=== PATIENT | male | born 1940 | race Caucasian/White ===

== ENCOUNTER 2020-02-22 10:21 | Inpatient (IN) | payer MEDICARE ==
[2020-02-22] MEDS ORDERED: NITROGLYCERIN OINT 1 INCH/GM PACKET TOPICAL STA (10:38)
[2020-02-22] MEDS ORDERED: HEPARIN SODIUM,PORCINE 5,000 UNIT/ML 1 ML VIAL IV ONE (10:46)
[2020-02-22] MEDS ORDERED: HEPARIN SODIUM,PORCINE 5,000 UNIT/ML 1 ML VIAL IV PRN (10:46)
--- NOTE | 2020-02-22 10:57 | XR ---
EXAMINATION TYPE: XR chest 2V DATE OF EXAM: 02/22/2020 COMPARISON: NONE HISTORY: Shortness of breath TECHNIQUE: Frontal and lateral views of the chest are obtained. FINDINGS: Scattered senescent parenchymal changes noted. Hyperinflation compatible with COPD. Right infrahilar infiltrate compatible with pneumonia. Heart size is stable. Mediastinal structures are stable and grossly unremarkable. No evidence for hilar prominence. Degenerative changes dorsal spine. IMPRESSION: 1. Right infrahilar infiltrate compatible with pneumonia.
[2020-02-22] MEDS ORDERED: HEPARIN SOD,PORK IN 0.45% NACL 25,000 UNIT in 0.45% NACL 1 250ML.BAG IV SCH (11:00)
[2020-02-22 11:07] LABS: Basophils % (A) 0 %; Eosinophils # (A) 0.1 k/uL (0-0.7); Eosinophils % (A) 1 %; HCT 52.5 % (39.0-53.0); HGB 17.3 gm/dL (13.0-17.5); Lymphocytes # (A) 0.8 k/uL (1.0-4.8); Lymphocytes % (A) 5 %; MCH 30.4 pg (25.0-35.0); MCV 91.9 fL (80.0-100.0); Mean Platelet Volume 6.5; Monocytes # (A) 0.6 k/uL (0-1.0); Monocytes % (A) 3 %; Neutrophils # (A) 15.3 k/uL (1.3-7.7); Neutrophils % (A) 91 %; Platelet Count 346 k/uL (150-450); RBC 5.71 m/uL (4.30-5.90); RDW 13.1 % (11.5-15.5); WBC 16.9 k/uL (3.8-10.6)
[2020-02-22 11:14] LABS: ALT 34 U/L (4-49); AST 131 U/L (17-59); African American GFR (CKD) >90 (>60 ml/min/1.73 sqM); Alkaline Phosphatase 104 U/L (38-126); Anion Gap 14 mmol/L; Blood Urea Nitrogen 16 mg/dL (9-20); Calcium 9.8 mg/dL (8.4-10.2); Carbon Dioxide 23 mmol/L (22-30); Chloride 101 mmol/L (98-107); Glucose 144 mg/dL (74-99); Lipase 49 U/L (23-300); Magnesium 2.1 mg/dL (1.6-2.3); Non-African American GFR(CKD) 79 (>60 ml/min/1.73 sqM); Potassium 4.2 mmol/L (3.5-5.1); Sodium 138 mmol/L (137-145); Total Bilirubin 0.9 mg/dL (0.2-1.3); Total Protein 8.1 g/dL (6.3-8.2)
[2020-02-22 11:36] LABS: Partial Thromboplastin Time 24.8 sec (22.0-30.0); Prothrombin Time 10.5 sec (9.0-12.0)
--- NOTE | 2020-02-22 11:58 | ED ---
Chest Pain HPI - General Source: patient, EMS, RN notes reviewed Mode of arrival: EMS Limitations: no limitations <Jude Palmer - Last Filed: 02/22/20 12:35> <Isa Mendieta - Last Filed: 02/25/20 14:24> - General Chief Complaint: Chest Pain Stated Complaint: Chest Pain Time Seen by Provider: 02/22/20 10:35 - History of Present Illness Initial Comments: 79 - Male presents emergency Department chief complaint of chest discomfort. Patient states symptoms started around 3 AM this morning. Patient states that is centralized right-sided. Patient has no prior cardiac disease. Patient states he does not take any current medications though does not go to a primary care physician as states she's never needed to. Patient does not feel short of breath at this time reports no fevers or chills. (Jude Palmer) - Related Data Home Medications Medication Instructions Recorded Confirmed No Known Home Medications 02/22/20 02/22/20 Allergies Allergy/AdvReac Type Severity Reaction Status Date / Time latex Allergy Rash/Hives Verified 02/22/20 11:35 Review of Systems ROS Other: All systems not noted in ROS Statement are negative. <Jude Palmer - Last Filed: 02/22/20 12:35> ROS Other: All systems not noted in ROS Statement are negative. <Isa Mendieta - Last Filed: 02/25/20 14:24> ROS Statement: Those systems with pertinent positive or pertinent negative responses have been documented in the HPI. EKG Findings - EKG Comments: EKG Findings:: EKG 0.7:22 sinus tachycardia rate of 1:11 PM 164 QRS 90 QT status QTC 326/[address] elevation noted in V4 V5 <Jude Palmer - Last Filed: 02/22/20 12:35> Past Medical History Past Medical History: No Reported History History of Any Multi-Drug Resistant Organisms: None Reported Past Surgical History: Appendectomy, Cholecystectomy, Hernia Repair Past Psychological History: No Psychological Hx Reported Smoking Status: Never smoker Past Alcohol Use History: Occasional Past Drug Use History: None Reported <Jude Palmer - Last Filed: 02/22/20 12:35> General Exam Limitations: no limitations General appearance: alert, in no apparent distress Head exam: Present: atraumatic, normocephalic, normal inspection Eye exam: Present: normal appearance, PERRL, EOMI. Absent: scleral icterus, conjunctival injection, periorbital swelling ENT exam: Present: normal exam, mucous membranes moist Neck exam: Present: normal inspection, full ROM. Absent: tenderness, meningismus, lymphadenopathy Respiratory exam: Present: normal lung sounds bilaterally. Absent: respiratory distress, wheezes, rales, rhonchi, stridor Cardiovascular Exam: Present: normal rhythm, tachycardia, normal heart sounds. Absent: systolic murmur, diastolic murmur, rubs, gallop, clicks <Jude Palmer - Last Filed: 02/22/20 12:35> Course <Jude Palmer - Last Filed: 02/22/20 12:35> Vital Signs 02/22/20 02/22/20 02/22/20 10:23 10:31 10:33 Temperature 98.1 F Pulse Rate 114 H 112 H Pulse Rate [ 115 H Cma ] Respiratory 18 13 Rate Blood Pressure 121/82 O2 Sat by Pulse 95 90 L Oximetry 02/22/20 02/22/20 02/22/20 11:00 11:20 11:30 Temperature 98.6 F Pulse Rate 114 H 121 H 122 H Pulse Rate [ Cma ] Respiratory 8 L 22 17 Rate Blood Pressure 121/82 130/87 130/87 O2 Sat by Pulse 91 L 93 L 92 L Oximetry 02/22/20 02/22/20 02/22/20 11:31 12:00 12:30 Temperature Pulse Rate 116 H 118 H Pulse Rate [ Cma ] Respiratory 22 17 16 Rate Blood Pressure 125/87 128/83 O2 Sat by Pulse 89 L 90 L Oximetry 02/22/20 13:00 Temperature Pulse Rate Pulse Rate [ Cma ] Respiratory Rate Blood Pressure 127/79 O2 Sat by Pulse Oximetry - Reevaluation(s) Reevaluation #1: 02/22/20 12:02 Dr. Mendieta did discuss case with Dr. Villatoro at 1201 patient to be evaluated in the emergency department. (Jude Palmer) Chest Pain [facility] <Jude Palmer - Last Filed: 02/22/20 12:35> <Isa Mendieta - Last Filed: 02/25/20 14:24> - [facility] Patient evidence of elevated troponin. Cardiology was counseled at this time. Patiently take it for heart cath. (Jude Palmer) I was available for consultation in the emergency department. The history and physical exam were done by the midlevel provider. I was consulted for this patients care. I reviewed the case with the midlevel provider and based on their presentation of the patient, I agree with the assessment, medical decision making and plan of care as documented. Two EKG obtained serially due to biphasic nature of V3-V4. Patient evaluated myself and chest pain minimal upon my exam. Spoke with Dr. Villatoro in regards to patients EKG. His MACHINE MOLDER presented immediately to ED to evaluate the patient and take him to oven laborer for further intervention. Chart was dictated using [employer] dictation software. Attempts were made to correct any dictation errors however some typographical errors may persist. Patient was seen during a national state of emergency due to the Covid-19 pandemic. (Isa Mendieta) Critical Care Time Critical Care Time: Yes Total Critical Care Time: 35 <Jude Palmer - Last Filed: 02/22/20 12:35> Critical Care Time: Total 35 minutes of critical care time used to initially evaluated view past medical history, according labs EKG and chest x-ray. Patient found to have a troponin at 14 case is discussed with cardiology who will take patient for heart catheterization. Patient does have evidence of possible pneumonia though he does not have fever. Patient did have CT aorta of the chest. (Jude Palmer) Disposition <Jude Palmer - Last Filed: 02/22/20 12:35> <Isa Mendieta - Last Filed: 02/25/20 14:24> Clinical Impression: NSTEMI (non-ST elevated myocardial infarction) Disposition: ADMITTED IP TO THIS HOSP Condition: Serious
[2020-02-22] MEDS ORDERED: NITROGLYCERIN SL TABS 0.4 MG TAB SUBLINGUAL PRN ×2 (12:37→14:28)
[2020-02-22] MEDS ORDERED: ALPRAZolam 0.25 MG TAB PO PRN (12:40)
[2020-02-22] MEDS ORDERED: SODIUM CHLORIDE 0.9% 1,000 ML in EMPTY BAG 1 BAG IV ONE (12:40)
[2020-02-22] MEDS ORDERED: ATORVASTATIN 80 MG TAB PO STA (12:40)
[2020-02-22] MEDS ORDERED: ALPRAZolam 0.5 MG TAB PO PRN (12:40)
[2020-02-22] MEDS ORDERED: LIDOCAINE 1% INJ 10MG/ML (20 ML MDV) ONE (12:56)
[2020-02-22] MEDS ORDERED: VERAPAMIL 2.5 MG/ML 2 ML AMP ONE (12:56)
[2020-02-22] MEDS ORDERED: fentaNYL (PF) 50 MCG/ML 2 ML AMP ONE (13:00)
[2020-02-22] MEDS ORDERED: IV FLUID CONTINUATION 1,000 ML IV ONE (13:01)
[2020-02-22] MEDS ORDERED: fentaNYL (PF) 50 MCG/ML 2 ML AMP IV ONE (13:17)
[2020-02-22] MEDS ORDERED: LIDOCAINE 1% INJ 10MG/ML (20 ML MDV) SQ ONE (13:19)
[2020-02-22] MEDS ORDERED: VERAPAMIL SYRINGE (5 MG/10 ML) INTRAARTER ONE (13:24)
[2020-02-22] MEDS ORDERED: BIVALIRUDIN BOLUS 250 MG/50 ML IV ONE (13:33)
[2020-02-22] MEDS ORDERED: BIVALIRUDIN 250 MG in SODIUM CHLORIDE 0.9% 50 ML IV ONE (13:34)
[2020-02-22] MEDS ORDERED: TICAGRELOR 90 MG TAB ONE (13:36)
[2020-02-22] MEDS ORDERED: TICAGRELOR 90 MG TAB PO ONE (13:38)
[2020-02-22] MEDS ORDERED: IOPAMIDOL-370 125ML BTL INJ ONE ×2 (13:45→14:10)
[2020-02-22] MEDS: NITROGLYCERIN 1000MCG/10ML SYRINGE INTRACORON ONE ×2 (13:45→13:57)
[2020-02-22] MEDS ORDERED: FUROSEMIDE 10 MG/ML 4 ML VIAL ONE (13:47)
[2020-02-22] MEDS ORDERED: FUROSEMIDE 10 MG/ML 4 ML VIAL IV ONE (13:50)
[2020-02-22] MEDS ORDERED: METOPROLOL TARTRATE 25 MG TAB PO SCH (14:10)
[2020-02-22] MEDS ORDERED: ATROPINE SULFATE 0.1 MG/ML 10ML SYRINGE IV PRN (14:28)
[2020-02-22] MEDS ORDERED: RX INFO: IV CONTRAST WAS GIVEN 1 EACH MISC MISCELLANE PRN (14:28)
[2020-02-22] MEDS ORDERED: MAG HYDROX/AL HYDROX/SIMETH 30 ML CUP PO PRN (14:28)
[2020-02-22] MEDS ORDERED: ZOLPIDEM 5 MG TAB PO PRN (14:28)
[2020-02-22] MEDS ORDERED: SODIUM CHLORIDE 0.9% 1,000 ML IV SCH (14:30)
--- NOTE | 2020-02-22 14:35 | P.CRDCN ---
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 He denies prior history of coronary artery disease and does not follow in the office with a truss builder. We have been asked to see in consultation for chest pain. He states he was up last night at 0300 on his computer and he had a sudden onset of chest pressure in the mid-sternal and left precoridal region. The pain did not radiate to the back, arm, neck or jaw. He did notice some mild shortness of breath but not significant. He is also coughing up pink frothy sputum. He denies associated palpitations, nausea, vomiting, diaphoresis or palpitations. He called EMS. His initial pain level was 7/10. After receiving nitropaste his pain has gone down to a 3. DIAGNOSTICS Initial EKG reveals sinus tachycardia heart rate [address] elevation noted in the low lateral leads. Repeat an hour later reveals persistent sinus tachycardia with ongoing ST elevation. Chest xray right infrahilar infiltrate. Laboratory reviewed, WBC 16.9, hgb 17.3, plt 346, sodium 138, potassium 4.2, creatinine 0.91, magnesium 2.1, troponin 14.1 and NTproBNP 3540. He takes no daily cardiac medications. REVIEW OF SYSTEMS At the time of my exam: CONSTITUTIONAL: Denies fever or chills. CARDIOVASCULAR: Complains of chest pain and some mild shortness of breath. Denies of breath, orthopnea, PND or palpitations. RESPIRATORY: Complains of cough. GASTROINTESTINAL: Denies abdominal pain, diarrhea, constipation, nausea or vom iting. MUSCULOSKELETAL: Denies myalgias. NEUROLOGIC: Denies numbness, tingling or weakness. ENDOCRINE: Denies fatigue, weight change, polydipsia or polyurina. GENITOURINARY: Denies burning, hematuria or urgency with micturation. HEMATOLOGIC: Denies history of anemia or bleeding. PHYSICAL EXAMINATION Blood pressure 130/87 heart rate 121 afebrile and maintaining oxygen saturation on nasal cannula. CONSTITUTIONAL: No apparent distress. HEENT: Head is normocephalic. Pupils are equal, round. Sclerae anicteric. Mucous membranes of the mouth are moist. No JVD. No carotid bruit. CHEST EXAMINATION: Course rales bilaterally. No wheezes. No chest wall tenderness is noted on palpation or with deep breathing. HEART EXAMINATION: Regular rate and rhythm. S1, S2 heard. No murmurs, gallops or rub. Distant heart sounds ABDOMEN: Soft, nontender. Positive bowel sounds. EXTREMITIES: 2+ peripheral pulses, no lower extremity edema and no calf tenderness. NEUROLOGIC EXAMINATION: Patient is awake, alert and oriented x3. ASSESSMENT ST elevated myocardial infarction Sinus tachycardia Acute systolic heart failure Leukocytosis Macular degeneration PLAN Bedside echo reveals poor LV function with severe hypokinesia. Recommend cardiac catheterization to assess for coronary artery disease. I have discussed the risks, benefits and alternative therapies for the above-mentioned procedure and for both sedation/analgesia as well as necessary blood product administration, if indicated, as they pertain to this patient. The patient has indicated understanding and acceptance of the risks and procedures discussed. Questions have been answered appropriately and he is agreeable to move forward with the above stated procedure. Further recommendations to follow based on clinical course. Thank you kindly for this consultation. Nurse Practitioner note has been reviewed, I agree with a documented findings and plan of care. Patient was seen and examined. Past Medical History Past Medical History: No Reported History History of Any Multi-Drug Resistant Organisms: None Reported Past Surgical History: Appendectomy, Cholecystectomy, Hernia Repair Past Psychological History: No Psychological Hx Reported Smoking Status: Never smoker Past Alcohol Use History: Occasional Past Drug Use History: None Reported Medications and Allergies Home Medications Medication Instructions Recorded Confirmed Type No Known Home Medications 02/22/20 02/22/20 History Allergies Allergy/AdvReac Type Severity Reaction Status Date / Time latex Allergy Rash/Hives Verified 02/22/20 11:35 Physical Exam Vitals: Vital Signs Temp Pulse Pulse Resp BP Pulse Ox 02/22/20 11:31 22 02/22/20 11:30 98.6 F 02/22/20 11:20 121 H 22 130/87 93 L 02/22/20 10:33 115 H 02/22/20 10:23 98.1 F 114 H 18 121/82 95 Intake and Output 02/21/20 02/22/20 02/22/20 22:59 06:59 14:59 Other: Weight 74.843 kg Results 02/22/20 10:42 02/22/20 10:42 Cardiac Enzymes 02/22/20 02/22/20 Range/Units 10:42 10:42 AST 131 H (17-59) U/L Troponin I 14.100 H* (0.000-0.034) ng/mL Coagulation 02/22/20 Range/Units 10:42 PT 10.5 (9.0-12.0) sec APTT 24.8 (22.0-30.0) sec CBC 02/22/20 Range/Units 10:42 WBC 16.9 H (3.8-10.6) k/uL RBC 5.71 (4.30-5.90) m/uL Hgb 17.3 (13.0-17.5) gm/dL Hct 52.5 (39.0-53.0) % Plt Count 346 (150-450) k/uL Comprehensive Metabolic Panel 02/22/20 Range/Units 10:42 Sodium 138 (137-145) mmol/L Potassium 4.2 (3.5-5.1) mmol/L Chloride 101 (98-107) mmol/L Carbon Dioxide 23 (22-30) mmol/L BUN 16 (9-20) mg/dL Creatinine 0.91 (0.66-1.25) mg/dL Glucose 144 H (74-99) mg/dL Calcium 9.8 (8.4-10.2) mg/dL AST 131 H (17-59) U/L ALT 34 (4-49) U/L Alkaline Phosphatase 104 (38-126) U/L Total Protein 8.1 (6.3-8.2) g/dL Albumin 5.0 (3.5-5.0) g/dL Current Medications Generic Name Dose Route Start Last Admin Trade Name Freq PRN Reason Stop Dose Admin Alprazolam 0.25 mg 02/22/20 12:40 Alprazolam 0.25 Mg Tab PO Q6HR PRN Mild Anxiety Alprazolam 0.5 mg 02/22/20 12:40 Alprazolam 0.5 Mg Tab PO Q6HR PRN Moderate Anxiety Aspirin 325 mg 02/23/20 09:00 Aspirin 325 Mg Tab PO DAILY ANGELO Heparin Sodium (Porcine) 0 unit 02/22/20 10:46 Heparin Sodium,Porcine 5,000 Unit/Ml 1 Ml Vial IV PER PROTOCOL PRN Low PTT Protocol Heparin Sodium/Sodium Chloride 250 mls @ 8.981 mls/hr 02/22/20 11:00 02/22/20 11:01 25,000 unit/ Sodium Chloride IV 12 units/kg/hr .Q24H ANGELO 8.981 mls/hr Administration Protocol 12 UNITS/KG/HR Sodium Chloride 1,000 ml/ IV 1,000 mls @ 74.843 mls/hr 02/22/20 12:40 Solution IV 02/23/20 02:01 .[id number] ONE 1 ML/KG/HR Nitroglycerin 0.4 mg 02/22/20 12:37 Nitroglycerin Sl Tabs 0.4 Mg Tab SUBLINGUAL Q5M PRN Chest Pain Intake and Output 02/21/20 02/22/20 02/22/20 22:59 06:59 14:59 Other: Weight 74.843 kg Patient Weight 02/23/20 06:59 Weight 74.843 kg 02/22/20 10:42 02/22/20 10:42
--- NOTE | 2020-02-22 14:49 | CC ---
CARDIAC CATHETERIZATION REPORT Mr. Crespo is an 79-year-old male with no prior documented history of cardiac disease, does not follow with a physician who presented to the emergency room with acute onset chest discomfort at 3 o'clock in the morning while sitting on his computer. He came into the emergency room because of the persistent pain and was found to have T- wave inversion in the lateral leads, biphasic with minimal ST-segment elevation in addition to a troponin of 14. He had sinus tachycardia on presentation. In view of the presentation, recommendation made regarding cardiac catheterization. The procedures, risks, and complication were discussed with the patient who is in full understanding and agreement. PROCEDURE: Patient was brought to the carpenter/labor in a fasting semi-sedated state after receiving fentanyl and Benadryl and achieving moderate conscious sedated state, using Xylocaine anesthesia and Seldinger technique, a 6-Croatian sheath was introduced in the right radial artery. Selective right coronary angiography performed using 5-Croatian 3.5 bend, right and left Diana catheter and subsequently a 6-Croatian FL 3.5 guiding catheter introduced into the system and images of the left coronary system were obtained. Following that, angioplasty and stenting of the LAD was performed. Following that, the 6-Croatian FR4 guiding catheter introduced in the system. The aortic valve was crossed and left ventricular end-diastolic pressure was calculated. Following that, angioplasty of the right coronary artery was performed. Following that, catheter and sheath were removed. Hemostasis was obtained with deployment of a TR band. There was no immediate complication. Patient was returned to his room in stable condition. Of note, patient received oral loading dose of Brilinta as well as intra-arterial verapamil and was started on Angiomax per protocol. FINDINGS: LEFT MAIN: This is a large-sized vessel, bifurcating into left circumflex, left anterior descending artery. Left main coronary artery has no evidence of high-grade stenosis. LEFT ANTERIOR DESCENDING ARTERY: This vessel is totally occluded proximally with no significant antegrade flow with dye hanging noted consistent with an acute event. LEFT CIRCUMFLEX: This is a large nondominant vessel giving rise to a large obtuse marginal branch. The left circumflex has a 40% to 50% plaque proximally with no evidence of high-grade stenosis. RIGHT CORONARY ARTERY: This is a large dominant vessel, bifurcating distally into PDA and posterolateral segment branches. The distal right coronary artery has a 99% stenosis with slow flow distally into the PDA and PLV. The mid right coronary artery has intimal disease of 20% to 30%. COLLATERALS: There is right to left collaterals to the septal as well as [id number] collaterals noted as well. HEMODYNAMICS: There was no gradient across the aortic valve. The left ventricular end- diastolic pressure is 25-30 mmHg. CONCLUSION: 1. Acutely occluded proximal LAD. 2. Subtotally occluded distal right coronary artery. 3. Mild disease in left circumflex. 4. Elevated left ventricular end-diastolic pressure. RECOMMENDATION: In view of finding anatomy, I recommend proceeding with angioplasty and stenting of the LAD and the right coronary artery. The procedures, risks, and complication were discussed with the patient who is in full understanding and agreement. MMODL / IJN: [id number] /
--- NOTE | 2020-02-22 14:53 | PTCA ---
PERCUTANEOUSTRANS CORORONARY ANGIOGRAPHY Mr. Crespo is an 79-year-old male who presented to the emergency room with evidence of an acute coronary syndrome with biphasic T-wave inversion laterally and mild ST elevation with troponin of 14. In view of that, he underwent cardiac catheterization, was found to have an acutely occluded LAD and subtotally occluded right coronary artery. Recommendations were made regarding angioplasty and stenting. The procedures, risks, and complication were discussed with the patient who is in full understanding and agreement. PROCEDURE: Using the 6-[place]ay[place] Islander FL 3.5 guiding catheter, a 0.014 balanced medium weight J-wire with the help of a straight FineCross microcatheter were used to cross the total occlusion. Following that, the microcatheter was removed and a 2.5 x 12 mm Trek balloon was advanced and 2 inflations at 10 atmospheres were done. Following that, the balloon was removed and a 3.5 x 23 mm Xience Meghna stent was deployed, post-dilated at 16 atmospheres. After the last inflation, after appropriate wait. The balloon and the guidewire were withdrawn back in the guiding catheter. Images were obtained and repeated. Those images reveal stable successful stenting. At that point, the guiding catheter, the balloon and the guidewire removed and a 6-Cay[place] Islander FR4 guiding catheter introduced into the system. After cannulating the right coronary ostium, the 0.014 balanced medium weight J-wire was advanced across the subtotal occlusion, positioned in the PLV. Following that, a 2.5 x 12 mm Trek balloon was advanced and 2 inflations at 8 atmospheres were done. Following that, the balloon was removed and a 3.0 x 33 mm Xience Meghna stent was advanced, deployed and post dilated at 16 atmospheres. After the last inflation, after appropriate wait, the balloon and the guidewire were withdrawn back in the guiding catheter. Images were obtained and repeated. Those images reveal stable successful stenting. At that point, the guiding catheter, the balloon and the guidewire removed, the sheath was removed, hemostasis was obtained with deployment of a TR band. There was no immediate complication. Patient is returned to his room in stable condition. Of note, the patient received Angiomax per protocol as well as oral loading dose of Brilinta. His chest discomfort has improved. He continues to have sinus tachycardia, but his breathing was better. RESULTS: 1. Successful stenting of the proximal LAD with reduction of stenosis from 100% to 0%. 2. Successful stenting of the distal right coronary artery with reduction of stenosis from 99% to 0%. RECOMMENDATION: Patient will be continued on aspirin, Brilinta, ROSSY inhibitor and beta margret will be on hold now because of his sinus tachycardia and possible impending heart failure and depending on his progress, further recommendation will be made. Those findings and recommendation were discussed with the patient and his son and they are in full understanding and agreement. Duration of the sedation 49 minutes. MMODL / IJN: [id number] /
--- NOTE | 2020-02-22 17:42 | ECHOF ---
Referral Reason:NSTEMI MEASUREMENTS -------- HEIGHT: 177.8 cm WEIGHT: 70.3 kg BP: 130/87 RVIDd: 3.2 cm (< 3.3) IVSd: 1.2 cm (0.6 - 1.1) LVIDd: 3.9 cm (3.9 - 5.3) LVPWd: 1.1 cm (0.6 - 1.1) IVSs: 1.4 cm LVIDs: 3.4 cm LVPWs: 1.7 cm LA Diam: 3.5 cm (2.7 - 3.8) Ao Diam: 3.6 cm (2.0 - 3.7) AV Cusp: 1.7 cm (1.5 - 2.6) MV EXCURSION: 11.613 mm (> 18.000) MV EF SLOPE: 145 mm/s (70 - 150) EPSS: 1.5 cm MV E Hao: 0.86 m/s MV DecT: 61 ms MV A Hao: 0.33 m/s MV E/A Ratio: 2.61 RAP: 5.00 mmHg RVSP: 48.98 mmHg FINDINGS -------- Resting tachycardia (HR>100bpm). This was a technically adequate study. The left ventricular size is normal. There is borderline concentric left ventricular hypertrophy. Overall left ventricular systolic function is severely impaired with, an EF between 20 - 25 %. Bas al inferior LV wall motion is hypokinetic. Basal inferoseptal LV wall motion is hypokinetic. Mi d inferior LV wall motion is hypokinetic. Mid inferoseptal LV wall motion is hypokinetic. Apica l anterior LV wall motion is hypokinetic. Apical lateral LV wall motion is hypokinetic. Apical inferior LV wall motion is hypokinetic. Apical septum LV wall motion is hypokinetic. The right ventricle is normal in size. The left atrium is normal in size. The right atrium is normal in size. Interatrial and interventricular septum intact. There is mild aortic valve sclerosis. There is mild aortic regurgitation. The mitral valve leaflets are mildly thickened. Mild mitral annular calcification present. Modera te mitral regurgitation is present. Moderate tricuspid regurgitation present. There is moderate pulmonary hypertension. The right cata tricular systolic pressure, as measured by Doppler, is 48.98mmHg. Trace/mild (physiologic) pulmonic regurgitation. Can not r/o thrombus The aortic root size is normal. Normal inferior vena cava with normal inspiratory collapse consistent with estimated right atrial pre ssure of 5 mmHg. There is no pericardial effusion. CONCLUSIONS -------- 1. The left ventricular size is normal. 2. There is borderline concentric left ventricular hypertrophy. 3. Overall left ventricular systolic function is severely impaired with, an EF between 20 - 25 %. 4. Basal inferior LV wall motion is hypokinetic. 5. Basal inferoseptal LV wall motion is hypokinetic. 6. Mid inferior LV wall motion is hypokinetic. 7. Mid inferoseptal LV wall motion is hypokinetic. 8. Apical anterior LV wall motion is hypokinetic. 9. Apical lateral LV wall motion is hypokinetic. 10. Apical inferior LV wall motion is hypokinetic. 11. Apical septum LV wall motion is hypokinetic. 12. There is mild aortic valve sclerosis. 13. There is mild aortic regurgitation. 14. The mitral valve leaflets are mildly thickened. 15. Mild mitral annular calcification present. 16. Moderate mitral regurgitation is present. 17. Moderate tricuspid regurgitation present. 18. There is moderate pulmonary hypertension. 19. The right ventricular systolic pressure, as measured by Doppler, is 48.98mmHg. 20. Trace/mild (physiologic) pulmonic regurgitation. 21. Can not r/o thrombus 22. There is no pericardial effusion. CARPENTRY PROFESSIONAL: BOLA Rodríguez
[2020-02-22] MEDS ORDERED: AZITHROMYCIN 500 MG in SODIUM CHLORIDE 0.9% 250 ML IVPB SCH (18:00)
--- NOTE | 2020-02-22 19:27 | P.HPIM ---
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 He suddenly developed chest pressure mainly mid retrosternal without any radiation to the arm to the back or jaw. Since then patient has been having chest congestion and flulike symptoms and cough with clear to red tinged sputum and shortness of breath. Denied any nausea vomiting or diaphoresis. No palpitations. He called EMS and was brought to the hospital. Patient was given Nitropaste and his pain level improved from 7/ 10 to 3 /7. In the ER EKG showed sinus rhythm with ST elevation in the lateral leads and sinus tachycardia. Chest x-ray showed right infrahilar infiltrate compatible with pneumonia. Laboratory data showed WBC 16.9, hemoglobin 17.3, platelets 346, neutrophils 15.3 and lymphocytes 0.8 Sodium 138, potassium 4.2, BUE and 16 and creatinine 0.91 blood sugar is 144 Troponin 14.1, 348, NT proBNP is 3540 Covid 19 rapid test negative. Review of Systems Constitutional: Patient denies any fever or chills . No generalized weakness or weight loss. Abdomen: Patient denied nausea vomiting and diarrhea and abdominal pain. Cardiovascular: Patient does have chest pain or shortness of breath. No palpitations. No leg swelling.. Respiratory: Does have cough with pink sputum production. Mild shortness of breath Neurologic: Patient denied any numbness or tingling headache. Musculoskeletal: Patient denies any complaints of joint swelling or deformity. Skin: Negative Psychiatric: Negative Endocrine: No heat or cold intolerance. No recent weight gain. Genitourinary: No dysuria or hematuria. All other 14 point ROS negative except the above Past Medical History Past Medical History: No Reported History History of Any Multi-Drug Resistant Organisms: None Reported Past Surgical History: Appendectomy, Cholecystectomy, Hernia Repair Past Psychological History: No Psychological Hx Reported Smoking Status: Never smoker Past Alcohol Use History: Occasional Past Drug Use History: None Reported Medications and Allergies Home Medications Medication Instructions Recorded Confirmed Type No Known Home Medications 02/22/20 02/22/20 History Allergies Allergy/AdvReac Type Severity Reaction Status Date / Time latex Allergy Rash/Hives Verified 02/22/20 11:35 Physical Exam Vitals: Vital Signs Temp Pulse Pulse Pulse Resp BP BP 02/22/20 18:53 116 H 20 90/66 02/22/20 18:31 114 H 18 105/71 02/22/20 18:14 112 H 18 109/76 02/22/20 17:14 116 H 18 110/69 02/22/20 16:14 114 H 16 105/69 02/22/20 15:44 117 H 16 115/69 02/22/20 15:14 112 H 18 115/69 02/22/20 14:59 116 H 18 110/59 02/22/20 14:44 118 H 18 116/69 02/22/20 14:29 128 H 18 117/72 02/22/20 11:31 22 02/22/20 11:30 98.6 F 02/22/20 11:20 121 H 22 130/87 02/22/20 10:33 115 H 02/22/20 10:23 98.1 F 114 H 18 121/82 Pulse Ox 02/22/20 18:53 93 L 02/22/20 18:31 96 02/22/20 18:14 94 L 02/22/20 17:14 93 L 02/22/20 16:14 98 02/22/20 15:44 95 02/22/20 15:14 95 02/22/20 14:59 93 L 02/22/20 14:44 95 02/22/20 14:29 94 L 02/22/20 11:31 02/22/20 11:30 02/22/20 11:20 93 L 02/22/20 10:33 02/22/20 10:23 95 Intake and Output 02/22/20 02/22/20 02/22/20 06:59 14:59 22:59 Intake Total 328 Output Total 850 800 Balance -522 -800 Intake: IV 328 Output: Urine 850 800 Other: Weight 74.843 kg PHYSICAL EXAMINATION: Patient is lying in the bed comfortably, no acute distress, awake alert and oriented.. HEENT: Normocephalic. Neck is supple. Pupils reactive. Nostrils clear. Oral cavity is moist. Ears reveal no drainage. Neck reveals no JVD, carotid bruits, or thyromegaly. CHEST EXAMINATION: Trachea is central. Symmetrical expansion. Bibasilar coarse crackles. No wheezing. Nonlabored breathing.. CARDIAC: Normal S1, S2 with no gallops. No murmurs ABDOMEN: Soft. Bowel sounds normal. No organomegaly. No abdominal bruits. Extremities: Trace edema. No clubbing or cyanosis Neurologically awake, alert, oriented x3 with well-coordinated movements. No focal deficits noted Skin: No rash or skin lesions. Psychiatric: Coperative. Nonsuicidal Musculoskeletal: No joint swelling or deformity. Normal range of motion. Results CBC & Chem 7: 02/22/20 10:42 02/22/20 10:42 Labs: Abnormal Lab Results - Last 24 Hours (Table) 02/22/20 02/22/20 02/22/20 Range/Units 10:42 10:42 10:42 WBC 16.9 H (3.8-10.6) k/uL Neutrophils # 15.3 H (1.3-7.7) k/uL Lymphocytes # 0.8 L (1.0-4.8) k/uL Glucose 144 H (74-99) mg/dL AST 131 H (17-59) U/L Troponin I 14.100 H* (0.000-0.034) ng/mL 02/22/20 Range/Units 15:53 WBC (3.8-10.6) k/uL Neutrophils # (1.3-7.7) k/uL Lymphocytes # (1.0-4.8) k/uL Glucose (74-99) mg/dL AST (17-59) U/L Troponin I 348.000 H* (0.000-0.034) ng/mL Thrombosis Risk Factor Assmnt - DVT/VTE Prophylaxis DVT/VTE Prophylaxis: Pharmacologic Prophylaxis ordered Assessment and Plan Assessment: Acute ST elevated IN status post stenting of proximal LAD and distal RCA. Acute CHF with systolic dysfunction. With elevated BNP 3540 Leukocytosis with perihilar infiltrates. Possible pneumonia cannot be excluded. Macular degeneration GI prophylaxis Plan: Patient will be continued on telemetry monitoring. Underwent cardiac catheterization and stenting 2. Continue with aspirin, statins and Ticagrelor. Patient was given a dose of Lasix. We'll repeat chest x-ray tomorrow and continue with empty can to buttocks for possible pneumonia. follow-up CBC and BMP tomorrow Cardiology is on board and further recommendations based on the clinical course. Time with Patient: Greater than 30
[2020-02-22] MEDS ORDERED: NOREPINEPHRINE 4 MG in SODIUM CHLORIDE 0.9% 250 ML IV SCH (19:30)
[2020-02-22] MEDS ORDERED: FUROSEMIDE 10 MG/ML 2 ML VIAL IV ONE (19:30)
[2020-02-22 19:59] LABS: Glucose,Whole Blood 131 mg/dL (75-99)
--- NOTE | 2020-02-22 20:02 | P.CNPUL ---
History of Present Illness Consult date: 02/22/20 Reason for consult: dyspnea History of present illness: 79-year-old male patient who came to the intensive care unit after an emergent cardiac catheterization following an acute ST segment elevation myocardial infarction. The patient came into the emergency department with acute chest pain. He was also having some shortness of breath. On the EKG, the patient had minimal elevation of the ST segments along with inversion of the and the patient was in sinus tachycardia. The patient was taken immediately to the cardiac catheterization the patient underwent angioplasty and stenting of the LAD as the patient was found to have an acutely occluded proximal LAD. There was also subtotally occluded distal RCA and mild disease involving the circumflex. Left ventricular end-diastolic pressure was quite elevated and end-diastolic pressure was around 25-30 mm. Following the procedure, the patient encountered some hypotension. He was given a bolus of 250 mL and he was started on norepinephrine infusion and currently the norepinephrine infusion is running at 0.02 mcg/kg per minute. He is free of any chest pain at this point in time. C ardiac arrhythmias has not been noted. Chest x-ray shows some background COPD and increased interstitial edema consistent with CHF. The echo showed an ejection fraction of 20-25% along with segmental wall motion abnormalities and borderline concentric LVH. There was also moderate degree of mitral regurgitation. The patient is currently on aspirin. The patient is also on Brilinta and the patient is also started on low dose ROSSY inhibitor once the blood pressure tolerates at a dose of 2.5 mg of lisinopril. The patient will be started also on Lasix 20 mg IV push every 12 hours. Review of Systems Constitutional: Denies chills, Denies fever Eyes: denies as per HPI, denies blurred vision, denies bulging eye, denies decreased vision, denies diplopia, denies discharge, denies dry eye, denies irritation, denies itching, denies pain, denies photophobia, denies loss of peripheral vision, denies loss of vision, denies tunnel vision/blind spots Ears, nose, mouth and throat: Denies headache, Denies sore throat Breasts: absent: as per HPI, gynecomastia Cardiovascular: Reports as per HPI, Reports chest pain, Reports decreased exercise tolerance, Reports dyspnea on exertion Respiratory: Reports dyspnea Gastrointestinal: Reports as per HPI Genitourinary: Reports as per HPI Musculoskeletal: Reports as per HPI Musculoskeletal: absent: ankle pain, ankle stiffness, ankle swelling, as per HPI, elbow pain, elbow stiffness, elbow swelling, foot pain, foot stiffness, foot swelling, hand pain, hand stiffness, hand swelling, hip pain, hip stiffness, hip swelling, knee pain, knee stiffness, knee swelling, shoulder pain, shoulder stiffness, shoulder swelling, wrist pain, wrist stiffness, wrist swelling Integumentary: Reports as per HPI Neurological: Reports as per HPI Psychiatric: Reports as per HPI Endocrine: Reports as per HPI Hematologic/Lymphatic: Reports as per HPI Allergic/Immunologic: Reports as per HPI 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 History of Any Multi-Drug Resistant Organisms: None Reported Past Surgical History: Appendectomy, Cholecystectomy, Hernia Repair Past Psychological History: No Psychological Hx Reported Smoking Status: Never smoker Past Alcohol Use History: Occasional Past Drug Use History: None Reported Medications and Allergies Home Medications Medication Instructions Recorded Confirmed Type No Known Home Medications 02/22/20 02/22/20 History Allergies Allergy/AdvReac Type Severity Reaction Status Date / Time latex Allergy Rash/Hives Verified 02/22/20 11:35 Physical Exam Vitals: Vital Signs Temp Pulse Pulse Pulse Resp BP BP 02/22/20 19:24 115 H 18 104/69 02/22/20 19:16 110 H 18 102/69 02/22/20 18:59 122 H 20 89/60 02/22/20 18:53 116 H 20 90/66 02/22/20 18:41 120 H 20 95/69 02/22/20 18:31 114 H 18 105/71 02/22/20 18:14 112 H 18 109/76 02/22/20 17:14 116 H 18 110/69 02/22/20 16:14 114 H 16 105/69 02/22/20 15:44 117 H 16 115/69 02/22/20 15:14 112 H 18 115/69 02/22/20 14:59 116 H 18 110/59 02/22/20 14:44 118 H 18 116/69 02/22/20 14:29 128 H 18 117/72 02/22/20 11:31 22 02/22/20 11:30 98.6 F 02/22/20 11:20 121 H 22 130/87 02/22/20 10:33 115 H 02/22/20 10:23 98.1 F 114 H 18 121/82 Pulse Ox 02/22/20 19:24 97 02/22/20 19:16 97 02/22/20 18:59 93 L 02/22/20 18:53 93 L 02/22/20 18:41 93 L 02/22/20 18:31 96 02/22/20 18:14 94 L 02/22/20 17:14 93 L 02/22/20 16:14 98 02/22/20 15:44 95 02/22/20 15:14 95 02/22/20 14:59 93 L 02/22/20 14:44 95 02/22/20 14:29 94 L 02/22/20 11:31 02/22/20 11:30 02/22/20 11:20 93 L 02/22/20 10:33 02/22/20 10:23 95 Intake and Output 02/22/20 02/22/20 02/22/20 06:59 14:59 22:59 Intake Total 328 90 Output Total 850 1000 Balance -522 -910 Intake: IV 328 Oral 90 Output: Urine 850 1000 Other: Weight 74.843 kg The patient appeared well nourished and normally developed. Vital signs as documented. Head exam is unremarkable. No scleral icterus or corneal arcus noted. Neck is without jugular venous distension, thyromegaly, or carotid bruits. Carotid upstrokes are brisk bilaterally. Lungs are clear to auscultation and percussion. Cardiac exam reveals the PMI to be normally sized and situated. Rhythm is regular. First and second heart sounds normal. No murmurs, rubs or gallops. Abdominal exam reveals normal bowel sounds, no masses, no organomegaly and no aortic enlargement. Extremities are nonedematous and both femoral and pedal pulses are normal.Examination of the skin revealed no evidence of significant rashes, suspicious appearing nevi or other concerning lesions.Neurologically, the patient is awake and alert and the patient does not have any focal neurological deficit. Cranial nerves are essentially intact. Results - Laboratory Findings CBC and BMP: 02/22/20 10:42 02/22/20 10:42 PT/INR, D-dimer PT 10.5 sec (9.0-12.0) 02/22/20 10:42 INR 1.0 (<1.2) 02/22/20 10:42 Abnormal lab findings: Abnormal Labs 02/22/20 02/22/20 02/22/20 10:42 10:42 10:42 WBC 16.9 H Neutrophils # 15.3 H Lymphocytes # 0.8 L Glucose 144 H AST 131 H Troponin I 14.100 H* 02/22/20 15:53 WBC Neutrophils # Lymphocytes # Glucose AST Troponin I 348.000 H* - Diagnostic Findings Chest x-ray: image reviewed Assessment and Plan Plan: [address] segment elevation myocardial infarction status post immediate cardiac catheterization and stenting of the proximal LAD.the patient's troponin peaked at 348. Currently free of any chest pain. Currently on a combination of aspirin and Brilinta. 2 CHF with an ejection fraction of 20-25%, consistent with systolic heart failure 3 cardiogenic shock currently on low-dose pressors for hemodynamic support 4 acute hypoxic respiratory failure and secondaryshortness of breath secondary to pulmonary edema, post STEMI, currently on 6 L of oxygen by nasal cannula. 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
[2020-02-22] MEDS: FUROSEMIDE 10 MG/ML 2 ML VIAL IV SCH (20:21)
[2020-02-22] MEDS: TICAGRELOR 90 MG TAB PO SCH (20:23)
[2020-02-22] MEDS: SPIRONOLACTONE 25 MG TAB PO SCH (23:01)
[2020-02-23] MEDS: HEPARIN SODIUM,PORCINE 5,000 UNIT/ML 1 ML VIAL SQ SCH ×4 (00:28→23:02)
[2020-02-23 04:53] LABS: Basophils % (A) 0 %; Eosinophils # (A) 0.1 k/uL (0-0.7); Eosinophils % (A) 0 %; HCT 47.6 % (39.0-53.0); HGB 15.8 gm/dL (13.0-17.5); Lymphocytes # (A) 1.1 k/uL (1.0-4.8); Lymphocytes % (A) 6 %; MCH 30.1 pg (25.0-35.0); MCHC 33.2 g/dL (31.0-37.0); MCV 90.6 fL (80.0-100.0); Mean Platelet Volume 6.6; Monocytes # (A) 1.1 k/uL (0-1.0); Monocytes % (A) 7 %; Neutrophils # (A) 14.3 k/uL (1.3-7.7); Neutrophils % (A) 85 %; Platelet Count 280 k/uL (150-450); RBC 5.25 m/uL (4.30-5.90); RDW 13.2 % (11.5-15.5); WBC 16.7 k/uL (3.8-10.6)
[2020-02-23 05:09] LABS: African American GFR (CKD) >90 (>60 ml/min/1.73 sqM); Anion Gap 7 mmol/L; Blood Urea Nitrogen 16 mg/dL (9-20); Calcium 8.5 mg/dL (8.4-10.2); Carbon Dioxide 27 mmol/L (22-30); Chloride 100 mmol/L (98-107); Cholesterol 166 mg/dL (<200); Glucose 119 mg/dL (74-99); HDL Cholesterol 34 mg/dL (40-60); LDL Cholesterol,Calculated 115 mg/dL (0-99); Non-African American GFR(CKD) 79 (>60 ml/min/1.73 sqM); Potassium 3.9 mmol/L (3.5-5.1); Sodium 134 mmol/L (137-145); Triglycerides 83 mg/dL (<150)
--- NOTE | 2020-02-23 07:32 | PN ---
PROGRESS NOTE Mr. Crespo is an 79-year-old male with no prior history of cardiac disease who presented to the emergency room with symptoms of chest discomfort, evidence of anterior myocardial infarction, elevation of the troponin, underwent cardiac catheterization was found to have a totally occluded LAD and subtotally occluded RCA, underwent stenting of both vessels. On presentation, he had sinus tachycardia with evidence of cardiogenic shock requiring norepinephrine yesterday. He is feeling much better today. His heart rate is down. He is off the norepinephrine. He has no further chest pain. He is breathing stable. He denies any dizziness or palpitation. He denies any nausea. He continued to be in sinus mechanism and continued to be on aspirin once a day, Lipitor 80 mg daily, Lasix 20 mg IV q.12 hours, lisinopril 2.5 mg twice a day and Aldactone 25 mg daily in addition to Brilinta. PHYSICAL EXAMINATION: Blood pressure running in the high 90s low 100s with a heart rate in the 90s, afebrile. LUNGS: A few crackles at the bases. HEART: Regular rate and rhythm. S1, S2. No S3 with systolic murmur. No rub. ABDOMEN: Soft, nontender. EXTREMITIES: No edema. Right radial pulse intact. LAB DATA: Lab data revealed white blood cell of 16.7, hemoglobin 15.8. BUN and creatinine 16 and 0.91. His peak troponin is 348.000. His chest x-ray shows no infiltrate in with improvement of the findings of congestive heart failure yesterday. IMPRESSION: 1. Status post anterior myocardial infarction with severely impaired left ventricular systolic function, evidence of ischemic cardiomyopathy. 2. Status post stenting of the LAD and the RCA. 3. Evidence of cardiogenic shock yesterday, improved. RECOMMENDATION: From the cardiac standpoint, will continue present therapy. I will hold on the beta margret for another 24 hours. Increase his activity gradually. I will stop his antibiotics because I do not see any evidence to suggest pneumonia. We will follow his renal function closely and depending on his progress, further recommendation will be made. MMODL / IJN: [id number] /
--- NOTE | 2020-02-23 08:48 | XR ---
EXAMINATION TYPE: XR chest 1V portable DATE OF EXAM: 02/23/2020 COMPARISON: 02/22/2020 HISTORY: Chest pain TECHNIQUE: Single frontal view of the chest is obtained. FINDINGS: Hyperinflation suggests COPD. Soft tissue fold noted overlying the left hemithorax. Hypert rophic degenerative change of the spine. Coarsened interstitium with patchy infiltrate in the right u pper lobe. No sizable pleural effusion or pneumothorax. Arthropathy of the shoulders. Atherosclerotic change aorta. IMPRESSION: 1. COPD with patchy right upper lobe infiltrate. Correlate for venous congestion versus interstitial pneumonitis.
[2020-02-23] MEDS ORDERED: ASPIRIN 325 MG TAB PO SCH (09:00)
[2020-02-23] MEDS ORDERED: ASPIRIN 81 MG PO SCH (09:00)
[2020-02-23 10:01] VITALS: BMI 23.6
[2020-02-23] MEDS: TICAGRELOR 90 MG TAB PO SCH ×2 (10:12→21:02)
[2020-02-23] MEDS: SPIRONOLACTONE 25 MG TAB PO SCH (10:12)
[2020-02-23] MEDS: ATORVASTATIN 80 MG TAB PO SCH (10:12)
[2020-02-23] MEDS: ASPIRIN 81 MG PO SCH (10:12)
[2020-02-23] MEDS: FUROSEMIDE 10 MG/ML 2 ML VIAL IV SCH ×2 (10:12→21:02)
--- NOTE | 2020-02-23 15:24 | P.PN ---
Subjective Progress Note Date: 02/23/20 Principal diagnosis: Acute ST segment elevation myocardial infarction 79-year-old male patient who came to the intensive care unit after an emergent cardiac catheterization following an acute ST segment elevation myocardial infarction. The patient came into the emergency department with acute chest pain. He was also having some shortness of breath. On the EKG, the patient had minimal elevation of the ST segments along with inversion of the and the patient was in sinus tachycardia. The patient was taken immediately to the cardiac catheterization the patient underwent angioplasty and stenting of the LAD as the patient was found to have an acutely occluded proximal LAD. There was also subtotally occluded distal RCA and mild disease involving the circumflex. Left ventricular end-diastolic pressure was quite elevated and end-diastolic pressure was around 25-30 mm. Following the procedure, the patient encountered some hypotension. He was given a bolus of 250 mL and he was started on norepinephrine infusion and currently the norepinephrine infusion is running at 0.02 mcg/kg per minute. He is free of any chest pain at this point in time. Cardiac arrhythmias has not been noted. Chest x-ray shows some background COPD and increased interstitial edema consistent with CHF. The echo showed an ejection fraction of 20-25% along with segmental wall motion abnormalities and borderline concentric LVH. There was also moderate degree of mitral regurgitation. The patient is currently on aspirin. The patient is also on Brilinta and the patient is also started on low dose ROSSY inhibitor once the blood pressure tolerates at a dose of 2.5 mg of lisinopril. The patient will be started also on Lasix 20 mg IV push every 12 hours. Patient is seen today 02/23/2020 in follow-up in the intensive care unit. He is currently resting comfortably in bed. Awake and alert in no acute distress. He denies any chest pain, palpitations lightheadedness or dizziness. He is afebrile. Maintaining O2 saturations in the 90s on room air. Blood pressure stable. White count 16.7. Hemoglobin 15.8. Sodium 134. Chest x-ray reveals evidence of hyperinflation suggestive of COPD with a patchy right upper lobe infiltrate. Some mild venous congestion versus initiation pneumonitis noted. He remains on IV diuretics, Aldactone. He is off pressors. Remains on Brilinta, statins and aspirin. Objective - Vital Signs Vital signs: Vital Signs Temp 97.4 F L 02/23/20 13:00 Pulse 76 02/23/20 13:00 Resp 35 H 02/23/20 13:00 BP 95/60 02/23/20 13:00 Pulse Ox 95 02/23/20 13:00 Intake & Output 02/22/20 02/23/20 02/23/20 18:59 06:59 18:59 Intake Total 328 785.238 700 Output Total 1650 650 151 Balance -1322 135.238 549 Weight 74.843 kg 74.843 kg Intake: IV 328 120 100 Sodium Chloride 0.9% 1, 120 100 000 ml @ 75 mls/hr IV . [id number] [facility] Rx#:[id number] Intake, IV Titration 575.238 Amount Azithromycin 500 mg In 250 Sodium Chloride 0.9% 250 ml @ 250 mls/hr IVPB DAILY@1800 [facility] Rx#: [id number] Norepinephrine 4 mg In 25.238 Sodium Chloride 0.9% 250 ml @ 0.02 MCG/KG/MIN 5. 703 mls/hr IV .Q24H [facility] Rx#:[id number] Sodium Chloride 0.9% 1, 300 000 ml @ 75 mls/hr IV . [id number] [facility] Rx#:[id number] Oral 90 600 Output: Urine 1650 650 150 Stool 1 Other: Voiding Method Urinal Urinal # Voids 1 - Exam GENERAL EXAM: Alert, pleasant 79-year-old gentleman, on room air, comfortable in no apparent distress. HEAD: Normocephalic. EYES: Normal reaction of pupils, equal size. NOSE: Clear with pink turbinates. THROAT: No erythema or exudates. NECK: No masses, no JVD. CHEST: No chest wall deformity. LUNGS: Equal air entry with crackles in the posterior bases. CVS: S1 and S2 normal with no audible murmur, regular rhythm. ABDOMEN: No hepatosplenomegaly, normal bowel sounds, no guarding or rigidity. SPINE: No scoliosis or deformity SKIN: No rashes CENTRAL NERVOUS SYSTEM: No focal deficits, tone is normal in all 4 extremities. EXTREMITIES: There is no peripheral edema. No clubbing, no cyanosis. Peripheral pulses are intact. - Labs CBC & Chem 7: 02/23/20 04:06 02/23/20 04:06 Labs: Abnormal Lab Results - Last 24 Hours (Table) 02/22/20 02/22/2020 Range/Units 15:53 19:55 19:57 WBC (3.8-10.6) k/uL Neutrophils # (1.3-7.7) k/uL Monocytes # (0-1.0) k/uL Sodium (137-145) mmol/L Glucose (74-99) mg/dL POC Glucose (mg/dL) 131 H (75-99) mg/dL Troponin I 348.000 H* 176.000 H* (0.000-0.034) ng/mL LDL Cholesterol, Calc (0-99) mg/dL HDL Cholesterol (40-60) mg/dL 02/23/20 02/23/20 Range/Units 04:06 04:06 WBC 16.7 H (3.8-10.6) k/uL Neutrophils # 14.3 H (1.3-7.7) k/uL Monocytes # 1.1 H (0-1.0) k/uL Sodium 134 L (137-145) mmol/L Glucose 119 H (74-99) mg/dL POC Glucose (mg/dL) (75-99) mg/dL Troponin I (0.000-0.034) ng/mL LDL Cholesterol, Calc 115 H (0-99) mg/dL HDL Cholesterol 34 L (40-60) mg/dL Assessment and Plan Assessment: [address] segment elevation myocardial infarction status post immediate cardiac catheterization and stenting of the proximal LAD.the patient's troponin peaked at 348. Currently free of any chest pain. Currently on a combination of aspirin and Brilinta. 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 Villa Chest x-ray and labs reviewed Remains on diuretics Transfer out of the ICU once cleared by cardiology We'll continue to follow I, the cosigning physician, performed a history & physical examination of the patient. Lungs sounds with crackles in the bilateral posterior bases. Maintaining good O2 saturations in the 90s on room air. I discussed the assessment and plan of care with my nurse practitioner, Brianna Hui. I attest to the above note as dictated by her.
[2020-02-24] MEDS: HEPARIN SODIUM,PORCINE 5,000 UNIT/ML 1 ML VIAL SQ SCH ×3 (08:47→23:27)
[2020-02-24] MEDS: TICAGRELOR 90 MG TAB PO SCH ×2 (08:47→20:42)
[2020-02-24] MEDS: ATORVASTATIN 80 MG TAB PO SCH (08:47)
[2020-02-24] MEDS: ASPIRIN 81 MG PO SCH (08:47)
[2020-02-24 10:02] LABS: Calcium 8.4 mg/dL (8.4-10.2); Potassium 3.5 mmol/L (3.5-5.1)
--- NOTE | 2020-02-24 10:22 | PN ---
PROGRESS NOTE Mr. Crespo is an 79-year-old male who presented with an acute myocardial infarction with evidence of a cardiogenic shock, underwent revascularization of his LAD and the RCA. He is doing well this morning. His breathing is stable. He denies any chest pain. He denies any dizziness, palpitation. He denies any nausea or vomiting. He is lying supine without difficulty. He is in sinus mechanism without any difficulty. He continues to be at this time on aspirin once a day, Brilinta 90 mg twice a day, Lipitor 80 mg daily, Lasix 20 mg IV q.12 hours, lisinopril 2.5 mg twice a day, Aldactone 25 mg twice a day. PHYSICAL EXAMINATION: Blood pressure running in the 90s with a heart rate in the low 100s. LUNGS: Clear. HEART: Regular rate and rhythm, S1, S2. No S3. No rub appreciated. ABDOMEN: Soft nontender. EXTREMITIES: No edema. IMPRESSION: 1. Status post anterior myocardial infarction with 2 vessel stenting. 2. Cardiogenic shock with severe ischemic cardiomyopathy, stable. 3. Sinus tachycardia related to his cardiomyopathy, improving. RECOMMENDATION: I will switch him to oral diuretic. I will start a very low-dose beta margret increase his level of activity and depending on his progress, further recommendation will be made. MMODL / IJN: [id number] /
--- NOTE | 2020-02-24 10:25 | P.PN ---
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 He suddenly developed chest pressure mainly mid retrosternal without any radiation to the arm to the back or jaw. Since then patient has been having chest congestion and flulike symptoms and cough with clear to red tinged sputum and shortness of breath. Denied any nausea vomiting or diaphoresis. No palpitations. He called EMS and was brought to the hospital. Patient was given Nitropaste and his pain level improved from 7/ 10 to 3 /7. In the ER EKG showed sinus rhythm with ST elevation in the lateral leads and sinus tachycardia. Chest x-ray showed right infrahilar infiltrate compatible with pneumonia. Laboratory data showed WBC 16.9, hemoglobin 17.3, platelets 346, neutrophils 15.3 and lymphocytes 0.8 Sodium 138, potassium 4.2, BUE and 16 and creatinine 0.91 blood sugar is 144 Troponin 14.1, 348, NT proBNP is 3540 Covid 19 rapid test negative. 02/23/2020 Patient is currently lying in bed comfortably without 13. Shortness of breath is much improved. Patient is being continued on IV diuresis. Pro-calcitonin level is not elevated antibodies have been discontinued. Covid 19 is negative. Laboratory data showed WBC 16.7 hemoglobin 15.8 and platelets 218 Sodium 134 and potassium 3.9 BUN 16 and creatinine 0.9 LDL is 115 Cardiology and pulmonary is on board. Next and patient is being continued on aspirin, Brilanta, statins and Aldactone. Current medications reviewed. Objective - Vital Signs Vital signs: Vital Signs Temp 97.4 F L 02/23/20 13:00 Pulse 76 02/23/20 13:00 Resp 35 H 02/23/20 13:00 BP 95/60 02/23/20 13:00 Pulse Ox 95 02/23/20 13:00 Intake & Output 02/22/20 02/23/20 02/23/20 18:59 06:59 18:59 Intake Total 328 785.238 700 Output Total 1650 650 151 Balance -1322 135.238 549 Weight 74.843 kg 74.843 kg Intake: IV 328 120 100 Sodium Chloride 0.9% 1, 120 100 000 ml @ 75 mls/hr IV . [id number] [facility] Rx#:[id number] Intake, IV Titration 575.238 Amount Azithromycin 500 mg In 250 Sodium Chloride 0.9% 250 ml @ 250 mls/hr IVPB DAILY@1800 [facility] Rx#: [id number] Norepinephrine 4 mg In 25.238 Sodium Chloride 0.9% 250 ml @ 0.02 MCG/KG/MIN 5. 703 mls/hr IV .Q24H [facility] Rx#:[id number] Sodium Chloride 0.9% 1, 300 000 ml @ 75 mls/hr IV . [id number] [facility] Rx#:[id number] Oral 90 600 Output: Urine 1650 650 150 Stool 1 Other: Voiding Method Urinal Urinal # Voids 1 - Exam PHYSICAL EXAMINATION: Patient is lying in the bed comfortably, no acute distress, awake alert and oriented.. HEENT: Normocephalic. Neck is supple. Pupils reactive. Nostrils clear. Oral cavity is moist. Ears reveal no drainage. Neck reveals no JVD, carotid bruits, or thyromegaly. CHEST EXAMINATION: Trachea is central. Symmetrical expansion. Lung jiang clear to auscultation and percussion. CARDIAC: Normal S1, S2 with no gallops. No murmurs ABDOMEN: Soft. Bowel sounds normal. No organomegaly. No abdominal bruits. Extremities: reveal no edema. No clubbing or cyanosis Neurologically awake, alert, oriented x3 with well-coordinated movements. No focal deficits noted Skin: No rash or skin lesions. Psychiatric: Coperative. Nonsuicidal Musculoskeletal: No joint swelling or deformity. Normal range of motion. - Labs CBC & Chem 7: 02/23/20 04:06 02/24/20 08:57 Labs: Abnormal Lab Results - Last 24 Hours (Table) 02/22/20 02/22/20 02/22/20 Range/Units 15:53 19:55 19:57 WBC (3.8-10.6) k/uL Neutrophils # (1.3-7.7) k/uL Monocytes # (0-1.0) k/uL Sodium (137-145) mmol/L Glucose (74-99) mg/dL POC Glucose (mg/dL) 131 H (75-99) mg/dL Troponin I 348.000 H* 176.000 H* (0.000-0.034) ng/mL LDL Cholesterol, Calc (0-99) mg/dL HDL Cholesterol (40-60) mg/dL 02/23/20 02/23/20 Range/Units 04:06 04:06 WBC 16.7 H (3.8-10.6) k/uL Neutrophils # 14.3 H (1.3-7.7) k/uL Monocytes # 1.1 H (0-1.0) k/uL Sodium 134 L (137-145) mmol/L Glucose 119 H (74-99) mg/dL POC Glucose (mg/dL) (75-99) mg/dL Troponin I (0.000-0.034) ng/mL LDL Cholesterol, Calc 115 H (0-99) mg/dL HDL Cholesterol 34 L (40-60) mg/dL Assessment and Plan Assessment: Acute ST elevated [place] status post stenting of proximal LAD and distal RCA. Acute CHF with systolic dysfunction. With elevated BNP 3540 Leukocytosis with perihilar infiltrates. Likely due to CHF. Unlikely pneumonia.. Macular degeneration GI prophylaxis Plan: Patient will be continued on telemetry monitoring. Underwent cardiac catheterization and stenting 2. Continue with aspirin, statins and Ticagrelor. Continue with IV Lasix. follow-up CBC and BMP tomorrow Cardiology is on board and further recommendations based on the clinical course. Time with Patient: Greater than 30
[2020-02-24 10:41] LABS: Basophils % (A) 0 %; Eosinophils % (A) 0 %; HCT 44.7 % (39.0-53.0); HGB 14.9 gm/dL (13.0-17.5); Lymphocytes # (A) 1.2 k/uL (1.0-4.8); Lymphocytes % (A) 10 %; MCH 29.9 pg (25.0-35.0); MCHC 33.2 g/dL (31.0-37.0); MCV 90.1 fL (80.0-100.0); Mean Platelet Volume 6.9; Monocytes % (A) 9 %; Neutrophils # (A) 9.2 k/uL (1.3-7.7); Neutrophils % (A) 79 %; Platelet Count 250 k/uL (150-450); RBC 4.97 m/uL (4.30-5.90); RDW 13.2 % (11.5-15.5); WBC 11.7 k/uL (3.8-10.6)
[2020-02-24] MEDS: FUROSEMIDE 10 MG/ML 2 ML VIAL IV SCH (11:47)
[2020-02-24] MEDS: SPIRONOLACTONE 25 MG TAB PO SCH (12:33)
--- NOTE | 2020-02-24 15:16 | P.PN ---
Subjective Progress Note Date: 02/24/20 Principal diagnosis: Acute ST segment elevation myocardial infarction 79-year-old male patient who came to the intensive care unit after an emergent cardiac catheterization following an acute ST segment elevation myocardial infarction. The patient came into the emergency department with acute chest pain. He was also having some shortness of breath. On the EKG, the patient had minimal elevation of the ST segments along with inversion of the and the patient was in sinus tachycardia. The patient was taken immediately to the cardiac catheterization the patient underwent angioplasty and stenting of the LAD as the patient was found to have an acutely occluded proximal LAD. There was also subtotally occluded distal RCA and mild disease involving the circumflex. Left ventricular end-diastolic pressure was quite elevated and end-diastolic pressure was around 25-30 mm. Following the procedure, the patient encountered some hypotension. He was given a bolus of 250 mL and he was started on norepinephrine infusion and currently the norepinephrine infusion is running at 0.02 mcg/kg per minute. He is free of any chest pain at this point in time. Cardiac arrhythmias has not been noted. Chest x-ray shows some background COPD and increased interstitial edema consistent with CHF. The echo showed an ejection fraction of 20-25% along with segmental wall motion abnormalities and borderline concentric LVH. There was also moderate degree of mitral regurgitation. The patient is currently on aspirin. The patient is also on Brilinta and the patient is also started on low dose ROSSY inhibitor once the blood pressure tolerates at a dose of 2.5 mg of lisinopril. The patient will be started also on Lasix 20 mg IV push every 12 hours. Patient is seen today 02/23/2020 in follow-up in the intensive care unit. He is currently resting comfortably in bed. Awake and alert in no acute distress. He denies any chest pain, palpitations lightheadedness or dizziness. He is afebrile. Maintaining O2 saturations in the 90s on room air. Blood pressure stable. White count 16.7. Hemoglobin 15.8. Sodium 134. Chest x-ray reveals evidence of hyperinflation suggestive of COPD with a patchy right upper lobe infiltrate. Some mild venous congestion versus initiation pneumonitis noted. He remains on IV diuretics, Aldactone. He is off pressors. Remains on Brilinta, statins and aspirin. The patient is seen today 02/24/2020 in follow-up on the selective care unit. H e is awake and alert in no acute distress. No worsening shortness of breath, cough or congestion. Denies any chest pain currently. No palpitations. No dizziness or lightheadedness. He is maintaining O2 saturation in the mid 90s on room air. Blood pressure remains in the 80-90s systolic. He is afebrile. White count 11.7. Hemoglobin 14.9. Sodium 136. Potassium 3.5. Creatinine 1.10. Objective - Vital Signs Vital signs: Vital Signs Temp 98.2 F 02/24/20 12:00 Pulse 107 H 02/24/20 12:00 Resp 16 02/24/20 12:00 BP 97/58 02/24/20 12:00 Pulse Ox 98 02/24/20 12:00 Intake & Output 02/23/20 02/24/20 02/24/20 18:59 06:59 18:59 Intake Total 940 0 240 Output Total 151 400 2 Balance 789 -400 238 Weight 74.843 kg 69.9 kg Intake: IV 100 Sodium Chloride 0.9% 1, 100 000 ml @ 75 mls/hr IV . [id number] [facility] Rx#:[id number] Oral 840 0 240 Output: Urine 150 400 Stool 1 2 Other: Voiding Method Urinal Urinal Urinal # Voids 1 1 - Exam GENERAL EXAM: Alert, pleasant 79-year-old gentleman, on room air, comfortable in no apparent distress. HEAD: Normocephalic. EYES: Normal reaction of pupils, equal size. NOSE: Clear with pink turbinates. THROAT: No erythema or exudates. NECK: No masses, no JVD. CHEST: No chest wall deformity. LUNGS: Equal air entry with crackles in the posterior bases. CVS: S1 and S2 normal with no audible murmur, regular rhythm. ABDOMEN: No hepatosplenomegaly, normal bowel sounds, no guarding or rigidity. SPINE: No scoliosis or deformity SKIN: No rashes CENTRAL NERVOUS SYSTEM: No focal deficits, tone is normal in all 4 extremities. EXTREMITIES: There is no peripheral edema. No clubbing, no cyanosis. Peripheral pulses are intact. - Labs CBC & Chem 7: 02/24/20 08:54 02/24/20 08:57 Labs: Abnormal Lab Results - Last 24 Hours (Table) 02/24/20 02/24/20 Range/Units 08:54 08:57 WBC 11.7 H (3.8-10.6) k/uL Neutrophils # 9.2 H (1.3-7.7) k/uL Sodium 136 L (137-145) mmol/L Carbon Dioxide 31 H (22-30) mmol/L BUN 22 H (9-20) mg/dL Assessment and Plan Assessment: [address] segment elevation myocardial infarction status post immediate cardiac catheterization and stenting of the proximal LAD.the patient's troponin peaked at 348. Currently free of any chest pain. Currently on a combination of aspirin and Brilinta. 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 Villa Labs reviewed Remains on diuretics Stable from the pulmonary and critical care standpoint We will see as needed I, the cosigning physician, performed a history & physical examination of the patient. Lungs sounds with crackles in the bilateral posterior bases. Maintaining good O2 saturations in the 90s on room air. I discussed the assessment and plan of care with my nurse practitioner, Brianna Hui. I attest to the above note as dictated by her.
[2020-02-24] MEDS: FUROSEMIDE 20 MG TAB PO SCH (16:28)
[2020-02-24] MEDS: METOPROLOL TARTRATE 12.5 MG TAB PO SCH (20:42)
[2020-02-25 08:41] LABS: Calcium 8.6 mg/dL (8.4-10.2); Potassium 3.3 mmol/L (3.5-5.1)
[2020-02-25] MEDS: METOPROLOL TARTRATE 12.5 MG TAB PO SCH ×2 (09:18→20:38)
[2020-02-25] MEDS: TICAGRELOR 90 MG TAB PO SCH ×2 (09:18→20:38)
[2020-02-25] MEDS: ATORVASTATIN 80 MG TAB PO SCH (09:18)
[2020-02-25] MEDS: FUROSEMIDE 20 MG TAB PO SCH ×2 (09:18→15:28)
[2020-02-25] MEDS: SPIRONOLACTONE 25 MG TAB PO SCH (09:18)
[2020-02-25] MEDS: ASPIRIN 81 MG PO SCH (09:18)
[2020-02-25] MEDS: HEPARIN SODIUM,PORCINE 5,000 UNIT/ML 1 ML VIAL SQ SCH ×3 (09:18→23:45)
--- NOTE | 2020-02-25 12:51 | P.PN ---
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 He denies prior history of coronary artery disease and does not follow in the office with a rn oncology. He is seen and examined resting comfortably lying flat in bed in no acute distress. He has no symptoms of chest pain, shortness of breath, dizziness or palpitations. He continues to have a mild cough with no significant sputum. He states he did have a mild nosebleed yesterday. Blood pressure 90/54 with a heart rate of 83. A.m. dose of lisinopril was held per the nurse. Laboratory data reviewed, sodium 136, potassium 3.3, creatinine 0.96. Currently maintained on lisinopril 2.5 mg twice a day, aspirin 81 mg daily, atorvastatin 80 mg daily, Lasix 20 mg by mouth twice a day, Aldactone 25 mg daily and brilinta 90 mg twice a day. PHYSICAL EXAMINATION CONSTITUTIONAL: No apparent distress. HEENT: Head is normocephalic. Pupils are equal, round. Sclerae anicteric. Mucous membranes of the mouth are moist. No JVD. No carotid bruit. CHEST EXAMINATION: Clear to auscultation bilaterally. No rales, rhonchi or wheezes. No chest wall tenderness is noted on palpation or with deep breathing. HEART EXAMINATION: Regular rate and rhythm. S1, S2 heard. No murmurs, gallops or rub. Distant heart sounds EXTREMITIES: 2+ peripheral pulses, no lower extremity edema and no calf tenderness. ASSESSMENT ST elevated myocardial infarction Cardiogenic shock, improving Sinus tachycardia Acute systolic heart failure Leukocytosis Macular degeneration PLAN Change lisinopril to daily at bedtime only. Continue lopressor as previously ordered. Follow blood pressure closely. We will initiate the process of Life Vest for discharge given his reent STEMI and severely impaired LV function. Ongoing telemetry. We will follow along closely and make further recommendations. Nurse Practitioner note has been reviewed, I agree with a documented findings and plan of care. Patient was seen and examined. Objective - Vital Signs Vital signs: Vital Signs Temp 97.8 F 02/25/20 12:00 Pulse 83 02/25/20 12:00 Resp 18 02/25/20 12:00 BP 90/54 02/25/20 12:00 Pulse Ox 94 L 02/25/20 12:00 Intake & Output 02/24/20 02/25/20 02/25/20 18:59 06:59 18:59 Intake Total 480 Output Total 3 Balance 477 Weight 68 kg Intake: Oral 480 Output: Stool 3 Other: Voiding Method Urinal Urinal Toilet Urinal # Voids 1 - Labs CBC & Chem 7: 02/24/20 08:54 02/25/20 08:12 Labs: Abnormal Lab Results - Last 24 Hours (Table) 02/25/20 Range/Units 08:12 Sodium 136 L (137-145) mmol/L Potassium 3.3 L (3.5-5.1) mmol/L BUN 24 H (9-20) mg/dL Glucose 143 H (74-99) mg/dL
[2020-02-26] MEDS: METOPROLOL TARTRATE 12.5 MG TAB PO SCH ×2 (08:50→20:27)
[2020-02-26] MEDS: ATORVASTATIN 80 MG TAB PO SCH (08:50)
[2020-02-26] MEDS: ASPIRIN 81 MG PO SCH (08:50)
[2020-02-26] MEDS: SPIRONOLACTONE 25 MG TAB PO SCH (08:51)
[2020-02-26] MEDS: FUROSEMIDE 20 MG TAB PO SCH ×2 (08:51→17:23)
[2020-02-26] MEDS: TICAGRELOR 90 MG TAB PO SCH ×2 (09:18→20:27)
[2020-02-26] MEDS: HEPARIN SODIUM,PORCINE 5,000 UNIT/ML 1 ML VIAL SQ SCH ×2 (09:18→20:28)
[2020-02-26 10:16] LABS: HGB 15.5 gm/dL (13.0-17.5); MCH 29.2 pg (25.0-35.0); MCHC 32.3 g/dL (31.0-37.0); MCV 90.4 fL (80.0-100.0); Mean Platelet Volume 6.8; Platelet Count 299 k/uL (150-450); RBC 5.31 m/uL (4.30-5.90); RDW 12.9 % (11.5-15.5); WBC 8.7 k/uL (3.8-10.6)
[2020-02-26 10:28] LABS: Albumin 4.1 g/dL (3.5-5.0); Calcium 9.1 mg/dL (8.4-10.2); Total Bilirubin 1.2 mg/dL (0.2-1.3); Total Protein 6.9 g/dL (6.3-8.2)
--- NOTE | 2020-02-26 10:34 | P.PN ---
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 He suddenly developed chest pressure mainly mid retrosternal without any radiation to the arm to the back or jaw. Since then patient has been having chest congestion and flulike symptoms and cough with clear to red tinged sputum and shortness of breath. Denied any nausea vomiting or diaphoresis. No palpitations. He called EMS and was brought to the hospital. Patient was given Nitropaste and his pain level improved from 7/ 10 to 3 /7. In the ER EKG showed sinus rhythm with ST elevation in the lateral leads and sinus tachycardia. Chest x-ray showed right infrahilar infiltrate compatible with pneumonia. Laboratory data showed WBC 16.9, hemoglobin 17.3, platelets 346, neutrophils 15.3 and lymphocytes 0.8 Sodium 138, potassium 4.2, BUE and 16 and creatinine 0.91 blood sugar is 144 Troponin 14.1, 348, NT proBNP is 3540 Covid 19 rapid test negative. 02/23/2020 Patient is currently lying in bed comfortably without 13. Shortness of breath is much improved. Patient is being continued on IV diuresis. Pro-calcitonin level is not elevated antibodies have been discontinued. Covid 19 is negative. Laboratory data showed WBC 16.7 hemoglobin 15.8 and platelets 218 Sodium 134 and potassium 3.9 BUN 16 and creatinine 0.9 LDL is 115 Cardiology and pulmonary is on board. Next and patient is being continued on aspirin, Brilanta, statins and Aldactone. 02/23/2017 Patient is awake and oriented 3. Denied any complaints of worsening chest pain or shortness of breath. No dizziness or lightheadedness. Patient is saturating well on room air. Currently being continued on Lasix. Continue cardiac medications. Current medications reviewed. Objective - Vital Signs Vital signs: Vital Signs Temp 98.2 F 02/24/20 12:00 Pulse 107 H 02/24/20 12:00 Resp 16 02/24/20 12:00 BP 97/58 02/24/20 12:00 Pulse Ox 98 02/24/20 12:00 Intake & Output 02/23/20 02/24/20 02/24/20 18:59 06:59 18:59 Intake Total 940 0 240 Output Total 151 400 2 Balance 789 -400 238 Weight 74.843 kg 69.9 kg Intake: IV 100 Sodium Chloride 0.9% 1, 100 000 ml @ 75 mls/hr IV . [id number] [facility] Rx#:[id number] Oral 840 0 240 Output: Urine 150 400 Stool 1 2 Other: Voiding Method Urinal Urinal Urinal # Voids 1 1 - Exam PHYSICAL EXAMINATION: Patient is lying in the bed comfortably, no acute distress, awake alert and oriented.. HEENT: Normocephalic. Neck is supple. Pupils reactive. Nostrils clear. Oral cavity is moist. Ears reveal no drainage. Neck reveals no JVD, carotid bruits, or thyromegaly. CHEST EXAMINATION: Trachea is central. Symmetrical expansion. Lung jiang clear to auscultation and percussion. CARDIAC: Normal S1, S2 with no gallops. No murmurs ABDOMEN: Soft. Bowel sounds normal. No organomegaly. No abdominal bruits. Extremities: reveal no edema. No clubbing or cyanosis Neurologically awake, alert, oriented x3 with well-coordinated movements. No focal deficits noted Skin: No rash or skin lesions. Psychiatric: Coperative. Nonsuicidal Musculoskeletal: No joint swelling or deformity. Normal range of motion. - Labs CBC & Chem 7: 02/26/20 09:55 02/26/20 09:55 Labs: Abnormal Lab Results - Last 24 Hours (Table) 02/24/20 02/24/20 Range/Units 08:54 08:57 WBC 11.7 H (3.8-10.6) k/uL Neutrophils # 9.2 H (1.3-7.7) k/uL Sodium 136 L (137-145) mmol/L Carbon Dioxide 31 H (22-30) mmol/L BUN 22 H (9-20) mg/dL Assessment and Plan Assessment: Acute ST elevated [place] status post stenting of proximal LAD and distal RCA. Acute CHF with systolic dysfunction. With elevated BNP 3540 Cardiac shock with severe cardiomyopathy Leukocytosis with perihilar infiltrates. Likely due to CHF. Unlikely pneumonia.. Macular degeneration GI prophylaxis Plan: Patient will be continued on telemetry monitoring. Underwent cardiac catheterization and stenting 2. Continue with aspirin, statins and Ticagrelor. Continued with IV Lasix. Changed to oral Lasix. follow-up CBC and BMP tomorrow Cardiology is on board and further recommendations based on the clinical course. Time with Patient: Greater than 30
--- NOTE | 2020-02-26 10:35 | P.PN ---
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 He suddenly developed chest pressure mainly mid retrosternal without any radiation to the arm to the back or jaw. Since then patient has been having chest congestion and flulike symptoms and cough with clear to red tinged sputum and shortness of breath. Denied any nausea vomiting or diaphoresis. No palpitations. He called EMS and was brought to the hospital. Patient was given Nitropaste and his pain level improved from 7/ 10 to 3 /7. In the ER EKG showed sinus rhythm with ST elevation in the lateral leads and sinus tachycardia. Chest x-ray showed right infrahilar infiltrate compatible with pneumonia. Laboratory data showed WBC 16.9, hemoglobin 17.3, platelets 346, neutrophils 15.3 and lymphocytes 0.8 Sodium 138, potassium 4.2, BUE and 16 and creatinine 0.91 blood sugar is 144 Troponin 14.1, 348, NT proBNP is 3540 Covid 19 rapid test negative. 02/23/2020 Patient is currently lying in bed comfortably without 13. Shortness of breath is much improved. Patient is being continued on IV diuresis. Pro-calcitonin level is not elevated antibodies have been discontinued. Covid 19 is negative. Laboratory data showed WBC 16.7 hemoglobin 15.8 and platelets 218 Sodium 134 and potassium 3.9 BUN 16 and creatinine 0.9 LDL is 115 Cardiology and pulmonary is on board. Next and patient is being continued on aspirin, Brilanta, statins and Aldactone. 02/24/20 Patient is awake and oriented 3. Denied any complaints of worsening chest pain or shortness of breath. No dizziness or lightheadedness. Patient is saturating well on room air. Currently being continued on Lasix. Continue cardiac medications. 02/25/2020 Patient is currently lying in the bed comfortably. No complains of chest pain or shortness of breath. Cough is much improved. No fever or chills. Patient is being converted on oral Lasix. Current on metoprolol and lisinopril. Blood pressure is on the lower side. Denied any nausea vomiting or abdominal pain or diarrhea. Tolerating oral diet. Cardiology is on board. Anticipate discharge next 24-48 hours and continued on telemetry monitoring. LifeVest is being arranged as per cardiology. Current medications reviewed. Objective - Vital Signs Vital signs: Vital Signs Temp 98.1 F 02/25/20 20:00 Pulse 90 02/25/20 20:00 Resp 17 02/25/20 20:00 BP 99/67 02/25/20 20:00 Pulse Ox 97 02/25/20 20:00 Intake & Output 02/25/20 02/25/20 02/26/20 06:59 18:59 06:59 Intake Total 720 Balance 720 Weight 68 kg Intake: Oral 720 Other: Voiding Method Urinal Toilet Toilet Urinal Urinal # Voids 3 - Exam PHYSICAL EXAMINATION: Patient is lying in the bed comfortably, no acute distress, awake alert and oriented.. HEENT: Normocephalic. Neck is supple. Pupils reactive. Nostrils clear. Oral cavity is moist. Ears reveal no drainage. Neck reveals no JVD, carotid bruits, or thyromegaly. CHEST EXAMINATION: Trachea is central. Symmetrical expansion. Lung jiang clear to auscultation and percussion. CARDIAC: Normal S1, S2 with no gallops. No murmurs ABDOMEN: Soft. Bowel sounds normal. No organomegaly. No abdominal bruits. Extremities: reveal no edema. No clubbing or cyanosis Neurologically awake, alert, oriented x3 with well-coordinated movements. No focal deficits noted Skin: No rash or skin lesions. Psychiatric: Coperative. Nonsuicidal Musculoskeletal: No joint swelling or deformity. Normal range of motion. - Labs CBC & Chem 7: 02/26/20 09:55 02/26/20 09:55 Labs: Abnormal Lab Results - Last 24 Hours (Table) 02/25/20 Range/Units 08:12 Sodium 136 L (137-145) mmol/L Potassium 3.3 L (3.5-5.1) mmol/L BUN 24 H (9-20) mg/dL Glucose 143 H (74-99) mg/dL Assessment and Plan Assessment: Acute ST elevated [place] status post stenting of proximal LAD and distal RCA. Acute CHF with systolic dysfunction. With elevated BNP 3540 Cardiac shock with severe cardiomyopathy Leukocytosis with perihilar infiltrates. Likely due to CHF. Unlikely pneumonia.. Macular degeneration GI prophylaxis Plan: Patient will be continued on telemetry monitoring. Underwent cardiac catheterization and stenting 2. Continue with aspirin, statins and Ticagrelor. Continued with IV Lasix. Changed to oral Lasix. Cardiology is on board and further recommendations based on the clinical course. LifeVest is being arranged due to severely impaired LV function and ST elevated NE on admission. Time with Patient: Greater than 30
--- NOTE | 2020-02-26 11:49 | P.PN ---
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 He denies prior history of coronary artery disease and does not follow in the office with a harness placer. He is seen and examined sitting up in the chair in no acute distress. He had some epistaxis again this morning. He is complaining of congestion in his throat. He has no chest pain, shortness of breath, dizziness or palpitations. Blood pressure 128/79 heart rate 96 afebrile maintaining oxygen saturation on room air. A.m. labs are pending. Lisinopril w as held last night secondary to hypotension. Laboratory data reviewed, CBC unremarkable, sodium 139, potassium 4.0, creatinine 1. PHYSICAL EXAMINATION CONSTITUTIONAL: No apparent distress. HEENT: Head is normocephalic. Pupils are equal, round. Sclerae anicteric. Mucous membranes of the mouth are moist. No JVD. No carotid bruit. CHEST EXAMINATION: Clear to auscultation bilaterally. No rales, rhonchi or wheezes. No chest wall tenderness is noted on palpation or with deep breathing. HEART EXAMINATION: Regular rate and rhythm. S1, S2 heard. No murmurs, gallops or rub. Distant heart sounds EXTREMITIES: 2+ peripheral pulses, no lower extremity edema and no calf tenderness. ASSESSMENT ST elevated myocardial infarction Cardiogenic shock, improving Sinus tachycardia Acute systolic heart failure Leukocytosis Macular degeneration PLAN Trial room air as the oxygen seems to be drying out his nares and causing some bleeding. No significant epistaxis noted. LifeVest prior to discharge, paperwork has been given to the patient case manager for approval. Continue current medical regimen as previously ordered. Nurse Practitioner note has been reviewed, I agree with a documented findings and plan of care. Patient was seen and examined. Objective - Vital Signs Vital signs: Vital Signs Temp 97.9 F 02/26/20 08:47 Pulse 96 02/26/20 08:47 Resp 18 02/26/20 08:47 BP 128/79 02/26/20 08:47 Pulse Ox 95 02/26/20 08:47 Intake & Output 02/25/20 02/26/20 02/26/20 18:59 06:59 18:59 Intake Total 720 240 Output Total 2 Balance 720 -2 240 Weight 70.1 kg Intake: Oral 720 240 Output: Stool 2 Other: Voiding Method Toilet Toilet Urinal Urinal # Voids 3 - Labs CBC & Chem 7: 02/26/20 09:55 02/26/20 09:55
[2020-02-26] MEDS ORDERED: SODIUM CHLORIDE 0.65% NASAL SPRAY 44 ML BTL NASAL PRN (12:57)
[2020-02-26 23:59] VITALS: TEMP 98.4
--- NOTE | 2020-02-27 00:02 | P.PN ---
Subjective Progress Note Date: 02/26/20 Principal diagnosis: Acute ST elevated IN Patient is a 79-year-old male with a known history of macular degeneration and neuroblastoma status post removal near the left jaw presents to ER with complaints of chest pain started around 3 AM while he was working on his computer. He suddenly developed chest pressure mainly mid retrosternal without any radiation to the arm to the back or jaw. Since then patient has been having chest congestion and flulike symptoms and cough with clear to red tinged sputum and shortness of breath. Denied any nausea vomiting or diaphoresis. No palpitations. He called EMS and was brought to the hospital. Patient was given Nitropaste and his pain level improved from 7/ 10 to 3 /7. In the ER EKG showed sinus rhythm with ST elevation in the lateral leads and sinus tachycardia. Chest x-ray showed right infrahilar infiltrate compatible with pneumonia. Laboratory data showed WBC 16.9, hemoglobin 17.3, platelets 346, neutrophils 15.3 and lymphocytes 0.8 Sodium 138, potassium 4.2, BUE and 16 and creatinine 0.91 blood sugar is 144 Troponin 14.1, 348, NT proBNP is 3540 Covid 19 rapid test negative. 02/23/2020 Patient is currently lying in bed comfortably without 13. Shortness of breath is much improved. Patient is being continued on IV diuresis. Pro-calcitonin level is not elevated antibodies have been discontinued. Covid 19 is negative. Laboratory data showed WBC 16.7 hemoglobin 15.8 and platelets 218 Sodium 134 and potassium 3.9 BUN 16 and creatinine 0.9 LDL is 115 Cardiology and pulmonary is on board. Next and patient is being continued on aspirin, Brilanta, statins and Aldactone. 02/24/20 Patient is awake and oriented 3. Denied any complaints of worsening chest pain or shortness of breath. No dizziness or lightheadedness. Patient is saturating well on room air. Currently being continued on Lasix. Continue cardiac medications. 02/25/2020 Patient is currently lying in the bed comfortably. No complains of chest pain or shortness of breath. Cough is much improved. No fever or chills. Patient is being converted on oral Lasix. Current on metoprolol and lisinopril. Blood pressure is on the lower side. Denied any nausea vomiting or abdominal pain or diarrhea. Tolerating oral diet. Cardiology is on board. Anticipate discharge next 24-48 hours and continued on telemetry monitoring. LifeVest is being arranged as per cardiology. 02/26/2020 Patient is currently lying in the bed comfortably. Denied any complaints of chest pain. Patient does have nosebleeding this morning which is controlled now. Blood pressure did improve and patient is being continued on metoprolol, lisinopril and also on aspirin and Brilinta. Cardiology is following. Planning to arrange LifeVest. Anticipate discharge in the next 24 hours. Current medications reviewed. Objective - Vital Signs Vital signs: Vital Signs Temp 98.1 F 02/26/20 14:00 Pulse 85 02/26/20 14:00 Resp 18 02/26/20 14:00 BP 94/59 02/26/20 14:00 Pulse Ox 95 02/26/20 14:00 Intake & Output 02/25/20 02/26/20 02/26/20 18:59 06:59 18:59 Intake Total 720 480 Output Total 2 Balance 720 -2 480 Weight 70.1 kg Intake: Oral 720 480 Output: Stool 2 Other: Voiding Method Toilet Toilet Toilet Urinal Urinal Urinal # Voids 3 - Exam PHYSICAL EXAMINATION: Patient is lying in the bed comfortably, no acute distress, awake alert and oriented.. HEENT: Normocephalic. Neck is supple. Pupils reactive. Nostrils clear. Oral cavity is moist. Ears reveal no drainage. Neck reveals no JVD, carotid bruits, or thyromegaly. CHEST EXAMINATION: Trachea is central. Symmetrical expansion. Lung jiang clear to auscultation and percussion. Minimal basilar crackles. CARDIAC: Normal S1, S2 with no gallops. No murmurs ABDOMEN: Soft. Bowel sounds normal. No organomegaly. No abdominal bruits. Extremities: reveal no edema. No clubbing or cyanosis Neurologically awake, alert, oriented x3 with well-coordinated movements. No focal deficits noted Skin: No rash or skin lesions. Psychiatric: Coperative. Nonsuicidal Musculoskeletal: No joint swelling or deformity. Normal range of motion. - Labs CBC & Chem 7: 02/26/20 09:55 02/26/20 09:55 Labs: Abnormal Lab Results - Last 24 Hours (Table) 02/26/20 Range/Units 09:55 BUN 30 H (9-20) mg/dL Glucose 113 H (74-99) mg/dL Assessment and Plan Assessment: Acute ST elevated IN status post stenting of proximal LAD and distal RCA. Acute CHF with systolic dysfunction. With elevated BNP 3540 Cardiac shock with severe cardiomyopathy Leukocytosis with perihilar infiltrates. Likely due to CHF. Unlikely pn eumonia.. Macular degeneration GI prophylaxis Plan: Patient will be continued on telemetry monitoring. Underwent cardiac catheterization and stenting 2. Continue with aspirin, statins and Ticagrelor. Continued with IV Lasix. Changed to oral Lasix. Cardiology is on board and further recommendations based on the clinical course. LifeVest is being arranged due to severely impaired LV function and ST elevated IN on admission. Time with Patient: Greater than 30
[2020-02-27] MEDS: ATORVASTATIN 80 MG TAB PO SCH (08:36)
[2020-02-27] MEDS: FUROSEMIDE 20 MG TAB PO SCH ×2 (08:36→17:11)
[2020-02-27] MEDS: METOPROLOL TARTRATE 12.5 MG TAB PO SCH (08:36)
[2020-02-27] MEDS: TICAGRELOR 90 MG TAB PO SCH ×2 (08:36→17:11)
[2020-02-27] MEDS: ASPIRIN 81 MG PO SCH (08:36)
[2020-02-27] MEDS: SPIRONOLACTONE 25 MG TAB PO SCH (08:37)
[2020-02-27] MEDS: HEPARIN SODIUM,PORCINE 5,000 UNIT/ML 1 ML VIAL SQ SCH (08:37)
[2020-02-27 10:42] VITALS: RESP 20
--- NOTE | 2020-02-27 11:41 | XR ---
EXAMINATION TYPE: XR chest 1V portable DATE OF EXAM: 02/27/2020 HISTORY: Shortness of breath. COMPARISON: 02/23/2020 TECHNIQUE: Single view of the chest is submitted. FINDINGS: Demonstrated are scattered senescent parenchymal change. There is no evidence for focal infiltrate. The heart is stable. Hilar and mediastinal structures are within normal limits. Degenerative changes are seen of the dorsal spine. IMPRESSION: 1. Chronic changes without evidence for acute pulmonary disease.
--- NOTE | 2020-02-27 12:54 | P.PN ---
<Libia Mccarthy - Last Filed: 02/27/20 12:47> Subjective Progress Note Date: 02/27/20 HISTORY OF PRESENT ILLNESS: Patient examined this morning with Dr. Cleaning. Patient is sitting up in the chair. He does not appear to be in any distress. He reports some shortness of breath and feels like he has some congestion in his throat. Chest x-ray reveals chronic changes without evidence for acute pulm onary disease. Blood pressure this morning 113/64. PHYSICAL EXAM: VITAL SIGNS: Reviewed. GENERAL: Well-developed in no acute distress. NECK: Supple. No JVD or thyromegaly LUNGS: Respirations even and unlabored. Lungs essentially clear to auscultation bilaterally. HEART: Regular rate and rhythm. S1 and S2 heard. EXTREMITIES: Normal range of motion. No clubbing or cyanosis. Peripheral pulses intact. No lower extremity edema ASSESSMENT: ST elevated myocardial infarction, status post stent to LAD and RCA Cardiogenic shock Sinus tachycardia Acute systolic heart failure, EF 20-25% Leukocytosis Macular degeneration PLAN: Continue current cardiac medications LifeVest has been delivered to patients bedside Patient is stable for discharge from a cardiac perspective If he continues to feel SOB at his follow up appointment, may consider switching his Brilinta to Plavix as about 10% of patients experience SOB with Brilinta. Patient to follow up outpatient with Dr. Villatoro Nurse practitioner note has been reviewed by physician. Signing provider agrees with the documented findings, assessment, and plan of care. Objective - Vital Signs Vital signs: Vital Signs Temp 98.4 F 02/27/20 04:00 Pulse 99 02/27/20 08:00 Resp 20 02/27/20 08:00 BP 113/64 02/27/20 08:00 Pulse Ox 94 L 02/27/20 08:00 Intake & Output 02/26/20 02/27/20 02/27/20 18:59 06:59 18:59 Intake Total 600 240 Balance 600 240 Weight 66.5 kg Intake: Oral 600 240 Other: Voiding Method Toilet Toilet Urinal Urinal - Labs CBC & Chem 7: 02/26/20 09:55 02/26/20 09:55 <Vahe Cleaning - Last Filed: 02/27/20 16:06> Objective - Vital Signs Vital signs: Vital Signs Temp 98.4 F 02/27/20 04:00 Pulse 88 02/27/20 12:00 Resp 20 02/27/20 12:00 BP 118/73 02/27/20 12:00 Pulse Ox 97 02/27/20 12:00 Intake & Output 02/26/20 02/27/20 02/27/20 18:59 06:59 18:59 Intake Total 600 480 Balance 600 480 Weight 66.5 kg Intake: Oral 600 480 Other: Voiding Method Toilet Toilet Urinal Urinal - Labs CBC & Chem 7: 02/26/20 09:55 02/26/20 09:55
[2020-02-27 13:16] VITALS: BP 118/73; PULSE 88
[2020-02-27] MEDS ORDERED: guaiFENesin-DM 100-10MG/5ML 10 ML CUP PO PRN (14:44)
[2020-02-27] MEDS ORDERED: METOPROLOL TARTRATE 25 MG TAB PO SCH (21:00)
--- NOTE | 2020-02-28 00:04 | P.DS ---
Providers Date of admission: 02/22/20 12:37 Attending physician: Ness Aceves Consults: 02/22/20 12:37 Consult Physician Urgent Consulting Provider: Dipti Villatoro Consult Reason/Comments: NSTEMI Do you want consulting provider notified?: Already Contacted 02/22/20 14:29 Consult Physician Routine Consulting Provider: [facility] Consult Reason/Comments: Post Interventional patient Do you want consulting provider notified?: Already Contacted 02/22/20 17:23 Consult Physician Urgent Consulting Provider: Miguel Villa Consult Reason/Comments: pneumonia,ICU management Do you want consulting provider notified?: Yes Primary care physician: Stated None Hospital Course: Diagnoses: Acute ST elevated AR status post stenting of proximal LAD and distal RCA. Acute CHF with systolic dysfunction. With elevated BNP 3540. Status post Cardiac shock with severe cardiomyopathy.Blood pressure was stable upon discharge Leukocytosis with perihilar infiltrates. Likely due to CHF. Unlikely pneumonia. WBC came back to normal without antibiotic. Repeat chest x-ray showing chronic changes History of Macular degeneration Hospital course: Patient is a 79-year-old male with a known history of macular degeneration and neuroblastoma status post removal near the left jaw presents to ER with complaints of chest pain started around 3 AM while he was working on his computer. In the ER EKG showed sinus rhythm with ST elevation in the lateral leads and sinus tachycardia. Patient has been evaluated by managed security sales consultant and Patient underwent emergent SENIOR PHP DEVELOPER with successful stenting of the proximal LAD and distal right coronary artery. Postoperatively patient was started on aspirin and Brillinta, with the importance of adherence to therapy is explained to the patient. Patient needed pressors for short time in the ICU, after that his blood pressure gets stabilized and he was transferred in the select unit. Today he is fully awake and oriented he denies chest pain, he states sometimes he had mild dyspnea on and off and some coughing. However patient is saturating 97% on room air. He is breathing quietly. He has no speech difficulty and he is not using accessory respiratory muscles. He has good air entry in all lung jiang and patent airway, no swelling in the mouth or airway by inspection. And he is afebrile. His leukocytosis came back to normal at 8.7K. rest of CBC and BMP is unremarkable. His pro-calcitonin is normal at 0.06. Chest x-ray done today showing scattered senscent parenchymal change with no evidence for focal infiltrate, heart disease is stable, with impression as chronic changes without evidence for acute pulmonary disease. I discussed the case with cardiology team who cleared the patient for discharge, also patient has been cleared for discharge by pulmonary team who were contacted today and confirmed patient can be discharged home on cough syrup which is provided for him upon discharge. No other complaints, no change in urine or bowel habits. Patient was cleared for discharge by cardiology and pulmonary team as above Patient will be discharged on aspirin and Brillinta, oral Lasix, metoprolol and other medication as per cardiology team recommendation. Problems and management plan were discussed with the patient and he verbalized understanding and acceptance. Also I explained to the patient extensively that if he develops any symptoms like but not limited to worsening dyspnea, worsening coughing, chest pain, fever, diarrhea or change in bowel habits, fever or any other symptoms then to call 911 on come to emergency room and he agrees Patient was found stable and can be discharged home however he needs follow-up as an outpatient. Patient was instructed to follow up with PCP within one week and patient agrees however patient states he has no PCP, he was instructed to call his insurance provider to find PCP other than that he was provided with [address] Coyne and Dr. Lockwood to call and make appointment and he agrees. Also patient was instructed to follow up with his managed security sales consultant Dr. Villatoro in one week and he agrees, staff contacted the cardiology office was stated they will call the patient for appointment and patient informed Gen: patient is a AAOx3, no distress CVS: S1-S2, RRR, no murmur Lungs: B/L CTA, no wheezing Abdomen: soft, no distention, no tenderness, positive bowel sounds Extremity: no leg edema or induration Time spent more than 35 minutes Patient Condition at Discharge: Serious Plan - Discharge Summary Discharge Rx Participant: Yes New Discharge Prescriptions: New Spironolactone [Aldactone] 25 mg PO DAILY #30 tab Aspirin 81 mg PO DAILY #30 chew Ticagrelor [Brilinta] 90 mg PO BID #60 tab Furosemide [Lasix] 20 mg PO BID@0900,1600 #60 tab Atorvastatin [Lipitor] 80 mg PO DAILY #30 tab Metoprolol Tartrate [Lopressor] 12.5 mg PO BID #60 tab Nitroglycerin Sl Tabs [Nitrostat] 0.4 mg SUBLINGUAL Q5M PRN #30 tab PRN Reason: Chest Pain lisinopriL [Zestril] 2.5 mg PO HS #30 tab guaiFENesin-DM 100-10MG/5ML [Robitussin DM] 10 ml PO Q8H PRN #100 ml PRN Reason: Cough Discharge Medication List Aspirin 81 mg PO DAILY #30 chew 02/27/20 [Rx] Atorvastatin [Lipitor] 80 mg PO DAILY #30 tab 02/27/20 [Rx] Furosemide [Lasix] 20 mg PO BID@0900,1600 #60 tab 02/27/20 [Rx] Metoprolol Tartrate [Lopressor] 12.5 mg PO BID #60 tab 02/27/20 [Rx] Nitroglycerin Sl Tabs [Nitrostat] 0.4 mg SUBLINGUAL Q5M PRN #30 tab 02/27/20 [Rx] Spironolactone [Aldactone] 25 mg PO DAILY #30 tab 02/27/20 [Rx] Ticagrelor [Brilinta] 90 mg PO BID #60 tab 02/27/20 [Rx] guaiFENesin-DM 100-10MG/5ML [Robitussin DM] 10 ml PO Q8H PRN #100 ml 02/27/20 [Rx] lisinopriL [Zestril] 2.5 mg PO HS #30 tab 02/27/20 [Rx] Follow up Appointment(s)/Referral(s): Emir Lockwood MD [STAFF PHYSICIAN] - 1 Week (possible primary care doctor ) Dipti Villatoro MD [STAFF PHYSICIAN] - 1 Week (Office will be calling you with a follow-up appointment. ) Jazmyn Peña MD [REFERRING] - 1 Week (possible primary care doctor ) [facility], [NON-STAFF] - Patient Instructions/Handouts: Heart Attack (DC), Right Heart Catheterization (DC), Acute Coronary Syndrome (DC), Coronary Intravascular Stent Placement (DC) Activity/Diet/Wound Care/Special Instructions: heart healthy diet activity is limited till you see your doctor Discharge Disposition: HOME SELF-CARE
== END 2020-02-27 17:53 | disposition home or self-care (01) | DRG 246 ==
LOC: EC 10:21 → 3SCARD 12:37 → 2SICU 18:36 → 3SCARD 02-23 12:21
PROVIDERS: ADMIT Internal Medicine; ATTEND Internal Medicine
PROC: 027135Z Dilation of Coronary Artery, Two Arteries with Two Drug-eluting Intraluminal Devices, Percutaneous Approach (ICD-10-PCS; principal; 2020-02-22 16:45)
PROC: B2111ZZ Fluoroscopy of Multiple Coronary Arteries using Low Osmolar Contrast (ICD-10-PCS; principal; 2020-02-22 16:45)
PROC: 4A023N7 Measurement of Cardiac Sampling and Pressure, Left Heart, Percutaneous Approach (ICD-10-PCS; principal; 2020-02-22 16:45)
PROC: 3E033XZ Introduction of Vasopressor into Peripheral Vein, Percutaneous Approach (ICD-10-PCS; 2020-02-22 16:45)
DX: I21.09 ST elevation (STEMI) myocardial infarction involving other coronary artery of anterior wall (principal); I50.21 Acute systolic (congestive) heart failure; R57.0 Cardiogenic shock; J96.01 Acute respiratory failure with hypoxia; Z20.828 Contact with and (suspected) exposure to other viral communicable diseases; J44.9 Chronic obstructive pulmonary disease, unspecified; R00.0 Tachycardia, unspecified; H35.30 Unspecified macular degeneration; I34.0 Nonrheumatic mitral (valve) insufficiency; I25.5 Ischemic cardiomyopathy; R04.0 Epistaxis; I25.10 Atherosclerotic heart disease of native coronary artery without angina pectoris; Z71.3 Dietary counseling and surveillance; Z91.040 Latex allergy status; Z90.49 Acquired absence of other specified parts of digestive tract; Z98.890 Other specified postprocedural states; Z85.858 Personal history of malignant neoplasm of other endocrine glands
CPT/HCPCS: 36415; 71045; 71046; 80048; 80053; 80061; 83690; 83735; 83880; 84145; 84484; 85025; 85027; 85610; 85730; 87635; 93005; 93306; 93458; 94760; 96365; 96366; 96375; 96376; 99291

== ENCOUNTER 2021-02-14 21:08 | Emergency (ER) | payer MEDICARE ==
[2021-02-14] MEDS ORDERED: OXYMETAZOLINE 0.05% NASL SPRAY 1 SPRAY BOTTLE NASAL STA (21:44)
--- NOTE | 2021-02-14 21:44 | ED ---
ENT HPI - General Chief complaint: ENT Stated complaint: Nose Bleed Time Seen by Provider: 02/14/21 21:32 Source: EMS, RN notes reviewed, old records reviewed Mode of arrival: EMS Limitations: no limitations - History of Present Illness Initial comments: This is an 80-year-old male to the emergency department today. He. Patient states he has had history of nosebleeds but this is about as bad then. No dizziness lightheadedness. No trauma. No blood thinners. Patient states upon arrival awaiting to be placed in a bed in the emergency department this bleeding is stopped MD complaint: epistaxis -: hour(s) Location: nose Severity: mild Severity scale (1-10): 3 Consistency: constant, now resolved Improves with: none Worsens with: none Context-Epistaxis: history of similar Associated Symptoms: other (none) - Related Data Previous Rx's Medication Instructions Recorded Aspirin 81 mg PO DAILY #30 chew 02/27/20 Atorvastatin [Lipitor] 80 mg PO DAILY #30 tab 02/27/20 Furosemide [Lasix] 20 mg PO BID@0900,1600 #60 tab 02/27/20 Metoprolol Tartrate [Lopressor] 12.5 mg PO BID #60 tab 02/27/20 Nitroglycerin Sl Tabs [Nitrostat] 0.4 mg SUBLINGUAL Q5M PRN #30 tab 02/27/20 Spironolactone [Aldactone] 25 mg PO DAILY #30 tab 02/27/20 Ticagrelor [Brilinta] 90 mg PO BID #60 tab 02/27/20 guaiFENesin-DM 100-10MG/5ML 10 ml PO Q8H PRN #100 ml 02/27/20 [Robitussin DM] lisinopriL [Zestril] 2.5 mg PO HS #30 tab 02/27/20 Allergies Allergy/AdvReac Type Severity Reaction Status Date / Time latex Allergy Rash/Hives Verified 02/22/20 11:35 Review of Systems ROS Statement: Those systems with pertinent positive or pertinent negative responses have been documented in the HPI. ROS Other: All systems not noted in ROS Statement are negative. 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 History of Any Multi-Drug Resistant Organisms: None Reported Past Surgical History: Appendectomy, Cholecystectomy, Hernia Repair Past Anesthesia/Blood Transfusion Reactions: No Reported Reaction Past Psychological History: No Psychological Hx Reported Smoking Status: Never smoker Past Alcohol Use History: Occasional Past Drug Use History: None Reported - Past Family History Mother Family Medical History: Cancer Additional Family Medical History / Comment(s): pancreatic cancer General Exam Limitations: no limitations General appearance: alert, in no apparent distress Head exam: Present: atraumatic, normocephalic, normal inspection Eye exam: Present: normal appearance, PERRL, EOMI. Absent: scleral icterus, conjunctival injection, periorbital swelling ENT exam: Present: normal exam, mucous membranes moist Neck exam: Present: normal inspection. Absent: tenderness, meningismus, lymphadenopathy Respiratory exam: Present: normal lung sounds bilaterally. Absent: respiratory distress, wheezes, rales, rhonchi, stridor Cardiovascular Exam: Present: regular rate, normal rhythm, normal heart sounds. Absent: systolic murmur, diastolic murmur, rubs, gallop, clicks GI/Abdominal exam: Present: soft, normal bowel sounds. Absent: distended, tenderness, guarding, rebound, rigid Extremities exam: Present: normal inspection, full ROM, normal capillary refill. Absent: tenderness, pedal edema, joint swelling, calf tenderness Back exam: Present: normal inspection Neurological exam: Present: alert, oriented X3, CN II-XII intact Psychiatric exam: Present: normal affect, normal mood Skin exam: Present: warm, dry, intact, normal color. Absent: rash Course Vital Signs 02/14/21 02/14/21 21:21 23:07 Temperature 96.7 F L 98.7 F Pulse Rate 74 68 Respiratory 14 16 Rate Blood Pressure 111/65 100/52 O2 Sat by Pulse 98 98 Oximetry - Reevaluation(s) Reevaluation #1: Medical record is reviewed Symptoms are improved here in the ER Patient informed of results and questions answered Medical Decision Making - Medical Decision Making 80 male to the emergency department for evaluation of nosebleed. Nosebleed stops upon arrival to the emergency department. Patient does not want packing or treatment here in the ER he will be discharged home is given a nasal clamp Disposition Clinical Impression: Epistaxis Disposition: HOME SELF-CARE Condition: Good Instructions (If sedation given, give patient instructions): Nosebleed (ED) Is patient prescribed a controlled substance at d/c from ED?: No Referrals: Dipti Villatoro MD [Primary Care Provider] - 1-2 days
[2021-02-14 23:13] VITALS: BP 100/52; PULSE 68; RESP 16; TEMP 98.7
== END 2021-02-14 23:27 | disposition home or self-care (01) ==
LOC: EC 21:08
DX: R04.0 Epistaxis (principal); Z91.040 Latex allergy status
CPT/HCPCS: 99283

== ENCOUNTER 2021-11-15 17:12 | Inpatient (IN) | payer MEDICARE ==
--- NOTE | 2021-11-15 17:47 | ED ---
General Adult HPI - General Chief complaint: Neuro Symptoms/Deficit Stated complaint: vision loss Time Seen by Provider: 11/15/21 17:14 Source: patient, RN notes reviewed, old records reviewed Mode of arrival: ambulatory Limitations: no limitations - History of Present Illness Initial comments: 81-year-old male presents from the real estate underwriter's office for evaluation of right vision loss. Patient was sent in with concern for giant cell arteritis. The doctor evaluating the patient had requested laboratory testing. The patient states that yesterday evening he had a sudden loss of vision in his right eye. He denies any other symptoms, he reports only a mild headache. No focal numbness or weakness in his extremities. No speech abnormalities. Patient did have his eyes dilated prior to arrival. He has had previous cataract surgery. - Related Data Home Medications Medication Instructions Recorded Confirmed Furosemide [Lasix] 20 mg PO DAILY 11/15/21 11/15/21 Metoprolol Tartrate [Lopressor] 25 mg PO BID 11/15/21 11/15/21 Sacubitril/Valsartan [Entresto 49 1 tab PO BID 11/15/21 11/15/21 mg-51 mg Tablet] Previous Rx's Medication Instructions Recorded Aspirin 81 mg PO DAILY #30 chew 02/27/20 Atorvastatin [Lipitor] 80 mg PO DAILY #30 tab 02/27/20 Spironolactone [Aldactone] 25 mg PO DAILY #30 tab 02/27/20 Allergies Allergy/AdvReac Type Severity Reaction Status Date / Time latex Allergy Rash/Hives Verified 11/15/21 18:19 Review of Systems ROS Statement: Those systems with pertinent positive or pertinent negative responses have been documented in the HPI. ROS Other: All systems not noted in ROS Statement are negative. 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 History of Any Multi-Drug Resistant Organisms: None Reported Past Surgical History: Appendectomy, Cholecystectomy, Hernia Repair Past Anesthesia/Blood Transfusion Reactions: No Reported Reaction Past Psychological History: No Psychological Hx Reported Smoking Status: Never smoker Past Alcohol Use History: Occasional Past Drug Use History: None Reported - Past Family History Mother Family Medical History: Cancer Additional Family Medical History / Comment(s): pancreatic cancer General Exam Limitations: no limitations General appearance: alert, in no apparent distress Head exam: Present: atraumatic, normocephalic Eye exam: Present: normal appearance, EOMI, other (Patient has partial vision in the upper visual jiang on the right color differentiation only.). Absent: PERRL Neck exam: Present: normal inspection. Absent: tenderness, meningismus Respiratory exam: Present: normal lung sounds bilaterally. Absent: respiratory distress, wheezes Cardiovascular Exam: Present: regular rate, normal rhythm GI/Abdominal exam: Present: soft. Absent: distended, tenderness, guarding Extremities exam: Present: normal inspection, normal capillary refill. Absent: calf tenderness Neurological exam: Present: alert, oriented X3. Absent: motor sensory deficit Psychiatric exam: Present: normal affect, normal mood Skin exam: Present: warm, dry, intact. Absent: cyanosis, diaphoretic Course Vital Signs 11/15/21 11/15/21 11/15/21 17:16 19:20 20:40 Temperature 98 F Pulse Rate 71 80 63 Respiratory 20 18 18 Rate Blood Pressure 130/71 109/59 106/63 O2 Sat by Pulse 100 97 98 Oximetry EKG Findings - EKG Comments: EKG Findings:: EKG: Sinus rhythm rate 67, SD interval 185, QRS duration 92, QTC [address] segment elevation. Medical Decision Making - Medical Decision Making 81-year-old male with acute vision loss, sent in from the real estate underwriter office for concern for temporal arteritis. Patient had been dilated and had an eye exam prior to arrival. There was concern given the patient's age and physical exam findings for temporal arteritis. There was request for ESR and CRP. Patient had mildly elevated ESR 23 and an elevated CRP of 5.4. Otherwise normal laboratory testing. I did perform CT and CT angiography which was negative for acute findings. The discuss case with Dr. Garsia, who does feel the patient would benefit from high-dose steroids. Patient started on 1000 mg of Solu-M edrol in the emergency department. I discussed case with Dr. Rangel, who will admit. Vascular surgery placed on consult. - Lab Data Result diagrams: 11/15/21 17:40 11/15/21 17:40 Lab Results 11/15/21 11/15/21 11/15/21 Range/Units 17:40 17:40 17:40 WBC 8.7 (3.8-10.6) k/uL RBC 4.43 (4.30-5.90) m/uL Hgb 13.3 (13.0-17.5) gm/dL Hct 40.8 (39.0-53.0) % MCV 92.1 (80.0-100.0) fL MCH 30.0 (25.0-35.0) pg MCHC 32.6 (31.0-37.0) g/dL RDW 12.6 (11.5-15.5) % Plt Count 428 (150-450) k/uL MPV 6.5 Neutrophils % 67 % Lymphocytes % 21 % Monocytes % 7 % Eosinophils % 1 % Basophils % 0 % Neutrophils # 5.8 (1.3-7.7) k/uL Lymphocytes # 1.9 (1.0-4.8) k/uL Monocytes # 0.6 (0-1.0) k/uL Eosinophils # 0.1 (0-0.7) k/uL Basophils # 0.0 (0-0.2) k/uL ESR 23 H (0-15) mm/hr PT 11.5 (9.0-12.0) sec INR 1.1 (<1.2) APTT 27.0 (22.0-30.0) sec Sodium 139 (137-145) mmol/L Potassium 4.4 (3.5-5.1) mmol/L Chloride 101 (98-107) mmol/L Carbon Dioxide 26 (22-30) mmol/L Anion Gap 12 mmol/L BUN 18 (9-20) mg/dL Creatinine 0.79 (0.66-1.25) mg/dL Est GFR (CKD-EPI)AfAm >90 (>60 ml/min/1.73 sqM) Est GFR (CKD-EPI)NonAf 83 (>60 ml/min/1.73 sqM) Glucose 102 H (74-99) mg/dL Calcium 9.0 (8.4-10.2) mg/dL Total Bilirubin 0.6 (0.2-1.3) mg/dL AST 21 (17-59) U/L ALT 20 (4-49) U/L Alkaline Phosphatase 116 (38-126) U/L C-Reactive Protein 5.4 H (<1.0) mg/dL Total Protein 6.5 (6.3-8.2) g/dL Albumin 3.8 (3.5-5.0) g/dL Disposition Clinical Impression: Acute loss of vision Disposition: ADMITTED IP TO THIS [facility] Condition: Stable Is patient prescribed a controlled substance at d/c from ED?: No Referrals: None,Stated [Primary Care Provider] - 1-2 days Time of Disposition: 20:44
[2021-11-15 17:51] LABS: Basophils % (A) 0 %; Eosinophils # (A) 0.1 k/uL (0-0.7); Eosinophils % (A) 1 %; HCT 40.8 % (39.0-53.0); HGB 13.3 gm/dL (13.0-17.5); Lymphocytes # (A) 1.9 k/uL (1.0-4.8); Lymphocytes % (A) 21 %; MCHC 32.6 g/dL (31.0-37.0); MCV 92.1 fL (80.0-100.0); Mean Platelet Volume 6.5; Monocytes # (A) 0.6 k/uL (0-1.0); Monocytes % (A) 7 %; Neutrophils # (A) 5.8 k/uL (1.3-7.7); Neutrophils % (A) 67 %; Platelet Count 428 k/uL (150-450); RBC 4.43 m/uL (4.30-5.90); RDW 12.6 % (11.5-15.5); WBC 8.7 k/uL (3.8-10.6)
[2021-11-15 18:06] LABS: INR 1.1 (<1.2); Prothrombin Time 11.5 sec (9.0-12.0)
[2021-11-15 18:09] LABS: ALT 20 U/L (4-49); AST 21 U/L (17-59); African American GFR (CKD) >90 (>60 ml/min/1.73 sqM); Albumin 3.8 g/dL (3.5-5.0); Alkaline Phosphatase 116 U/L (38-126); Anion Gap 12 mmol/L; Blood Urea Nitrogen 18 mg/dL (9-20); C Reactive Protein 5.4 mg/dL (<1.0); Carbon Dioxide 26 mmol/L (22-30); Chloride 101 mmol/L (98-107); Glucose 102 mg/dL (74-99); Non-African American GFR(CKD) 83 (>60 ml/min/1.73 sqM); Potassium 4.4 mmol/L (3.5-5.1); Sodium 139 mmol/L (137-145); Total Bilirubin 0.6 mg/dL (0.2-1.3); Total Protein 6.5 g/dL (6.3-8.2)
[2021-11-15 18:30] LABS: Erythrocyte Sedimentation Rate 23 mm/hr (0-15)
--- NOTE | 2021-11-15 19:27 | CT ---
EXAMINATION TYPE: CT brain wo con CT DLP: 1113.6 mGycm, Automated exposure control for dose reduction was used. DATE OF EXAM: 11/15/2021 7:09 PM COMPARISON: CTA head and neck 11/15/2021. CLINICAL INDICATION:Male, 81 years old with history of Neuro deficit, acute, stroke suspected, right eye vision loss TECHNIQUE: Brain: Axial CT images of the brain were obtained with coronal and sagittal reformats created and rev iewed. Contrast used: None. Oral contrast used: None. FINDINGS: Brain: Extra-axial spaces: No abnormal extra-axial fluid collections. Ventricular system: Mildly prominent ventricular system which is proportional to cerebral atrophy. Cerebral parenchyma: No acute intraparenchymal hemorrhage or mass effect. Focal area of low attenuat ion involving the superior left frontal lobe anteriorly (series 201, image 41) with near CSF attenuat ion, consistent with remote injury. Remote lacunar injury of the right basal ganglia. Patchy areas of low white matter attenuation that are nonspecific, likely small vessel ischemia.. Cerebellum: Unremarkable. Mass effect: No evidence of midline shift. Intracranial vasculature: Atherosclerotic calcifications of the intracranial vessels. Soft tissues: Normal. Calvarium/osseous structures: No depressed skull fracture. Paranasal sinuses and mastoid air cells: Mild scattered paranasal sinus disease. Visualized orbits: Bilateral aphakia IMPRESSION: 1. No acute intracranial process. 2. 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 3. 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
--- NOTE | 2021-11-15 19:39 | CT ---
EXAMINATION TYPE: CT angio head neck CT DLP: 442.1 mGycm, Automated exposure control for dose reduction was used. DATE OF EXAM: 11/15/2021 7:12 PM COMPARISON: CT head 11/15/2021. CLINICAL INDICATION:Male, 81 years old with history of Neuro deficit, acute, stroke suspected; PHH, r ight eye vision loss TECHNIQUE: Axially acquired helical CT angiogram of the head and neck was obtained with contrast. Axi al images are supplemented with 3D reconstructions which [facility] NASCET criteria used. Contrast used:65 mL of Isovue 370 with IV Contrast, Oral contrast used: None. FINDINGS: CTA HEAD: No evidence of acute intracranial hemorrhage, mass effect, or midline shift. The ventricles, sulci, a nd cisterns are unremarkable. The visualized portions of the internal carotid arteries, middle cerebral arteries, anterior cerebral arteries, and posterior cerebral arteries are patent. Nonvisualization of the left posterior communi cating artery which may be due to diminutive size versus congenital absence. Right posterior indicati ng artery is patent. The basilar and vertebral arteries are patent. Left vertebral artery is dominant. CTA NECK: Right Carotid System: The common carotid artery and external carotid artery are patent. The carotid bifurcation demonstrate s no evidence of hemodynamically significant stenosis. Minimal calcified atherosclerosis is present a t the carotid bulb. The remaining portions of the internal carotid artery demonstrate normal size wit hout significant narrowing. Left Carotid System: The common carotid artery and external carotid artery are patent. The carotid bifurcation demonstrate s no evidence of hemodynamically significant stenosis. Minimal calcified atherosclerosis is present a t the carotid bulb. The remaining portions of the internal carotid artery demonstrate normal size wit hout significant narrowing. Vertebral arteries are patent without evidence hemodynamically significant stenosis. There is a three-vessel aortic arch. The origins of the great vessels are patent. No evidence of hemo dynamically significant stenosis. IMPRESSION: 1. No evidence of dissection of the cervical internal carotid arteries or vertebral arteries or any e vidence of significant stenosis at the carotid bifurcations. 2. No evidence of intracranial high-grade stenosis or intracranial aneurysm.
[2021-11-15] MEDS ORDERED: methylPREDNISolone SOD SUCCIN 1,000 MG in SODIUM CHLORIDE 0.9% 250 ML IVPB STA (20:05)
[2021-11-15] MEDS ORDERED: NALOXONE 0.4 MG/ML 1 ML VIAL IV PRN (20:39)
[2021-11-15] MEDS ORDERED: ACETAMINOPHEN TAB 325 MG TAB PO PRN (20:39)
[2021-11-15] MEDS: SODIUM CHLORIDE 0.9% 1,000 ML IV SCH (21:54)
--- NOTE | 2021-11-16 01:03 | P.HPIM ---
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 The patient reports that he was in his usual state of health until last night at around 8:30 PM when he was sitting on a couch watching television when he suddenly lost his vision in the right eye. Patient reports that over the past 3-4 days he has also had a mild diffuse headache. He denied experiencing any additional symptoms at the time of onset of vision loss. Reports that the vision loss has persisted, described as "being in a dark box" and is unchanged since onset. The vision in the left eye is normal and unchanged as per patient. Denied experiencing eye pain, weakness, numbness, slurred speech, or dizziness. Patient denied any prior history of such symptoms or prior history of CVA. The patient was seen by an traffic analysis technician earlier today who performed a dilated exam on which significant inflammation was noted with concerns for temporal arteritis. The case was discussed by ED physician with traffic analysis technician Dr. Garsia who recommended high-dose steroids and a vascular surgery consult. The patient denied experiencing weight loss, fatigue, a right-sided headaches. He is able to ambulate without assistance and reports being in overall good health. CT angiogram in the emergency room revealed no acute abnormalities with CT brain showing remote CVA with no acute abnormalities. Laboratory evaluation was remarkable for CRP of 5.4 and ESR 23. Review of systems: Pertinent positives and negatives as discussed in HPI, a complete review of systems was performed and all other systems are negative. Physical examination: General: non toxic, no distress, appears at stated age, normal weight Derm: no unusual rashes/lesions, warm Head: atraumatic, normocephalic, symmetric, R temporal artery region non-tender Eyes: Anisocoria with right pupil 5 mm and nonreactive, left pupil 3 mm and sluggishly reactive, no lid lag, anicteric sclera ENT: Nose and ears atraumatic Neck: No cervical lymphadenopathy, trachea midline, supple Mouth: no lip lesion, mucus membranes moist Cardiovascular: S1S2 reg, no murmur, positive dorsalis pedis pulse bilateral, no edema Lungs: CTA bilateral, no rhonchi, no rales, no accessory muscle use Abdominal: soft, nontender to palpation, no guarding Ext: muscle strength 5 out of 5 in all 4 extremities grossly, no gross muscle atrophy, no contractures, Neuro: CN II-XI grossly intact, no gross focal neuro deficits Psych: Alert, oriented, appropriate affect Assessment/plan Sudden painless right vision loss, concern for temporal arteritis -Status post 1000 mg Solu-Medrol in the emergency room -Continue with Solu-Medrol 1000 mg IV daily for total of 3 days with plan for prednisone taper -Vascular surgery consulted for temporal artery biopsy -Rheumatology consult DVT prophylaxis -Heparin The patient is admitted with an anticipated greater than 2 midnight stay for evaluation of vision loss CODE STATUS: Full Code Discussed with: Patient Anticipated discharge date: 2-[address]: Home 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 History of Any Multi-Drug Resistant Organisms: None Reported Past Surgical History: Appendectomy, Cholecystectomy, Hernia Repair Past Anesthesia/Blood Transfusion Reactions: No Reported Reaction Past Psychological History: No Psychological Hx Reported Smoking Status: Never smoker Past Alcohol Use History: Occasional Past Drug Use History: None Reported - Past Family History Mother Family Medical History: Cancer Additional Family Medical History / Comment(s): pancreatic cancer Medications and Allergies Home Medications Medication Instructions Recorded Confirmed Type Aspirin 81 mg PO DAILY #30 chew 02/27/20 11/15/21 Rx Atorvastatin [Lipitor] 80 mg PO DAILY #30 tab 02/27/20 11/15/21 Rx Spironolactone [Aldactone] 25 mg PO DAILY #30 tab 02/27/20 11/15/21 Rx Furosemide [Lasix] 20 mg PO DAILY 11/15/21 11/15/21 History Metoprolol Tartrate [Lopressor] 25 mg PO BID 11/15/21 11/15/21 History Sacubitril/Valsartan [Entresto 49 1 tab PO BID 11/15/21 11/15/21 History mg-51 mg Tablet] Allergies Allergy/AdvReac Type Severity Reaction Status Date / Time latex Allergy Rash/Hives Verified 11/15/21 18:19 Physical Exam Vitals: Vital Signs Temp Pulse Resp BP Pulse Ox 11/15/21 20:40 63 18 106/63 98 11/15/21 19:20 80 18 109/59 97 11/15/21 17:16 98 F 71 20 130/71 100 Intake and Output 11/15/21 11/15/21 11/16/21 14:59 22:59 06:59 Other: Weight 72.575 kg Results CBC & Chem 7: 11/15/21 17:40 11/15/21 17:40 Labs: Abnormal Lab Results - Last 24 Hours (Table) 11/15/21 11/15/21 Range/Units 17:40 17:40 ESR 23 H (0-15) mm/hr Glucose 102 H (74-99) mg/dL C-Reactive Protein 5.4 H (<1.0) mg/dL
[2021-11-16] MEDS ORDERED: PANTOPRAZOLE 40 MG/10 ML VIAL IV SCH (09:00)
[2021-11-16] MEDS: HEPARIN SODIUM,PORCINE/PF 5,000 UNIT/0.5 ML SYRINGE SQ SCH ×3 (09:35→23:27)
[2021-11-16] MEDS: ASPIRIN 81 MG PO SCH (09:35)
[2021-11-16] MEDS: ATORVASTATIN 80 MG TAB PO SCH (09:36)
[2021-11-16] MEDS: METOPROLOL TARTRATE 25 MG TAB PO SCH ×2 (09:36→19:58)
[2021-11-16] MEDS: SPIRONOLACTONE 25 MG TAB PO SCH (09:50)
--- NOTE | 2021-11-16 11:19 | P.PN ---
Subjective Progress Note Date: 11/16/21 Patient reports mild improvement in the vision of his right eye. Pending vascular surgery consult. Pending rheumatology consult. Continue IV steroids. Gen: awake, alert HEENT: normocephalic, atraumatic, good hearing acuity, moist mucous membranes Resp: good air exchange, breathing comfortably with no accessory muscle use CVS: good distal perfusion x 4, GI: soft, NTTP, ND : no SPT, no CVAT, trejo catheter not present MSK: no pitting edema, no clubbing Neuro: non-focal, moving all extremities Psych: cooperative, euthymic mood Assessment/plan: Assessment/plan Sudden painless right vision loss, concern for temporal arteritis -Status post 1000 mg Solu-Medrol in the emergency room -Continue with Solu-Medrol 1000 mg IV daily for total of 3 days with plan for prednisone taper -Vascular surgery consulted for temporal artery biopsy -Rheumatology consult DVT prophylaxis -Heparin The patient is admitted with an anticipated greater than 2 midnight stay for evaluation of vision loss CODE STATUS: Full Code Discussed with: Patient Anticipated discharge date: 2-[address]: Home Objective - Vital Signs Vital signs: Vital Signs Temp 98 F 11/15/21 17:16 Pulse 64 11/16/21 02:42 Resp 16 11/16/21 02:42 BP 131/63 11/16/21 02:42 Pulse Ox 97 11/16/21 02:42 FiO2 Intake & Output 11/15/21 11/16/21 11/16/21 18:59 06:59 18:59 Weight 72.575 kg - Labs CBC & Chem 7: 11/15/21 17:40 11/15/21 17:40 Labs: Abnormal Lab Results - Last 24 Hours (Table) 11/15/21 11/15/21 Range/Units 17:40 17:40 ESR 23 H (0-15) mm/hr Glucose 102 H (74-99) mg/dL C-Reactive Protein 5.4 H (<1.0) mg/dL
[2021-11-16] MEDS: FUROSEMIDE 20 MG TAB PO SCH (12:50)
[2021-11-16] MEDS: SACUBITRIL/VALSARTAN 49 MG-51 MG TABLET PO SCH ×2 (12:50→19:58)
[2021-11-16] MEDS: SODIUM CHLORIDE 0.9% 1,000 ML IV SCH ×2 (15:05→20:06)
--- NOTE | 2021-11-16 17:38 | P.GSCN ---
History of Present Illness Consult date: 11/16/21 Reason for Consult: temporal artery biopsy, eye blindness History of present illness: 81 year old male with PMH of macular degeneration, cataracts presented to the ER from the Opthamologist office after acute vision loss was noted on the right. He was dilated in the office and examined and then sent to the ER for further evaluation. He states his only symptoms are his vision and describes it as being in a dark box. He states since being in the hospital he has noticed the other eye beginning to have similar issues. He was seen in the ER and worked up with CTA and CT of the brain and neck which were negative for any carotid disease or stroke. He denies any other stroke like symptoms. His CRP was elevated and he has been on high dose steroids to treat Giant cell arteritis. We were consulted for temporal artery biopsy. Currently he denies any fevers, chills, chest pain or shortness of breath. 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 Past Anesthesia/Blood Transfusion Reactions: No Reported Reaction Date of Last Stent Placement:: 2019 Past Psychological History: No Psychological Hx Reported Smoking Status: Never smoker Past Alcohol Use History: Occasional Past Drug Use History: None Reported - Past Family History Mother Family Medical History: Cancer Additional Family Medical History / Comment(s): pancreatic cancer Medications and Allergies Home Medications Medication Instructions Recorded Confirmed Type Aspirin 81 mg PO DAILY #30 chew 02/27/20 11/15/21 Rx Atorvastatin [Lipitor] 80 mg PO DAILY #30 tab 02/27/20 11/15/21 Rx Spironolactone [Aldactone] 25 mg PO DAILY #30 tab 02/27/20 11/15/21 Rx Furosemide [Lasix] 20 mg PO DAILY 11/15/21 11/15/21 History Metoprolol Tartrate [Lopressor] 25 mg PO BID 11/15/21 11/15/21 History Sacubitril/Valsartan [Entresto 49 1 tab PO BID 11/15/21 11/15/21 History mg-51 mg Tablet] Allergies Allergy/AdvReac Type Severity Reaction Status Date / Time latex Allergy Rash/Hives Verified 11/15/21 18:19 Surgical - Exam Vital Signs Temp Pulse Resp BP Pulse Ox 98 F 71 20 130/71 100 11/15/21 17:16 11/15/21 17:16 11/15/21 17:16 11/15/21 17:16 11/15/21 17:16 - General well developed, well nourished, no pain - Eyes Pupils dilated. normal ocular movement - ENT normal pinna, normal nares - Neck no masses - Respiratory normal expansion - Cardiovascular Rhythm: regular - Abdomen Abdomen: soft, non tender - Integumentary no rash - Neurologic normal coordination, normal sensation - Psychiatric oriented to time, oriented to person, oriented to place, speech is normal palpable dp and pt pulses bilaterally palpable radial pulses bilaterally sensory intact, equal exhibit preparator strength, no facial droop or tongue deviation. Results - Labs 11/15/21 17:40 11/15/21 17:40 Abnormal Lab Results - Last 24 Hours (Table) 11/15/21 11/15/21 Range/Units 17:40 17:40 ESR 23 H (0-15) mm/hr Glucose 102 H (74-99) mg/dL C-Reactive Protein 5.4 H (<1.0) mg/dL Diabetes panel 11/15/21 Range/Units 17:40 Sodium 139 (137-145) mmol/L Potassium 4.4 (3.5-5.1) mmol/L Chloride 101 (98-107) mmol/L Carbon Dioxide 26 (22-30) mmol/L BUN 18 (9-20) mg/dL Creatinine 0.79 (0.66-1.25) mg/dL Glucose 102 H (74-99) mg/dL Calcium 9.0 (8.4-10.2) mg/dL AST 21 (17-59) U/L ALT 20 (4-49) U/L Alkaline Phosphatase 116 (38-126) U/L Total Protein 6.5 (6.3-8.2) g/dL Albumin 3.8 (3.5-5.0) g/dL Calcium panel 11/15/21 Range/Units 17:40 Calcium 9.0 (8.4-10.2) mg/dL Albumin 3.8 (3.5-5.0) g/dL Pituitary panel 11/15/21 Range/Units 17:40 Sodium 139 (137-145) mmol/L Potassium 4.4 (3.5-5.1) mmol/L Chloride 101 (98-107) mmol/L Carbon Dioxide 26 (22-30) mmol/L BUN 18 (9-20) mg/dL Creatinine 0.79 (0.66-1.25) mg/dL Glucose 102 H (74-99) mg/dL Calcium 9.0 (8.4-10.2) mg/dL Adrenal panel 11/15/21 Range/Units 17:40 Sodium 139 (137-145) mmol/L Potassium 4.4 (3.5-5.1) mmol/L Chloride 101 (98-107) mmol/L Carbon Dioxide 26 (22-30) mmol/L BUN 18 (9-20) mg/dL Creatinine 0.79 (0.66-1.25) mg/dL Glucose 102 H (74-99) mg/dL Calcium 9.0 (8.4-10.2) mg/dL Total Bilirubin 0.6 (0.2-1.3) mg/dL AST 21 (17-59) U/L ALT 20 (4-49) U/L Alkaline Phosphatase 116 (38-126) U/L Total Protein 6.5 (6.3-8.2) g/dL Albumin 3.8 (3.5-5.0) g/dL - Imaging Comments: CT brain, CTA neck and head reviewed Assessment and Plan Assessment: 1. Acute right sided vision loss 2. Elevated ESR, CRP possible Giant Cell Arteritis Plan: Discussion had with the patient about temporal artery biopsy. He states if the procedure is not curative and only diagnostic then he doesn't want it done. Reviewed the CTA which demonstrates patent carotid arteries without significant disease. I discussed with medicine and agree with continued workup including ECHO, and possibly MRI of the brain. Continue steroid treatment per medical team. Agree with neurology evaluation as well. If patient changes mind and wants the biopsy we will perform next week. Thank you for the consultation.
[2021-11-16] MEDS ORDERED: methylPREDNISolone SOD SUCCIN 1,000 MG in SODIUM CHLORIDE 0.9% 250 ML IVPB SCH (18:00)
[2021-11-17] MEDS ORDERED: PANTOPRAZOLE 40 MG TABLET PO SCH (07:30)
[2021-11-17] MEDS: FUROSEMIDE 20 MG TAB PO SCH (09:04)
[2021-11-17] MEDS: SACUBITRIL/VALSARTAN 49 MG-51 MG TABLET PO SCH (09:04)
[2021-11-17] MEDS: METOPROLOL TARTRATE 25 MG TAB PO SCH (09:04)
[2021-11-17] MEDS: ASPIRIN 81 MG PO SCH (09:04)
[2021-11-17] MEDS: HEPARIN SODIUM,PORCINE/PF 5,000 UNIT/0.5 ML SYRINGE SQ SCH ×2 (09:04→17:43)
[2021-11-17] MEDS: ATORVASTATIN 80 MG TAB PO SCH (09:04)
[2021-11-17] MEDS: SPIRONOLACTONE 25 MG TAB PO SCH (09:04)
--- NOTE | 2021-11-17 11:35 | P.PN ---
Subjective Progress Note Date: 11/17/21 Patient's visual loss is now bilateral and quite significant, no headache associated with this, ESR is 23. Patient was counseled that there may be an alternative process including brain tumor causing optic nerve impingement or aneurysm, and he should get an MRI as soon as possible but unfortunately we do n't offer the service over the weekend. Therefore, it was recommended by both neurology service as well as myself the patient should be transferred for higher level . Patient told me that he would prefer to wait until tomorrow to get the MRI and then determine whether it is truly necessary, I and neurology advised against this delay of care, however, patient refused transfer at this time. I reached out to ophthalmology to update them on patient's clinical status today. Gen: awake, alert HEENT: normocephalic, atraumatic, good hearing acuity, moist mucous membranes Resp: good air exchange, breathing comfortably with no accessory muscle use CVS: good distal perfusion x 4, GI: soft, NTTP, ND : no SPT, no CVAT, trejo catheter not present MSK: no pitting edema, no clubbing Neuro: non-focal, moving all extremities, bilateral visual loss Psych: cooperative, euthymic mood Assessment/plan Sudden painless bilateral vision loss, concern for temporal arteritis versus optic nerve impingement versus aneurysm -Status post 1000 mg Solu-Medrol in the emergency room -Continue with Solu-Medrol 1000 mg IV daily for total of 3 days with plan for prednisone taper -Vascular surgery consulted for temporal artery biopsy, patient refused at this time -Rheumatology consult -Neurology consult -Ophthalmology consult -MRI of the brain is pending Chronic systolic congestive heart failure, ejection fraction between 20-25% Ischemic cardiomyopathy Hypertension Hyperlipidemia -Continue home medications, including entresto, Lasix, Aldactone, metoprolol DVT prophylaxis -Heparin The patient is admitted with an anticipated greater than 2 midnight stay for evaluation of vision loss CODE STATUS: Full Code Discussed with: Patient Anticipated discharge date: 2-[address]: Home Objective - Vital Signs Vital signs: Vital Signs Temp 97.8 F 11/17/21 09:04 Pulse 80 11/17/21 09:04 Resp 17 11/17/21 09:04 BP 121/74 11/17/21 09:04 Pulse Ox 97 11/17/21 09:04 FiO2 Intake & Output 11/16/21 11/17/21 11/17/21 18:59 06:59 18:59 Intake Total 630 540 420 Output Total 0 Balance 630 540 420 Weight 72.575 kg Intake: IV 450 Sodium Chloride 0.9% 1, 450 000 ml @ 75 mls/hr IV . [id number] [facility] Rx#:[id number] Oral 180 540 420 Output: Urine 0 Other: Voiding Method Toilet Toilet Toilet # Voids 2 - Labs CBC & Chem 7: 11/15/21 17:40 11/15/21 17:40
--- NOTE | 2021-11-17 11:47 | P.CNNES ---
History of Present Illness Consult date: 11/17/21 Reason for Consult: bilateral visual loss History of Present Illness: The patient is an 81-year-old male who is seen in neurologic [facility] emergency department on November 17, 2021, via teleneurology. The patient reports that on evening, he was watching television, at about 8 PM. He says he had sudden loss of vision of his right eye. He says that his entire right visual field when "black". The next morning, on Thursday, the patient saw a retinal specialist. Apparently the patient was examined and there was reported to be evidence of inflammation area the eye doctor advised the patient to come into the emergency department immediately. There was reported concern for temporal arteritis. CT scan and CT angiogram of the head and neck were performed in the emergency department. There is no sign of acute hemorrhage infarct or mass. There is no evidence of inflammation of the blood vessels, significant stenosis or large vessel occlusion. These images were personally reviewed. I agree with the reports. The patient denies pain in his head and in his eyes. He denies pain with temporal artery palpation. The patient reports that approximately one week prior to the onset of these symptoms he had what he thought was "hayfever sy mptoms". He says that he had a runny nose and drainage in the back of his throat. He did not check himself for Covid 19. He says he has been vaccinated. The patient denies difficulty with speech, swallowing, hearing, weakness and paresthesias of extremities. Further workup in the emergency department revealed a sedimentation rate of 23 and a CRP of 5.6. The patient was subsequently admitted to the hospital with a diagnosis of possible temporal arteritis. He was started on high-dose steroids. 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 Past Anesthesia/Blood Transfusion Reactions: No Reported Reaction Date of Last Stent Placement:: 2019 Past Psychological History: No Psychological Hx Reported Smoking Status: Never smoker Past Alcohol Use History: Occasional Past Drug Use History: None Reported - Past Family History Mother Family Medical History: Cancer Additional Family Medical History / Comment(s): pancreatic cancer Medications and Allergies Home Medications Medication Instructions Recorded Confirmed Type Aspirin 81 mg PO DAILY #30 chew 02/27/20 11/15/21 Rx Atorvastatin [Lipitor] 80 mg PO DAILY #30 tab 02/27/20 11/15/21 Rx Spironolactone [Aldactone] 25 mg PO DAILY #30 tab 02/27/20 11/15/21 Rx Furosemide [Lasix] 20 mg PO DAILY 11/15/21 11/15/21 History Metoprolol Tartrate [Lopressor] 25 mg PO BID 11/15/21 11/15/21 History Sacubitril/Valsartan [Entresto 49 1 tab PO BID 11/15/21 11/15/21 History mg-51 mg Tablet] Allergies Allergy/AdvReac Type Severity Reaction Status Date / Time latex Allergy Rash/Hives Verified 11/15/21 18:19 Physical Examination - Vital Signs Vital Signs: Vital Signs Temp Pulse Resp BP Pulse Ox 11/17/21 03:05 97.6 F 88 18 129/73 98 11/17/21 01:02 16 11/16/21 23:31 76 16 102/61 99 11/16/21 20:00 18 11/16/21 19:49 97.9 F 88 18 109/61 96 11/16/21 15:26 97.8 F 81 17 115/78 11/16/21 12:00 97.3 F L 74 14 102/62 96 Intake and Output 11/16/21 11/17/21 11/17/21 22:59 06:59 14:59 Intake Total 180 540 420 Balance 180 540 420 Intake: Oral 180 540 420 Other: Voiding Method Toilet Toilet # Voids 2 Weight 72.575 kg Gen.: The patient is reclining in the bed. He is well-nourished, well-developed and in no acute distress. HEENT: Head is atraumatic, normocephalic. There is no tenderness to palpation of the temporal arteries Fundus not visualized. There is no scleral icterus. Mucous membranes are moist. Neck: Supple Heart: Regular rate and rhythm Extremities: Without edema Neurological examination Mental status: The patient is awake, alert and oriented 3. His speech is clear. There is no dysarthria or aphasia. Cranial nerves: Pupils are equal at 6 mm and nonreactive. The patient is able to see the light shined into his eyes but otherwise, vision is absent. Extraocular movements are intact. There is no facial asymmetry. Hearing is grossly intact. Uvula and palate are midline. Shoulder shrug is symmetric. Tongue protrudes midline. Motor: Strength is 5/5 throughout. Coordination: There is right-sided dysmetria on finger to nose testing. Sensation: Grossly intact to light touch throughout. Deep tendon reflexes: 3+/4+ throughout. Plantar response is extensor on the left and questionably upgoing on the right. Gait: Not assessed Results - Laboratory Findings CBC and BMP: 11/15/21 17:40 11/15/21 17:40 Abnormal Lab Findings: Abnormal Labs 11/15/21 11/15/21 17:40 17:40 ESR 23 H Glucose 102 H C-Reactive Protein 5.4 H Assessment and Plan Assessment: 1. Bilateral vision loss, without eye pain or headache. There is no temporal artery tenderness. Sedimentation rate is not elevated, when age is taken into account. In this patient's age range, and elevated sedimentation rate could be greater than 43. The patient's neurologic examination findings are consistent with a central lesion as an etiology for the visual loss 2. 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 History of hypertension and hyperlipidemia Plan: 1. Discontinue methylprednisolone 2. Transfer to [facility] or [facility], was discussed with patient for stat MRI. I discussed my concerns regarding central etiology for the vision loss and the need for the stat MRI. I advised the patient that the sooner we find the etiology of his vision loss, the more likely his vision will able to be saved. The patient expresses concerns that his car is in the parking lot. He also expresses concerns that his son will not be able to find him at the other hospital. He also expresses concerns that it is "too much of a problem". He refuses to discuss this matter with his son, at this point in time. He states that he will wait until tomorrow to have the MRI 3. I did discuss my concerns with the patient's nurse, who also discussed the concerns with the patient's hospitalist Thank you for allowing me to participate in the care of this patient. Dr. Dobbins will assume neurologic coverage of this patient as of November 18, 2021 Time with Patient: Greater than 30 (spent 45 minutes with patient via telemedicine)
[2021-11-17] MEDS ORDERED: methylPREDNISolone SOD SUCCIN 1,000 MG in SODIUM CHLORIDE 0.9% 250 ML IVPB SCH (12:00)
--- NOTE | 2021-11-17 13:21 | P.PN ---
Subjective Progress Note Date: 11/17/21 Principal diagnosis: vision loss Patient seen and examined. No changes overnight. Denies any fevers, chills, chest pain or shortness of breath. Objective - Vital Signs Vital signs: Vital Signs Temp 97.9 F 11/17/21 12:00 Pulse 55 L 11/17/21 12:00 Resp 16 11/17/21 12:00 BP 101/53 11/17/21 12:00 Pulse Ox 95 11/17/21 12:00 FiO2 Intake & Output 11/16/21 11/17/21 11/17/21 18:59 06:59 18:59 Intake Total 630 540 420 Output Total 0 Balance 630 540 420 Weight 72.575 kg Intake: IV 450 Sodium Chloride 0.9% 1, 450 000 ml @ 75 mls/hr IV . [id number] [facility] Rx#:[id number] Oral 180 540 420 Output: Urine 0 Other: Voiding Method Toilet Toilet Toilet # Voids 2 - Constitutional General appearance: Present: cooperative - EENT EENT Comment(s): pupils dilated, non responsive EOMI - Respiratory Respiratory: bilateral: CTA - Cardiovascular Rhythm: regular - Psychiatric Psychiatric: Present: A&O x's 3, appropriate affect, intact judgment & insight - Labs CBC & Chem 7: 11/15/21 17:40 11/15/21 17:40 Assessment and Plan Assessment: 1. Acute right sided vision loss 2. Elevated ESR, CRP possible Giant Cell Arteritis Plan: Patient still doesn't want any surgical biopsy at this time. Agree with MRI No further surgical intervention at this time. Re-eval as needed.
--- NOTE | 2021-11-17 15:53 | CT ---
EXAMINATION TYPE: CT brain wo con CT DLP: 1176.4 mGycm, Automated exposure control for dose reduction was used. DATE OF EXAM: 11/17/2021 3:39 PM COMPARISON: 11/15/2021. CLINICAL INDICATION:Male, 81 years old with history of Visual loss, rapid vision changes going blind TECHNIQUE: Brain: Axial CT images of the brain were obtained with coronal and sagittal reformats created and rev iewed. Contrast used: None. Oral contrast used: None. FINDINGS: Brain: Extra-axial spaces: No abnormal extra-axial fluid collections. Ventricular system: Within normal limits Cerebral parenchyma: Similar left frontal lobe centrum semiovale white matter changes likely from rem ote injury No acute intraparenchymal hemorrhage or mass effect. The borrego-white junction is well diff erentiated. Cerebellum: Unremarkable. Mass effect: No evidence of midline shift. Intracranial vasculature: Atherosclerotic calcifications of the intracranial vessels. Soft tissues: Normal. Calvarium/osseous structures: No depressed skull fracture. Paranasal sinuses and mastoid air cells: Mild scattered paranasal sinus disease. Visualized orbits: Bilateral aphakia IMPRESSION: 1. No acute intracranial process. No interval change from 11/15/2021. Consider MRI of the brain to rul e out a small infarct. 2. 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 3. 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
--- NOTE | 2021-11-17 18:15 | P.DS ---
Providers Date of admission: 11/15/21 20:39 Expected date of discharge: 11/17/21 Attending physician: Mindy Rangel MD Consults: 11/15/21 20:39 Consult Physician Routine Consulting Provider: Ronaldo Jackson Consult Reason/Comments: Right vision loss, rule out temporal arteritis Do you want consulting provider notified?: Yes 11/16/21 01:01 Consult Physician Urgent Consulting Provider: Kalli Camara Consult Reason/Comments: [facility] Do you want consulting provider notified?: Yes 11/16/21 15:35 Consult Physician Urgent Consulting Provider: Azalia Bravo Consult Reason/Comments: Vision loss, b/l eyes Do you want consulting provider notified?: Yes 11/16/21 15:37 Consult Physician Urgent Consulting Provider: Vincent Garsia Consult Reason/Comments: bilateral vision loss Do you want consulting provider notified?: Yes Primary care physician: Stated None Hospital Course: Sudden painless bilateral vision loss, concern for temporal arteritis versus optic nerve impingement versus aneurysm Chronic systolic congestive heart failure, ejection fraction between 20-25% Ischemic cardiomyopathy Hypertension Hyperlipidemia 81-year-old patient was initially admitted unilateral vision loss in the right eye associated with new onset headacheP From the ophthalmology office and was started on high-dose steroids for presumed giant cell arteritis. However, patient's visual loss is now bilateral and quite significant, no headache associated with this, ESR is 23. Patient was counseled that there may be an alternative process including brain tumor causing optic nerve impingement or aneurysm, and he should get an MRI as soon as possible but unfortunately we don't offer the service over the weekend. Therefore, it was recommended by both neurology service, ophthalmology service, as well as myself the patient should be transferred for higher level . patient was initially hesitant and wanted to get his MRI done here before making a decision about transfer, however, he ultimately understood the urgency of the situation and was amenable to transfer. [facility] was contacted regarding transfer and accepted patient to their hospitalist service with plan to get an MRI and MRA. Gen: awake, alert HEENT: normocephalic, atraumatic, good hearing acuity, moist mucous membranes Resp: good air exchange, breathing comfortably with no accessory muscle use CVS: good distal perfusion x 4, GI: soft, NTTP, ND : no SPT, no CVAT, trejo catheter not present MSK: no pitting edema, no clubbing Neuro: non-focal, moving all extremities, bilateral visual loss Psych: cooperative, euthymic mood Patient Condition at Discharge: Stable Plan - Discharge Summary Discharge Rx Participant: No New Discharge Prescriptions: No Action Spironolactone [Aldactone] 25 mg PO DAILY #30 tab Aspirin 81 mg PO DAILY #30 chew Atorvastatin [Lipitor] 80 mg PO DAILY #30 tab Metoprolol Tartrate [Lopressor] 25 mg PO BID Sacubitril/Valsartan [Entresto 49 mg-51 mg Tablet] 1 tab PO BID Furosemide [Lasix] 20 mg PO DAILY Discharge Medication List Aspirin 81 mg PO DAILY #30 chew 02/27/20 [Rx] Atorvastatin [Lipitor] 80 mg PO DAILY #30 tab 02/27/20 [Rx] Spironolactone [Aldactone] 25 mg PO DAILY #30 tab 02/27/20 [Rx] Furosemide [Lasix] 20 mg PO DAILY 11/15/21 [History] Metoprolol Tartrate [Lopressor] 25 mg PO BID 11/15/21 [History] Sacubitril/Valsartan [Entresto 49 mg-51 mg Tablet] 1 tab PO BID 11/15/21 [History] Follow up Appointment(s)/Referral(s): None,Stated [Primary Care Provider] - 1-2 days
[2021-11-17] MEDS: SODIUM CHLORIDE 0.9% 1,000 ML IV SCH (18:16)
[2021-11-17 20:42] VITALS: BP 136/69; PULSE 90; RESP 12; TEMP 97.9
== END 2021-11-17 20:45 | disposition short-term general hospital (02) | DRG 125 ==
LOC: EC 17:12 → 3SCARD 20:39
PROVIDERS: ADMIT Internal Medicine; ATTEND Internal Medicine
DX: H54.3 Unqualified visual loss, both eyes (principal); I50.22 Chronic systolic (congestive) heart failure; I11.0 Hypertensive heart disease with heart failure; E78.5 Hyperlipidemia, unspecified; Z20.822 Contact with and (suspected) exposure to COVID-19; H35.30 Unspecified macular degeneration; I25.5 Ischemic cardiomyopathy; R51.9 Headache, unspecified; Z79.82 Long term (current) use of aspirin; Z79.899 Other long term (current) drug therapy; Z98.42 Cataract extraction status, left eye; Z98.41 Cataract extraction status, right eye; Z95.5 Presence of coronary angioplasty implant and graft; Z85.819 Personal history of malignant neoplasm of unspecified site of lip, oral cavity, and pharynx; Z85.820 Personal history of malignant melanoma of skin; Z90.49 Acquired absence of other specified parts of digestive tract; Z87.19 Personal history of other diseases of the digestive system; Z85.858 Personal history of malignant neoplasm of other endocrine glands; Z91.040 Latex allergy status; Z80.0 Family history of malignant neoplasm of digestive organs
CPT/HCPCS: 36415; 70450; 70496; 70498; 80053; 85025; 85610; 85652; 85730; 86140; 87635; 93005; 96365; 96372; 96375; 99285

== ENCOUNTER 2022-01-25 09:39 | Inpatient (IN) | payer MEDICARE ==
[2022-01-25] MEDS ORDERED: SODIUM CHLORIDE 0.9% 1,000 ML IV STA (09:59)
[2022-01-25] MEDS ORDERED: KETOROLAC 15 MG/ML 1 ML VIAL IVP STA (09:59)
--- NOTE | 2022-01-25 10:01 | ED ---
General Adult HPI - General Chief complaint: Back Pain/Injury Stated complaint: back pain Time Seen by Provider: 01/25/22 09:55 Source: patient, RN notes reviewed, old records reviewed Mode of arrival: ambulatory Limitations: no limitations - History of Present Illness Initial comments: This is an 81-year-old male who presents emergency Department complaining of right lower back pain. Patient states he normally has it but it doesn't prevent him from standing up. Patient states she was on the toilet went to stand up and he was unable to get up on his own so son called EMS. Patient states he believes is because the pain is there is worse when he tries to stand up. Patient denies any numbness or weakness of his extremities. Patient denies any recent injury. Patient denies any recent fever chills. Patient denies any chest pain difficulty breathing shortness of breath per patient denies any abdominal pain patient denies nausea vomiting diarrhea. - Related Data Home Medications Medication Instructions Recorded Confirmed Furosemide [Lasix] 20 mg PO DAILY 11/15/21 11/15/21 Metoprolol Tartrate [Lopressor] 25 mg PO BID 11/15/21 11/15/21 Sacubitril/Valsartan [Entresto 49 1 tab PO BID 11/15/21 11/15/21 mg-51 mg Tablet] Previous Rx's Medication Instructions Recorded Aspirin 81 mg PO DAILY #30 chew 02/27/20 Atorvastatin [Lipitor] 80 mg PO DAILY #30 tab 02/27/20 Spironolactone [Aldactone] 25 mg PO DAILY #30 tab 02/27/20 Allergies Allergy/AdvReac Type Severity Reaction Status Date / Time latex Allergy Rash/Hives Verified 01/25/22 15:44 Review of Systems ROS Statement: Those systems with pertinent positive or pertinent negative responses have been documented in the HPI. ROS Other: All systems not noted in ROS Statement are negative. 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 History of Any Multi-Drug Resistant Organisms: None Reported Past Surgical History: Appendectomy, Cholecystectomy, Heart Catheterization With Stent, Hernia Repair Additional Past Surgical History / Comment(s): cataract surgery with neurob lastoma removal 1.5 yr ago Past Anesthesia/Blood Transfusion Reactions: No Reported Reaction Date of Last Stent Placement:: 2019 Past Psychological History: No Psychological Hx Reported Smoking Status: Never smoker Past Alcohol Use History: Occasional Past Drug Use History: None Reported - Past Family History Mother Family Medical History: Cancer Additional Family Medical History / Comment(s): pancreatic cancer General Exam - General Exam Comments Initial Comments: GENERAL: Patient is well-developed and well-nourished. Patient is nontoxic and well- hydrated and is in no acute distress. Patient is spitting into a bag he states this is something he has chronically because of his gastric reflux ENT: Neck is soft and supple. No significant lymphadenopathy is noted. Oropharynx is clear. Moist mucous membranes. Neck has full range of motion without eliciting any pain. EYES: The sclera were anicteric and conjunctiva were pink and moist. Extraocular movements were intact and pupils were equal round and reactive to light. Eyelids were unremarkable. PULMONARY: Unlabored respirations. Good breath sounds bilaterally. No audible rales rhonchi or wheezing was noted. CARDIOVASCULAR: There is a regular rate and rhythm without any murmurs gallops or rubs. ABDOMEN: Soft and nontender with normal bowel sounds. SKIN: Skin is clear with no lesions or rashes and otherwise unremarkable. NEUROLOGIC: Patient is alert and oriented x3. Cranial nerves II through XII are grossly intact. Motor and sensory are also intact. Normal speech, volume and content. Symmetrical smile. MUSCULOSKELETAL: Normal extremities with adequate strength and full range of motion. LYMPHATICS: No significant lymphadenopathy is noted PSYCHIATRIC: Normal psychiatric evaluation. Limitations: no limitations Course Vital Signs 01/25/22 01/25/22 09:48 14:55 Temperature 97.6 F Pulse Rate 80 86 Respiratory 16 18 Rate Blood Pressure 111/69 91/54 O2 Sat by Pulse 95 96 Oximetry Medical Decision Making - Medical Decision Making X-ray of the lumbar sacral spine shows no acute abnormality. Patient EKG shows sinus rhythm at 77 bpm MI interval 269 QRS is 73 QT interval 328 QTC is 359. Patient's EKG shows no ST segment elevation or depression. I spoke with Dr. Santana he agreed to admit the patient admitted the patient wrote admitting orders. - Lab Data Result diagrams: 01/25/22 12:36 01/25/22 12:36 Lab Results 10/22/22 10/22/22 10/22/22 Range/Units 12:36 12:36 12:36 WBC 15.6 H (3.8-10.6) k/uL RBC 4.75 (4.30-5.90) m/uL Hgb 14.1 (13.0-17.5) gm/dL Hct 40.6 (39.0-53.0) % MCV 85.5 (80.0-100.0) fL MCH 29.7 (25.0-35.0) pg MCHC 34.7 (31.0-37.0) g/dL RDW 16.9 H (11.5-15.5) % Plt Count 269 (150-450) k/uL MPV 7.5 Neutrophils % 86 % Lymphocytes % 9 % Monocytes % 3 % Eosinophils % 1 % Basophils % 1 % Neutrophils # 13.5 H (1.3-7.7) k/uL Lymphocytes # 1.5 (1.0-4.8) k/uL Monocytes # 0.5 (0-1.0) k/uL Eosinophils # 0.1 (0-0.7) k/uL Basophils # 0.1 (0-0.2) k/uL Anisocytosis Slight PT 11.0 (9.0-12.0) sec INR 1.0 (<1.2) Sodium 132 L (137-145) mmol/L Potassium 4.2 (3.5-5.1) mmol/L Chloride 94 L (98-107) mmol/L Carbon Dioxide 26 (22-30) mmol/L Anion Gap 12 mmol/L BUN 34 H (9-20) mg/dL Creatinine 0.79 (0.66-1.25) mg/dL Est GFR (CKD-EPI)AfAm >90 (>60 ml/min/1.73 sqM) Est GFR (CKD-EPI)NonAf 83 (>60 ml/min/1.73 sqM) Glucose 69 L (74-99) mg/dL POC Glucose (mg/dL) (70-110) mg/dL POC Glu News Agent ID Calcium 8.7 (8.4-10.2) mg/dL Magnesium 1.7 (1.6-2.3) mg/dL Total Bilirubin 1.0 (0.2-1.3) mg/dL AST 57 (17-59) U/L ALT 144 H (4-49) U/L Alkaline Phosphatase 183 H (38-126) U/L Total Protein 5.8 L (6.3-8.2) g/dL Albumin 3.5 (3.5-5.0) g/dL Urine Color Urine Appearance (Clear) Urine pH (5.0-8.0) Ur Specific [place] (1.001-1.035) Urine Protein (Negative) Urine Glucose (UA) (Negative) Urine Ketones (Negative) Urine Blood (Negative) Urine Nitrite (Negative) Urine Bilirubin (Negative) Urine Urobilinogen (<2.0) mg/dL Ur Leukocyte Esterase (Negative) Urine RBC (0-5) /hpf Urine WBC (0-5) /hpf Urine Bacteria (None) /hpf Hyaline Casts (0-2) /lpf 01/25/22 01/25/22 Range/Units 14:20 15:13 WBC (3.8-10.6) k/uL RBC (4.30-5.90) m/uL Hgb (13.0-17.5) gm/dL Hct (39.0-53.0) % MCV (80.0-100.0) fL MCH (25.0-35.0) pg MCHC (31.0-37.0) g/dL RDW (11.5-15.5) % Plt Count (150-450) k/uL MPV Neutrophils % % Lymphocytes % % Monocytes % % Eosinophils % % Basophils % % Neutrophils # (1.3-7.7) k/uL Lymphocytes # (1.0-4.8) k/uL Monocytes # (0-1.0) k/uL Eosinophils # (0-0.7) k/uL Basophils # (0-0.2) k/uL Anisocytosis PT (9.0-12.0) sec INR (<1.2) Sodium (137-145) mmol/L Potassium (3.5-5.1) mmol/L Chloride (98-107) mmol/L Carbon Dioxide (22-30) mmol/L Anion Gap mmol/L BUN (9-20) mg/dL Creatinine (0.66-1.25) mg/dL Est GFR (CKD-EPI)AfAm (>60 ml/min/1.73 sqM) Est GFR (CKD-EPI)NonAf (>60 ml/min/1.73 sqM) Glucose (74-99) mg/dL POC Glucose (mg/dL) 69 L (70-110) mg/dL POC Glu News Agent ID Dior Herbert Calcium (8.4-10.2) mg/dL Magnesium (1.6-2.3) mg/dL Total Bilirubin (0.2-1.3) mg/dL AST (17-59) U/L ALT (4-49) U/L Alkaline Phosphatase (38-126) U/L Total Protein (6.3-8.2) g/dL Albumin (3.5-5.0) g/dL Urine Color Light Yellow Urine Appearance Clear (Clear) Urine pH 6.0 (5.0-8.0) Ur Specific [place] 1.008 (1.001-1.035) Urine Protein Negative (Negative) Urine Glucose (UA) Negative (Negative) Urine Ketones Negative (Negative) Urine Blood Small H (Negative) Urine Nitrite Negative (Negative) Urine Bilirubin Negative (Negative) Urine Urobilinogen <2.0 (<2.0) mg/dL Ur Leukocyte Esterase Moderate H (Negative) Urine RBC <1 (0-5) /hpf Urine WBC 29 H (0-5) /hpf Urine Bacteria Rare H (None) /hpf Hyaline Casts 1 (0-2) /lpf Disposition Clinical Impression: Urinary tract infection, Generalized weakness, Hypoglycemia, Hyponatremia, 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
[2022-01-25] MEDS ORDERED: KETOROLAC 15 MG/ML 1 ML VIAL IM STA (12:45)
[2022-01-25 12:49] LABS: Anisocytosis Slight; Basophils # (A) 0.1 k/uL (0-0.2); Basophils % (A) 1 %; Eosinophils # (A) 0.1 k/uL (0-0.7); Eosinophils % (A) 1 %; HCT 40.6 % (39.0-53.0); HGB 14.1 gm/dL (13.0-17.5); Lymphocytes # (A) 1.5 k/uL (1.0-4.8); Lymphocytes % (A) 9 %; MCH 29.7 pg (25.0-35.0); MCHC 34.7 g/dL (31.0-37.0); MCV 85.5 fL (80.0-100.0); Mean Platelet Volume 7.5; Monocytes # (A) 0.5 k/uL (0-1.0); Monocytes % (A) 3 %; Neutrophils # (A) 13.5 k/uL (1.3-7.7); Neutrophils % (A) 86 %; Platelet Count 269 k/uL (150-450); RBC 4.75 m/uL (4.30-5.90); RDW 16.9 % (11.5-15.5); WBC 15.6 k/uL (3.8-10.6)
[2022-01-25 13:07] LABS: ALT 144 U/L (4-49); AST 57 U/L (17-59); African American GFR (CKD) >90 (>60 ml/min/1.73 sqM); Albumin 3.5 g/dL (3.5-5.0); Alkaline Phosphatase 183 U/L (38-126); Anion Gap 12 mmol/L; Blood Urea Nitrogen 34 mg/dL (9-20); Calcium 8.7 mg/dL (8.4-10.2); Carbon Dioxide 26 mmol/L (22-30); Chloride 94 mmol/L (98-107); Glucose 69 mg/dL (74-99); Magnesium 1.7 mg/dL (1.6-2.3); Non-African American GFR(CKD) 83 (>60 ml/min/1.73 sqM); Potassium 4.2 mmol/L (3.5-5.1); Sodium 132 mmol/L (137-145); Total Protein 5.8 g/dL (6.3-8.2)
--- NOTE | 2022-01-25 13:17 | XR ---
EXAMINATION TYPE: XR lumbosacral spine min 4V DATE OF EXAM: 01/25/2022 CLINICAL HISTORY: Low back pain TECHNIQUE: Frontal, lateral, and oblique images of the lumbar spine are obtained. COMPARISON: None FINDINGS: Osseous structures are demineralized which is noted low radiographic sensitivity. There ar e 6 lumbar type vertebral bodies identified. There is There is levoconvex scoliosis centered at appro ximate L4 level. Mild multilevel anterior wedging in the upper lumbar spine. Disc space heights are f airly well preserved The oblique images appear within normal limits. Moderate multilevel anterior a nd lateral spurring with some scattered bridging osteophytes. Prominent facet arthropathy lower lumba r spine. Mild overlying arterial vascular calcification. IMPRESSION: As above.
[2022-01-25 14:44] LABS: Appearance,Urine Clear (Clear); Bacteria,Urine Rare /hpf; Bilirubin,Urine Negative (Negative); Blood,Urine Small (Negative); Color,Urine Light Yellow; Glucose,Urine (UA) Negative (Negative); Hyaline Casts,Urine 1 /lpf (0-2); Ketones,Urine Negative (Negative); Leukocyte Esterase,Urine Moderate (Negative); Nitrite,Urine Negative (Negative); Protein,Urine Negative (Negative); RBC,Urine <1 /hpf (0-5); Specific Gravity,Urine 1.008 (1.001-1.035); Urobilinogen,Urine <2.0 mg/dL (<2.0); WBC,Urine 29 /hpf (0-5)
[2022-01-25] MEDS ORDERED: PANTOPRAZOLE 40 MG/10 ML VIAL IVP STA (14:44)
[2022-01-25] MEDS ORDERED: cefTRIAXone IN SWFI 1,000 MG/10 ML SYRINGE IVP STA (15:05)
[2022-01-25 15:15] LABS: Glucose,Whole Blood 69 mg/dL (70-110)
[2022-01-25] MEDS ORDERED: SODIUM CHLORIDE 0.9% 1,000 ML IV ONE (15:18)
--- NOTE | 2022-01-25 15:44 | XR ---
EXAMINATION TYPE: XR chest 2V DATE OF EXAM: 01/25/2022 COMPARISON: NONE HISTORY: Short of breath TECHNIQUE: 2 views FINDINGS: Heart is normal. There is 7 cm cavitating lesion in the left upper lobe. There is irregular wall with vertebral thicke terri. There is probably a fluid level. The right lung is clear. No heart failure. Heart size is normal. No pleural effusion. The bony thorax is intact. There is spurring in the thoracic spine. IMPRESSION: Cavitating lesion left upper lobe. This could be infected bulla or lung abscess. Necrotic tumor is in the differential diagnosis. I do not suspect a tumor since there is very little solid co mponent. Abnormality appears new compared to old exam. Normal heart
[2022-01-25] MEDS ORDERED: PIPERACILLIN-TAZOBACTAM 3.375 GM in SODIUM CHLORIDE 0.9% 100 ML IVPB STA (15:49)
[2022-01-25] MEDS ORDERED: AZITHROMYCIN 500 MG in SODIUM CHLORIDE 0.9% 250 ML IVPB STA (15:50)
[2022-01-25 17:02] LABS: Glucose,Whole Blood 82 mg/dL (70-110)
[2022-01-25] MEDS: PIPERACILLIN-TAZOBACTAM 3.375 GM in SODIUM CHLORIDE 0.9% 100 ML IVPB SCH (23:40)
[2022-01-26] MEDS ORDERED: RX INFO: IV CONTRAST WAS GIVEN 1 EACH MISC MISCELLANE PRN (07:48)
[2022-01-26] MEDS: PIPERACILLIN-TAZOBACTAM 3.375 GM in SODIUM CHLORIDE 0.9% 100 ML IVPB SCH ×3 (08:51→23:51)
--- NOTE | 2022-01-26 08:57 | CT ---
EXAMINATION TYPE: CT chest w con DATE OF EXAM: 01/26/2022 COMPARISON: CT neck November 15, 2021. Chest x-ray January 25, 2022 HISTORY: chest mass CT DLP: 247.1 mGycm. Automated Exposure Control for Dose Reduction was Utilized. TECHNIQUE: CT scan of the thorax is performed following with IV Contrast, patient injected with 100 mL of Isovue 300. FINDINGS: LUNGS: Confirmation of thick walled cavitary lesion in the left upper lobe measuring 5.9 x 5.9 x 5.7 cm axial image 12 and sagittal image 85. There is some dependent fluid and internal linear density po ssible debris. Finding new from neck CT just over 2 months earlier. Trace bilateral pleural effusions . No pneumothorax seen bilaterally. MEDIASTINUM: There are no greater than 1 cm hilar or mediastinal lymph nodes. No cardiomegaly or pe ricardial effusion is seen. Coronary stent in the proximal LAD is felt present. OTHER: Small degree of bilateral subareolar gynecomastia is noted. Slight scoliotic curvature with mu ltilevel spurring in the thoracic spine and some bridging osteophytes noted. IMPRESSION: Confirmation of 5.9 cm thick-walled cavitary left upper lobe lesion new from CT neck stud y just over 2 months earlier would favor infectious etiology/intraparenchymal abscess. Other Etiologi es not excluded. Correlate clinically.
[2022-01-26] MEDS: predniSONE 20 MG TAB PO SCH (10:25)
--- NOTE | 2022-01-26 11:25 | P.CNPUL ---
History of Present Illness Consult date: 01/26/22 Requesting physician: Catrachito Santana Reason for consult: other (Cavitary lung lesion) Chief complaint: Weakness. 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 This was associated with new onset headaches, and apparently the patient was sent by the certification technician to the ER. [place] that the patient may have giant cell arteritis. However his sed rate was normal. And he was seen by vascular surgery for potential temporal artery biopsy. Eventually this was not done because the patient declined and the patient was supposedly transferred to [facility]. It is not clear what kind of workup the patient had while at [facility], however the patient was discharged home on relatively high-dose of steroid/prednisone at 70 mg daily and he was told that he may have to be on this dose for a long time before it could be tapered. Patient has been taking his prednisone faithfully for the last 2 months, and has not noted any change. However the patient has been developing progressive weakness over the last 2 months, and he presented to the ER last night mostly with lower back pain, weakness, patient could not stand up. He was on the toilet and he could not get off the toilet because of weakness. X-rays of lumbar spine showed mild multilevel anterior wedging in the upper lumbar spine and moderate multilevel anterior and lateral spurring with some scattered bulging osteophytes. No clear-cut evidence of fracture noted. Chest x-ray done showed a 7 cm cavitating lesion in the left upper lobe which is relatively new and was not present a few months ago. The differential diagnoses for this lesion includes necrotic tumor, also suspect underlying infection or probably reactivation of infection considering the patient has been on relatively high-dose of prednisone for almost 2 months. Patient denies any history of previous pulmonary infection no previous history history of TB or history of any fungal infection. Patient was a smoker years ago, however he quit smoking over 50 years back. Denies any feve r or chills or hemoptysis Review of Systems Constitutional: Weakness fatigue and weight loss. HEENT: Loss of vision, exact etiology is not clear, but from what I gathered t hat the patient may have been diagnosed with temporal arteritis causing his sudden onset of loss of vision, and the patient was evaluated at [facility], and placed on relatively high-dose of steroids. Patient had previous history of melanoma/mouth cancer. Pulmonary: Minimal shortness of breath, occasional cough, no wheezing, no fever, no hemoptysis and no chest pain. Cardiac: Denies any chest pain or orthopnea or PND had previous stent of LAD. 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 History of Any Multi-Drug Resistant Organisms: None Reported Past Surgical History: Appendectomy, Cholecystectomy, Heart Catheterization With Stent, Hernia Repair Additional Past Surgical History / Comment(s): cataract surgery with neuroblas magdi removal 1.5 yr ago Past Anesthesia/Blood Transfusion Reactions: No Reported Reaction Date of Last Stent Placement:: 2019 Past Psychological History: No Psychological Hx Reported Smoking Status: Never smoker Past Alcohol Use History: Occasional Past Drug Use History: None Reported - Past Family History Mother Family Medical History: Cancer Additional Family Medical History / Comment(s): pancreatic cancer Medications and Allergies Home Medications Medication Instructions Recorded Confirmed Type Aspirin 81 mg PO DAILY #30 chew 02/27/20 01/25/22 Rx Atorvastatin [Lipitor] 80 mg PO DAILY #30 tab 02/27/20 01/25/22 Rx Spironolactone [Aldactone] 25 mg PO DAILY #30 tab 02/27/20 01/25/22 Rx Furosemide [Lasix] 20 mg PO DAILY 11/15/21 01/25/22 History Metoprolol Tartrate [Lopressor] 25 mg PO BID 11/15/21 01/25/22 History Sacubitril/Valsartan [Entresto 49 1 tab PO BID 11/15/21 01/25/22 History mg-51 mg Tablet] Alendronate Sodium [Fosamax] 70 mg PO WEEKLY 01/25/22 01/25/22 History Gabapentin [Neurontin] 300 mg PO TID 01/25/22 01/25/22 History Pantoprazole Sodium [Protonix] 40 mg PO DAILY 01/25/22 01/25/22 History Retinavites 1 tab PO DAILY 01/25/22 01/25/22 History Sucralfate [Carafate] 1 gm PO TID 01/25/22 01/25/22 History predniSONE [Deltasone] 20 mg PO DAILY 01/25/22 01/25/22 History Allergies Allergy/AdvReac Type Severity Reaction Status Date / Time latex Allergy Rash/Hives Verified 01/25/22 15:44 Physical Exam Vitals: Vital Signs Temp Pulse Pulse Resp BP BP Pulse Ox 01/26/22 08:52 65 15 01/26/22 08:21 95 01/26/22 07:43 99.3 F 65 15 95/55 100 01/26/22 02:41 98.2 F 120 H 16 103/62 95 01/25/22 19:37 97.5 F L 88 15 92/51 98 01/25/22 16:47 80 18 90/50 97 01/25/22 14:55 86 18 91/54 96 Intake and Output 01/25/22 01/26/22 01/26/22 22:59 06:59 14:59 Output Total 450 Balance -450 Output: Urine 450 Other: Voiding Method Urinal Urinal Weight 61.235 kg Physical Exam: Revealed 81-year-old white male looks frail, chronically ill, Head: Atraumatic, normocephalic. HEENT:[Neck is supple.] [No neck masses.] [No thyromegaly.] [No JVD.] Her lack, EOMI, nonicteric. Chest: [Clear throughout, no crackles, no rhonchi, no wheezes.] Cardiac Exam: [Normal S1 and S2, no S3 gallop, no murmur.] Abdomen: [Soft, nontender, no megaly, no rebound, no guarding, normal bowel sounds.] Extremities: [No clubbing, no edema, no cyanosis.] Good pulses bilaterally. Neurological Exam: [No focal neurologic deficit.] Alert oriented 3, however the patient is generally weak and legally blind. Musculoskeletal: Generalized weakness otherwise no focal neurologic deficits Skin: No rashes. Results - Laboratory Findings CBC and BMP: 01/25/22 12:36 01/25/22 12:36 PT/INR, D-dimer PT 11.0 sec (9.0-12.0) 01/25/22 12:36 INR 1.0 (<1.2) 01/25/22 12:36 Abnormal lab findings: Abnormal Labs 01/25/22 01/25/22 01/25/22 12:36 12:36 14:20 WBC 15.6 H RDW 16.9 H Neutrophils # 13.5 H Sodium 132 L Chloride 94 L BUN 34 H Glucose 69 L POC Glucose (mg/dL) ALT 144 H Alkaline Phosphatase 183 H Total Protein 5.8 L Urine Blood Small H Ur Leukocyte Esterase Moderate H Urine WBC 29 H Urine Bacteria Rare H 01/25/22 15:13 WBC RDW Neutrophils # Sodium Chloride BUN Glucose POC Glucose (mg/dL) 69 L ALT Alkaline Phosphatase Total Protein Urine Blood Ur Leukocyte Esterase Urine WBC Urine Bacteria - Diagnostic Findings CT scan - chest: image reviewed (CT of the chest showed 5.9 cm thick walled cavity in the left upper lobe relatively new, was not present 2 months ago, differential diagnoses includes intraparenchymal abscess infection, or malignancy) Assessment and Plan Assessment: Impression: Cavitary lung lesion, differential diagnoses includes infection/lung abscess, could be bacterial or fungal , malignancy is not entirely ruled out. But felt to be less likely. Autoimmune connective tissue disease process is not entirely ruled out. Chronic loss of vision, possible temporal arteritis/giant cell arteritis has b een on relatively high-dose of prednisone for the last 3 months. History of coronary artery disease and previous stent of LAD Benign essential hypertension History of melanoma requiring resection of jaw with a muscle graft. Dyslipidemia History of ischemic cardiomyopathy and LV dysfunction with ejection fraction of 25% Recommendation: Continue antibiotics check sputum cultures and blood cultures Continue steroids, check sed rate, Infectious disease consultation Patient will need fungal titers Patient will need igra blood tests. Consider bronchoscopy and BAL of the left upper lobe Check pro calcitonin level We will continue to follow. Resume home meds. Time with Patient: Greater than 30
--- NOTE | 2022-01-26 11:55 | P.HPIM ---
History of Present Illness This is a pleasant 81 years old male with multiple medical problems as below. Patient says that in November well he lost his vision both eyes and since then he's going downhill. Is becoming more week that yesterday he went to the restroom, when he was trying to get up he could not and he needed to help office on. He has occasional cough but no dyspnea or chest pain. He denies abdominal pain or vomiting or diarrhea. No urinary complaints. However he has shingles in his left lower back dermatome. All the lesions are tried However he is complaining from some burning in his chest. He denies dysuria or urgency No headache or weakness or numbness like stroke symptoms, no dizziness. Patient is afebrile, blood pressure is borderline, currently 95/55. Heart rate 65 and breathing is quiet he is not short of breath or tachypneic. Labs showing mild leukocytosis of 15.6. Trace of CBC, BMP and liver enzymes are unremarkable, glucose is low In the emergency room patient was started on ceftriaxone and Zithromax. Also patient received IV fluids, Toradol, Protonix and Zithromax. Patient denies smoking, occasional alcohol CT of the chest, 5.9 cm left upper lobe cavity Lesion. Lumbar spine x-ray: Demerol lysed bones. Scoliosis, and degenerative disc disease Review of Systems Review of systems CONSTITUTIONAL: No fever, no malaise, no fatigue. HEENT: No recent visual problems or hearing problems. Denied any sore throat. CARDIOVASCULAR: No orthopnea, PND, no palpitations, no syncope. PULMONARY: No shortness of breath, no cough, no hemoptysis. GASTROINTESTINAL: No diarrhea, no nausea, no vomiting, no abdominal pain. Normoactive bowel sounds. NEUROLOGICAL: No headaches, no weakness, no numbness. HEMATOLOGICAL: Denies any bleeding or petechiae. GENITOURINARY: Denies any burning micturition, frequency, or urgency. MUSCULOSKELETAL/RHEUMATOLOGICAL: Denies any joint pain, swelling, or any muscle pain. ENDOCRINE: Denies any polyuria or polydipsia. 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 Past Anesthesia/Blood Transfusion Reactions: No Reported Reaction Date of Last Stent Placement:: 2019 Past Psychological History: No Psychological Hx Reported Smoking Status: Never smoker Past Alcohol Use History: Occasional Past Drug Use History: None Reported - Past Family History Mother Family Medical History: Cancer Additional Family Medical History / Comment(s): pancreatic cancer Medications and Allergies Home Medications Medication Instructions Recorded Confirmed Type Aspirin 81 mg PO DAILY #30 chew 02/27/20 01/25/22 Rx Atorvastatin [Lipitor] 80 mg PO DAILY #30 tab 02/27/20 01/25/22 Rx Spironolactone [Aldactone] 25 mg PO DAILY #30 tab 02/27/20 01/25/22 Rx Furosemide [Lasix] 20 mg PO DAILY 11/15/21 01/25/22 History Metoprolol Tartrate [Lopressor] 25 mg PO BID 11/15/21 01/25/22 History Sacubitril/Valsartan [Entresto 49 1 tab PO BID 11/15/21 01/25/22 History mg-51 mg Tablet] Alendronate Sodium [Fosamax] 70 mg PO WEEKLY 01/25/22 01/25/22 History Gabapentin [Neurontin] 300 mg PO TID 01/25/22 01/25/22 History Pantoprazole Sodium [Protonix] 40 mg PO DAILY 01/25/22 01/25/22 History Retinavites 1 tab PO DAILY 01/25/22 01/25/22 History Sucralfate [Carafate] 1 gm PO TID 01/25/22 01/25/22 History predniSONE [Deltasone] 20 mg PO DAILY 01/25/22 01/25/22 History Allergies Allergy/AdvReac Type Severity Reaction Status Date / Time latex Allergy Rash/Hives Verified 01/25/22 15:44 Physical Exam Vitals: Vital Signs Temp Pulse Pulse Resp BP BP Pulse Ox 01/26/22 08:52 65 15 01/26/22 08:21 95 01/26/22 07:43 99.3 F 65 15 95/55 100 01/26/22 02:41 98.2 F 120 H 16 103/62 95 01/25/22 19:37 97.5 F L 88 15 92/51 98 01/25/22 16:47 80 18 90/50 97 01/25/22 14:55 86 18 91/54 96 Intake and Output 01/25/22 01/26/22 01/26/22 22:59 06:59 14:59 Output Total 450 Balance -450 Output: Urine 450 Other: Voiding Method Urinal Urinal Weight 61.235 kg GENERAL: The patient is alert and oriented x3, not in any acute distress. Well developed, well nourished. HEENT: Pupils are round and equally reacting to light. EOMI. No scleral icterus. No conjunctival pallor. Normocephalic, atraumatic. No pharyngeal erythema. No thyromegaly. CARDIOVASCULAR: S1 and S2 present. No murmurs, rubs, or gallops. PULMONARY: Chest is clear to auscultation, no wheezing or crackles. ABDOMEN: Soft, nontender, nondistended, normoactive bowel sounds. No palpable organomegaly. MUSCULOSKELETAL: No joint swelling or deformity. EXTREMITIES: No cyanosis, clubbing, or pedal edema. NEUROLOGICAL: Gross neurological examination did not reveal any focal deficits. SKIN: No rashes. no petechiae. Results CBC & Chem 7: 01/25/22 12:36 01/25/22 12:36 Labs: Abnormal Lab Results - Last 24 Hours (Table) 01/25/22 01/25/22 01/25/22 Range/Units 12:36 12:36 14:20 WBC 15.6 H (3.8-10.6) k/uL RDW 16.9 H (11.5-15.5) % Neutrophils # 13.5 H (1.3-7.7) k/uL Sodium 132 L (137-145) mmol/L Chloride 94 L (98-107) mmol/L BUN 34 H (9-20) mg/dL Glucose 69 L (74-99) mg/dL POC Glucose (mg/dL) (70-110) mg/dL ALT 144 H (4-49) U/L Alkaline Phosphatase 183 H (38-126) U/L Total Protein 5.8 L (6.3-8.2) g/dL Urine Blood Small H (Negative) Ur Leukocyte Esterase Moderate H (Negative) Urine WBC 29 H (0-5) /hpf Urine Bacteria Rare H (None) /hpf 01/25/22 Range/Units 15:13 WBC (3.8-10.6) k/uL RDW (11.5-15.5) % Neutrophils # (1.3-7.7) k/uL Sodium (137-145) mmol/L Chloride (98-107) mmol/L BUN (9-20) mg/dL Glucose (74-99) mg/dL POC Glucose (mg/dL) 69 L (70-110) mg/dL ALT (4-49) U/L Alkaline Phosphatase (38-126) U/L Total Protein (6.3-8.2) g/dL Urine Blood (Negative) Ur Leukocyte Esterase (Negative) Urine WBC (0-5) /hpf Urine Bacteria (None) /hpf Microbiology - Last 24 Hours (Table) 01/25/22 14:20 Urine Culture - Preliminary Urine,Voided Thrombosis Risk Factor Assmnt - Choose All That Apply Any of the Below Risk Factors Present?: Yes Other Risk Factors: Yes Each Risk Factor Represents 3 Points: Age 75 years or older Other congenital or acquired thrombophilia - If yes, enter type in comment: No Thrombosis Risk Factor Assessment Total Risk Factor Score: 3 Thrombosis Risk Factor Assessment Level: Moderate Risk Assessment and Plan Assessment: Generalized weakness, multifactorial, due to infection, lung disease and hypoglycemia Cavitary lung lesion in the left upper lung most likely infectious versus tumor. Hypoglycemia left lower back shingles, improving Hypertension Hyperlipidemia History of GERD History of melanoma status post resection Blindness since 11/2021 History of osteoporosis Chronic congestive heart failure Plan: This is a pleasant 81 years old male with UTI, lung mass Continue ceftriaxone Follow-up urine culture Gentle hydration and encourage hydration Continue with Zithromax Pulmonary team for the lung mass Continue with steroids infectious disease consult Lower the dose of metoprolol 25-12.5 mg Labs and medication were reviewed.. Continue same treatment. Continue with symptomatic treatment. Resume home medication. Monitor lytes and vitals. DVT and GI prophylaxis. Further recommendations as per clinical course of the patient DVT prophylaxis: Subcutaneous heparin GI Prophylaxis: Ppi PT/OT: Pending Prognosis is guarded
[2022-01-26] MEDS ORDERED: AZITHROMYCIN 500 MG in SODIUM CHLORIDE 0.9% 250 ML IVPB SCH (16:00)
[2022-01-26] MEDS: GABAPENTIN 300 MG CAP PO SCH ×2 (16:08→22:24)
[2022-01-26] MEDS: SUCRALFATE 1 GM TAB PO SCH ×2 (16:08→22:24)
[2022-01-26] MEDS: DEXTROSE 5%-0.9% NACL 1,000 ML IV SCH (16:43)
[2022-01-26] MEDS: METOPROLOL TARTRATE 12.5 MG TAB PO SCH (20:23)
--- NOTE | 2022-01-26 22:13 | P.CONS ---
History of Present Illness - Reason for Consult Consult date: 01/26/22 - History of Present Illness Patient is a 81-year-old male with a past medical history significant for coronary disease history of cancer of the mouth melanoma did have a history of resection of the jaw and muscle graft, with recent work-up for new onset headache and vision loss for the patient has been evaluated at [facility] currently on high-dose steroids patient is present to the hospital generalized weakness that has been getting worse for the last 2 months did have difficulty getting up and around patient denies having any focal weakness or any fall patient denies any headache or URI symptoms patient denies having any chest pain he did have a cough mild to moderate intensity green sputum no hemoptysis patient denies having any nausea no vomiting no choking on the food no abdominal pain or diarrhea with the symptom the patient was evaluated by the ER physician on arrival to the ER patient was afebrile and no fever has been recorded subsequently patient is currently not hypoxic or need for supplemental oxygen patient did have white count of 15.6 with a left shift creatinine is normal AST was mildly elevated did have a positive UA patient did have a chest x-ray cavitating lesion left upper lobe could be infected bulla or lung abscess necrotic tumor with differential patient did have a CT of the chest Which did shows a thick-walled 5.9 centimeter cavitary left upper lobe lesion which is new compared to recent CT 2 months ago concerning for possible abscess patient was initially started on Rocephin and Zithromax Zosyn was added infectious disease was consulted for further management of antibiotic therapy Past Medical History Past Medical History: Cancer, GERD/Reflux, Hyperlipidemia, Hypertension Additional Past Medical History / Comment(s): cancer of the mouth, 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 Past Anesthesia/Blood Transfusion Reactions: No Reported Reaction Date of Last Stent Placement:: 2019 Past Psychological History: No Psychological Hx Reported Smoking Status: Never smoker Past Alcohol Use History: Occasional Past Drug Use History: None Reported - Past Family History Mother Family Medical History: Cancer Additional Family Medical History / Comment(s): pancreatic cancer Medications and Allergies Home Medications Medication Instructions Recorded Confirmed Type Aspirin 81 mg PO DAILY #30 chew 02/27/20 01/25/22 Rx Atorvastatin [Lipitor] 80 mg PO DAILY #30 tab 02/27/20 01/25/22 Rx Spironolactone [Aldactone] 25 mg PO DAILY #30 tab 02/27/20 01/25/22 Rx Furosemide [Lasix] 20 mg PO DAILY 11/15/21 01/25/22 History Metoprolol Tartrate [Lopressor] 25 mg PO BID 11/15/21 01/25/22 History Sacubitril/Valsartan [Entresto 49 1 tab PO BID 11/15/21 01/25/22 History mg-51 mg Tablet] Alendronate Sodium [Fosamax] 70 mg PO WEEKLY 01/25/22 01/25/22 History Gabapentin [Neurontin] 300 mg PO TID 01/25/22 01/25/22 History Pantoprazole Sodium [Protonix] 40 mg PO DAILY 01/25/22 01/25/22 History Retinavites 1 tab PO DAILY 01/25/22 01/25/22 History Sucralfate [Carafate] 1 gm PO TID 01/25/22 01/25/22 History predniSONE [Deltasone] 20 mg PO DAILY 01/25/22 01/25/22 History Allergies Allergy/AdvReac Type Severity Reaction Status Date / Time latex Allergy Rash/Hives Verified 01/25/22 15:44 Physical Exam Vitals: Vital Signs Temp Pulse Pulse Resp BP BP Pulse Ox 01/26/22 08:52 65 15 01/26/22 08:21 95 01/26/22 07:43 99.3 F 65 15 95/55 100 01/26/22 02:41 98.2 F 120 H 16 103/62 95 01/25/22 19:37 97.5 F L 88 15 92/51 98 01/25/22 16:47 80 18 90/50 97 01/25/22 14:55 86 18 91/54 96 Intake and Output 01/25/22 01/26/22 01/26/22 22:59 06:59 14:59 Output Total 450 Balance -450 Output: Urine 450 Other: Voiding Method Urinal Urinal Weight 61.235 kg Results CBC & Chem 7: 01/25/22 12:36 01/25/22 12:36 Labs: Abnormal Lab Results - Last 24 Hours (Table) 01/25/22 01/25/22 Range/Units 14:20 15:13 POC Glucose (mg/dL) 69 L (70-110) mg/dL Urine Blood Small H (Negative) Ur Leukocyte Esterase Moderate H (Negative) Urine WBC 29 H (0-5) /hpf Urine Bacteria Rare H (None) /hpf Microbiology - Last 24 Hours (Table) 01/25/22 14:20 Urine Culture - Preliminary Urine,Voided Assessment and Plan Plan: 1patient with a thick-walled left upper lobe cavitary lesion concerning for possible lung abscess less likely cavitated tumor at this has developed over the last 2 months with a question of possible pneumonia of aspiration etiology and will need to cover for the polymicrobial sony usually associated with this type of infection. 2IR consult for possible drainage of this abscess fluid should be sent for culture both aerobic and anaerobic. 3continue with Zosyn however discontinue Rocephin and Zithromax. 4check inflammatory marker and sputum for gram stain and culture We will follow on clinical condition and cultures to further adjust medication if needed Thank you for this consultation will follow this patient along with you Time with Patient: Greater than 30
[2022-01-27] MEDS: predniSONE 20 MG TAB PO SCH (09:32)
[2022-01-27] MEDS: GABAPENTIN 300 MG CAP PO SCH ×3 (09:32→21:48)
[2022-01-27] MEDS: ASPIRIN 81 MG PO SCH (09:32)
[2022-01-27] MEDS: PIPERACILLIN-TAZOBACTAM 3.375 GM in SODIUM CHLORIDE 0.9% 100 ML IVPB SCH ×2 (09:32→16:33)
[2022-01-27] MEDS: ATORVASTATIN 80 MG TAB PO SCH ×2 (09:32→09:33)
[2022-01-27] MEDS: PANTOPRAZOLE 40 MG TABLET PO SCH (09:32)
[2022-01-27] MEDS: METOPROLOL TARTRATE 12.5 MG TAB PO SCH ×2 (09:32→21:02)
[2022-01-27] MEDS: SUCRALFATE 1 GM TAB PO SCH ×3 (09:40→21:48)
[2022-01-27] MEDS: DEXTROSE 5%-0.9% NACL 1,000 ML IV SCH (10:02)
[2022-01-27 12:42] VITALS: BMI 21.1
--- NOTE | 2022-01-27 13:51 | P.PN ---
Subjective Progress Note Date: 01/27/22 This is an 81-year-old white male with history of multiple medical problems including coronary artery disease, and previous stenting of LAD, history of cancer of the mouth, history of melanoma and resection of jaw with a muscle graft, history of sudden loss of vision about 2 months ago, patient presented to the hospital back on November 15 with acute sudden onset of bilateral vision loss. This was associated with new onset headaches, and apparently the patient was sent by the squeegee finisher to the ER. [place] that the patient may have giant cell arteritis. However his sed rate was normal. And he was seen by vascular surgery for potential temporal artery biopsy. Eventually this was not done because the patient declined and the patient was supposedly transferred to [facility]. It is not clear what kind of workup the patient had while at [place], however the patient was discharged home on relatively high-dose of steroid/prednisone at 70 mg daily and he was told that he may have to be on this dose for a long time before it could be tapered. Patient has been taking his prednisone faithfully for the last 2 months, and has not noted any change. However the patient has been developing progressive weakness over the last 2 months, and he presented to the ER last night mostly with lower back pain, weakness, patient could not stand up. He was on the toilet and he could not get off the toilet because of weakness. X-rays of lumbar spine showed mild multilevel anterior wedging in the upper lumbar spine and moderate multilevel anterior and lateral spurring with some scattered bulging osteophytes. No clear-cut evidence of fracture noted. Chest x-ray done showed a 7 cm cavitating lesion in the left upper lobe which is relatively new and was not present a few months ago. The differential diagnoses for this lesion includes necrotic tumor, also suspect underlying infection or probably reactivation of infection considering the patient has been on relatively high-dose of prednisone for almost 2 months. Patient denies any history of previous pulmonary infection no previous history history of TB or history of any fungal infection. Patient was a smoker years ago, however he quit smoking over 50 years back. Denies any fever or chills or hemoptysis. The patient is seen today 01/27/2022 in follow-up on the regular medical floor. He is currently resting comfortably in bed. Awake and alert. Maintaining O2 saturations in the 90s on room air. Normal saline at 50 mL per hour. Procalcitonin is 0.08. C-reactive protein 5.2. Urine culture positive for gram-negative bacilli. He is currently on Zosyn. Remains on prednisone 60 mg daily. Objective - Vital Signs Vital signs: Vital Signs Temp 98.1 F 01/27/22 07:18 Pulse 85 01/27/22 07:18 Resp 16 01/27/22 07:18 BP 108/70 01/27/22 09:53 Pulse Ox 96 01/27/22 07:18 FiO2 Intake & Output 01/26/22 01/27/22 01/27/22 18:59 06:59 18:59 Intake Total 400 Output Total 400 Balance 400 -400 Weight 61.235 kg Intake: Intake, IV Titration 400 Amount Azithromycin 500 mg In 250 Sodium Chloride 0.9% 250 ml @ 250 mls/hr IVPB Q24H [facility] Rx#:[id number] Piperacillin-Tazobactam 3 100 .375 gm In Sodium Chloride 0.9% 100 ml @ 25 mls/hr IVPB Q8HR [facility] Rx# :[id number] cefTRIAXone 2 gm In 50 Sodium Chloride 0.9% 50 ml @ 100 mls/hr IVPB Q24H [facility] Rx#:[id number] Output: Urine 400 Other: Voiding Method Urinal External Catheter External Catheter - Exam GENERAL EXAM: Alert, pleasant, frail 81-year-old male patient, on room air, comfortable in no apparent distress. HEAD: Normocephalic. EYES: Normal reaction of pupils, equal size. NOSE: Clear with pink turbinates. THROAT: No erythema or exudates. NECK: No masses, no JVD. CHEST: No chest wall deformity. LUNGS: Equal air entry with no crackles, wheeze, rhonchi or dullness. CVS: S1 and S2 normal with no audible murmur, regular rhythm. ABDOMEN: No hepatosplenomegaly, normal bowel sounds, no guarding or rigidity. SPINE: No scoliosis or deformity SKIN: No rashes CENTRAL NERVOUS SYSTEM: No focal deficits, tone is normal in all 4 extremities. EXTREMITIES: There is no peripheral edema. No clubbing, no cyanosis. Peripheral pulses are intact. - Labs CBC & Chem 7: 01/25/22 12:36 01/25/22 12:36 Labs: Abnormal Lab Results - Last 24 Hours (Table) 01/26/22 01/27/22 Range/Units 12:47 07:00 C-Reactive Protein 5.20 H (0.00-0.80) mg/dL Procalcitonin 0.13 H (0.02-0.09) ng/mL Microbiology - Last 24 Hours (Table) 01/25/22 14:20 Urine Culture - Preliminary Urine,Voided Gram Neg Bacilli Assessment and Plan Assessment: Cavitary lung lesion, differential diagnoses includes infection/lung abscess, could be bacterial or fungal , malignancy is not entirely ruled out but felt to be less likely. 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 arteritis/giant cell arteritis has been on relatively high-dose of prednisone for the last 3 months History of coronary artery disease and previous stent of LAD Benign essential hypertension History of melanoma requiring resection of jaw with a muscle graft Dyslipidemia History of ischemic cardiomyopathy and LV dysfunction with ejection fraction of 25% Plan: The patient was seen and evaluated Stable and on room air, afebrile Continued on Zosyn for now ID service is on the case Increase his activity as tolerated We'll continue to follow I have personally seen and examined the patient, performed the documentation and the assessment and plan as written. Number of minutes spent on the visit: 10.
[2022-01-28] MEDS: PIPERACILLIN-TAZOBACTAM 3.375 GM in SODIUM CHLORIDE 0.9% 100 ML IVPB SCH ×3 (01:18→17:14)
[2022-01-28] MEDS: DEXTROSE 5%-0.9% NACL 1,000 ML IV SCH (04:15)
--- NOTE | 2022-01-28 06:13 | PN ---
PROGRESS NOTE SUBJECTIVE: An 81-year-old white male, seen by Dr. Roberto, history of coronary artery disease, , came in with left upper lobe lesion, infected bilateral lung abscesses and necrotic tumor. CT of his chest showed a 5.9 cm cavitary left upper lobe lesion compared to 2 months ago for a possible abscess, started on Rocephin, azithromycin, was added. Prognosis guarded. OBJECTIVE: CARDIOVASCULAR: S1, S2. HEMATOLOGY: Negative for Homans. VITAL SIGNS: Reviewed. ASSESSMENT: Left upper lobe cavitary lesion. Consulted for possible drainage of the abscess. Give Zosyn. Inflammatory markers. Prognosis guarded. Follow up in the next 24 to 48 hours with Pulmonary and Infectious Disease consult. MMODL / IJN: [id number] /
[2022-01-28] MEDS: predniSONE 20 MG TAB PO SCH (10:05)
[2022-01-28] MEDS: SUCRALFATE 1 GM TAB PO SCH ×3 (10:05→21:14)
[2022-01-28] MEDS: ATORVASTATIN 80 MG TAB PO SCH (10:06)
[2022-01-28] MEDS: PANTOPRAZOLE 40 MG TABLET PO SCH (10:06)
[2022-01-28] MEDS: GABAPENTIN 300 MG CAP PO SCH ×3 (10:07→21:14)
[2022-01-28] MEDS: ASPIRIN 81 MG PO SCH (10:07)
[2022-01-28] MEDS: METOPROLOL TARTRATE 12.5 MG TAB PO SCH ×2 (10:35→21:14)
[2022-01-28] MEDS: ALBUTEROL NEBULIZED 2.5 MG/3 ML INHALATION SCH ×2 (11:18→19:42)
[2022-01-28] MEDS: guaiFENesin 600 MG TABLET.ER PO SCH ×2 (11:50→21:14)
--- NOTE | 2022-01-28 12:35 | P.PN ---
Subjective Progress Note Date: 01/28/22 This is an 81-year-old white male with history of multiple medical problems including coronary artery disease, and previous stenting of LAD, history of cancer of the mouth, history of melanoma and resection of jaw with a muscle graft, history of sudden loss of vision about 2 months ago, patient presented to the hospital back on November 15 with acute sudden onset of bilateral vision loss. This was associated with new onset headaches, and apparently the patient was sent by the pre billing clinician to the ER. [place] that the patient may have giant cell arteritis. However his sed rate was normal. And he was seen by vascular surgery for potential temporal artery biopsy. Eventually this was not done because the patient declined and the patient was supposedly transferred to [facility]. It is not clear what kind of workup the patient had while at [place], however the patient was discharged home on relatively high-dose of steroid/prednisone at 70 mg daily and he was told that he may have to be on this dose for a long time before it could be tapered. Patient has been taking his prednisone faithfully for the last 2 months, and has not noted any change. However the patient has been developing progressive weakness over the last 2 months, and he presented to the ER last night mostly with lower back pain, weakness, patient could not stand up. He was on the toilet and he could not get off the toilet because of weakness. X-rays of lumbar spine showed mild multilevel anterior wedging in the upper lumbar spine and moderate multilevel anterior and lateral spurring with some scattered bulging osteophytes. No clear-cut evidence of fracture noted. Chest x-ray done showed a 7 cm cavitating lesion in the left upper lobe which is relatively new and was not present a few months ago. The differential diagnoses for this lesion includes necrotic tumor, also suspect underlying infection or probably reactivation of infection considering the patient has been on relatively high-dose of prednisone for almost 2 months. Patient denies any history of previous pulmonary infection no previous history history of TB or history of any fungal infection. Patient was a smoker years ago, however he quit smoking over 50 years back. Denies any fever or chills or hemoptysis. The patient is seen today 01/27/2022 in follow-up on the regular medical floor. He is currently resting comfortably in bed. Awake and alert. Maintaining O2 saturations in the 90s on room air. Normal saline at 50 mL per hour. Procalcitonin is 0.08. C-reactive protein 5.2. Urine culture positive for gram-negative bacilli. He is currently on Zosyn. Remains on prednisone 60 mg daily. Patient is seen today 01/28/2022 in follow-up on the regular medical floor. He is currently sitting up in a chair at the bedside. Awake and alert in no acute distress. He is maintaining good O2 saturations in the 90s on room air. He has 0.9 normal saline at 60 ML's per hour. He is complaining of some continued cough and congestion difficulty expectorating phlegm. Urine culture positive for Klebsiella oxytoca. He is continued on antibiotics in the form of Zosyn. Remains on prednisone. Objective - Vital Signs Vital signs: Vital Signs Temp 97.4 F L 01/28/22 08:18 Pulse 84 01/28/22 11:36 Resp 17 01/28/22 01:37 BP 106/56 01/28/22 08:18 Pulse Ox 98 01/28/22 08:18 FiO2 Intake & Output 01/27/22 01/28/22 01/28/22 18:59 06:59 18:59 Intake Total 720 Output Total 500 Balance 720 -500 Weight 61.235 kg Intake: IV 600 Dextrose 5%-0.9% NaCl 1, 600 000 ml @ 50 mls/hr IV . Q20H [facility] Rx#:[id number] Oral 120 Output: Urine 500 Other: Voiding Method External Catheter Diaper # Voids 2 - Exam GENERAL EXAM: Alert, pleasant, frail 81-year-old male patient, on room air, up in a chair at the bedside, comfortable in no apparent distress. HEAD: Normocephalic. EYES: Normal reaction of pupils, equal size. NOSE: Clear with pink turbinates. THROAT: No erythema or exudates. NECK: No masses, no JVD. CHEST: No chest wall deformity. LUNGS: Equal air entry with no crackles, wheeze, rhonchi or dullness. CVS: S1 and S2 normal with no audible murmur, regular rhythm. ABDOMEN: No hepatosplenomegaly, normal bowel sounds, no guarding or rigidity. SPINE: No scoliosis or deformity SKIN: No rashes CENTRAL NERVOUS SYSTEM: No focal deficits, tone is normal in all 4 extremities. EXTREMITIES: There is no peripheral edema. No clubbing, no cyanosis. Peripheral pulses are intact. - Labs CBC & Chem 7: 01/25/22 12:36 01/25/22 12:36 Labs: Microbiology - Last 24 Hours (Table) 01/25/22 14:20 Urine Culture - Final Urine,Voided Klebsiella oxytoca Assessment and Plan Assessment: Cavitary lung lesion, differential diagnoses includes infection/lung abscess, could be bacterial or fungal , malignancy is not entirely ruled out but felt to be less likely. Autoimmune connective tissue disease process is not entirely ruled out currently on Zosyn Urinary tract infection secondary to Klebsiella oxytoca, currently on Zosyn, infectious diseases on the case Chronic loss of vision, possible temporal arteritis/giant cell arteritis has been on relatively high-dose of prednisone for the last 3 months History of coronary artery disease and previous stent of LAD Benign essential hypertension History of melanoma requiring resection of jaw with a muscle graft Dyslipidemia History of ischemic cardiomyopathy and LV dysfunction with ejection fraction of 25% Plan: The patient was seen and evaluated Stable and on room air, afebrile Continued on Zosyn for now Follow-up chest x-ray in the a.m. Increase his activity as tolerated We'll continue to follow I have personally seen and examined the patient, performed the documentation and the assessment and plan as written. Number of minutes spent on the visit: 10.
[2022-01-28] MEDS: BENZONATATE 100 MG CAP PO SCH ×2 (17:14→21:14)
[2022-01-29] MEDS: PIPERACILLIN-TAZOBACTAM 3.375 GM in SODIUM CHLORIDE 0.9% 100 ML IVPB SCH ×3 (00:01→16:07)
--- NOTE | 2022-01-29 00:07 | P.PN ---
Subjective Progress Note Date: 01/27/22 Principal diagnosis: Left upper lobe pneumonia Patient is a 81-year-old male presenting to the hospital for generalized weakness and a fall patient did have a mild cough patient did have a chest x-ray concerning for Jessica J trach lesion left upper lobe , CT chest confirmed the finding. On today's evaluation that is 01/27/2022 the patient denies having any fever or any chills patient is breathing comfortably, the patient denies having any chest pain he did have a cough not bringing up any sputum no nausea no vomiting no abdominal pain no diarrhea Objective - Vital Signs Vital signs: Vital Signs Temp 98.1 F 01/27/22 07:18 Pulse 85 01/27/22 07:18 Resp 16 01/27/22 07:18 BP 108/70 01/27/22 09:53 Pulse Ox 96 01/27/22 07:18 FiO2 Intake & Output 01/26/22 01/27/22 01/27/22 18:59 06:59 18:59 Intake Total 400 Output Total 400 Balance 400 -400 Intake: Intake, IV Titration 400 Amount Azithromycin 500 mg In 250 Sodium Chloride 0.9% 250 ml @ 250 mls/hr IVPB Q24H [facility] Rx#:[id number] Piperacillin-Tazobactam 3 100 .375 gm In Sodium Chloride 0.9% 100 ml @ 25 mls/hr IVPB Q8HR [facility] Rx# :[id number] cefTRIAXone 2 gm In 50 Sodium Chloride 0.9% 50 ml @ 100 mls/hr IVPB Q24H [facility] Rx#:[id number] Output: Urine 400 Other: Voiding Method Urinal External Catheter External Catheter - Exam GENERAL DESCRIPTION: An elderly male lying in bed in no distress RESPIRATORY SYSTEM: Unlabored breathing , decreased breath sounds at bases HEART: S1 S2 regular rate and rhythm , ABDOMEN: Soft , no tenderness EXTREMITIES: No edema feet - Labs CBC & Chem 7: 01/25/22 12:36 01/25/22 12:36 Labs: Abnormal Lab Results - Last 24 Hours (Table) 01/26/22 Range/Units 12:47 Procalcitonin 0.13 H (0.02-0.09) ng/mL Microbiology - Last 24 Hours (Table) 01/25/22 14:20 Urine Culture - Preliminary Urine,Voided Gram Neg Bacilli Assessment and Plan (1) Cavitating mass in left upper lung lobe Current Visit: Yes Status: Acute Code(s): J98.4 - OTHER DISORDERS OF LUNG SNOMED Code(s): 287133088 Plan: 1patient with a thick-walled left upper lobe cavitary lesion concerning for possible lung abscess less likely cavitatatory tumor at this has developed over the last 2 months with a question of possible pneumonia of aspiration etiology and will need to cover for the polymicrobial sony usually associated with this type of infection. 2IR consult for possible biopsy and culture 3patient to continue with Zosyn while waiting for the cultures to finalize Time with Patient: Less than 30
--- NOTE | 2022-01-29 00:09 | P.PN ---
Subjective Progress Note Date: 01/28/22 Principal diagnosis: Left upper lobe pneumonia Patient is a 81-year-old male presenting to the hospital for generalized weakness and a fall patient did have a mild cough patient did have a chest x-ray concerning for cavitatory lesion left upper lobe , CT chest confirmed the finding. On today's evaluation that is 01/28/2022 the patient remains to be afebrile, patient is currently on room air, patient denies having any chest pain he did have occasional cough not bringing up any sputum no abdominal pain no diarrhea Objective - Vital Signs Vital signs: Vital Signs Temp 97.8 F 01/28/22 12:52 Pulse 90 01/28/22 12:52 Resp 16 01/28/22 12:52 BP 117/61 01/28/22 12:52 Pulse Ox 98 01/28/22 12:52 FiO2 Intake & Output 01/27/22 01/28/22 01/28/22 18:59 06:59 18:59 Intake Total 720 Output Total 500 200 Balance 720 -500 -200 Weight 61.235 kg Intake: IV 600 Dextrose 5%-0.9% NaCl 1, 600 000 ml @ 50 mls/hr IV . Q20H [facility] Rx#:[id number] Oral 120 Output: Urine 500 200 Other: Voiding Method External Catheter Diaper # Voids 2 # Bowel Movements 1 - Exam GENERAL DESCRIPTION: An elderly male lying in bed in no distress RESPIRATORY SYSTEM: Unlabored breathing , decreased breath sounds at bases HEART: S1 S2 regular rate and rhythm , ABDOMEN: Soft , no tenderness EXTREMITIES: No edema feet - Labs CBC & Chem 7: 01/25/22 12:36 01/25/22 12:36 Labs: Abnormal Lab Results - Last 24 Hours (Table) 01/28/22 Range/Units 17:24 ESR 22 H (0-15) mm/hr Microbiology - Last 24 Hours (Table) 01/25/22 14:20 Urine Culture - Final Urine,Voided Klebsiella oxytoca Assessment and Plan (1) Cavitating mass in left upper lung lobe Current Visit: Yes Status: Acute Code(s): J98.4 - OTHER DISORDERS OF LUNG SNOMED Code(s): 582096609 Plan: 1patient with a thick-walled left upper lobe cavitary lesion concerning for possible lung abscess less likely cavitatatory tumor at this has developed over the last 2 months with a question of possible pneumonia of aspiration etiology and will need to cover for the polymicrobial sony usually associated with this type of infection. 2IR consult for possible biopsy and culture versus bronchoscopy lavage and transbronchial biopsy will discuss with pulmonary 3patient to continue with Zosyn and monitor clinical course closely Time with Patient: Less than 30
[2022-01-29] MEDS: DEXTROSE 5%-0.9% NACL 1,000 ML IV SCH (01:00)
[2022-01-29] MEDS: ALBUTEROL NEBULIZED 2.5 MG/3 ML INHALATION SCH ×4 (07:36→19:03)
--- NOTE | 2022-01-29 08:07 | XR ---
EXAMINATION TYPE: XR chest 1V portable DATE OF EXAM: 01/29/2022 COMPARISON: CT chest 01/26/2022, chest x-ray 01/25/2022 HISTORY: Cavitary mass TECHNIQUE: Single frontal view of the chest is obtained. FINDINGS: Left upper lobe cavitary mass is stable. No evident pneumothorax. Cardiac mediastinal silh ouette is unchanged. There is thoracic spondylosis. Question some minimal basilar increased density. IMPRESSION: There may be some basilar atelectasis. Cavitary lesion in the left upper lobe is stable.
[2022-01-29 08:59] LABS: Basophils # (A) 0.01 X 10*3/uL (0.00-0.10); Basophils % (A) 0.1 %; Eosinophils # (A) 0 X 10*3/uL (0.04-0.35); Eosinophils % (A) 0 %; HCT 24.6 % (39.6-50.0); HGB 8.3 g/dL (13.0-17.0); Immature Grans, Automated 1.5 %; Lymphocytes # (A) 1.04 X 10*3/uL (0.90-5.00); Lymphocytes % (A) 11.3 %; MCH 29.7 pg (27.0-32.0); MCHC 33.7 g/dL (32.0-37.0); MCV 88.2 fL (80.0-97.0); Mean Platelet Volume 9.6 fL (9.5-12.2); Monocytes # (A) 0.44 X 10*3/uL (0.20-1.00); Monocytes % (A) 4.8 %; NRBC Per 100 WBC 0 /100 WBCS (0.0-0.0); Neutrophils # (A) 7.59 X 10*3/uL (1.80-7.70); Neutrophils % (A) 82.3 %; Platelet Count 202 X 10*3/uL (140-440); RBC 2.79 X 10*6/uL (4.40-5.60); RDW 20.2 % (11.5-14.5); WBC 9.22 X 10*3/uL (4.50-10.00)
[2022-01-29] MEDS: ASPIRIN 81 MG PO SCH (09:09)
[2022-01-29] MEDS: GABAPENTIN 300 MG CAP PO SCH ×3 (09:10→20:29)
[2022-01-29] MEDS: BENZONATATE 100 MG CAP PO SCH ×3 (09:10→20:29)
[2022-01-29 09:12] LABS: African American GFR (CKD) 95.7 (60.0-200.0); Albumin 2.1 g/dL (3.8-4.9); Albumin/Globulin Ratio 1.5 (1.60-3.17); Anion Gap 3.6 mmol/L (10.00-18.00); BUN/Creat Ratio 23.75 Ratio (12.00-20.00); Calcium 7.4 mg/dL (8.7-10.3); Carbon Dioxide 27.4 mmol/L (20.0-27.5); Globulin 1.4 g/dL (1.6-3.3); Non-African American GFR(CKD) 82.6 (60.0-200.0); Potassium 3.9 mmol/L (3.5-5.5); Total Bilirubin 0.4 mg/dL (0.30-1.20); Total Protein 3.5 g/dL (6.2-8.2)
[2022-01-29] MEDS: predniSONE 20 MG TAB PO SCH (09:12)
[2022-01-29] MEDS: guaiFENesin 600 MG TABLET.ER PO SCH ×2 (09:12→20:29)
[2022-01-29] MEDS: SUCRALFATE 1 GM TAB PO SCH ×3 (09:12→20:29)
[2022-01-29] MEDS: PANTOPRAZOLE 40 MG TABLET PO SCH (09:13)
[2022-01-29] MEDS: ATORVASTATIN 80 MG TAB PO SCH (09:19)
[2022-01-29] MEDS: METOPROLOL TARTRATE 12.5 MG TAB PO SCH ×2 (11:13→19:40)
--- NOTE | 2022-01-29 14:52 | P.PN ---
Subjective Progress Note Date: 01/29/22 This is an 81-year-old white male with history of multiple medical problems including coronary artery disease, and previous stenting of LAD, history of cancer of the mouth, history of melanoma and resection of jaw with a muscle graft, history of sudden loss of vision about 2 months ago, patient presented to the hospital back on November 15 with acute sudden onset of bilateral vision loss. This was associated with new onset headaches, and apparently the patient was sent by the waste transportation technician to the ER. [place] that the patient may have giant cell arteritis. However his sed rate was normal. And he was seen by vascular surgery for potential temporal artery biopsy. Eventually this was not done because the patient declined and the patient was supposedly transferred to [facility]. It is not clear what kind of workup the patient had while at [facility], however the patient was discharged home on relatively high-dose of steroid/prednisone at 70 mg daily and he was told that he may have to be on this dose for a long time before it could be tapered. Patient has been taking his prednisone faithfully for the last 2 months, and has not noted any change. However the patient has been developing progressive weakness over the last 2 months, and he presented to the ER last night mostly with lower back pain, weakness, patient could not stand up. He was on the toilet and he could not get off the toilet because of weakness. X-rays of lumbar spine showed mild multilevel anterior wedging in the upper lumbar spine and moderate multilevel anterior and lateral spurring with some scattered bulging osteophytes. No clear-cut evidence of fracture noted. Chest x-ray done showed a 7 cm cavitating lesion in the left upper lobe which is relatively new and was not present a few months ago. The differential diagnoses for this lesion includes necrotic tumor, also suspect underlying infection or probably reactivation of infection considering the patient has been on relatively high-dose of prednisone for almost 2 months. Patient denies any history of previous pulmonary infection no previous history history of TB or history of any fungal infection. Patient was a smoker years ago, however he quit smoking over 50 years back. Denies any fever or chills or hemoptysis. The patient is seen today 01/27/2022 in follow-up on the regular medical floor. He is currently resting comfortably in bed. Awake and alert. Maintaining O2 saturations in the 90s on room air. Normal saline at 50 mL per hour. Procalcitonin is 0.08. C-reactive protein 5.2. Urine culture positive for gram-negative bacilli. He is currently on Zosyn. Remains on prednisone 60 mg daily. Patient is seen today 01/28/2022 in follow-up on the regular medical floor. He is currently sitting up in a chair at the bedside. Awake and alert in no acute distress. He is maintaining good O2 saturations in the 90s on room air. He has 0.9 normal saline at 60 ML's per hour. He is complaining of some continued cough and congestion difficulty expectorating phlegm. Urine culture positive for Klebsiella oxytoca. He is continued on antibiotics in the form of Zosyn. Remains on prednisone. The patient is seen today 01/29/2022 in follow-up on the regular medical floor. He is currently resting comfortably in bed. Awake and alert in no acute distress. He is maintaining O2 saturations in the 90s on room air. He is af ebrile. Hemodynamically stable. No IV fluids. Chest x-ray reveals stable left upper lobe cavitary lesion. Some basilar atelectasis. Urine culture was positive for Klebsiella oxytoca. White count 9.2. Humulin 8.3. Sodium 136. Potassium 3.9. BUN 19. Creatinine 0.8. TB testing was negative. Procalcitonin 0.08. He is continued on Zosyn. ID services are on the case. Objective - Vital Signs Vital signs: Vital Signs Temp 98.0 F 01/29/22 13:10 Pulse 81 01/29/22 13:10 Resp 15 01/29/22 13:10 BP 107/63 01/29/22 13:10 Pulse Ox 97 01/29/22 13:10 FiO2 Intake & Output 01/28/22 01/29/22 01/29/22 18:59 06:59 18:59 Output Total 200 600 Balance -200 -600 Weight 61.235 kg Output: Urine 200 600 Other: Voiding Method Diaper Diaper External Catheter External Catheter # Bowel Movements 1 - Exam GENERAL EXAM: Alert, pleasant, frail 81-year-old male patient, on room air, comfortable in no apparent distress. HEAD: Normocephalic. EYES: Normal reaction of pupils, equal size. NOSE: Clear with pink turbinates. THROAT: No erythema or exudates. NECK: No masses, no JVD. CHEST: No chest wall deformity. LUNGS: Equal air entry with no crackles, wheeze, rhonchi or dullness. CVS: S1 and S2 normal with no audible murmur, regular rhythm. ABDOMEN: No hepatosplenomegaly, normal bowel sounds, no guarding or rigidity. SPINE: No scoliosis or deformity SKIN: No rashes CENTRAL NERVOUS SYSTEM: No focal deficits, tone is normal in all 4 extremities. EXTREMITIES: There is no peripheral edema. No clubbing, no cyanosis. Peripheral pulses are intact. - Labs CBC & Chem 7: 01/29/22 05:21 01/29/22 05:21 Labs: Abnormal Lab Results - Last 24 Hours (Table) 01/28/22 01/29/22 01/29/22 Range/Units 17:24 05:21 05:21 RBC 2.79 L (4.40-5.60) X 10*6/uL Hgb 8.3 L (13.0-17.0) g/dL Hct 24.6 L (39.6-50.0) % RDW 20.2 H (11.5-14.5) % Immature Gran # 0.14 H (0.00-0.04) X 10*3/uL Eosinophils # 0 L (0.04-0.35) X 10*3/uL ESR 22 H (0-15) mm/hr Anion Gap 3.60 L (10.00-18.00) mmol/L BUN/Creatinine Ratio 23.75 H (12.00-20.00) Ratio Calcium 7.4 L (8.7-10.3) mg/dL ALT 75 H (10-49) U/L Total Protein 3.5 L (6.2-8.2) g/dL Albumin 2.1 L (3.8-4.9) g/dL Globulin 1.4 L (1.6-3.3) g/dL Albumin/Globulin Ratio 1.50 L (1.60-3.17) g/dL Assessment and Plan Assessment: Cavitary lung lesion, differential diagnoses includes infection/lung abscess, could be bacterial or fungal , malignancy is not entirely ruled out but felt to be less likely. Tuberculosis screen negative. Autoimmune connective tissue disease process is not entirely ruled out currently on Zosyn Urinary tract infection secondary to Klebsiella oxytoca, currently on Zosyn, infectious diseases on the case Chronic loss of vision, possible temporal arteritis/giant cell arteritis has been on relatively high-dose of prednisone for the last 3 months History of coronary artery disease and previous stent of LAD Benign essential hypertension History of melanoma requiring resection of jaw with a muscle graft Dyslipidemia History of ischemic cardiomyopathy and LV dysfunction with ejection fraction of 25% Plan: The patient was seen and evaluated Chest x-ray, labs and medications reviewed Stable and on room air, afebrile Continued on Zosyn ID services requesting CT-guided fine-needle aspirate of the left upper lobe lesion We'll continue to follow I have personally seen and examined the patient, performed the documentation and the assessment and plan as written. Number of minutes spent on the visit: 10.
--- NOTE | 2022-01-29 18:02 | PN ---
PROGRESS NOTE SUBJECTIVE: He remains on Zosyn at this time. Temperature 97.4, blood pressure 99/60, O2 of 95 on room air. Cardiovascular; S1, S2. The patient feels better at this time. He is sitting up in his bed, noting O2 greater than 90% on room air. He is on normal saline at 60 mL/hour, complaining of some cough and congestion. Urine cultures positive for Klebsiella oxytoca. He is on Zosyn. OBJECTIVE: GENERAL: He is sitting up in bed, giving appropriate answers, 81-year-old, low 90s on room air. CARDIOVASCULAR: S1, S2. LUNGS: Scattered rhonchi and wheeze. GI: Soft. PSYCH: Fair mood and affect. LABORATORY DATA: White count is 16.6, hemoglobin is 14.1. ASSESSMENT: Cavitary lung lesion, possible lung abscess, bacterial or fungal autoimmune disease, chronic vision loss, urinary tract infection, history of coronary artery disease with stent, history of hypertension. Prognosis is guarded. Follow up. Continue broad-spectrum antibiotics. Await for Pulmonary recommendations. MMODL / IJN: [id number] /
[2022-01-30] MEDS: PIPERACILLIN-TAZOBACTAM 3.375 GM in SODIUM CHLORIDE 0.9% 100 ML IVPB SCH ×3 (00:03→15:26)
[2022-01-30] MEDS: DEXTROSE 5%-0.9% NACL 1,000 ML IV SCH ×2 (04:10→15:32)
[2022-01-30] MEDS: ALBUTEROL NEBULIZED 2.5 MG/3 ML INHALATION SCH ×3 (07:44→21:44)
[2022-01-30] MEDS: ASPIRIN 81 MG PO SCH (09:24)
[2022-01-30] MEDS: ATORVASTATIN 80 MG TAB PO SCH (09:25)
[2022-01-30] MEDS: SUCRALFATE 1 GM TAB PO SCH ×3 (09:26→21:00)
[2022-01-30] MEDS: BENZONATATE 100 MG CAP PO SCH ×3 (09:26→21:01)
[2022-01-30] MEDS: PANTOPRAZOLE 40 MG TABLET PO SCH (09:26)
[2022-01-30] MEDS: METOPROLOL TARTRATE 12.5 MG TAB PO SCH ×2 (09:26→21:01)
[2022-01-30] MEDS: predniSONE 20 MG TAB PO SCH (09:26)
[2022-01-30] MEDS: GABAPENTIN 300 MG CAP PO SCH ×3 (09:26→21:01)
[2022-01-30] MEDS: guaiFENesin 600 MG TABLET.ER PO SCH ×2 (09:26→21:01)
--- NOTE | 2022-01-30 12:47 | CDI ---
Documentation Clarification Form Date: 01/30/2022 11:48:18 AM From: Heidi Hackett RN CCDS Admit Date: 01/25/2022 03:20:00 PM Patient Name: Ronaldo Crespo Visit Number: [id number] Discharge Date: ATTENTION: The Clinical Documentation Specialists (CDI) and [facility] Coding Staff appreciate your assistance in clarifying documentation. Please respond to the clarification below the line at the bottom and electronically sign. The CDI & [facility] Coding staff will review the response and follow-up if needed. Please note: Queries are made part of the Legal Health Record. If you have any questions, please contact the author of this message via ITS. Dr. Catrachito Santana A Left Buttock Ulcer, stage 2 pressure ulcer is documented in Nursing Wound assessment, 01/25/2022. Based on this information and the findings below, is there an additional diagnosis that is clinically appropriate for this patient? History/Risk Factors: 81-year-old male presents to the ED with burning in his chest, cough, progressive weakness and low back pain. Medical history: new onset of bilateral vision loss; oral cancer with resection of jaw and muscle graft. 01/26, Pulmonary consult. Clinical Indicators: Location: left buttock Wound description: length 0.5cm; width 0.5cm, depth 0.1cm Treatment: High protein diet for healing; Reposition every two hours and Opti foam gentle liquid. Consults: [id number] Physical findings Hypermetabolism secondary to Stage to pressure injury left buttock . Is there an additional diagnosis that is clinically appropriate for this patient? [ ] Left Buttock Pressure Ulcer Stage 2 [ ] Other condition, please specify [ ] Unable to determine Clinical Definitions: Stage 1 Pressure Ulcer: intact skin, non-blanching redness of local area Stage 2 Pressure Ulcer: Partial thickness, loss of dermis, pink wound bed Stage 3 Pressure Ulcer: Full thickness tissue loss Stage 4 Pressure Ulcer: Full thickness tissue loss with exposed bone, tendon, or muscle. Unstageable pressure ulcer: Full thickness tissue loss in which the base of the ulcer is covered by slough (yellow, baker, borrego, green or brown) and/or eschar (baker, brown or black) in the wound bed. (Template Last Revised: June 2020) [facility]
--- NOTE | 2022-01-30 12:48 | CDI ---
Documentation Clarification Form Date: 01/30/2022 12:34:29 PM From: Heidi Hackett Admit Date: 01/25/2022 03:20:00 PM Patient Name: Ronaldo Crespo Visit Number: [id number] Discharge Date: ATTENTION: The Clinical Documentation Specialists (CDI) and [facility] Coding Staff appreciate your assistance in clarifying documentation. Please respond to the clarification below the line at the bottom and electronically sign. The CDI & [facility] Coding staff will review the response and follow-up if needed. Please note: Queries are made part of the Legal Health Record. If you have any questions, please contact the author of this message via ITS. Dr. Catrachito Santana Your patient has the documented diagnosis of unspecified CHF 01/26, H&P. Additional information regarding the type, acuity of CHF is requested. History/Risk Factors: 81-year-old male presents to the ED with burning in his chest, cough, progressive weakness and low back pain. Medical history: CHF, new onset of bilateral vision loss; oral cancer with resection of jaw and muscle graft. 01/26, Pulmonary consult. Clinical Indicators: Home meds: Lopressor BID, Lasix po daily, Aldactone po daily VS/Pulse OX: 01/25 B/P 111/69; HR 80; Temp 97.6 F Oral; RR 16; SpO2 95% room air. Echocardiogram Results: 02/22/20 EF 20-25% Mild aortic valve sclerosis, mild aortic regurgitation, mitral valve leaflets are mildly thickened, Mild mitral annular calcification present, Moderate mitral regurgitation is present, Moderate tricuspid regurgitation present. Moderate pulmonary hypertension. Chest X Ray: 01/25 Cavitiating lesion left upper lobe. This could be infected bulla or lung abscess. Necrotic tumor is in the differential diagnosis. Treatment: 01/26 Lopressor PO BID. In your professional opinion, can you please clarify the [acuity and type] of CHF if known? [ ] Chronic Systolic Heart Failure (reduced EF) [ ] Other, please specify [ ] Unable to determine (Template Last Revised: May 2020) MTDD
--- NOTE | 2022-01-30 12:48 | CDI ---
Documentation Clarification Form Date: 01/30/2022 12:09:23 PM From: Heidi Hackett Admit Date: 01/25/2022 03:20:00 PM Patient Name: Ronaldo Crespo Visit Number: [id number] Discharge Date: ATTENTION: The Clinical Documentation Specialists (CDI) and [facility] Coding Staff appreciate your assistance in clarifying documentation. Please respond to the clarification below the line at the bottom and electronically sign. The CDI & [facility] Coding staff will review the response and follow-up if needed. Please note: Queries are made part of the Legal Health Record. If you have any questions, please contact the author of this message via ITS. Dr. Catrachito Santana The Registered Dietitian assessment on 01/29 indicates this patient is under weight. Based on this information and the findings below, is there an additional diagnosis that is clinically appropriate for this patient? History/Risk Factors: 81-year-old male presents to the ED with burning in his chest, cough, progressive weakness and low back pain. Medical history: new onset of bilateral vision loss; oral cancer with resection of jaw and muscle graft. 01/26, Pulmonary consult. Clinical Indicators: RD Consult Assessment: Current BMI: 21.1 Weight estimated by patient: 61.235kg. Height 5ft 7in; Weight loss 11.34 kg. Body mass index: Under weight Nutritional Intake: Good percent consumed 50-75% Weight Loss: EMR review 11/2021 Weight 160lbs Estimated Nutritional needs in Kcals: Weight used to estimate nutritional weight: Current weight. Energy needs Kcals 1650. Estimated Protein: weight used current weight. Estimated protein 1.2- 1.4grams/kg; Estimated protein 73-86 grams/day; Protein comment: 1.2 1.4g/kg related to pressure injury. Estimated Fluid needs 30ml/kg (55-65yr old) Estimated Fluid Needs 1830mls/day. Fluid comment 30ml/kg related to pressure injury. Increased nutrient needs : protein, zinc, vitamin c and fluids Treatment: High protein diet for wound healing. Monitor po intake. Dietary Consult: see above Is there an additional diagnosis that is clinically appropriate for this patient? [ ] Mild Protein-Calorie Malnutrition [ ] Moderate Protein-Calorie Malnutrition [ ] Severe Protein-Calorie Malnutrition [ ] Other condition, please specify [ ] Unable to Determine (Template Last Revised: June 2020) MTDD
--- NOTE | 2022-01-30 14:59 | P.PN ---
Subjective Progress Note Date: 01/30/22 Principal diagnosis: Cough and phlegm production. The patient is seen today 01/27/2022 in follow-up on the regular medical floor. He is currently resting comfortably in bed. Awake and alert. Maintaining O2 saturations in the 90s on room air. Normal saline at 50 mL per hour. Procalcitonin is 0.08. C-reactive protein 5.2. Urine culture positive for gram-negative bacilli. He is currently on Zosyn. Remains on prednisone 60 mg daily. Patient is seen today 01/28/2022 in follow-up on the regular medical floor. He is currently sitting up in a chair at the bedside. Awake and alert in no acute distress. He is maintaining good O2 saturations in the 90s on room air. He has 0.9 normal saline at 60 ML's per hour. He is complaining of some continued cough and congestion difficulty expectorating phlegm. Urine culture positive for Klebsiella oxytoca. He is continued on antibiotics in the form of Zosyn. Remains on prednisone. The patient is seen today 01/29/2022 in follow-up on the regular medical floor. He is currently resting comfortably in bed. Awake and alert in no acute distress. He is maintaining O2 saturations in the 90s on room air. He is afebrile. Hemodynamically stable. No IV fluids. Chest x-ray reveals stable left upper lobe cavitary lesion. Some basilar atelectasis. Urine culture was positive for Klebsiella oxytoca. White count 9.2. Humulin 8.3. Sodium 136. Potassium 3.9. BUN 19. Creatinine 0.8. TB testing was negative. Proca lcitonin 0.08. He is continued on Zosyn. ID services are on the case. Progress note dated 01/30/2022. 81-year-old male, seen in room 453. He's currently on room air. The infectious disease doctor wanted interventional radiology to do a fine-needle of the lesion in the left upper lobe. The patient is currently not receiving any IV fluids. No new labs today. Labs from January 29 are reviewed. The urine sample was positive for Klebsiella oxytoca. Currently, the patient's on Zosyn. Objective - Vital Signs Vital signs: Vital Signs Temp 98.3 F 01/30/22 08:19 Pulse 80 01/30/22 11:24 Resp 18 01/30/22 09:58 BP 115/60 01/30/22 08:19 Pulse Ox 95 01/30/22 08:19 FiO2 Intake & Output 01/29/22 01/30/22 01/30/22 18:59 06:59 18:59 Intake Total 540 Output Total 680 1300 Balance -140 -1300 Weight 61.235 kg Intake: Oral 540 Output: Urine 680 1300 Other: Voiding Method Diaper Diaper External Catheter External Catheter - Exam No acute distress, oriented 3. Currently on room air. No respiratory distress. HEENT examination is grossly unremarkable. Neck supple. Full range of motion. No adenopathy thyromegaly or neck vein distention. Cardiovascular examination reveals regular rhythm rate. S1-S2 normal. No S3 or S4. No discernible murmur noted. Heart rate 80 bpm. Lungs reveal mild coarse rhonchi. Breath sounds equal bilaterally. No crackles. Saturation is 95%. Abdomen soft bowel sounds are heard. No masses or tenderness. Extremities are intact. No cyanosis clubbing or edema. Skin is without rash or lesion. Neurologic examination is brief but nonfocal. - Labs CBC & Chem 7: 01/29/22 05:21 01/29/22 05:21 Assessment and Plan Assessment: Cavitary lung lesion, differential diagnoses includes infection/lung abscess, could be bacterial or fungal , malignancy is not entirely ruled out but felt to be less likely. Tuberculosis screen negative. Autoimmune connective tissue disease process is not entirely ruled out, currently on Zosyn. Urinary tract infection secondary to Klebsiella oxytoca, currently on Zosyn. 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 History of coronary artery disease and previous stent of LAD. Benign essential hypertension. 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 Dyslipidemia. History of ischemic cardiomyopathy and LV dysfunction with ejection fraction of 25%. Plan: Plan dated 01/30/2022. Patient remains on Zosyn. He is being treated for a urinary tract infection, with Klebsiella. Infectious disease services, requested that interventional rad iology do a CT-guided fine-needle aspiration of the left upper lobe lesion. Labs, x-rays, and medications are reviewed. We will continue to follow the patient and make recommendations along the way. Patient is stable, on room air. Time with Patient: Less than 30
--- NOTE | 2022-01-30 21:27 | PN ---
PROGRESS NOTE SUBJECTIVE: An 81-year-old with recent stent in his LAD, history of melanoma, resection of the with muscle graft, some loss of vision about 2 months ago, concern for giant cell arteritis, sedimentation rate was normal at that time which ruled that out. He is sitting up in bed. He was breathing better. He is saturating in mid 90s on room air. There is cough, congestion, and expectorant phlegm. Chest x-ray shows stable left upper lobe cavitary lesion, unclear etiology, negative for TB. Klebsiella oxytoca and UTI in the urine. Sodium 136, potassium 3.9, BUN is 19, creatinine 0.8. Procalcitonin negative. Zosyn has been discontinued. ID is on the case, given appropriate answers. OBJECTIVE: ABDOMEN: Soft. LUNGS: Scattered rhonchi and wheeze. ENT: Within normal limits. GENERAL: An 81-year-old white male, is comfortable. NEUROLOGIC: Cranial nerves are intact. PSYCH: Fair mood and affect. ASSESSMENT: Cavitary lung lesion, unclear etiology. At this point, UTI, chronic loss of vision, history of coronary disease with a stent in the LAD, history of melanoma, benign hypertension, dyslipidemia, cardiomyopathy. He is on Zosyn. ID services requesting CAT scan guided fine-needle aspiration of the left upper lobe lesion, which I think is a great idea. PROGNOSIS: Guarded. MMODL / IJN: [id number] /
--- NOTE | 2022-01-30 22:56 | P.PN ---
Subjective Progress Note Date: 01/29/22 Principal diagnosis: Left upper lobe pneumonia Patient is a 81-year-old male presenting to the hospital for generalized weakness and a fall patient did have a mild cough patient did have a chest x-ray concerning for cavitatory lesion left upper lobe , CT chest confirmed the finding. On today's evaluation that is 01/29/2022 the patient continuous to be afebrile, patient is breathing comfortably on room air, patient denies having any chest pain he did have occasional cough not bringing up any sputum no abdominal pain no diarrhea Objective - Vital Signs Vital signs: Vital Signs Temp 97.6 F 01/29/22 19:30 Pulse 85 01/29/22 19:30 Resp 17 01/29/22 19:30 BP 87/33 01/29/22 19:30 Pulse Ox 95 01/29/22 19:30 FiO2 Intake & Output 01/29/22 01/29/22 01/30/22 06:59 18:59 06:59 Intake Total 540 Output Total 600 680 Balance -600 -140 Weight 61.235 kg Intake: Oral 540 Output: Urine 600 680 Other: Voiding Method Diaper Diaper External Catheter External Catheter - Exam GENERAL DESCRIPTION: An elderly male lying in bed in no distress RESPIRATORY SYSTEM: Unlabored breathing , decreased breath sounds at bases HEART: S1 S2 regular rate and rhythm , ABDOMEN: Soft , no tenderness EXTREMITIES: No edema feet - Labs CBC & Chem 7: 01/29/22 05:21 01/29/22 05:21 Labs: Abnormal Lab Results - Last 24 Hours (Table) 01/29/22 01/29/22 Range/Units 05:21 05:21 RBC 2.79 L (4.40-5.60) X 10*6/uL Hgb 8.3 L (13.0-17.0) g/dL Hct 24.6 L (39.6-50.0) % RDW 20.2 H (11.5-14.5) % Immature Gran # 0.14 H (0.00-0.04) X 10*3/uL Eosinophils # 0 L (0.04-0.35) X 10*3/uL Anion Gap 3.60 L (10.00-18.00) mmol/L BUN/Creatinine Ratio 23.75 H (12.00-20.00) Ratio Calcium 7.4 L (8.7-10.3) mg/dL ALT 75 H (10-49) U/L Total Protein 3.5 L (6.2-8.2) g/dL Albumin 2.1 L (3.8-4.9) g/dL Globulin 1.4 L (1.6-3.3) g/dL Albumin/Globulin Ratio 1.50 L (1.60-3.17) g/dL Assessment and Plan (1) Cavitating mass in left upper lung lobe Current Visit: Yes Status: Acute Code(s): J98.4 - OTHER DISORDERS OF LUNG SNOMED Code(s): 071557842 Plan: 1patient with a thick-walled left upper lobe cavitary lesion concerning for possible lung abscess less likely cavitatatory tumor at this has developed over the last 2 months with a question of possible pneumonia of aspiration etiology and will need to cover for the polymicrobial sony usually associated with this type of infection. 2patient considered to be high risk for bronchoscopy per discussion with pulmonary, IR consult for possible biopsy and culture 3patient to continue with Zosyn and monitor clinical course closely Time with Patient: Less than 30
--- NOTE | 2022-01-30 22:57 | P.PN ---
Subjective Progress Note Date: 01/30/22 Principal diagnosis: Left upper lobe pneumonia Patient is a 81-year-old male presenting to the hospital for generalized weakness and a fall patient did have a mild cough patient did have a chest x-ray concerning for cavitatory lesion left upper lobe , CT chest confirmed the finding. On today's evaluation that is 01/30/2022 the patient denies any fever or any chills, the patient is breathing comfortably currently on room air. Denies having any chest pain occasional cough no abdominal pain or diarrhea Objective - Vital Signs Vital signs: Vital Signs Temp 97.8 F 01/30/22 13:10 Pulse 84 01/30/22 13:10 Resp 16 01/30/22 13:10 BP 101/56 01/30/22 13:10 Pulse Ox 96 01/30/22 13:10 FiO2 Intake & Output 01/29/22 01/30/22 01/30/22 18:59 06:59 18:59 Intake Total 540 Output Total 680 1300 Balance -140 -1300 Weight 61.235 kg Intake: Oral 540 Output: Urine 680 1300 Other: Voiding Method Diaper Diaper External Catheter External Catheter - Exam GENERAL DESCRIPTION: An elderly male lying in bed in no distress RESPIRATORY SYSTEM: Unlabored breathing , decreased breath sounds at bases HEART: S1 S2 regular rate and rhythm , ABDOMEN: Soft , no tenderness EXTREMITIES: No edema feet - Labs CBC & Chem 7: 01/29/22 05:21 01/29/22 05:21 Assessment and Plan (1) Cavitating mass in left upper lung lobe Current Visit: Yes Status: Acute Code(s): J98.4 - OTHER DISORDERS OF LUNG SNOMED Code(s): 668670756 Plan: 1patient with a thick-walled left upper lobe cavitary lesion concerning for possible lung abscess less likely cavitatatory tumor at this has developed over the last 2 months with a question of possible pneumonia of aspiration etiology and will need to cover for the polymicrobial sony usually associated with this type of infection. 2patient considered to be high risk for bronchoscopy per discussion with pulmonary, IR consult for possible biopsy and culture , IR not able to perform CT-guided biopsy and culture consider transfer to tertiary care 3patient will continue with Zosyn and monitor clinical course closely 4Klebsiella UTI covered with the Zosyn patient is on Time with Patient: Less than 30
[2022-01-31] MEDS: PIPERACILLIN-TAZOBACTAM 3.375 GM in SODIUM CHLORIDE 0.9% 100 ML IVPB SCH ×3 (00:16→15:33)
[2022-01-31 00:55] LABS: Histoplasma Abs by ID Not Detected (Not Detected); Histoplasma Abs by Mycelia, CF <1:8 (<1:8)
[2022-01-31] MEDS: ALBUTEROL NEBULIZED 2.5 MG/3 ML INHALATION SCH ×3 (07:55→20:20)
[2022-01-31] MEDS: ATORVASTATIN 80 MG TAB PO SCH (08:30)
[2022-01-31] MEDS: PANTOPRAZOLE 40 MG TABLET PO SCH (08:30)
[2022-01-31] MEDS: GABAPENTIN 300 MG CAP PO SCH ×3 (08:30→22:20)
[2022-01-31] MEDS: guaiFENesin 600 MG TABLET.ER PO SCH ×2 (08:30→22:21)
[2022-01-31] MEDS: predniSONE 20 MG TAB PO SCH (08:30)
[2022-01-31] MEDS: BENZONATATE 100 MG CAP PO SCH ×3 (08:30→22:20)
[2022-01-31] MEDS: SUCRALFATE 1 GM TAB PO SCH ×3 (08:30→22:20)
[2022-01-31] MEDS: METOPROLOL TARTRATE 12.5 MG TAB PO SCH ×2 (08:30→22:21)
[2022-01-31] MEDS: ASPIRIN 81 MG PO SCH (08:30)
[2022-01-31] MEDS: DEXTROSE 5%-0.9% NACL 1,000 ML IV SCH (09:25)
--- NOTE | 2022-01-31 15:04 | P.PN ---
Subjective Progress Note Date: 01/31/22 This is an 81-year-old white male with history of multiple medical problems including coronary artery disease, and previous stenting of LAD, history of cancer of the mouth, history of melanoma and resection of jaw with a muscle graft, history of sudden loss of vision about 2 months ago, patient presented to the hospital back on November 15 with acute sudden onset of bilateral vision loss. This was associated with new onset headaches, and apparently the patient was sent by the scuba diver to the ER. [place] that the patient may have giant cell arteritis. However his sed rate was normal. And he was seen by vascular surgery for potential temporal artery biopsy. Eventually this was not done because the patient declined and the patient was supposedly transferred to [facility]. It is not clear what kind of workup the patient had while at [place], however the patient was discharged home on relatively high-dose of steroid/prednisone at 70 mg daily and he was told that he may have to be on this dose for a long time before it could be tapered. Patient has been taking his prednisone faithfully for the last 2 months, and has not noted any change. However the patient has been developing progressive weakness over the last 2 months, and he presented to the ER last night mostly with lower back pain, weakness, patient could not stand up. He was on the toilet and he could not get off the toilet because of weakness. X-rays of lumbar spine showed mild multilevel anterior wedging in the upper lumbar spine and moderate multilevel anterior and lateral spurring with some scattered bulging osteophytes. No clear-cut evidence of fracture noted. Chest x-ray done showed a 7 cm cavitating lesion in the left upper lobe which is relatively new and was not present a few months ago. The differential diagnoses for this lesion includes necrotic tumor, also suspect underlying infection or probably reactivation of infection considering the patient has been on relatively high-dose of prednisone for almost 2 months. Patient denies any history of previous pulmonary infection no previous history history of TB or history of any fungal infection. Patient was a smoker years ago, however he quit smoking over 50 years back. Denies any fever or chills or hemoptysis. The patient is seen today 01/27/2022 in follow-up on the regular medical floor. He is currently resting comfortably in bed. Awake and alert. Maintaining O2 saturations in the 90s on room air. Normal saline at 50 mL per hour. Procalcitonin is 0.08. C-reactive protein 5.2. Urine culture positive for gram-negative bacilli. He is currently on Zosyn. Remains on prednisone 60 mg daily. Patient is seen today 01/28/2022 in follow-up on the regular medical floor. He is currently sitting up in a chair at the bedside. Awake and alert in no acute distress. He is maintaining good O2 saturations in the 90s on room air. He has 0.9 normal saline at 60 ML's per hour. He is complaining of some continued cough and congestion difficulty expectorating phlegm. Urine culture positive for Klebsiella oxytoca. He is continued on antibiotics in the form of Zosyn. Remains on prednisone. The patient is seen today 01/29/2022 in follow-up on the regular medical floor. He is currently resting comfortably in bed. Awake and alert in no acute distress. He is maintaining O2 saturations in the 90s on room air. He is af ebrile. Hemodynamically stable. No IV fluids. Chest x-ray reveals stable left upper lobe cavitary lesion. Some basilar atelectasis. Urine culture was positive for Klebsiella oxytoca. White count 9.2. Humulin 8.3. Sodium 136. Potassium 3.9. BUN 19. Creatinine 0.8. TB testing was negative. Procalcitonin 0.08. He is continued on Zosyn. ID services are on the case. The patient is seen today 01/31/2022 in follow-up on the regular medical floor. He is currently sitting up in a chair at the bedside. Awake and alert in no acute distress. Maintaining O2 saturations in the 90s on room air. Receiving D5.9 normal saline at 50 MLS per hour. Urine cultures positive for Klebsiella oxytoca. No new labs. Interventional radiology was not planning to do a fine- needle aspirate of the left upper lobe cavitary lesion. He currently remains on Zosyn. ID is on the case. Objective - Vital Signs Vital signs: Vital Signs Temp 98.0 F 01/31/22 14:00 Pulse 85 01/31/22 14:00 Resp 14 01/31/22 14:00 BP 94/56 01/31/22 14:00 Pulse Ox 94 L 01/31/22 14:00 FiO2 Intake & Output 01/30/22 01/31/22 01/31/22 18:59 06:59 18:59 Output Total 750 300 400 Balance -750 -300 -400 Output: Urine 750 300 400 Other: Voiding Method Diaper Diaper External Catheter External Catheter - Exam GENERAL EXAM: Alert, pleasant, frail 81-year-old male patient, on room air, up in a chair, comfortable in no apparent distress. HEAD: Normocephalic. EYES: Normal reaction of pupils, equal size. NOSE: Clear with pink turbinates. THROAT: No erythema or exudates. NECK: No masses, no JVD. CHEST: No chest wall deformity. LUNGS: Equal air entry with no crackles, wheeze, rhonchi or dullness. CVS: S1 and S2 normal with no audible murmur, regular rhythm. ABDOMEN: No hepatosplenomegaly, normal bowel sounds, no guarding or rigidity. SPINE: No scoliosis or deformity SKIN: No rashes CENTRAL NERVOUS SYSTEM: No focal deficits, tone is normal in all 4 extremities. EXTREMITIES: There is no peripheral edema. No clubbing, no cyanosis. Peripheral pulses are intact. - Labs CBC & Chem 7: 01/29/22 05:21 01/29/22 05:21 Assessment and Plan Assessment: Cavitary lung lesion, differential diagnoses includes infection/lung abscess, could be bacterial or fungal , malignancy is not entirely ruled out but felt to be less likely. Tuberculosis screen negative. 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 has been on relatively high-dose of prednisone for the last 3 months History of coronary artery disease and previous stent of LAD Benign essential hypertension History of melanoma requiring resection of jaw with a muscle graft Dyslipidemia History of ischemic cardiomyopathy and LV dysfunction with ejection fraction of 25% Plan: The patient was seen and evaluated Medications reviewed Stable and on room air, afebrile Continued on Zosyn per ID services IR does not plan to do a fine-needle aspirate of the left upper lobe lesion Home once cleared by medicine I have personally seen and examined the patient, performed the documentation and the assessment and plan as written. Number of minutes spent on the visit: 10.
[2022-01-31] MEDS ORDERED: traMADol 50 MG TAB PO PRN (20:20)
[2022-02-01] MEDS: PIPERACILLIN-TAZOBACTAM 3.375 GM in SODIUM CHLORIDE 0.9% 100 ML IVPB SCH ×4 (00:08→23:58)
[2022-02-01] MEDS: DEXTROSE 5%-0.9% NACL 1,000 ML IV SCH (00:10)
[2022-02-01] MEDS: ALBUTEROL NEBULIZED 2.5 MG/3 ML INHALATION SCH ×3 (07:24→20:07)
[2022-02-01] MEDS: ASPIRIN 81 MG PO SCH (07:32)
[2022-02-01] MEDS: METOPROLOL TARTRATE 12.5 MG TAB PO SCH ×2 (07:44→21:06)
[2022-02-01] MEDS: guaiFENesin 600 MG TABLET.ER PO SCH ×2 (07:44→21:06)
[2022-02-01] MEDS: GABAPENTIN 300 MG CAP PO SCH ×3 (07:44→21:06)
[2022-02-01] MEDS: predniSONE 20 MG TAB PO SCH (07:44)
[2022-02-01] MEDS: SUCRALFATE 1 GM TAB PO SCH ×3 (07:44→21:06)
[2022-02-01] MEDS: BENZONATATE 100 MG CAP PO SCH ×3 (07:44→21:06)
[2022-02-01] MEDS: ATORVASTATIN 80 MG TAB PO SCH (07:45)
[2022-02-01] MEDS: PANTOPRAZOLE 40 MG TABLET PO SCH (07:45)
--- NOTE | 2022-02-01 09:55 | P.PN ---
Subjective Progress Note Date: 01/31/22 Principal diagnosis: Left upper lobe pneumonia Patient is a 81-year-old male presenting to the hospital for generalized weakness and a fall patient did have a mild cough patient did have a chest x-ray concerning for cavitatory lesion left upper lobe , CT chest confirmed the finding. On today's evaluation that is 01/31/2022 the patient remains to be afebrile, the patient is breathing comfortably on room air. The patient denies having any chest pain occasional cough but no sputum production no abdominal pain or diarrhea Objective - Vital Signs Vital signs: Vital Signs Temp 97.4 F L 01/31/22 08:05 Pulse 86 01/31/22 12:00 Resp 18 01/31/22 08:05 BP 101/61 01/31/22 08:05 Pulse Ox 95 01/31/22 08:05 FiO2 Intake & Output 01/30/22 01/31/22 01/31/22 18:59 06:59 18:59 Output Total 750 300 Balance -750 -300 Output: Urine 750 300 Other: Voiding Method Diaper Diaper External Catheter External Catheter - Exam GENERAL DESCRIPTION: An elderly male lying in bed in no distress RESPIRATORY SYSTEM: Unlabored breathing , decreased breath sounds at bases HEART: S1 S2 regular rate and rhythm , ABDOMEN: Soft , no tenderness EXTREMITIES: No edema feet - Labs CBC & Chem 7: 01/29/22 05:21 01/29/22 05:21 Assessment and Plan (1) Cavitating mass in left upper lung lobe Current Visit: Yes Status: Acute Code(s): J98.4 - OTHER DISORDERS OF LUNG SNOMED Code(s): 271278882 Plan: 1patient with a thick-walled left upper lobe cavitary lesion concerning for possible lung abscess less likely cavitatatory tumor at this has developed over the last 2 months with a question of possible pneumonia of aspiration etiology and will need to cover for the polymicrobial sony usually associated with this type of infection. 2patient considered to be high risk for bronchoscopy per discussion with pulmonary, IR consult for possible biopsy and culture , IR not able to perform CT-guided biopsy and culture consider transfer to tertiary care 3patient did have a negative serology for Aspergillus histoplasma and QuantiFERON TB gold test was negative 4patient did have a positive urine culture with Klebsiella 5patient to continue with the Zosyn and monitor clinical course closely Time with Patient: Less than 30
--- NOTE | 2022-02-01 13:37 | P.PN ---
Subjective Progress Note Date: 02/01/22 This is an 81-year-old white male with history of multiple medical problems including coronary artery disease, and previous stenting of LAD, history of cancer of the mouth, history of melanoma and resection of jaw with a muscle graft, history of sudden loss of vision about 2 months ago, patient presented to the hospital back on November 15 with acute sudden onset of bilateral vision loss. This was associated with new onset headaches, and apparently the patient was sent by the certified income tax preparer to the ER. [place] that the patient may have giant cell arteritis. However his sed rate was normal. And he was seen by vascular surgery for potential temporal artery biopsy. Eventually this was not done because the patient declined and the patient was supposedly transferred to [facility]. It is not clear what kind of workup the patient had while at [place], however the patient was discharged home on relatively high-dose of steroid/prednisone at 70 mg daily and he was told that he may have to be on this dose for a long time before it could be tapered. Patient has been taking his prednisone faithfully for the last 2 months, and has not noted any change. However the patient has been developing progressive weakness over the last 2 months, and he presented to the ER last night mostly with lower back pain, weakness, patient could not stand up. He was on the toilet and he could not get off the toilet because of weakness. X-rays of lumbar spine showed mild multilevel anterior wedging in the upper lumbar spine and moderate multilevel anterior and lateral spurring with some scattered bulging osteophytes. No clear-cut evidence of fracture noted. Chest x-ray done showed a 7 cm cavitating lesion in the left upper lobe which is relatively new and was not present a few months ago. The differential diagnoses for this lesion includes necrotic tumor, also suspect underlying infection or probably reactivation of infection considering the patient has been on relatively high-dose of prednisone for almost 2 months. Patient denies any history of previous pulmonary infection no previous history history of TB or history of any fungal infection. Patient was a smoker years ago, however he quit smoking over 50 years back. Denies any fever or chills or hemoptysis. The patient is seen today 01/27/2022 in follow-up on the regular medical floor. He is currently resting comfortably in bed. Awake and alert. Maintaining O2 saturations in the 90s on room air. Normal saline at 50 mL per hour. Procalcitonin is 0.08. C-reactive protein 5.2. Urine culture positive for gram-negative bacilli. He is currently on Zosyn. Remains on prednisone 60 mg daily. Patient is seen today 01/28/2022 in follow-up on the regular medical floor. He is currently sitting up in a chair at the bedside. Awake and alert in no acute distress. He is maintaining good O2 saturations in the 90s on room air. He has 0.9 normal saline at 60 ML's per hour. He is complaining of some continued cough and congestion difficulty expectorating phlegm. Urine culture positive for Klebsiella oxytoca. He is continued on antibiotics in the form of Zosyn. Remains on prednisone. The patient is seen today 01/29/2022 in follow-up on the regular medical floor. He is currently resting comfortably in bed. Awake and alert in no acute distress. He is maintaining O2 saturations in the 90s on room air. He is af ebrile. Hemodynamically stable. No IV fluids. Chest x-ray reveals stable left upper lobe cavitary lesion. Some basilar atelectasis. Urine culture was positive for Klebsiella oxytoca. White count 9.2. Humulin 8.3. Sodium 136. Potassium 3.9. BUN 19. Creatinine 0.8. TB testing was negative. Procalcitonin 0.08. He is continued on Zosyn. ID services are on the case. The patient is seen today 01/31/2022 in follow-up on the regular medical floor. He is currently sitting up in a chair at the bedside. Awake and alert in no acute distress. Maintaining O2 saturations in the 90s on room air. Receiving D5.9 normal saline at 50 MLS per hour. Urine cultures positive for Klebsiella oxytoca. No new labs. Interventional radiology was not planning to do a fine- needle aspirate of the left upper lobe cavitary lesion. He currently remains on Zosyn. ID is on the case. The patient is seen today 02/01/2022 in follow-up on the regular medical floor. He is awake and alert in no acute distress. Sitting up in a chair at the bedside. Maintaining good O2 saturations in the 90s on room air. Urine culture was positive for Klebsiella oxytoca. D5 and half-normal saline at 50 MLS per h our. Continued on Zosyn. Remains on prednisone taper. Tessalon Perles and Mucinex for his cough. Objective - Vital Signs Vital signs: Vital Signs Temp 97.5 F L 02/01/22 08:00 Pulse 84 02/01/22 11:16 Resp 16 02/01/22 08:00 BP 99/43 02/01/22 08:00 Pulse Ox 92 L 02/01/22 08:00 FiO2 Intake & Output 01/31/22 02/01/22 02/01/22 18:59 06:59 18:59 Output Total 1100 501 1 Balance -1100 -501 -1 Output: Urine 1100 500 Stool 1 1 Other: Voiding Method Diaper Indwelling Catheter External Catheter External Catheter # Bowel Movements 1 - Exam GENERAL EXAM: Alert, frail 81-year-old male patient, on room air, comfortable in no apparent distress. HEAD: Normocephalic. EYES: Normal reaction of pupils, equal size. NOSE: Clear with pink turbinates. THROAT: No erythema or exudates. NECK: No masses, no JVD. CHEST: No chest wall deformity. LUNGS: Equal air entry with no crackles, wheeze, rhonchi or dullness. CVS: S1 and S2 normal with no audible murmur, regular rhythm. ABDOMEN: No hepatosplenomegaly, normal bowel sounds, no guarding or rigidity. SPINE: No scoliosis or deformity SKIN: No rashes CENTRAL NERVOUS SYSTEM: No focal deficits, tone is normal in all 4 extremities. EXTREMITIES: There is no peripheral edema. No clubbing, no cyanosis. Peripheral pulses are intact. - Labs CBC & Chem 7: 01/29/22 05:21 01/29/22 05:21 Assessment and Plan Assessment: Cavitary lung lesion, differential diagnoses includes infection/lung abscess, could be bacterial or fungal , malignancy is not entirely ruled out but felt to be less likely. Tuberculosis screen negative. 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 has been on relatively high-dose of prednisone for the last 3 months History of coronary artery disease and previous stent of LAD Benign essential hypertension History of melanoma requiring resection of jaw with a muscle graft Dyslipidemia History of ischemic cardiomyopathy and LV dysfunction with ejection fraction of 25% Plan: The patient was seen and evaluated Medications reviewed Stable and on room air, afebrile Cleared for discharge from the pulmonary standpoint Antibiotics per ID services IR does not plan to do a fine-needle aspirate of the left upper lobe lesion Follow-up in our office in 1 week I have personally seen and examined the patient, performed the documentation and the assessment and plan as written. Number of minutes spent on the visit: 10.
--- NOTE | 2022-02-01 14:29 | PN ---
PROGRESS NOTE Left buttock pressure ulcer, stage II, present on admission; chronic systolic heart failure with poor ejection fraction; and moderate protein-calorie malnutrition. MMODL / IJN: [id number] /
[2022-02-01 19:31] LABS: Coccidiodes Antibody (CF) <1:2
--- NOTE | 2022-02-01 20:50 | PN ---
PROGRESS NOTE DATE OF SERVICE: 01/31/2022 SUBJECTIVE: The patient was supposed to get a CT-guided biopsy of this lung mass, for which he was admitted for. He has possible giant cell arteritis treated at another hospital, seen by Vascular Surgery . He came in here with a possible left upper lobe mass. Sitting up in a chair. He is alert and oriented. He is maintaining his saturations in the 90s. He is on IV fluids. Urine culture is positive for Klebsiella oxytoca. He remains on Zosyn. ID is on the case. OBJECTIVE: GENERAL: Frail, 81-year-old, white male. HEENT: Normocephalic and atraumatic. LUNGS: Clear. CARDIOVASCULAR: S1 and S2. PSYCHIATRIC: Fair mood and affect. VITAL SIGNS: Temperature 98, pulse 85, respiratory rate 12 to 14, blood pressure is 94/66, O2 of 94% on room air. ASSESSMENT AND PLAN: 1. He has cavitary lung lesion, infectious, bacterial or fungal. Tuberculosis is negative. Autoimmune ruled out. 2. Urinary tract infection, Klebsiella oxytoca. 3. 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 4. History of coronary artery disease, previous stents to left anterior descending. 5. Hypertension. 6. History of melanoma resection of jaw. 7. Dyslipidemia. 8. Cardiomyopathy, ejection fraction 25%. Medications reviewed. Continue Zosyn. Infectious Disease. IR does not plan to do a fine-needle aspiration of the lung lesion. Prognosis is guarded as to what to do about this with wait to see from Infectious Disease recommendations. MMODL / IJN: [id number] /
[2022-02-02] MEDS: DEXTROSE 5%-0.9% NACL 1,000 ML IV SCH (05:41)
[2022-02-02] MEDS: ALBUTEROL NEBULIZED 2.5 MG/3 ML INHALATION SCH ×3 (07:06→20:21)
[2022-02-02] MEDS: METOPROLOL TARTRATE 12.5 MG TAB PO SCH ×2 (08:33→21:53)
[2022-02-02] MEDS: predniSONE 20 MG TAB PO SCH (08:33)
[2022-02-02] MEDS: guaiFENesin 600 MG TABLET.ER PO SCH ×2 (08:33→21:53)
[2022-02-02] MEDS: BENZONATATE 100 MG CAP PO SCH ×3 (08:33→21:53)
[2022-02-02] MEDS: ASPIRIN 81 MG PO SCH (08:33)
[2022-02-02] MEDS: ATORVASTATIN 80 MG TAB PO SCH (08:33)
[2022-02-02] MEDS: PANTOPRAZOLE 40 MG TABLET PO SCH (08:33)
[2022-02-02] MEDS: GABAPENTIN 300 MG CAP PO SCH ×3 (08:33→21:53)
[2022-02-02] MEDS: SUCRALFATE 1 GM TAB PO SCH ×3 (08:33→21:53)
[2022-02-02] MEDS ORDERED: NON FORMULARY DRUG (Alendronate Sodium [Fosamax] 70 MG Tablet) PO SCH (09:00)
--- NOTE | 2022-02-02 10:21 | P.PN ---
Subjective Progress Note Date: 02/02/22 Principal diagnosis: Cough and phlegm production. The patient is seen today 01/27/2022 in follow-up on the regular medical floor. He is currently resting comfortably in bed. Awake and alert. Maintaining O2 saturations in the 90s on room air. Normal saline at 50 mL per hour. Procalcitonin is 0.08. C-reactive protein 5.2. Urine culture positive for gram-negative bacilli. He is currently on Zosyn. Remains on prednisone 60 mg daily. Patient is seen today 01/28/2022 in follow-up on the regular medical floor. He is currently sitting up in a chair at the bedside. Awake and alert in no acute distress. He is maintaining good O2 saturations in the 90s on room air. He has 0.9 normal saline at 60 ML's per hour. He is complaining of some continued cough and congestion difficulty expectorating phlegm. Urine culture positive for Klebsiella oxytoca. He is continued on antibiotics in the form of Zosyn. Remains on prednisone. The patient is seen today 01/29/2022 in follow-up on the regular medical floor. He is currently resting comfortably in bed. Awake and alert in no acute distress. He is maintaining O2 saturations in the 90s on room air. He is afebrile. Hemodynamically stable. No IV fluids. Chest x-ray reveals stable left upper lobe cavitary lesion. Some basilar atelectasis. Urine culture was positive for Klebsiella oxytoca. White count 9.2. Humulin 8.3. Sodium 136. Potassium 3.9. BUN 19. Creatinine 0.8. TB testing was negative. Proca lcitonin 0.08. He is continued on Zosyn. ID services are on the case. Progress note dated 01/30/2022. 81-year-old male, seen in room 453. He's currently on room air. The infectious disease doctor wanted interventional radiology to do a fine-needle of the lesion in the left upper lobe. The patient is currently not receiving any IV fluids. No new labs today. Labs from January 29 are reviewed. The urine sample was positive for Klebsiella oxytoca. Currently, the patient's on Zosyn. The patient is seen today 01/31/2022 in follow-up on the regular medical floor. He is currently sitting up in a chair at the bedside. Awake and alert in no acute distress. Maintaining O2 saturations in the 90s on room air. Receiving D5.9 normal saline at 50 MLS per hour. Urine cultures positive for Klebsiella oxytoca. No new labs. Interventional radiology was not planning to do a fine- needle aspirate of the left upper lobe cavitary lesion. He currently remains on Zosyn. ID is on the case. The patient is seen today 02/01/2022 in follow-up on the regular medical floor. He is awake and alert in no acute distress. Sitting up in a chair at the bedside. Maintaining good O2 saturations in the 90s on room air. Urine culture was positive for Klebsiella oxytoca. D5 and half-normal saline at 50 MLS per hour. Continued on Zosyn. Remains on prednisone taper. Tessalon Perles and Mucinex for his cough. Progress note dated 01/31/2022. The patient is again seen today 453. He is on room air. He is getting saline at 50 mL an hour. He does have a wet congested cough. The patient urine culture was positive for Klebsiella, and that is currently being treated with Zosyn. The patient has a thinwall cavitary lesion in the left upper lobe. Infectious diseases, wanted interventional radiology needle biopsy, but they refused. No new labs today. Objective - Vital Signs Vital signs: Vital Signs Temp 98.2 F 02/02/22 08:26 Pulse 85 02/02/22 08:26 Resp 17 02/02/22 08:26 BP 104/41 02/02/22 08:26 Pulse Ox 92 L 02/02/22 08:26 FiO2 Intake & Output 02/01/22 02/02/22 02/02/22 18:59 06:59 18:59 Intake Total 1080 400 Output Total 1001 1600 Balance 79 -1200 Intake: IV 400 Dextrose 5%-0.9% NaCl 1, 400 000 ml @ 50 mls/hr IV . Q20H [facility] Rx#:[id number] Oral 1080 Output: Urine 1000 1600 Stool 1 Other: Voiding Method External Catheter External Catheter External Catheter - Exam No acute distress, oriented 3. Currently on room air. No respiratory distress. The patient does have a wet cough. HEENT examination is grossly unremarkable. Neck supple. Full range of motion. No adenopathy thyromegaly or neck vein distention. Cardiovascular examination reveals regular rhythm rate. S1-S2 normal. No S3 or S4. No discernible murmur noted. Heart rate 85 bpm. Lungs reveal mild coarse rhonchi. Breath sounds equal bilaterally. No crackles. Saturation is 94 %. Abdomen soft bowel sounds are heard. No masses or tenderness. Extremities are intact. No cyanosis clubbing or edema. Skin is without rash or lesion. Neurologic examination is brief but nonfocal. - Labs CBC & Chem 7: 01/29/22 05:21 01/29/22 05:21 Assessment and Plan Assessment: Cavitary lung lesion, differential diagnoses includes infection/lung abscess, could be bacterial or fungal , malignancy is not entirely ruled out but felt to be less likely. Tuberculosis screen negative. Autoimmune connective tissue disease process is not entirely ruled out, currently on Zosyn. Urinary tract infection secondary to Klebsiella oxytoca, currently on Zosyn. 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 History of coronary artery disease and previous stent of LAD. Benign essential hypertension. 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 Dyslipidemia. History of ischemic cardiomyopathy and LV dysfunction with ejection fraction of 25%. Plan: Plan dated 01/30/2022. Patient remains on Zosyn. He is being treated for a urinary tract infection, with Klebsiella. Infectious disease services, requested that interventional radiology do a CT-guided fine-needle aspiration of the left upper lobe lesion. Labs, x-rays, and medications are reviewed. We will continue to follow the patient and make recommendations along the way. Patient is stable, on room air. Plan dated 02/02/2022. The patient is currently being treated with Zosyn for his Klebsiella urinary tract infection. A repeat chest x-ray will be ordered. The patient's currently on room air. Saturations are in the mid 90s. He is not manifesting any signs or symptoms of respiratory. He does have a wet congested cough. Prognosis is guarded. The patient is a DO NOT RESUSCITATE patient. Time with Patient: Less than 30
--- NOTE | 2022-02-02 14:17 | XR ---
EXAMINATION TYPE: XR chest 1V portable DATE OF EXAM: 02/02/2022 COMPARISON: 01/29/2022 INDICATION: Cavitary lesion left upper lobe TECHNIQUE: Single frontal view of the chest is obtained. FINDINGS: The heart size is normal. The pulmonary vasculature is normal. Cavitary lesion left upper lobe is again evident and appears similar to comparison. No suspicious ai r-fluid level is evident. IMPRESSION: 1. Stable appearance left upper lobe lung lesion.
[2022-02-03] MEDS: DEXTROSE 5%-0.9% NACL 1,000 ML IV SCH (05:57)
--- NOTE | 2022-02-03 08:10 | PN ---
PROGRESS NOTE SUBJECTIVE: An 81-year-old white male, who has a left upper lobe mass, does not want [place] to the city [place] kind of biopsies. He is sitting up in the chair from the bed. He is alert and in no acute distress. O2, mid 90s on room air. He is on normal saline 50. Urine culture positive for Klebsiella oxytoca. He is on Zosyn, prednisone taper, Tessalon Perles, and Mucinex. OBJECTIVE: VITAL SIGNS: Blood pressure 104/41, pulse 85, respiratory rate 17 to 18, temperature 98.2. LUNGS: Scattered rhonchi and wheeze. CARDIOVASCULAR: S1, S2. HEMATOLOGY: Negative for Homans. PSYCH: Fair mood and affect. ASSESSMENT: screen negative, autoimmune disease is not ruled out. Remains on Zosyn. Chronic loss of vision, negative sed rate, doubt temporal arteritis. Coronary artery disease, status post stent in the LAD, hypertension, history of melanoma, dyslipidemia, history of ischemic cardiomyopathy with ejection fraction of 25%. Continue to follow the patient. Recommendations on the way. The patient is refusing transfer. Prognosis is guarded. Please do not resuscitate. Await for Infectious Disease recommendations. MMODL / IJN: [id number] /
[2022-02-03] MEDS: BENZONATATE 100 MG CAP PO SCH ×3 (08:42→21:57)
[2022-02-03] MEDS: METOPROLOL TARTRATE 12.5 MG TAB PO SCH ×2 (08:42→21:57)
[2022-02-03] MEDS: ASPIRIN 81 MG PO SCH (08:42)
[2022-02-03] MEDS: ATORVASTATIN 80 MG TAB PO SCH (08:42)
[2022-02-03] MEDS: predniSONE 20 MG TAB PO SCH (08:42)
[2022-02-03] MEDS: PANTOPRAZOLE 40 MG TABLET PO SCH (08:42)
[2022-02-03] MEDS: guaiFENesin 600 MG TABLET.ER PO SCH ×2 (08:42→21:57)
[2022-02-03] MEDS: GABAPENTIN 300 MG CAP PO SCH ×3 (08:42→21:57)
[2022-02-03] MEDS: SUCRALFATE 1 GM TAB PO SCH (08:42)
[2022-02-03] MEDS ORDERED: RX INFO: IV CONTRAST WAS GIVEN 1 EACH MISC MISCELLANE PRN (08:54)
--- NOTE | 2022-02-03 08:55 | P.PN ---
Subjective Progress Note Date: 02/01/22 Principal diagnosis: Left upper lobe pneumonia Patient is a 81-year-old male presenting to the hospital for generalized weakness and a fall patient did have a mild cough patient did have a chest x-ray concerning for cavitatory lesion left upper lobe , CT chest confirmed the finding. On today's evaluation that is 02/01/2022 the patient continues to be afebrile, the patient is breathing comfortably on room air. The patient denies having any chest pain, the patient did have congested cough but no sputum production no abdominal pain or diarrhea Objective - Vital Signs Vital signs: Vital Signs Temp 97.5 F L 02/01/22 08:00 Pulse 84 02/01/22 11:16 Resp 16 02/01/22 08:00 BP 99/43 02/01/22 08:00 Pulse Ox 92 L 02/01/22 08:00 FiO2 Intake & Output 01/31/22 02/01/22 02/01/22 18:59 06:59 18:59 Output Total 1100 501 1 Balance -1100 -501 -1 Output: Urine 1100 500 Stool 1 1 Other: Voiding Method Diaper Indwelling Catheter External Catheter External Catheter # Bowel Movements 1 - Exam GENERAL DESCRIPTION: An elderly male lying in bed in no distress RESPIRATORY SYSTEM: Unlabored breathing , decreased breath sounds at bases HEART: S1 S2 regular rate and rhythm , ABDOMEN: Soft , no tenderness EXTREMITIES: No edema feet - Labs CBC & Chem 7: 01/29/22 05:21 01/29/22 05:21 Assessment and Plan (1) Cavitating mass in left upper lung lobe Current Visit: Yes Status: Acute Code(s): J98.4 - OTHER DISORDERS OF LUNG SNOMED Code(s): 091031715 Plan: 1patient with a thick-walled left upper lobe cavitary lesion concerning for possible lung abscess less likely cavitatatory tumor at this has developed over the last 2 months with a question of possible pneumonia of aspiration etiology and will need to cover for the polymicrobial sony usually associated with this type of infection. 2patient considered to be high risk for bronchoscopy per discussion with pulmonary, IR consult for possible biopsy and culture , IR not able to perform CT-guided biopsy and culture , will recommend transfer to tertiary care to complete the workup 3patient did have a negative serology for Aspergillus histoplasma and QuantiFERON TB gold test was negative 4patient did have a positive urine culture with Klebsiella 5patient to continue with the Zosyn and continue supportive care Time with Patient: Less than 30
--- NOTE | 2022-02-03 08:57 | P.PN ---
Subjective Progress Note Date: 02/02/22 Principal diagnosis: Left upper lobe pneumonia Patient is a 81-year-old male presenting to the hospital for generalized weakness and a fall patient did have a mild cough patient did have a chest x-ray concerning for cavitatory lesion left upper lobe , CT chest confirmed the finding. On today's evaluation that is 02/02/2022 the patient denies any fever or any chills, the patient is breathing comfortably on room air. The patient denies having any chest pain, the patient continued to have congested cough but not bringing up any sputum , the patient denies abdominal pain or diarrhea Objective - Vital Signs Vital signs: Vital Signs Temp 97.8 F 02/02/22 20:00 Pulse 72 02/02/22 20:32 Resp 16 02/02/22 20:00 BP 93/57 02/02/22 20:00 Pulse Ox 93 L 02/02/22 20:00 FiO2 Intake & Output 02/02/22 02/02/22 02/03/22 06:59 18:59 06:59 Intake Total 1730 Output Total 2100 Balance -370 Intake: IV 800 Dextrose 5%-0.9% NaCl 1, 800 000 ml @ 50 mls/hr IV . Q20H [facility] Rx#:[id number] Oral 930 Output: Urine 2100 Other: Voiding Method External Catheter External Catheter External Catheter - Exam GENERAL DESCRIPTION: An elderly male lying in bed in no distress RESPIRATORY SYSTEM: Unlabored breathing , decreased breath sounds at bases HEART: S1 S2 regular rate and rhythm , ABDOMEN: Soft , no tenderness EXTREMITIES: No edema feet - Labs CBC & Chem 7: 01/29/22 05:21 01/29/22 05:21 Assessment and Plan (1) Cavitating mass in left upper lung lobe Current Visit: Yes Status: Acute Code(s): J98.4 - OTHER DISORDERS OF LUNG SNOMED Code(s): 873443790 Plan: 1patient with a thick-walled left upper lobe cavitary lesion concerning for possible lung abscess less likely cavitatatory tumor at this has developed over the last 2 months with a question of possible pneumonia of aspiration etiology and will need to cover for the polymicrobial sony usually associated with this type of infection. 2patient considered to be high risk for bronchoscopy per discussion with pulmonary, IR consult for possible biopsy and culture , IR not able to perform CT-guided biopsy and culture , will recommend transfer to tertiary care to complete the workup, however the patient is refusing transfer per the nursing staff, we will repeat a CT of the chest for follow-up on that left upper lobe lesion 3patient did have a negative serology for Aspergillus histoplasma and Quanti FERON TB gold test was negative 4patient did have a positive urine culture with Klebsiella 5patient to continue with the Zosyn and monitor clinical course closely
[2022-02-03] MEDS: ALBUTEROL NEBULIZED 2.5 MG/3 ML INHALATION SCH ×3 (08:59→20:37)
[2022-02-03 09:52] LABS: African American GFR (CKD) >90 (>60 ml/min/1.73 sqM); Blood Urea Nitrogen 17 mg/dL (9-20); Non-African American GFR(CKD) >90 (>60 ml/min/1.73 sqM)
--- NOTE | 2022-02-03 11:14 | CT ---
EXAMINATION TYPE: CT chest w con DATE OF EXAM: 02/03/2022 COMPARISON: 01/26/2022 HISTORY: Cavitated lesion CT DLP: 275.8 mGycm, Automated exposure control for dose reduction was used. CONTRAST: Performed injected with 100, wasted 15 ml mL of Isovue 300. TECHNIQUE: Axial images were obtained at 5 mm thick sections. Reconstructed images are reviewed on [employer] computer in the coronal plane. FINDINGS: Portion of the thyroid visualized is normal. Small bilateral pleural effusions are present. Minimal compressive atelectasis is adjacent at the dep endent lung bases. There is a 4.3 x 5.7 cm cavitary lesion posterior left upper lobe. This is smaller than the 5.9 x 5.9 cm. There is adjacent soft tissue density measuring 2.5 x 4.8 cm which is an interval finding. This is no nspecific. Atelectasis pneumonia, neoplasm or within the differential. No enlarged mediastinal or hilar adenopathy is evident. The ascending aorta diameter at the level of the main pulmonary artery is 3.6 cm. The main pulmonary artery diameter at the bifurcation is 2.[address] sections are obtained through the upper abdomen. Abdomen is essentially unremarkable. IMPRESSIONS: 1. Left upper lobe cavitary lesion slightly smaller than comparison. 2. Interval development of infiltrate or consolidation posterior to the cavitary lesion with atelecta sis, pneumonia, and less likely neoplasm, are within the differential.
--- NOTE | 2022-02-03 13:00 | P.PN ---
Subjective Progress Note Date: 02/03/22 This is an 81-year-old white male with history of multiple medical problems including coronary artery disease, and previous stenting of LAD, history of cancer of the mouth, history of melanoma and resection of jaw with a muscle graft, history of sudden loss of vision about 2 months ago, patient presented to the hospital back on November 15 with acute sudden onset of bilateral vision loss. This was associated with new onset headaches, and apparently the patient was sent by the vacuum cleaner assembler to the ER. Tilly that the patient may have giant cell arteritis. However his sed rate was normal. And he was seen by vascular surgery for potential temporal artery biopsy. Eventually this was not done because the patient declined and the patient was supposedly transferred to [facility]. It is not clear what kind of workup the patient had while at [place], however the patient was discharged home on relatively high-dose of steroid/prednisone at 70 mg daily and he was told that he may have to be on this dose for a long time before it could be tapered. Patient has been taking his prednisone faithfully for the last 2 months, and has not noted any change. However the patient has been developing progressive weakness over the last 2 months, and he presented to the ER last night mostly with lower back pain, weakness, patient could not stand up Today's evaluation of 02/03/2022, the patient is resting comfortably in bed and the patient is currently on room air oxygen. Reviewed the CAT scan of the chest and there is a large cavitating mass in left upper lobe. The patient's pro-calcitonin level has been negative. The patient is currently on IV Zosyn as the patient was found to have Klebsiella in the urine. He is an ex-smoker. No exposure to tuberculosis. No other new complaints otherwise for now. He is communicating.No recent blood work, most recent, and the patient was given a follow-up CAT scan of the chest that was done today that showed small bites the pleural effusion, at 4.3 x 5.7 cm cavitating mass in the left upper lobe which is essentially compatible probably slightly smaller in size. There is adjacent soft tissue density measuring 2.4 x 4 point ACM which is an interval finding. This is nonspecific. No enlarged mediastinal lymphadenopathy. Pneumonia and neoplasm remain within the differential diagnosis. Objective - Vital Signs Vital signs: Vital Signs Temp 98.0 F 02/03/22 07:43 Pulse 70 10/31/22 12:30 Resp 18 02/03/22 08:00 BP 93/51 02/03/22 07:43 Pulse Ox 93 L 02/03/22 09:00 FiO2 Intake & Output 02/02/22 02/03/22 02/03/22 18:59 06:59 18:59 Intake Total 1730 600 Output Total 2100 Balance -370 600 Intake: IV 800 600 Dextrose 5%-0.9% NaCl 1, 800 600 000 ml @ 50 mls/hr IV . Q20H [facility] Rx#:[id number] Oral 930 Output: Urine 2100 Other: Voiding Method External Catheter External Catheter Diaper External Catheter # Voids 1 # Bowel Movements 1 - Exam No acute distress, oriented 3. Currently on room air. No respiratory distre ss. The patient does have a wet cough. HEENT examination is grossly unremarkable. Neck supple. Full range of motion. No adenopathy thyromegaly or neck vein distention. Cardiovascular examination reveals regular rhythm rate. S1-S2 normal. No S3 or S4. No discernible murmur noted. Heart rate 85 bpm. Lungs reveal mild coarse rhonchi. Breath sounds equal bilaterally. No crackles. Saturation is 94 %. Abdomen soft bowel sounds are heard. No masses or tenderness. Extremities are intact. No cyanosis clubbing or edema. Skin is without rash or lesion. Neurologic examination is brief but nonfocal. - Labs CBC & Chem 7: 01/29/22 05:21 02/03/22 09:26 Labs: Abnormal Lab Results - Last 24 Hours (Table) 02/03/22 Range/Units 09:26 Creatinine 0.56 L (0.66-1.25) mg/dL Assessment and Plan Plan: Cavitary lung lesion, differential diagnoses includes malignancy versus infection/lung abscess, could be bacterial or fungal , malignancy is not entirely ruled out but felt to be less likely. Tuberculosis screen negative. Autoimmune connective tissue disease process is not entirely ruled out, currently on Zosyn. The pro calcitonin level is nonelevated. The fungal serologies negative. TB QuantiFERON test is negative Urinary tract infection secondary to Klebsiella oxytoca, currently on Zosyn. 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 History of coronary artery disease and previous stent of LAD. Benign essential hypertension. 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 Dyslipidemia. History of ischemic cardiomyopathy and LV dysfunction with ejection fraction of 25%. Plan Final diagnoses not been achieved. There is a possibility of malignancy based on my review of the CAT scans. The patient has a negative serology for Aspergillus, negative QuantiFERON TB gold test, and a negative pro calcitonin level. IR has declined biopsies. I think it's reasonable to consider bronchoscopy and the bronchial lavage of the left upper lobe as the patient is agreeable. He is on Zosyn for now this will be continued. He is on room air oxygen. Will follow. Obviously, if the patient declines bronchoscopy, alternatives will be antibiotics and follow-up. Does not look toxic or septic looking at this point in time. We'll discuss this with infectious disease. It'll be also useful to obtain any previous x-rays given the ones that were probably done at [facility] during his earlier hospitalization for comparison. Obviously acute development of this left upper lobe cavitating finding was support diagnosis of an infection/abscess.
[2022-02-03] MEDS: PIPERACILLIN-TAZOBACTAM 3.375 GM in SODIUM CHLORIDE 0.9% 100 ML IVPB SCH ×3 (15:31→23:16)
--- NOTE | 2022-02-03 18:14 | P.PN ---
Progress Note - Text Progress Note Date: 02/03/22 Presenting complaint: Tired Hospital course: I'm rounding for Dr. Catrachito Santana. 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 This was associated with new onset headaches, and apparently the patient was sent by the front end architect to the ER. [place] that the patient may have giant cell arteritis. However his sed rate was normal. And he was seen by vascular surgery for potential temporal artery biopsy. Eventually this was not done because the patient declined and the patient was supposedly transferred to [facility]. It is not clear what kind of workup the patient had while at [place], however the patient was discharged home on relatively high-dose of steroid/prednisone at 70 mg daily and he was told that he may have to be on this dose for a long time before it could be tapered. Patient has been taking his prednisone faithfully for the last 2 months, and has not noted any change. However the patient has been developing progressive weakness over the last 2 months, and he presented to the ER last night mostly with lower back pain, weakness, patient could not stand up" 02/03/2022: Oral intake good. Has a cough. Some sputum production. Had a BM. Able to use his walker to get to the bathroom. CT chest today shows some reduction in left cavitating lung mass. Active Medications Albuterol Sulfate (Albuterol Nebulized 2.5 Mg/3 Ml) 2.5 mg INHALATION RT-TID [facility] Last Admin: 02/03/22 12:18 Dose: 2.5 mg Aspirin (Aspirin 81 Mg) 81 mg PO DAILY [facility] Last Admin: 02/03/22 08:42 Dose: 81 mg Atorvastatin Calcium (Atorvastatin 80 Mg Tab) 80 mg PO DAILY [facility] Last Admin: 02/03/22 08:42 Dose: 80 mg Benzonatate (Benzonatate 100 Mg Cap) 100 mg PO TID [facility] Last Admin: 02/03/22 15:50 Dose: 100 mg Gabapentin (Gabapentin 300 Mg Cap) 300 mg PO TID [facility] Last Admin: 02/03/22 15:50 Dose: 300 mg Guaifenesin (Guaifenesin 600 Mg Tablet.Er) 600 mg PO Q12HR [facility] Last Admin: 02/03/22 08:42 Dose: 600 mg Dextrose/Sodium Chloride (Dextrose 5%-Ns Iv Soln) 1,000 mls @ 50 mls/hr IV .Q20H [facility] Last Admin: 02/03/22 05:57 Dose: 50 mls/hr Piperacillin Sod/Tazobactam (Sod 3.375 gm/ Sodium Chloride) 100 mls @ 25 mls/hr IVPB Q8HR [facility]; Protocol Last Admin: 02/03/22 15:50 Dose: 25 mls/hr Metoprolol Tartrate (Metoprolol Tartrate 12.5 Mg Tab) 12.5 mg PO BID [facility] Last Admin: 02/03/22 08:42 Dose: 12.5 mg Miscellaneous Information (Rx Info: Iv Contrast Was Given 1 Each Misc) 1 each MISCELLANE DAILY PRN PRN Reason: Per Protocol Stop: 02/05/22 08:54 Pantoprazole Sodium (Pantoprazole 40 Mg Tablet) 40 mg PO DAILY [facility] Last Admin: 02/03/22 08:42 Dose: 40 mg Prednisone (Prednisone 20 Mg Tab) 40 mg PO DAILY [facility] Last Admin: 02/03/22 08:42 Dose: 40 mg Tramadol HCl (Tramadol 50 Mg Tab) 50 mg PO Q6H PRN PRN Reason: Pain Last Admin: 01/31/22 20:59 Dose: 50 mg On examination: VITAL SIGNS: [98.1, 70, 18, 102/49, 96% room air] GENERAL APPEARANCE: Laying in bed, awake, tired HEENT: Normal external appearance of nose and ear. Oral cavity normal EYES: Pupils equal. Conjunctiva normal. NECK: JVD not raised. Mass not palpable. RESPIRATORY: Respiratory effort increased. Decreased breath sounds CARDIOVASCULAR: First and second sounds normal. No edema. ABDOMEN: Soft. Liver and spleen not palpable. No tenderness. No mass palpable. PSYCHIATRY: Alert and oriented x3. Mood and affect normal. INVESTIGATIONS, reviewed in the clinical context: White count 9.2 hemoglobin 8.3 platelets 202 potassium 3.9 creatinine 0.8 Pro-calcitonin 0.[address] chest: Left upper lobe cavitary lesion slightly smaller than before. Interval development of infiltrate/consolidation posterior the Lesion with atelectasis. Assessment and plan: -Left lung cavitary lung lesion. Differential includes less likely malignancy with secondary infection/abscess. : Slow to respond TB screen is negative. Being followed by pulmonary and ID. On IV Zosyn. Patient this declined transferred to an outside facility. -GERD Protonix -Normocytic anemia likely from chronic disease Check stool occult blood. Iron studies. -CAD with a prior history of stent Aspirin, Lipitor, Lopressor -Essential hypertension Lopressor -Hyperlipidemia Lipitor -Chronic CHF, systolic dysfunction, EF 20-25% from ischemic heart disease Lopressor. Consult cardiology. Aldactone 12.5 mg daily -Moderate tricuspid regurgitation, moderate mitral regurgitation -Secondary moderate pulmonary hypertension IV Zosyn. DC IV fluids. Add Aldactone 12.5 mg by mouth daily. Consult cardiology. Up in chair. Check stool for occult blood. Iron studies.
[2022-02-04 00:52] LABS: % Iron Saturation 31.88 (15.00-50.00)
[2022-02-04] MEDS: ALBUTEROL NEBULIZED 2.5 MG/3 ML INHALATION SCH ×3 (07:05→20:23)
--- NOTE | 2022-02-04 08:19 | P.PN ---
Subjective Progress Note Date: 02/03/22 Principal diagnosis: Left upper lobe pneumonia Patient is a 81-year-old male presenting to the hospital for generalized weakness and a fall patient did have a mild cough patient did have a chest x-ray concerning for cavitatory lesion left upper lobe , CT chest confirmed the finding. On today's evaluation that is 02/03/2022 the patient remains to be afebrile the patient is breathing comfortably he remains to be on room air the patient denies any chest pain he did have a cough not bring up any sputum no abdominal pain and no diarrhea reported by the nursing staff Objective - Vital Signs Vital signs: Vital Signs Temp 98.0 F 02/03/22 07:43 Pulse 76 02/03/22 09:12 Resp 18 02/03/22 08:00 BP 93/51 02/03/22 07:43 Pulse Ox 93 L 02/03/22 09:00 FiO2 Intake & Output 02/02/22 02/03/22 02/03/22 18:59 06:59 18:59 Intake Total 1730 600 Output Total 2100 Balance -370 600 Intake: IV 800 600 Dextrose 5%-0.9% NaCl 1, 800 600 000 ml @ 50 mls/hr IV . Q20H [facility] Rx#:[id number] Oral 930 Output: Urine 2100 Other: Voiding Method External Catheter External Catheter Diaper External Catheter # Voids 1 # Bowel Movements 1 - Exam GENERAL DESCRIPTION: An elderly male lying in bed in no distress RESPIRATORY SYSTEM: Unlabored breathing , decreased breath sounds at bases HEART: S1 S2 regular rate and rhythm , ABDOMEN: Soft , no tenderness EXTREMITIES: No edema feet - Labs CBC & Chem 7: 01/29/22 05:21 02/03/22 09:26 Labs: Abnormal Lab Results - Last 24 Hours (Table) 02/03/22 Range/Units 09:26 Creatinine 0.56 L (0.66-1.25) mg/dL Assessment and Plan (1) Cavitating mass in left upper lung lobe Current Visit: Yes Status: Acute Code(s): J98.4 - OTHER DISORDERS OF LUNG SNOMED Code(s): 739877150 Plan: 1patient with a thick-walled left upper lobe cavitary lesion concerning for possible lung abscess less likely cavitatatory tumor at this has developed over the last 2 months with a question of possible pneumonia of aspiration etiology and will need to cover for the polymicrobial sony usually associated with this type of infection. 2patient considered to be high risk for bronchoscopy per discussion with pulmonary, IR consult for possible biopsy and culture , IR not able to perform CT-guided biopsy and culture , will recommend transfer to tertiary care to complete the workup, however the patient is refusing transfer per the nursing staff, we will repeat a CT of the chest for follow-up on that left upper lobe lesion 3patient did have a negative serology for Aspergillus histoplasma and Michael tiFERON TB gold test was negative 4patient did have a positive urine culture with Klebsiella 5Patient repeat CT of the chest is currently pending we will continue the patient on Zosyn if there is improvement in the repeat CT may consider at PICC line and empiric Zosyn on discharge, discussed with the corrections caseworker to check his outpatient antibiotic coverage Time with Patient: Less than 30
[2022-02-04] MEDS: PIPERACILLIN-TAZOBACTAM 3.375 GM in SODIUM CHLORIDE 0.9% 100 ML IVPB SCH ×2 (09:07→17:03)
[2022-02-04] MEDS: SPIRONOLACTONE 25 MG TAB PO SCH (09:08)
[2022-02-04] MEDS: guaiFENesin 600 MG TABLET.ER PO SCH ×2 (09:09→20:10)
[2022-02-04] MEDS: PANTOPRAZOLE 40 MG TABLET PO SCH (09:09)
[2022-02-04] MEDS: ASPIRIN 81 MG PO SCH (09:09)
[2022-02-04] MEDS: METOPROLOL TARTRATE 12.5 MG TAB PO SCH ×2 (09:09→20:10)
[2022-02-04] MEDS: ATORVASTATIN 80 MG TAB PO SCH (09:09)
[2022-02-04] MEDS: GABAPENTIN 300 MG CAP PO SCH ×3 (09:10→22:25)
[2022-02-04] MEDS: predniSONE 20 MG TAB PO SCH (09:10)
[2022-02-04] MEDS: BENZONATATE 100 MG CAP PO SCH ×3 (09:59→22:25)
--- NOTE | 2022-02-04 12:37 | P.CRDCN ---
History of Present Illness History of present illness: HISTORY OF PRESENTING ILLNESS This is a pleasant 81-year-old male with a past medical history of coronary artery disease status post PCI to the proximal LAD and distal RCA in 02/2020, ischemic cardiomyopathy, hypertension, dyslipidemia, former tobacco use, history of cancer of the mouth status post prior resection of the jaw with a muscle graft, history of melanoma. He follows in the office with Dr. Alford on. We have been asked to see in consultation for CAD. Patient initially presented to the emergency department on 01/25/2022 with symptoms of progressive generalized weakness, lower back pain. Apparently patient initially presented to the hospital in November 2021 with sudden onset bilateral vision loss, new onset headaches. There was concern for giant cell arteritis and patient was supposedly transferred to [facility]. Patient's main complaint on admission was progressive generalized weakness. He was found to have a 5.9cm cavitary lung lesion on the CT concerning for infectious etiology/abscess, pulmonary has been following the patient. Also found to have UTI. He has been on IV Antibiotics. Urine culture was positive for Klebsiella. There is also concern for malignancy. Bronchoscopy is being considered. Patient seen and examined at bedside, he signing up in the bedside chair. He denies any chest pain. Endorses some occasional shortness of breath. He denies any symptoms of orthopnea or PND. He has no lower extremity edema. DIAGNOSTICS * EKG on admission revealed sinus rhythm, heart rate 77, artifact noted, no acute ischemia noted. * Recent Echocardiogram in the office 11/28/2021 revealed an EF of 3540 percent, small hypokinetic areas in the anterior anteroseptal armijo at the mid wall, moderate aortic regurgitation, moderate mitral regurgitation, moderate tricuspid regurgitation * No telemetry to review. * CT chest on 01/26/2022, formation of 5.9 cm thick-walled cavitary left upper lobe lesion new from CT neck study chest over 2 months earlier would favor infectious etiology/intraparenchymal abscess reported. * Repeat chest CT is 02/03/2022 left upper lobe cavitary lesion slightly small in comparison. Interval development of infiltrate and consolidation posterior to the cavitary lesion with atelectasis, pneumonia and less likely neoplasm are within the differential reported. * Laboratory reviewed, WBC 9.2, hemoglobin 8.3, platelets 202, sodium 136, potassium 3.9, BUN 19, serum creatinine 0.8 * Current home cardiac medications include spironolactone 20 mg daily, metoprolol titrate 25 mg twice a day, Lasix 20 mg daily, Entresto 49-51mg BID, atorvastatin 80 mg daily, aspirin 81 mg daily REVIEW OF SYSTEMS At the time of my exam: CONSTITUTIONAL: Denies fever or chills. CARDIOVASCULAR: Denies chest pain, shortness of breath, orthopnea, PND or palpitations. RESPIRATORY: Denies cough. GASTROINTESTINAL: Denies abdominal pain, diarrhea, constipation, nausea or vomiting. MUSCULOSKELETAL: Denies myalgias. NEUROLOGIC: Denies numbness, tingling, headacbe or weakness. ENDOCRINE: Denies fatigue, weight change, polydipsia or polyurina. GENITOURINARY: Denies burning, hematuria or urgency with micturation. HEMATOLOGIC: Denies history of anemia or bleeding. PHYSICAL EXAMINATION Blood pressure 114/72, heart rate 76, afebrile, saturations 93% on room air CONSTITUTIONAL: No apparent distress. HEENT: Head is normocephalic. Pupils are equal, round. Sclerae anicteric. Mucous membranes of the mouth are moist. No JVD. No carotid bruit. CHEST EXAMINATION: Lungs are bilateral rhonchi to auscultation. No chest wall tenderness is noted on palpation or with deep breathing. HEART EXAMINATION: Regular rate and rhythm. S1, S2 heard. Systolic ejection murmur at apex. No gallops or rub. ABDOMEN: Soft, nontender. Positive bowel sounds. EXTREMITIES: 2+ peripheral pulses, no lower extremity edema and no calf tenderness. NEUROLOGIC EXAMINATION: Patient is awake, alert and oriented x3. ASSESSMENT Generalized weakness Cavitary lung lesion UTI Vision loss Hypotension Known history of coronary artery disease with PCI to proximal LAD and distal RCA in 2020 Known ischemic cardimyopathy with EF 35-40% from recent Echo History of hypertension Dyslipidemia History of melanoma History of cancer of the mouth status post prior resection of the jaw with a muscle graft PLAN Continue aspirin, statin, beta margret, spironolactone Entresto on hold secondary to hypotension, restart entresto when able to tolerate, decrease dose if needed Pulmonary following Rest of management per primary Please reach out with any questions or concerns Further recommendations based on clinical course Nurse practitioner note has been reviewed by physician. Signing provider agrees with the documented findings, assessment, and plan of care. 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 Past Anesthesia/Blood Transfusion Reactions: No Reported Reaction Date of Last Stent Placement:: 2019 Past Psychological History: No Psychological Hx Reported Smoking Status: Never smoker Past Alcohol Use History: Occasional Past Drug Use History: None Reported - Past Family History Mother Family Medical History: Cancer Additional Family Medical History / Comment(s): pancreatic cancer Medications and Allergies Home Medications Medication Instructions Recorded Confirmed Type Aspirin 81 mg PO DAILY #30 chew 02/27/20 01/25/22 Rx Atorvastatin [Lipitor] 80 mg PO DAILY #30 tab 02/27/20 01/25/22 Rx Spironolactone [Aldactone] 25 mg PO DAILY #30 tab 02/27/20 01/25/22 Rx Furosemide [Lasix] 20 mg PO DAILY 11/15/21 01/25/22 History Metoprolol Tartrate [Lopressor] 25 mg PO BID 11/15/21 01/25/22 History Sacubitril/Valsartan [Entresto 49 1 tab PO BID 11/15/21 01/25/22 History mg-51 mg Tablet] Alendronate Sodium [Fosamax] 70 mg PO WEEKLY 01/25/22 01/25/22 History Gabapentin [Neurontin] 300 mg PO TID 01/25/22 01/25/22 History Pantoprazole Sodium [Protonix] 40 mg PO DAILY 01/25/22 01/25/22 History Retinavites 1 tab PO DAILY 01/25/22 01/25/22 History Sucralfate [Carafate] 1 gm PO TID 01/25/22 01/25/22 History predniSONE [Deltasone] 20 mg PO DAILY 01/25/22 01/25/22 History Allergies Allergy/AdvReac Type Severity Reaction Status Date / Time latex Allergy Rash/Hives Verified 01/25/22 15:44 Physical Exam Vitals: Vital Signs Temp Pulse Pulse Resp BP Pulse Ox 11/01/22 11:06 72 02/04/22 10:56 70 02/04/22 09:54 76 16 02/04/22 08:40 16 02/04/22 07:46 76 114/72 02/04/22 07:40 98.1 F 73 15 98/45 93 L 02/04/22 07:10 76 02/04/22 07:00 72 02/04/22 02:00 99.0 F 77 16 100/63 93 L 02/03/22 20:48 70 02/03/22 20:38 73 02/03/22 20:25 16 02/03/22 19:24 97.8 F 78 16 102/58 91 L 02/03/22 14:00 98.1 F 70 18 102/49 96 02/03/22 12:30 70 02/03/22 12:19 71 Intake and Output 02/03/22 02/04/22 02/04/22 22:59 06:59 14:59 Intake Total 650 Output Total 450 Balance 650 -450 Intake: Intake, IV Titration 100 Amount Piperacillin-Tazobactam 3 100 .375 gm In Sodium Chloride 0.9% 100 ml @ 25 mls/hr IVPB Q8HR [facility] Rx# :[id number] Oral 550 Output: Urine 450 Other: Voiding Method Diaper Diaper Results 01/29/22 05:21 02/03/22 09:26 Current Medications Generic Name Dose Route Start Last Admin Trade Name Freq PRN Reason Stop Dose Admin Albuterol Sulfate 2.5 mg 01/28/22 13:00 02/04/22 10:54 Albuterol Nebulized 2.5 Mg/3 Ml INHALATION 2.5 mg RT-TID [facility]O Administration Aspirin 81 mg 01/27/22 09:00 02/04/22 09:09 Aspirin 81 Mg PO 81 mg DAILY [facility] Administration Atorvastatin Calcium 80 mg 01/27/22 09:00 02/04/22 09:09 Atorvastatin 80 Mg Tab PO 80 mg DAILY [facility] Administration Benzonatate 100 mg 01/28/22 16:00 02/04/22 09:59 Benzonatate 100 Mg Cap PO 100 mg TID [facility]O Administration Gabapentin 300 mg 01/26/22 16:00 02/04/22 09:10 Gabapentin 300 Mg Cap PO 300 mg TID [facility] Administration Guaifenesin 600 mg 01/28/22 10:00 02/04/22 09:09 Guaifenesin 600 Mg Tablet.Er PO 600 mg Q12HR [facility] Administration Piperacillin Sod/Tazobactam 100 mls @ 25 mls/hr 02/03/22 09:00 02/04/22 09:07 Sod 3.375 gm/ Sodium Chloride IVPB 25 mls/hr Q8HR [facility] Administration Protocol Metoprolol Tartrate 12.5 mg 01/26/22 21:00 02/04/22 09:09 Metoprolol Tartrate 12.5 Mg Tab PO 12.5 mg BID [facility] Administration Miscellaneous Information 1 each 02/03/22 08:54 Rx Info: Iv Contrast Was Given 1 Each Misc MISCELLANE 02/05/22 08:54 DAILY PRN Per Protocol Pantoprazole Sodium 40 mg 01/27/22 09:00 02/04/22 09:09 Pantoprazole 40 Mg Tablet PO 40 mg DAILY [facility] Administration Prednisone 40 mg 01/29/22 09:00 02/04/22 09:10 Prednisone 20 Mg Tab PO 40 mg DAILY [facility] Administration Spironolactone 12.5 mg 02/04/22 09:00 02/04/22 09:08 Spironolactone 25 Mg Tab PO 12.5 mg DAILY [facility] Administration Tramadol HCl 50 mg 01/31/22 20:20 01/31/22 20:59 Tramadol 50 Mg Tab PO 50 mg Q6H PRN Administration Pain Intake and Output 02/03/22 02/04/22 02/04/22 22:59 06:59 14:59 Intake Total 650 Output Total 450 Balance 650 -450 Intake: Intake, IV Titration 100 Amount Piperacillin-Tazobactam 3 100 .375 gm In Sodium Chloride 0.9% 100 ml @ 25 mls/hr IVPB Q8HR [facility] Rx# :[id number] Oral 550 Output: Urine 450 Other: Voiding Method Diaper Diaper 01/29/22 05:21 02/03/22 09:26
--- NOTE | 2022-02-04 12:59 | P.PN ---
Subjective Progress Note Date: 02/04/22 This is an 81-year-old white male with history of multiple medical problems including coronary artery disease, and previous stenting of LAD, history of cancer of the mouth, history of melanoma and resection of jaw with a muscle graft, history of sudden loss of vision about 2 months ago, patient presented to the hospital back on November 15 with acute sudden onset of bilateral vision loss. This was associated with new onset headaches, and apparently the patient was sent by the senior talent management consultant to the ER. [place] that the patient may have giant cell arteritis. However his sed rate was normal. And he was seen by vascular surgery for potential temporal artery biopsy. Eventually this was not done because the patient declined and the patient was supposedly transferred to [facility]. It is not clear what kind of workup the patient had while at [place], however the patient was discharged home on relatively high-dose of steroid/prednisone at 70 mg daily and he was told that he may have to be on this dose for a long time before it could be tapered. Patient has been taking his prednisone faithfully for the last 2 months, and has not noted any change. However the patient has been developing progressive weakness over the last 2 months, and he presented to the ER last night mostly with lower back pain, weakness, patient could not stand up Today's evaluation of 02/03/2022, the patient is resting comfortably in bed and the patient is currently on room air oxygen. Reviewed the CAT scan of the chest and there is a large cavitating mass in left upper lobe. The patient's pro-calcitonin level has been negative. The patient is currently on IV Zosyn as the patient was found to have Klebsiella in the urine. He is an ex-smoker. No exposure to tuberculosis. No other new complaints otherwise for now. He is communicating.No recent blood work, most recent, and the patient was given a follow-up CAT scan of the chest that was done today that showed small bites the pleural effusion, at 4.3 x 5.7 cm cavitating mass in the left upper lobe which is essentially compatible probably slightly smaller in size. There is adjacent soft tissue density measuring 2.4 x 4 point ACM which is an interval finding. This is nonspecific. No enlarged mediastinal lymphadenopathy. Pneumonia and neoplasm remain within the differential diagnosis. 02/04/2022, no change in the patient's condition. He doesn't move a lot. He rest most of the time in bed. He is very impaired functionality. Nevertheless, no major respiratory difficulties. Is on room air oxygen. As mentioned earlier, the infectious workup has been negative and the patient has a negative pro-calcitonin level, and the patient also has negative quantitative her own tests for tuberculosis. The fungal serology came back all negative. He has a cavitating left upper lobe lesion which probably is malignant at this point in time. No mediastinal lymphadenopathy. The patient has declined bronchoscopy. He remains on IV Zosyn. Labs is showing iron deficiency, hemoglobin is currently at 8.3 with a white cell count of 9.2. No follow-up blood work has been done. Objective - Vital Signs Vital signs: Vital Signs Temp 98.1 F 02/04/22 07:40 Pulse 72 02/04/22 11:06 Resp 16 02/04/22 09:54 BP 114/72 02/04/22 07:46 Pulse Ox 93 L 02/04/22 07:40 FiO2 Intake & Output 02/03/22 02/04/22 02/04/22 18:59 06:59 18:59 Intake Total 650 Output Total 500 450 Balance 150 -450 Intake: Intake, IV Titration 100 Amount Piperacillin-Tazobactam 3 100 .375 gm In Sodium Chloride 0.9% 100 ml @ 25 mls/hr IVPB Q8HR [facility] Rx# :[id number] Oral 550 Output: Urine 500 450 Other: Voiding Method Diaper Diaper Diaper External Catheter # Bowel Movements 1 - Exam No acute distress, oriented 3. Currently on room air. No respiratory distress. The patient does have a wet cough. HEENT examination is grossly unremarkable. Neck supple. Full range of motion. No adenopathy thyromegaly or neck vein distention. Cardiovascular examination reveals regular rhythm rate. S1-S2 normal. No S3 or S4. No discernible murmur noted. Heart rate 85 bpm. Lungs reveal mild coarse rhonchi. Breath sounds equal bilaterally. No crackles. Saturation is 94 %. Abdomen soft bowel sounds are heard. No masses or tenderness. Extremities are intact. No cyanosis clubbing or edema. Skin is without rash or lesion. Neurologic examination is brief but nonfocal. - Labs CBC & Chem 7: 01/29/22 05:21 02/03/22 09:26 Labs: Abnormal Lab Results - Last 24 Hours (Table) 02/03/22 Range/Units 09:26 Iron 48 L (65-175) ug/dL TIBC 151 L (228-460) ug/dL Transferrin 108.0 L (204.0-354.0) mg/dL Ferritin 1654.0 H (22.0-322.0) ng/mL Microbiology - Last 24 Hours (Table) 02/03/22 09:13 Sputum Culture - Preliminary Sputum Assessment and Plan Plan: Cavitary lung lesion, differential diagnoses includes malignancy versus infection/lung abscess, could be bacterial or fungal , malignancy is not entirely ruled out but felt to be less likely. Tuberculosis screen negative. Autoimmune connective tissue disease process is not entirely ruled out, currently on Zosyn. The pro calcitonin level is nonelevated. The fungal serologies negative. TB QuantiFERON test is negative Urinary tract infection secondary to Klebsiella oxytoca, currently on Zosyn. 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 History of coronary artery disease and previous stent of LAD. Benign essential hypertension. 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 Dyslipidemia. History of ischemic cardiomyopathy and LV dysfunction with ejection fraction of 25%. Plan Final diagnoses not been achieved. There is a possibility of malignancy based on my review of the CAT scans. The patient has a negative serology for Aspergillus, negative QuantiFERON TB gold test, and a negative pro calcitonin level. IR has declined biopsies. I think it's reasonable to consider bronchoscopy and the bronchial lavage of the left upper lobe as the patient is agreeable. He is on Zosyn for now this will be continued. He is on room air oxygen. Will follow. Bronchoscopy again to this patient. He declined. I have a high suspicion that the patient may have an underlying malignancy. Other conditions including vasculitis or Scar's disease or Scar's granulomatosis or infectious causes are possible and they are less likely. I wanted to get a X-ray from [facility] for comparison. I have not gotten any records from the other hospital. As such, nothing much can be offered, pulmonary standpoint at this point in time. It may be reasonable to check an extended connective tissue disease markers including p-ANCA and c-ANCA. Ultimate diagnosis or not laying down the differential diagnoses may be done via bronchoscopy. If the patient declines, he should be able to go home to be followed up on outpatient basis. He is on prednisone for temporal arteritis lower leg right below the patient with high-dose steroids
--- NOTE | 2022-02-04 14:16 | P.PN ---
Progress Note - Text Progress Note Date: 02/04/22 Presenting complaint: Tired Hospital course: I'm rounding for Dr. Catrachito Santana. 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 This was associated with new onset headaches, and apparently the patient was sent by the car shakeout operator to the ER. [place] that the patient may have giant cell arteritis. However his sed rate was normal. And he was seen by vascular surgery for potential temporal artery biopsy. Eventually this was not done because the patient declined and the patient was supposedly transferred to [facility]. It is not clear what kind of workup the patient had while at [place], however the patient was discharged home on relatively high-dose of steroid/prednisone at 70 mg daily and he was told that he may have to be on this dose for a long time before it could be tapered. Patient has been taking his prednisone faithfully for the last 2 months, and has not noted any change. However the patient has been developing progressive weakness over the last 2 months, and he presented to the ER last night mostly with lower back pain, weakness, patient could not stand up" 02/03/2022: Oral intake good. Has a cough. Some sputum production. Had a BM. Able to use his walker to get to the bathroom. CT chest today shows some reduction in left cavitating lung mass. 02/04/2022: In a recliner. Slight cough. Discussed with Dr. Villa from pulmonary. Patient has been declining bronchoscopy. Discussed again with the patient the pros and cons of noting a bronchoscopy. Patient has finally agreed for the same. Patient be scheduled for bronchoscopy tomorrow. Active Medications Albuterol Sulfate (Albuterol Nebulized 2.5 Mg/3 Ml) 2.5 mg INHALATION RT-TID [facility] Last Admin: 02/04/22 10:54 Dose: 2.5 mg Aspirin (Aspirin 81 Mg) 81 mg PO DAILY [facility] Last Admin: 02/04/22 09:09 Dose: 81 mg Atorvastatin Calcium (Atorvastatin 80 Mg Tab) 80 mg PO DAILY [facility] Last Admin: 02/04/22 09:09 Dose: 80 mg Benzonatate (Benzonatate 100 Mg Cap) 100 mg PO TID [facility] Last Admin: 02/04/22 09:59 Dose: 100 mg Gabapentin (Gabapentin 300 Mg Cap) 300 mg PO TID [facility] Last Admin: 02/04/22 09:10 Dose: 300 mg Guaifenesin (Guaifenesin 600 Mg Tablet.Er) 600 mg PO Q12HR [facility] Last Admin: 02/04/22 09:09 Dose: 600 mg Piperacillin Sod/Tazobactam (Sod 3.375 gm/ Sodium Chloride) 100 mls @ 25 mls/hr IVPB Q8HR [facility]; Protocol Last Admin: 02/04/22 09:07 Dose: 25 mls/hr Metoprolol Tartrate (Metoprolol Tartrate 12.5 Mg Tab) 12.5 mg PO BID [facility] Last Admin: 02/04/22 09:09 Dose: 12.5 mg Miscellaneous Information (Rx Info: Iv Contrast Was Given 1 Each Misc) 1 each MISCELLANE DAILY PRN PRN Reason: Per Protocol Stop: 02/05/22 08:54 Pantoprazole Sodium (Pantoprazole 40 Mg Tablet) 40 mg PO DAILY [facility] Last Admin: 02/04/22 09:09 Dose: 40 mg Prednisone (Prednisone 20 Mg Tab) 40 mg PO DAILY [facility] Last Admin: 02/04/22 09:10 Dose: 40 mg Spironolactone (Spironolactone 25 Mg Tab) 12.5 mg PO DAILY [facility] Last Admin: 02/04/22 09:08 Dose: 12.5 mg Tramadol HCl (Tramadol 50 Mg Tab) 50 mg PO Q6H PRN PRN Reason: Pain Last Admin: 01/31/22 20:59 Dose: 50 mg On examination: VITAL SIGNS: 98.1, 73, 15, 98.45, 93% room air GENERAL APPEARANCE: In a recliner HEENT: Normal external appearance of nose and ear. Oral cavity normal EYES: Pupils equal. Conjunctiva normal. NECK: JVD not raised. Mass not palpable. RESPIRATORY: Respiratory effort increased. Decreased breath sounds CARDIOVASCULAR: First and second sounds normal. No edema. ABDOMEN: Soft. Liver and spleen not palpable. No tenderness. No mass palpable. PSYCHIATRY: Alert and oriented x3. Mood and affect normal. INVESTIGATIONS, reviewed in the clinical context: Iron 48 TIBC 150 1654 White count 9.2 hemoglobin 8.3 platelets 202 potassium 3.9 creatinine 0.8 Pro-calcitonin 0.[address] chest: Left upper lobe cavitary lesion slightly smaller than before. Interval development of infiltrate/consolidation posterior the Lesion with atelectasis. Assessment and plan: -Left lung cavitary lung lesion. Differential includes less likely malignancy with secondary infection/abscess. : Slow to respond TB screen is negative. Being followed by pulmonary and ID. On IV Zosyn. Patient this declined transferred to an outside facility. Patient agreeable to bronchoscopy by Dr. Villa. Serology-negative for histoplasma, Aspergillus, TB, cocciodes -GERD Protonix -Normocytic anemia likely from chronic disease Check stool occult blood. Iron studies. -CAD with a prior history of stent Aspirin, Lipitor, Lopressor -Essential hypertension Lopressor -Hyperlipidemia Lipitor -Chronic CHF, systolic dysfunction, EF 20-25% from ischemic heart disease Lopressor. Consult cardiology. Aldactone 12.5 mg daily -Moderate tricuspid regurgitation, moderate mitral regurgitation -Secondary moderate pulmonary hypertension IV Zosyn. Patient agreeable to proceed with bronchoscopy. Likely tomorrow. Discussed with Dr. Villa the patient. Total time spent today about 40 minutes with over 25 minutes of discussion.
[2022-02-05] MEDS: PIPERACILLIN-TAZOBACTAM 3.375 GM in SODIUM CHLORIDE 0.9% 100 ML IVPB SCH ×2 (00:01→08:22)
[2022-02-05 07:10] LABS: Anisocytosis Slight; Basophils % (A) 0 %; Eosinophils % (A) 0 %; Lymphocytes # (A) 0.9 k/uL (1.0-4.8); Lymphocytes % (A) 10 %; MCH 30.3 pg (25.0-35.0); MCHC 34.4 g/dL (31.0-37.0); MCV 88.3 fL (80.0-100.0); Mean Platelet Volume 7.4; Monocytes # (A) 0.4 k/uL (0-1.0); Monocytes % (A) 4 %; Neutrophils # (A) 7.8 k/uL (1.3-7.7); Neutrophils % (A) 85 %; Platelet Count 241 k/uL (150-450); RBC 2.95 m/uL (4.30-5.90); RDW 19.1 % (11.5-15.5); WBC 9.2 k/uL (3.8-10.6)
[2022-02-05 07:24] LABS: African American GFR (CKD) >90 (>60 ml/min/1.73 sqM); Anion Gap 5 mmol/L; Blood Urea Nitrogen 27 mg/dL (9-20); Calcium 7.1 mg/dL (8.4-10.2); Carbon Dioxide 28 mmol/L (22-30); Chloride 104 mmol/L (98-107); Glucose 86 mg/dL (74-99); Non-African American GFR(CKD) 87 (>60 ml/min/1.73 sqM); Potassium 3.6 mmol/L (3.5-5.1); Sodium 137 mmol/L (137-145)
[2022-02-05 08:00] LABS: HGB 8.9 gm/dL (13.0-17.5)
[2022-02-05] MEDS: ALBUTEROL NEBULIZED 2.5 MG/3 ML INHALATION SCH ×3 (08:03→19:53)
[2022-02-05] MEDS: guaiFENesin 600 MG TABLET.ER PO SCH ×2 (08:23→21:46)
[2022-02-05] MEDS: GABAPENTIN 300 MG CAP PO SCH ×3 (08:23→21:46)
[2022-02-05] MEDS: BENZONATATE 100 MG CAP PO SCH ×3 (08:23→21:46)
[2022-02-05] MEDS: PANTOPRAZOLE 40 MG TABLET PO SCH (08:23)
[2022-02-05] MEDS: ASPIRIN 81 MG PO SCH (08:23)
[2022-02-05] MEDS: METOPROLOL TARTRATE 12.5 MG TAB PO SCH ×2 (08:23→21:46)
[2022-02-05] MEDS: ATORVASTATIN 80 MG TAB PO SCH (08:23)
[2022-02-05] MEDS: predniSONE 20 MG TAB PO SCH (08:23)
[2022-02-05] MEDS: SPIRONOLACTONE 25 MG TAB PO SCH (08:23)
--- NOTE | 2022-02-05 08:55 | P.PN ---
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 He follows in the office with Dr. Villatoro. We have been asked to see in consultation for CAD. Patient initially presented to the emergency department on 01/25/2022 with symptoms of progressive generalized wea kness, lower back pain. Apparently patient initially presented to the hospital in November 2021 with sudden onset bilateral vision loss, new onset headaches. There was concern for giant cell arteritis and patient was supposedly transferred to . Patient's main complaint on admission was progressive generalized weakness. He was found to have a 5.9cm cavitary lung lesion on the CT concerning for infectious etiology/abscess, pulmonary has been following the patient. Also found to have UTI. He has been on IV Antibiotics. Urine culture was positive for Klebsiella. There is also concern for malignancy. Bronchoscopy is being considered. DIAGNOSTICS * Recent Echocardiogram in the office 11/28/2021 revealed an EF of 3540%, small hypokinetic areas in the anterior anteroseptal armijo at the mid wall, moderate aortic regurgitation, moderate mitral regurgitation, moderate tricuspid regurgitation 02/05 Patient seen and examined at bedside, he is lying in bed. He denies any chest pain or shortness of breath. Endorses some back pain. Overall feels generalized weakness and fatigue. He denies any symptoms of orthopnea or PND. He has no lower extremity edema. BP remains low 93/88 HR 70s-80s. Enresto on hold secondary to hypotension PHYSICAL EXAMINATION Vitals reviewed CONSTITUTIONAL: No apparent distress. HEENT: Head is normocephalic. Neck Supple. No JVD. CHEST EXAMINATION: Lungs are bilateral rhonchi to auscultation. No chest wall tenderness is noted on palpation or with deep breathing. HEART EXAMINATION: Regular rate and rhythm. S1, S2 heard. Systolic ejection murmur at apex. No gallops or rub. ABDOMEN: Soft, nontender. Positive bowel sounds. EXTREMITIES: 2+ peripheral pulses, no lower extremity edema and no calf tenderness. NEUROLOGIC EXAMINATION: Patient is awake, alert and oriented x3. ASSESSMENT Generalized weakness Cavitary lung lesion UTI Vision loss Hypotension Known history of coronary artery disease with PCI to proximal LAD and distal RCA in 2019 Known ischemic cardimyopathy with EF 35-40% from recent Echo History of hypertension Dyslipidemia History of melanoma History of cancer of the mouth status post prior resection of the jaw with a muscle graft PLAN Continue aspirin, statin, beta margret, spironolactone Entresto on hold secondary to hypotension Pulmonary following, Rest of management per primary No further changes from a cardiology perspective Please reach out with any questions or concerns Nurse practitioner note has been reviewed by physician. Signing provider agrees with the documented findings, assessment, and plan of care. Objective - Vital Signs Vital signs: Vital Signs Temp 98.6 F 02/05/22 08:00 Pulse 80 02/05/22 08:13 Resp 18 02/05/22 08:13 BP 98/60 02/05/22 08:00 Pulse Ox 100 02/05/22 08:04 FiO2 Intake & Output 02/04/22 02/05/22 02/05/22 18:59 06:59 18:59 Output Total 400 800 Balance -400 -800 Weight 61.235 kg Output: Urine 400 800 Other: Voiding Method Diaper Diaper # Bowel Movements 1 - Labs CBC & Chem 7: 02/05/22 06:28 02/05/22 06:28 Labs: Abnormal Lab Results - Last 24 Hours (Table) 02/05/22 02/05/22 Range/Units 06:28 06:28 RBC 2.95 L (4.30-5.90) m/uL Hgb 8.9 L D (13.0-17.5) gm/dL Hct 26.0 L (39.0-53.0) % RDW 19.1 H (11.5-15.5) % Neutrophils # 7.8 H (1.3-7.7) k/uL Lymphocytes # 0.9 L (1.0-4.8) k/uL BUN 27 H (9-20) mg/dL Calcium 7.1 L (8.4-10.2) mg/dL Microbiology - Last 24 Hours (Table) 02/03/22 09:13 Gram Stain - Preliminary Sputum Sputum Culture - Preliminary Gram Neg Bacilli Sun albicans
--- NOTE | 2022-02-05 11:29 | P.PN ---
Subjective Progress Note Date: 02/05/22 This is an 81-year-old white male with history of multiple medical problems including coronary artery disease, and previous stenting of LAD, history of cancer of the mouth, history of melanoma and resection of jaw with a muscle graft, history of sudden loss of vision about 2 months ago, patient presented to the hospital back on November 15 with acute sudden onset of bilateral vision loss. This was associated with new onset headaches, and apparently the patient was sent by the aircraft time clerk to the ER. [place] that the patient may have giant cell arteritis. However his sed rate was normal. And he was seen by vascular surgery for potential temporal artery biopsy. Eventually this was not done because the patient declined and the patient was supposedly transferred to [facility]. It is not clear what kind of workup the patient had while at [place], however the patient was discharged home on relatively high-dose of steroid/prednisone at 70 mg daily and he was told that he may have to be on this dose for a long time before it could be tapered. Patient has been taking his prednisone faithfully for the last 2 months, and has not noted any change. However the patient has been developing progressive weakness over the last 2 months, and he presented to the ER last night mostly with lower back pain, weakness, patient could not stand up Today's evaluation of 02/03/2022, the patient is resting comfortably in bed and the patient is currently on room air oxygen. Reviewed the CAT scan of the chest and there is a large cavitating mass in left upper lobe. The patient's pro-calcitonin level has been negative. The patient is currently on IV Zosyn as the patient was found to have Klebsiella in the urine. He is an ex-smoker. No exposure to tuberculosis. No other new complaints otherwise for now. He is communicating.No recent blood work, most recent, and the patient was given a follow-up CAT scan of the chest that was done today that showed small bites the pleural effusion, at 4.3 x 5.7 cm cavitating mass in the left upper lobe which is essentially compatible probably slightly smaller in size. There is adjacent soft tissue density measuring 2.4 x 4 point ACM which is an interval finding. This is nonspecific. No enlarged mediastinal lymphadenopathy. Pneumonia and neoplasm remain within the differential diagnosis. 02/04/2022, no change in the patient's condition. He doesn't move a lot. He rest most of the time in bed. He is very impaired functionality. Nevertheless, no major respiratory difficulties. Is on room air oxygen. As mentioned earlier, the infectious workup has been negative and the patient has a negative pro-calcitonin level, and the patient also has negative quantitative her own tests for tuberculosis. The fungal serology came back all negative. He has a cavitating left upper lobe lesion which probably is malignant at this point in time. No mediastinal lymphadenopathy. The patient has declined bronchoscopy. He remains on IV Zosyn. Labs is showing iron deficiency, hemoglobin is currently at 8.3 with a white cell count of 9.2. No follow-up blood work has been done. 02/05 2022, the patient is essentially the same condition. The main remains in bed all the time. occasionally, notices up in a chair, nevertheless, is extremely weak, he can do any mobility or any activities. I came to find other the patient was also having some back issues. Primary care team ordered a 2 view x-ray of the lumbar spine. Spine surgery was also consulted. Meanwhile, the patient had a cavitating left upper lobe lesion and for that reason we were involved. I was contemplating and was planning to do a bronchoscopy today. Nevertheless, sputum sample that the patient gave do not a positive for Aspergillus species, Sun and Pseudomonas. I favor that this may be possibly a gram-negative pseudomonal cavitating lesion as a follow-up CAT scan showed some interval improvement. The possibility of a fungus ball within the left upper lobe cavity cannot be completely excluded. I discussed the findings with infectious disease and we decided to cancel the bronchoscopy specimen with his ongoing inability and poor performance status. He remains on prednisone at a dose of 40 mg by mouth daily. No fever. No chills. Limited congestion. Limited sputum production. No to work is showing a hemoglobin of 8.9, white cell count 9.2, platelets of 241, sodium is at 137, BUN is 27 with a creatinine of 0.7. Objective - Vital Signs Vital signs: Vital Signs Temp 98.6 F 02/05/22 08:00 Pulse 80 02/05/22 08:13 Resp 16 02/05/22 10:07 BP 98/60 02/05/22 08:00 Pulse Ox 100 02/05/22 08:04 FiO2 Intake & Output 02/04/22 02/05/22 02/05/22 18:59 06:59 18:59 Output Total 400 800 Balance -400 -800 Weight 61.235 kg Output: Urine 400 800 Other: Voiding Method Diaper Diaper Diaper # Bowel Movements 1 - Exam No acute distress, oriented 3. Currently on room air. No respiratory distress. The patient does have a wet cough. HEENT examination is grossly unremarkable. Neck supple. Full range of motion. No adenopathy thyromegaly or neck vein distention. Cardiovascular examination reveals regular rhythm rate. S1-S2 normal. No S3 or S4. No discernible murmur noted. Heart rate 85 bpm. Lungs reveal mild coarse rhonchi. Breath sounds equal bilaterally. No crac kles. Saturation is 94 %. Abdomen soft bowel sounds are heard. No masses or tenderness. Extremities are intact. No cyanosis clubbing or edema. Skin is without rash or lesion. Neurologic examination is brief but nonfocal. - Labs CBC & Chem 7: 02/05/22 06:28 02/05/22 06:28 Labs: Abnormal Lab Results - Last 24 Hours (Table) 02/05/22 02/05/22 Range/Units 06:28 06:28 RBC 2.95 L (4.30-5.90) m/uL Hgb 8.9 L D (13.0-17.5) gm/dL Hct 26.0 L (39.0-53.0) % RDW 19.1 H (11.5-15.5) % Neutrophils # 7.8 H (1.3-7.7) k/uL Lymphocytes # 0.9 L (1.0-4.8) k/uL BUN 27 H (9-20) mg/dL Calcium 7.1 L (8.4-10.2) mg/dL Microbiology - Last 24 Hours (Table) 02/03/22 09:13 Gram Stain - Preliminary Sputum Sputum Culture - Preliminary Pseudomonas aeruginosa Sun albicans Aspergillus species Assessment and Plan Plan: Cavitary lung lesion, differential diagnoses includes malignancy versus infection/lung abscess, could be bacterial or fungal , malignancy is not entirely ruled out but felt to be less likely. Tuberculosis screen negative. Autoimmune connective tissue disease process is not entirely ruled out, currently on Zosyn. The pro calcitonin level is nonelevated. The fungal serologies negative. TB QuantiFERON test is negative and possibility of gram- negative cavitating pneumonia is being considered as the patient grew Pseudomonas in the sputum. Is also Aspergillus species and Sun which could be potentially colonizer. Fungus ball is felt to be less likely. Urinary tract infection secondary to Klebsiella oxytoca, currently on Zosyn. 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 History of coronary artery disease and previous stent of LAD. Benign essential hypertension. 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 Dyslipidemia. History of ischemic cardiomyopathy and LV dysfunction with ejection fraction of 25%. Back pain Plan Final diagnoses not been achieved. There is a possibility of malignancy based on my review of the CAT scans. The patient has a negative serology for Aspe rgillus, negative QuantiFERON TB gold test, and a negative pro calcitonin level. IR has declined biopsies. I think it's reasonable to consider bronchoscopy and the bronchial lavage of the left upper lobe as the patient is agreeable. He is on Zosyn for now this will be continued. He is on room air oxygen. Will follow. Based on those findings with gram-negative Pseudomonas in the sputum, I'm going to cancel a bronchoscopy for today. Continue IV Zosyn. Monitor the outcome with a. X-rays. I do not think there is a need to treat Aspergillus at this point in time. Continue the steroids. May need to add some Diflucan regarding oropharyngeal candidiasis especially the patient has been on long-term steroids. Performance of functional status remains extremely poor. Back pain is being further investigated by x-ray and spine surgery consultation for further input. Repeat chest x-ray in a.m.
--- NOTE | 2022-02-05 12:47 | P.PN ---
Progress Note - Text Progress Note Date: 02/05/22 Presenting complaint: Tired Hospital course: I'm rounding for Dr. Catrachito Santana. 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 This was associated with new onset headaches, and apparently the patient was sent by the director of student financial services to the ER. [place] that the patient may have giant cell arteritis. However his sed rate was normal. And he was seen by vascular surgery for potential temporal artery biopsy. Eventually this was not done because the patient declined and the patient was supposedly transferred to [facility]. It is not clear what kind of workup the patient had while at [place], however the patient was discharged home on relatively high-dose of steroid/prednisone at 70 mg daily and he was told that he may have to be on this dose for a long time before it could be tapered. Patient has been taking his prednisone faithfully for the last 2 months, and has not noted any change. However the patient has been developing progressive weakness over the last 2 months, and he presented to the ER last night mostly with lower back pain, weakness, patient could not stand up" 02/03/2022: Oral intake good. Has a cough. Some sputum production. Had a BM. Able to use his walker to get to the bathroom. CT chest today shows some reduction in left cavitating lung mass. 02/04/2022: In a recliner. Slight cough. Discussed with Dr. Villa from pulmonary. Patient has been declining bronchoscopy. Discussed again with the patient the pros and cons of noting a bronchoscopy. Patient has finally agreed for the same. Patient be scheduled for bronchoscopy tomorrow. 02/05/2022: Sputum cultures growing Pseudomonas, Sun, Aspergillus. Dr. Villa discussed with ID. Bronchoscopy postponed at this point. Patient started on IV ceftolazone/ tazobactam and Diflucan. Resting Active Medications Albuterol Sulfate (Albuterol Nebulized 2.5 Mg/3 Ml) 2.5 mg INHALATION RT-TID ANGELO Last Admin: 02/05/22 12:28 Dose: 2.5 mg Aspirin (Aspirin 81 Mg) 81 mg PO DAILY [facility] Last Admin: 02/05/22 08:23 Dose: 81 mg Atorvastatin Calcium (Atorvastatin 80 Mg Tab) 80 mg PO DAILY [facility] Last Admin: 02/05/22 08:23 Dose: 80 mg Benzonatate (Benzonatate 100 Mg Cap) 100 mg PO TID [facility] Last Admin: 02/05/22 08:23 Dose: 100 mg Fluconazole (Fluconazole 100 Mg Tab) 100 mg PO DAILY [facility]; Protocol Gabapentin (Gabapentin 300 Mg Cap) 300 mg PO TID [facility] Last Admin: 02/05/22 08:23 Dose: 300 mg Guaifenesin (Guaifenesin 600 Mg Tablet.Er) 600 mg PO Q12HR [facility] Last Admin: 02/05/22 08:23 Dose: 600 mg Ceftolozane/Tazobactam 3 gm/ (Sodium Chloride) 100 mls @ 100 mls/hr IV Q8H [facility]; Protocol Metoprolol Tartrate (Metoprolol Tartrate 12.5 Mg Tab) 12.5 mg PO BID [facility] Last Admin: 02/05/22 08:23 Dose: 12.5 mg Pantoprazole Sodium (Pantoprazole 40 Mg Tablet) 40 mg PO DAILY [facility] Last Admin: 02/05/22 08:23 Dose: 40 mg Prednisone (Prednisone 20 Mg Tab) 40 mg PO DAILY [facility] Last Admin: 02/05/22 08:23 Dose: 40 mg Spironolactone (Spironolactone 25 Mg Tab) 12.5 mg PO DAILY [facility] Last Admin: 02/05/22 08:23 Dose: 12.5 mg Tramadol HCl (Tramadol 50 Mg Tab) 50 mg PO Q6H PRN PRN Reason: Pain Last Admin: 01/31/22 20:59 Dose: 50 mg On examination: VITAL SIGNS: 98.6, 73, 14, 93/88, 94% room air GENERAL APPEARANCE: In a recliner HEENT: Normal external appearance of nose and ear. Oral cavity normal EYES: Pupils equal. Conjunctiva normal. NECK: JVD not raised. Mass not palpable. RESPIRATORY: Respiratory effort increased. Decreased breath sounds CARDIOVASCULAR: First and second sounds normal. No edema. ABDOMEN: Soft. Liver and spleen not palpable. No tenderness. No mass palpable. PSYCHIATRY: Alert and oriented x3. Mood and affect normal. INVESTIGATIONS, reviewed in the clinical context: 02/05/2022: White count 9.2 hemoglobin 8.9 platelets 241 potassium 3.6 creatinine 0.71 Sputum culture: Pseudomonas aeruginosa, Sun albicans, Aspergillus species Iron 48 TIBC 150 1654 White count 9.2 hemoglobin 8.3 platelets 202 potassium 3.9 creatinine 0.8 Pro-calcitonin 0.[address] chest: Left upper lobe cavitary lesion slightly smaller than before. Interval development of infiltrate/consolidation posterior the Lesion with atelectasis. Assessment and plan: -Left lung cavitary lung lesion. Differential includes less likely malignancy with secondary infection/abscess. : Slow to respond TB screen is negative. Being followed by pulmonary and ID. Patient this declined transfer to an outside facility. Serology-negative for histoplasma, Aspergillus, TB, cocciodes. Sputum cultures now come back positive for Pseudomonas aeruginosa, Sun albicans, Aspergillus species. Bronchoscopy canceled. -GERD Protonix -Normocytic anemia likely from chronic disease Check stool occult blood. Iron studies. -CAD with a prior history of stent Aspirin, Lipitor, Lopressor -Essential hypertension Lopressor -Hyperlipidemia Lipitor -Chronic CHF, systolic dysfunction, EF 20-25% from ischemic heart disease Lopressor. Consult cardiology. Aldactone 12.5 mg daily -Moderate tricuspid regurgitation, moderate mitral regurgitation -Secondary moderate pulmonary hypertension IV Zosyn not changed over to ceftolazone/tazobactam. Bronchoscopy canceled. Other medications to continue. Follow with ID and pulmonary.
[2022-02-05] MEDS: FLUCONAZOLE 100 MG TAB PO SCH (12:55)
--- NOTE | 2022-02-05 13:27 | XR ---
EXAM TYPE: LUMBAR SPINE X RAY SERIES COMPARISON: 01/25/2022 HISTORY: Pain TECHNIQUE: 4 views are submitted. FINDINGS: Osseous structures are demineralized which is noted low radiographic sensitivity. There are 6 lumbar type vertebral bodies identified. There is There is levoconvex scoliosis centered at approximate L4 l evel. Mild multilevel anterior wedging in the upper lumbar spine. Multilevel degenerative disc diseas e and facet arthropathy.. Moderate multilevel anterior and lateral spurring with some scattered bridg ing osteophytes. Mild overlying arterial vascular calcification. IMPRESSION: 1. Diffuse osteopenia with multilevel degenerative disc disease and facet arthropathy. Suspect multil evel foraminal encroachment. Recommend MRI..
[2022-02-05] MEDS: CEFTOLOZANE/TAZOBACTAM 3 GM in SODIUM CHLORIDE 0.9% 100 ML IV SCH ×2 (14:13→22:36)
--- NOTE | 2022-02-05 16:06 | P.CNOR ---
History of Present Illness - [facility] Consult date: 02/05/22 Consult reason: low back pain History of present illness: Patient is a very pleasant 81-year-old male who seen and examined at bedside. We are seeing him in regards to low back pain and difficulty with ambulating. Patient has an extensive recent history as he became acutely blind approximately 2 months ago. He has history of cancer at his mouth with melanoma and also has been going through significant treatment in terms of significant cavitary mass at his lungs currently during this hospitalization. He is getting significant treatment with medicine and pulmonary service. He feels his lungs are making i mprovement and is now breathing comfortably on room air however he still says his back gives him trouble as well as his legs when he tries to ambulate. He has been at 2 person assist and has great copiously with mobilizing on his own. She denies specific weakness in his legs but he says they have great difficulty when he tries to stand on them. He says he is able to move his legs adequately but has trouble standing. He is not having troubles with his bowel or bladder function. He denies any specific trauma. He says that while he is sitting he is not having pain in his back or his legs. Review of Systems As stated per HPI. His extensive medical management over the past week and half here in Hospital. She denies any specific neurologic loss in his legs but does not feel that he can stand on his legs on his own. His feels that his legs give way and his back gives way as well. 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 Past Anesthesia/Blood Transfusion Reactions: No Reported Reaction Date of Last Stent Placement:: 2019 Past Psychological History: No Psychological Hx Reported Smoking Status: Never smoker Past Alcohol Use History: Occasional Past Drug Use History: None Reported - Past Family History Mother Family Medical History: Cancer Additional Family Medical History / Comment(s): pancreatic cancer Medications and Allergies Home Medications Medication Instructions Recorded Confirmed Type Aspirin 81 mg PO DAILY #30 chew 02/27/20 01/25/22 Rx Atorvastatin [Lipitor] 80 mg PO DAILY #30 tab 02/27/20 01/25/22 Rx Spironolactone [Aldactone] 25 mg PO DAILY #30 tab 02/27/20 01/25/22 Rx Furosemide [Lasix] 20 mg PO DAILY 11/15/21 01/25/22 History Metoprolol Tartrate [Lopressor] 25 mg PO BID 11/15/21 01/25/22 History Sacubitril/Valsartan [Entresto 49 1 tab PO BID 11/15/21 01/25/22 History mg-51 mg Tablet] Alendronate Sodium [Fosamax] 70 mg PO WEEKLY 01/25/22 01/25/22 History Gabapentin [Neurontin] 300 mg PO TID 01/25/22 01/25/22 History Pantoprazole Sodium [Protonix] 40 mg PO DAILY 01/25/22 01/25/22 History Retinavites 1 tab PO DAILY 01/25/22 01/25/22 History Sucralfate [Carafate] 1 gm PO TID 01/25/22 01/25/22 History predniSONE [Deltasone] 20 mg PO DAILY 01/25/22 01/25/22 History Allergies Allergy/AdvReac Type Severity Reaction Status Date / Time latex Allergy Rash/Hives Verified 01/25/22 15:44 Physical Examination Osteopathic Statement: *. No significant issues noted on an osteopathic structural exam other than those noted in the History and Physical/Consult. - L Spine: dermatomal strength & reflexes bilateral Strength: hip flexion: 4/5 (His back skin is clear. He is nontender to palpation of the midline. He has some paravertebral spasm. And his legs he is able lift his legs up off the bed independently. He is able to flex his knees and dorsiflex and plantarflex his ankles. Toes. He has grossly 4 out of 5 s trength globally wit) Strength: knee extension: 4/5 (There is no specific focal deficit in his lower extremities. There is no pain with internal extra rotation is hips. Thighs and calves soft nontender.) Results - Labs Labs: Abnormal Lab Results - Last 24 Hours (Table) 02/05/22 02/05/22 Range/Units 06:28 06:28 RBC 2.95 L (4.30-5.90) m/uL Hgb 8.9 L D (13.0-17.5) gm/dL Hct 26.0 L (39.0-53.0) % RDW 19.1 H (11.5-15.5) % Neutrophils # 7.8 H (1.3-7.7) k/uL Lymphocytes # 0.9 L (1.0-4.8) k/uL BUN 27 H (9-20) mg/dL Calcium 7.1 L (8.4-10.2) mg/dL Microbiology - Last 24 Hours (Table) 02/03/22 09:13 Gram Stain - Preliminary Sputum Sputum Culture - Preliminary Pseudomonas aeruginosa Sun albicans Aspergillus species H & H 01/25/22 01/29/22 02/05/22 Range/Units 12:36 05:21 06:28 Hgb 14.1 8.3 L 8.9 L D (13.0-17.5) gm/dL Hct 40.6 24.6 L 26.0 L (39.0-53.0) % Coagulation 01/25/22 Range/Units 12:36 INR 1.0 (<1.2) Result Diagrams: 02/05/22 06:28 02/05/22 06:28 - Diagnostic results Lumbar AP/lateral x-ray: report reviewed, image reviewed (X-rays of his lumbar spine does not show any obvious fracture. There is some spondylosis diffusely with some ankylosis at his thoracic spine. The disc heights are adequately maintained. There is no evidence of dislocation there is no evidence of fracture. There is no obvious bony loss. 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 He does not have a specific radiculopathy and I would hold off on advanced imaging of his lumbar spine for now. I think he has severe global deconditioning and this is a major factor in his inability to mobilize and ambulate. He has had significant medical issues over the past couple of months which has driven his overall status in great decline. I think it is worthwhile to have physical therapy work with him to try to mobilize and potentially transfer and ambulate. He can also do increasing exercises while seated or in bed with his legs. It is okay for him to weight-bear as tolerated. I do not have any acute surgical plans for him and would recommend conservative treatment. He is on steroids for his lungs and can have some further benefit with aggressive physical therapy for reconditioning.
[2022-02-06] MEDS: CEFTOLOZANE/TAZOBACTAM 3 GM in SODIUM CHLORIDE 0.9% 100 ML IV SCH ×3 (06:59→23:10)
--- NOTE | 2022-02-06 08:12 | P.PN ---
Subjective Progress Note Date: 02/04/22 Principal diagnosis: Left upper lobe pneumonia Patient is a 81-year-old male presenting to the hospital for generalized weakness and a fall patient did have a mild cough patient did have a chest x-ray concerning for cavitatory lesion left upper lobe , CT chest confirmed the finding. On today's evaluation that is 02/04/2022 the patient continues to be afebrile the patient is breathing comfortably on room air the patient denies any chest pain, the patient did have a cough not bring up any sputum no abdominal pain and no diarrhea reported by the nursing staff Objective - Vital Signs Vital signs: Vital Signs Temp 98.1 F 02/04/22 14:00 Pulse 80 02/04/22 14:00 Resp 18 02/04/22 14:00 BP 114/67 02/04/22 14:00 Pulse Ox 95 02/04/22 14:00 FiO2 Intake & Output 02/03/22 02/04/22 02/04/22 18:59 06:59 18:59 Intake Total 650 Output Total 500 450 Balance 150 -450 Weight 61.235 kg Intake: Intake, IV Titration 100 Amount Piperacillin-Tazobactam 3 100 .375 gm In Sodium Chloride 0.9% 100 ml @ 25 mls/hr IVPB Q8HR [facility] Rx# :[id number] Oral 550 Output: Urine 500 450 Other: Voiding Method Diaper Diaper Diaper External Catheter # Bowel Movements 1 1 - Exam GENERAL DESCRIPTION: An elderly male lying in bed in no distress RESPIRATORY SYSTEM: Unlabored breathing , decreased breath sounds at bases HEART: S1 S2 regular rate and rhythm , ABDOMEN: Soft , no tenderness EXTREMITIES: No edema feet - Labs CBC & Chem 7: 02/05/22 06:28 02/05/22 06:28 Labs: Abnormal Lab Results - Last 24 Hours (Table) 02/03/22 Range/Units 09:26 Iron 48 L (65-175) ug/dL TIBC 151 L (228-460) ug/dL Transferrin 108.0 L (204.0-354.0) mg/dL Ferritin 1654.0 H (22.0-322.0) ng/mL Microbiology - Last 24 Hours (Table) 02/03/22 09:13 Gram Stain - Preliminary Sputum Sputum Culture - Preliminary Gram Neg Bacilli Sun albicans Assessment and Plan (1) Cavitating mass in left upper lung lobe Current Visit: Yes Status: Acute Code(s): J98.4 - OTHER DISORDERS OF LUNG SNOMED Code(s): 542174939 Plan: 1patient with a thick-walled left upper lobe cavitary lesion concerning for possible lung abscess less likely cavitatatory tumor at this has developed over the last 2 months with a question of possible pneumonia of aspiration etiology and will need to cover for the polymicrobial sony usually associated with this type of infection. 2patient considered to be high risk for bronchoscopy per discussion with pulmonary, IR consult for possible biopsy and culture , IR not able to perform CT-guided biopsy and culture , will recommend transfer to tertiary [facility] to complete the workup, however the patient is refusing transfer per the nursing staff, we will repeat a CT of the chest for follow-up on that left upper lobe lesion 3patient did have a negative serology for Aspergillus histoplasma and QuantiFERON TB gold test was negative 4patient did have a positive urine culture with Klebsiella 5Patient repeat CT of the chest did show slight improvement concerning for possible pneumonia we will consider obtaining the PICC line and continuing IV antibodies on discharge for 3 weeks with repeat CAT scan, plan of care was discussed with the medical case worker to arrange for outpatient IV antibiotics Time with Patient: Less than 30
--- NOTE | 2022-02-06 08:14 | P.PN ---
Subjective Progress Note Date: 02/05/22 Principal diagnosis: Left upper lobe pneumonia Patient is a 81-year-old male presenting to the hospital for generalized weakness and a fall patient did have a mild cough patient did have a chest x-ray concerning for cavitatory lesion left upper lobe , CT chest confirmed the finding. On today's evaluation that is 02/05/2022 the patient remains to be afebrile the patient is breathing comfortably on room air the patient denies any chest pain, the patient did have a cough with occasional sputum, patient denies having any nausea no vomiting no abdominal pain no diarrhea Objective - Vital Signs Vital signs: Vital Signs Temp 98.6 F 02/05/22 08:00 Pulse 80 02/05/22 08:13 Resp 16 02/05/22 10:07 BP 98/60 02/05/22 08:00 Pulse Ox 100 02/05/22 08:04 FiO2 Intake & Output 02/04/22 02/05/22 02/05/22 18:59 06:59 18:59 Output Total 400 800 Balance -400 -800 Weight 61.235 kg Output: Urine 400 800 Other: Voiding Method Diaper Diaper Diaper # Bowel Movements 1 - Exam GENERAL DESCRIPTION: An elderly male lying in bed in no distress RESPIRATORY SYSTEM: Unlabored breathing , decreased breath sounds at bases HEART: S1 S2 regular rate and rhythm , ABDOMEN: Soft , no tenderness EXTREMITIES: No edema feet - Labs CBC & Chem 7: 02/05/22 06:28 02/05/22 06:28 Labs: Abnormal Lab Results - Last 24 Hours (Table) 02/05/22 02/05/22 Range/Units 06:28 06:28 RBC 2.95 L (4.30-5.90) m/uL Hgb 8.9 L D (13.0-17.5) gm/dL Hct 26.0 L (39.0-53.0) % RDW 19.1 H (11.5-15.5) % Neutrophils # 7.8 H (1.3-7.7) k/uL Lymphocytes # 0.9 L (1.0-4.8) k/uL BUN 27 H (9-20) mg/dL Calcium 7.1 L (8.4-10.2) mg/dL Microbiology - Last 24 Hours (Table) 02/03/22 09:13 Gram Stain - Preliminary Sputum Sputum Culture - Preliminary Pseudomonas aeruginosa Sun albicans Aspergillus species Assessment and Plan (1) Cavitating mass in left upper lung lobe Current Visit: Yes Status: Acute Code(s): J98.4 - OTHER DISORDERS OF LUNG SNOMED Code(s): 550483018 Plan: 1patient with a thick-walled left upper lobe cavitary lesion concerning for possible lung abscess less likely cavitatatory tumor at this has developed over the last 2 months with a question of possible pneumonia of aspiration etiology and will need to cover for the polymicrobial sony usually associated with this type of infection. 2patient considered to be high risk for bronchoscopy per discussion with pulmonary, IR consult for possible biopsy and culture , IR not able to perform CT-guided biopsy and culture , will recommend transfer to tertiary care to complete the workup, however the patient is refusing transfer per the nursing staff, we will repeat a CT of the chest for follow-up on that left upper lobe lesion 3patient did have a negative serology for Aspergillus histoplasma and QuantiFERON TB gold test was negative 4patient did have a positive urine culture with Klebsiella 5Patient repeat CT of the chest did show slight improvement concerning for possible pneumonia, the patient's sputum came back positive with a multidrug resistant Pseudomonas, we will discontinue Zosyn and start the patient on Zerbe xa, plan is for PICC and out patient IV antibiotic 3-4 weeks Time with Patient: Less than 30
--- NOTE | 2022-02-06 08:44 | XR ---
EXAMINATION TYPE: XR chest 1V portable DATE OF EXAM: 02/06/2022 COMPARISON: 02/02/2022 HISTORY: Cough TECHNIQUE: Single frontal view of the chest is obtained. FINDINGS: There is a large area of cavitary lesion involving the left proximal 6.5 cm. Subsegmental changes no interstitial edema. No sizable pleural effusion or pneumothorax. COPD suspected. Hypertrophic and degenerative changes spine. Shoulders. IMPRESSION: 1. Large cavitary lesion left upper lobe correlate cavitary. 2. Left lower lobe infiltrate
[2022-02-06] MEDS: ALBUTEROL NEBULIZED 2.5 MG/3 ML INHALATION SCH ×3 (08:47→21:02)
[2022-02-06] MEDS: ASPIRIN 81 MG PO SCH (09:27)
[2022-02-06] MEDS: guaiFENesin 600 MG TABLET.ER PO SCH ×2 (09:29→22:43)
[2022-02-06] MEDS: predniSONE 20 MG TAB PO SCH (09:29)
[2022-02-06] MEDS: GABAPENTIN 300 MG CAP PO SCH ×3 (09:29→22:43)
[2022-02-06] MEDS: METOPROLOL TARTRATE 12.5 MG TAB PO SCH ×2 (09:29→22:43)
[2022-02-06] MEDS: PANTOPRAZOLE 40 MG TABLET PO SCH (09:29)
[2022-02-06] MEDS: FLUCONAZOLE 100 MG TAB PO SCH (09:30)
[2022-02-06] MEDS: BENZONATATE 100 MG CAP PO SCH ×3 (09:30→22:43)
[2022-02-06] MEDS: ATORVASTATIN 80 MG TAB PO SCH (09:30)
[2022-02-06] MEDS: SPIRONOLACTONE 25 MG TAB PO SCH (09:34)
--- NOTE | 2022-02-06 10:26 | P.PN ---
Progress Note - Text Progress Note Date: 02/06/22 Patient is seen and examined. He feels his breathing is improving. He still having significant difficulty with any sort of mobilization and standing On exam he is able to lift his legs off the bed. He has dorsal flexion plantarflexion knee flexion and hip flexion and intact. His global weakness in his bilateral lower extremities about 4 out of 5 Assessment and plan Global deconditioning with rapid decline due to multiple recent medical issues Low back pain with bilateral lower extremity weakness without specific radicular pattern Large portion of patient's inability to mobilize times from his severe deconditioning. He does not have any obvious instability or focal neurologic deficit at his lower back or lower extremities tear indicate surgical intervention. I think he should continue with mobilization and attempt strengthening with therapy. He should continue management for his pain with medicine. He will need shelter post hospitalization and they're making arrangements for this.
--- NOTE | 2022-02-06 11:23 | P.PN ---
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 He follows in the office with Dr. Villatoro. We have been asked to see in consultation for CAD. Patient initially presented to the emergency department on 01/25/2022 with symptoms of progressive generalized wea kness, lower back pain. Apparently patient initially presented to the hospital in November 2021 with sudden onset bilateral vision loss, new onset headaches. There was concern for giant cell arteritis and patient was supposedly transferred to [facility]. Patient's main complaint on admission was progressive generalized weakness. He was found to have a 5.9cm cavitary lung lesion on the CT concerning for infectious etiology/abscess, pulmonary has been following the patient. Also found to have UTI. He has been on IV Antibiotics. Urine culture was positive for Klebsiella. There is also concern for malignancy. Bronchoscopy is being considered. DIAGNOSTICS * Recent Echocardiogram in the office 11/28/2021 revealed an EF of 3540%, small hypokinetic areas in the anterior anteroseptal armijo at the mid wall, moderate aortic regurgitation, moderate mitral regurgitation, moderate tricuspid regurgitation 02/06 Patient seen and examined at bedside, he is lying in bed flat in no acute d istress. He denies any chest pain or shortness of breath. Endorses continuous back pain. Overall feels generalized weakness and fatigue and run down. He denies any symptoms of orthopnea or PND. He has no lower extremity edema. BP remains lower end, BP 107/67 HR 70s-80s. Enresto on hold secondary to hypotension PHYSICAL EXAMINATION Vitals reviewed CONSTITUTIONAL: No apparent distress. HEENT: Head is normocephalic. Neck Supple. No JVD. CHEST EXAMINATION: Lungs are bilateral rhonchi to auscultation. No chest wall tenderness is noted on palpation or with deep breathing. HEART EXAMINATION: Regular rate and rhythm. S1, S2 heard. Systolic ejection murmur at apex. No gallops or rub. ABDOMEN: Soft, nontender. Positive bowel sounds. EXTREMITIES: 2+ peripheral pulses, no lower extremity edema and no calf tenderness. NEUROLOGIC EXAMINATION: Patient is awake, alert and oriented x3. 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 Pulmonary following Rest of management per primary Further recommendations based on clinical course Nurse practitioner note has been reviewed by physician. Signing provider agrees with the documented findings, assessment, and plan of care. Objective - Vital Signs Vital signs: Vital Signs Temp 97.9 F 02/06/22 02:00 Pulse 88 02/06/22 02:00 Resp 16 02/06/22 02:00 BP 107/67 02/06/22 02:00 Pulse Ox 96 02/06/22 02:00 FiO2 Intake & Output 02/05/22 02/06/22 02/06/22 18:59 06:59 18:59 Output Total 300 1300 Balance -300 -1300 Output: Urine 300 1300 Other: Voiding Method Diaper Diaper External Catheter # Bowel Movements 1 - Labs CBC & Chem 7: 02/05/22 06:28 02/05/22 06:28 Labs: Microbiology - Last 24 Hours (Table) 02/03/22 09:13 Gram Stain - Preliminary Sputum Sputum Culture - Preliminary Pseudomonas aeruginosa Sun albicans Aspergillus species
--- NOTE | 2022-02-06 13:20 | P.PN ---
Subjective Progress Note Date: 02/06/22 Principal diagnosis: Cough and phlegm production. The patient is seen today 01/27/2022 in follow-up on the regular medical floor. He is currently resting comfortably in bed. Awake and alert. Maintaining O2 saturations in the 90s on room air. Normal saline at 50 mL per hour. Procalcitonin is 0.08. C-reactive protein 5.2. Urine culture positive for gram-negative bacilli. He is currently on Zosyn. Remains on prednisone 60 mg daily. Patient is seen today 01/28/2022 in follow-up on the regular medical floor. He is currently sitting up in a chair at the bedside. Awake and alert in no acute distress. He is maintaining good O2 saturations in the 90s on room air. He has 0.9 normal saline at 60 ML's per hour. He is complaining of some continued cough and congestion difficulty expectorating phlegm. Urine culture positive for Klebsiella oxytoca. He is continued on antibiotics in the form of Zosyn. Remains on prednisone. The patient is seen today 01/29/2022 in follow-up on the regular medical floor. He is currently resting comfortably in bed. Awake and alert in no acute distress. He is maintaining O2 saturations in the 90s on room air. He is afebrile. Hemodynamically stable. No IV fluids. Chest x-ray reveals stable left upper lobe cavitary lesion. Some basilar atelectasis. Urine culture was positive for Klebsiella oxytoca. White count 9.2. Humulin 8.3. Sodium 136. Potassium 3.9. BUN 19. Creatinine 0.8. TB testing was negative. Proca lcitonin 0.08. He is continued on Zosyn. ID services are on the case. Progress note dated 01/30/2022. 81-year-old male, seen in room 453. He's currently on room air. The infectious disease doctor wanted interventional radiology to do a fine-needle of the lesion in the left upper lobe. The patient is currently not receiving any IV fluids. No new labs today. Labs from January 29 are reviewed. The urine sample was positive for Klebsiella oxytoca. Currently, the patient's on Zosyn. The patient is seen today 01/31/2022 in follow-up on the regular medical floor. He is currently sitting up in a chair at the bedside. Awake and alert in no acute distress. Maintaining O2 saturations in the 90s on room air. Receiving D5.9 normal saline at 50 MLS per hour. Urine cultures positive for Klebsiella oxytoca. No new labs. Interventional radiology was not planning to do a fine- needle aspirate of the left upper lobe cavitary lesion. He currently remains on Zosyn. ID is on the case. The patient is seen today 02/01/2022 in follow-up on the regular medical floor. He is awake and alert in no acute distress. Sitting up in a chair at the bedside. Maintaining good O2 saturations in the 90s on room air. Urine culture was positive for Klebsiella oxytoca. D5 and half-normal saline at 50 MLS per hour. Continued on Zosyn. Remains on prednisone taper. Tessalon Perles and Mucinex for his cough. Progress note dated 01/31/2022. The patient is again seen today 453. He is on room air. He is getting saline at 50 mL an hour. He does have a wet congested cough. The patient urine culture was positive for Klebsiella, and that is currently being treated with Zosyn. The patient has a thinwall cavitary lesion in the left upper lobe. Infectious diseases, wanted interventional radiology needle biopsy, but they refused. No new labs today. Progress note dated 02/06/2022. 81-year-old male again seen in room 453. I saw him last on January 31. Please see note above. The patient has a large cavitary lesion, in the left upper lobe. A recent sputum analysis revealed evidence of Pseudomonas. He is currently on antibiotics in the form of Zerbaxa. The patient's on room air. He is getting saline at KVO. The patient looks about the same as it did the last time I saw him on the . No respiratory distress or difficulty. White count 9.2, hemoglobin 8.9, hematocrit 26, and platelet count 241,000. Sodium 137, potassium 3.6, chlorides 104, CO2 28, BUN 27, creatinine 0.71. The rest of the labs look stable. Sputum from February 03 shows evidence of Pseudomonas aerugin edwardo, Sun albicans, and Aspergillus species. A urine culture from January 25 shows evidence of Klebsiella. Objective - Vital Signs Vital signs: Vital Signs Temp 97.9 F 02/06/22 02:00 Pulse 95 02/06/22 12:43 Resp 16 02/06/22 10:44 BP 107/67 02/06/22 02:00 Pulse Ox 93 L 02/06/22 08:48 FiO2 Intake & Output 02/05/22 02/06/22 02/06/22 18:59 06:59 18:59 Output Total 300 1300 Balance -300 -1300 Output: Urine 300 1300 Other: Voiding Method Diaper Diaper External Catheter External Catheter # Bowel Movements 1 - Exam No acute distress, oriented 3. Currently on room air. No respiratory distress. The patient does have a wet cough. HEENT examination is grossly unremarkable. Neck supple. Full range of motion. No adenopathy thyromegaly or neck vein distention. Cardiovascular examination reveals regular rhythm rate. S1-S2 normal. No S3 or S4. No discernible murmur noted. Heart rate 95 bpm. Lungs reveal mild coarse rhonchi. Breath sounds equal bilaterally. No crackles. Saturation is 95 %. Abdomen soft bowel sounds are heard. No masses or tenderness. Extremities are intact. No cyanosis clubbing or edema. Skin is without rash or lesion. Neurologic examination is brief but nonfocal. - Labs CBC & Chem 7: 02/05/22 06:28 02/05/22 06:28 Labs: Microbiology - Last 24 Hours (Table) 02/03/22 09:13 Gram Stain - Preliminary Sputum Sputum Culture - Preliminary Pseudomonas aeruginosa Sun albicans Aspergillus species Assessment and Plan Assessment: Cavitary lung lesion, differential diagnoses includes infection/lung abscess, could be bacterial or fungal , malignancy is not entirely ruled out but felt to be less likely. Tuberculosis screen negative. Autoimmune connective tissue disease process is not entirely ruled out. February 03 sputum sample showing evidence of pseudomonas aeruginosa, currently on Zerbaxa. Urinary tract infection secondary to Klebsiella oxytoca. 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 History of coronary artery disease and previous stent of LAD. Benign essential hypertension. 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 Dyslipidemia. Back pain. History of ischemic cardiomyopathy and LV dysfunction with ejection fraction of 25%. Plan: Plan dated 01/30/2022. Patient remains on Zosyn. He is being treated for a urinary tract infection, with Klebsiella. Infectious disease services, requested that interventional radiology do a CT-guided fine-needle aspiration of the left upper lobe lesion. Labs, x-rays, and medications are reviewed. We will continue to follow the patient and make recommendations along the way. Patient is stable, on room air. Plan dated 02/02/2022. The patient is currently being treated with Zosyn for his Klebsiella urinary tract infection. A repeat chest x-ray will be ordered. The patient's currently on room air. Saturations are in the mid 90s. He is not manifesting any signs or symptoms of respiratory. He does have a wet congested cough. Prognosis is guarded. The patient is a DO NOT RESUSCITATE patient. Plan dated 02/06/2022. The patient was treated with Zosyn for his Klebsiella urinary tract infection. Sputum from January shows evidence of Pseudomonas. The patient is currently on Zerbaxa. Clinically, he looks about the same as he did the last time I saw him on February 02. The patient is a no code. I think would be very risky to do bronchoscopy on this patient. Interventional radiology already refused to do a fine-needle. Additional recommendations and suggestions are forthcoming. Treatment should be conservative. Prognosis is guarded. Time with Patient: Less than 30
[2022-02-06 13:38] LABS: C-ANCA <1:20 Titer (<1:20)
--- NOTE | 2022-02-06 18:01 | P.PN ---
Progress Note - Text Progress Note Date: 02/06/22 Presenting complaint: Tired Hospital course: I'm rounding for Dr. Catrachito Santana. 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 This was associated with new onset headaches, and apparently the patient was sent by the bisque brusher to the ER. [place] that the patient may have giant cell arteritis. However his sed rate was normal. And he was seen by vascular surgery for potential temporal artery biopsy. Eventually this was not done because the patient declined and the patient was supposedly transferred to [facility]. It is not clear what kind of workup the patient had while at [place], however the patient was discharged home on relatively high-dose of steroid/prednisone at 70 mg daily and he was told that he may have to be on this dose for a long time before it could be tapered. Patient has been taking his prednisone faithfully for the last 2 months, and has not noted any change. However the patient has been developing progressive weakness over the last 2 months, and he presented to the ER last night mostly with lower back pain, weakness, patient could not stand up" 02/03/2022: Oral intake good. Has a cough. Some sputum production. Had a BM. Able to use his walker to get to the bathroom. CT chest today shows some reduction in left cavitating lung mass. 02/04/2022: In a recliner. Slight cough. Discussed with Dr. Villa from pulmonary. Patient has been declining bronchoscopy. Discussed again with the patient the pros and cons of noting a bronchoscopy. Patient has finally agreed for the same. Patient be scheduled for bronchoscopy tomorrow. 02/05/2022: Sputum cultures growing Pseudomonas, Sun, Aspergillus. Dr. Villa discussed with ID. Bronchoscopy postponed at this point. Patient started on IV ceftolazone/ tazobactam and Diflucan. Resting 02/06/2022: Eating about-50%.on IV ceftolazone/ tazobactam and Diflucan. 4 PICC line placement. database administration manager discussed that patient would be going home with the son. Active Medications Albuterol Sulfate (Albuterol Nebulized 2.5 Mg/3 Ml) 2.5 mg INHALATION RT-TID [facility] Last Admin: 02/06/22 12:33 Dose: 2.5 mg Aspirin (Aspirin 81 Mg) 81 mg PO DAILY [facility] Last Admin: 02/06/22 09:27 Dose: 81 mg Atorvastatin Calcium (Atorvastatin 80 Mg Tab) 80 mg PO DAILY [facility] Last Admin: 02/06/22 09:30 Dose: 80 mg Benzonatate (Benzonatate 100 Mg Cap) 100 mg PO TID [facility] Last Admin: 02/06/22 09:30 Dose: 100 mg Fluconazole (Fluconazole 100 Mg Tab) 100 mg PO DAILY [facility]; Protocol Last Admin: 02/06/22 09:30 Dose: 100 mg Gabapentin (Gabapentin 300 Mg Cap) 300 mg PO TID [facility] Last Admin: 02/06/22 09:29 Dose: 300 mg Guaifenesin (Guaifenesin 600 Mg Tablet.Er) 600 mg PO Q12HR [facility] Last Admin: 02/06/22 09:29 Dose: 600 mg Ceftolozane/Tazobactam 3 gm/ (Sodium Chloride) 100 mls @ 100 mls/hr IV Q8H [facility]; Protocol Last Admin: 02/06/22 13:48 Dose: 100 mls/hr Metoprolol Tartrate (Metoprolol Tartrate 12.5 Mg Tab) 12.5 mg PO BID [facility] Last Admin: 02/06/22 09:29 Dose: 12.5 mg Pantoprazole Sodium (Pantoprazole 40 Mg Tablet) 40 mg PO DAILY [facility] Last Admin: 02/06/22 09:29 Dose: 40 mg Prednisone (Prednisone 10 Mg Tab) 30 mg PO DAILY [facility] Tramadol HCl (Tramadol 50 Mg Tab) 50 mg PO Q6H PRN PRN Reason: Pain Last Admin: 01/31/22 20:59 Dose: 50 mg On examination: VITAL SIGNS: 98.9, 84, 16, 108/60, 95% room air GENERAL APPEARANCE: Laying, not in distress HEENT: Normal external appearance of nose and ear. Oral cavity normal EYES: Pupils equal. Conjunctiva normal. NECK: JVD not raised. Mass not palpable. RESPIRATORY: Respiratory effort increased. Decreased breath sounds CARDIOVASCULAR: First and second sounds normal. No edema. ABDOMEN: Soft. Liver and spleen not palpable. No tenderness. No mass palpable. PSYCHIATRY: Alert and oriented x3. Mood and affect normal. INVESTIGATIONS, reviewed in the clinical context: C-ANCA less than once: 20, p-ANCA less than 1:20 02/05/2022: White count 9.2 hemoglobin 8.9 platelets 241 potassium 3.6 creatinine 0.71 Sputum culture: Pseudomonas aeruginosa, Sun albicans, Aspergillus species Iron 48 TIBC 150 1654 White count 9.2 hemoglobin 8.3 platelets 202 potassium 3.9 creatinine 0.8 Pro-calcitonin 0.[address] chest: Left upper lobe cavitary lesion slightly smaller than before. Interval development of infiltrate/consolidation posterior the Lesion with atelectasis. Assessment and plan: -Left lung cavitary lung lesion. Differential includes less likely malignancy with secondary infection/abscess. : Slow to respond TB screen is negative. Being followed by pulmonary and ID. Patient this declined transfer to an outside facility. Serology-negative for histoplasma, Aspergillus, TB, cocciodes. Sputum cultures now come back positive for Pseudomonas aeruginosa, Sun albicans, Aspergillus species. Bronchoscopy canceled. -GERD Protonix -Normocytic anemia likely from chronic disease Check stool occult blood. Iron studies. -CAD with a prior history of stent Aspirin, Lipitor, Lopressor -Essential hypertension Lopressor -Hyperlipidemia Lipitor -Chronic CHF, systolic dysfunction, EF 20-25% from ischemic heart disease Lopressor. Consult cardiology. Aldactone 12.5 mg daily -Moderate tricuspid regurgitation, moderate mitral regurgitation -Secondary moderate pulmonary hypertension -DO NOT RESUSCITATE IV ceftolazone/tazobactam. 4 PICC line.. Follow with ID and pulmonary. Patient went discharge would be going home.
[2022-02-07] MEDS: CEFTOLOZANE/TAZOBACTAM 3 GM in SODIUM CHLORIDE 0.9% 100 ML IV SCH ×3 (05:01→22:17)
[2022-02-07] MEDS: ALBUTEROL NEBULIZED 2.5 MG/3 ML INHALATION SCH ×3 (08:17→19:21)
[2022-02-07] MEDS ORDERED: LIDOCAINE 1% INJ 10MG/ML (30 ML VIAL-PF) SQ ONE (10:03)
--- NOTE | 2022-02-07 10:31 | IR ---
PICC LINE PLACEMENT: HISTORY: Infection requiring long-term antibiotic therapy PROCEDURE: Ultrasound and fluoroscopic guidance of PICC line placement. COMPLICATIONS: None ANESTHESIA: 1. 1% Lidocaine locally. FINDINGS/TECHNIQUE: The procedure was explained to the patient. The risks, complications, benefits and alternatives were discussed and any questions were answered. Informed consent was obtained. The patient was placed supine on the fluoroscopic table and prepped and draped in the usual sterile fash ion. Utilizing a 21 gauge needle and sonographic and fluoroscopic guidance, access in the left basi lic vein was achieved and there is placement of a 0.018 guidewire. The vein is patent. A 4-F sheath was placed over the guidewire. The guidewire and dilator were removed and a 4-F. PICC line was plac ed through the sheath with the tip at the level of the SVC. The sheath was removed, the catheter was flushed and sutured into position. The patient was stable throughout the procedure and remained sta ble upon discharge from the Department of Radiology. The vein puncture was patent under ultrasound. A borrego scale image was obtained to document patency of the vein punctured. All elements of the maximal barrier technique were utilized. FLUOROSCOPY TIME: 0.5 minutes and one images IMPRESSION: Successful PICC line placement under ultrasound and fluoroscopic guidance.
--- NOTE | 2022-02-07 10:43 | P.PN ---
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 He follows in the office with Dr. Villatoro. We have been asked to see in consultation for CAD. Patient initially presented to the emergency department on 01/25/2022 with symptoms of progressive generalized weakness, lower back pain. Apparently patient initially presented to the hospital in November 2021 with sudden onset bilateral vision loss, new onset headaches. There was concern for giant cell arteritis and patient was supposedly transferred to [facility]. Patient's main complaint on admission was progressive generalized weakness. He was found to have a 5.9cm cavitary lung lesion on the CT concerning for infectious etiology/abscess, pulmonary has been following the patient. Also found to have UTI. He has been on IV Antibiotics. Urine culture was positive for Klebsiella. There is also concern for malignancy. Bronchoscopy was being considered, however, sputum analysis revealed evidence of Pseudomonas, Sun albicans, and Aspergillus species. And patient was maintaining on IV antibiotics DIAGNOSTICS * Recent Echocardiogram in the office 11/28/2021 revealed an EF of 3540%, small hypokinetic areas in the anterior anteroseptal armijo at the mid wall, moderate aortic regurgitation, moderate mitral regurgitation, moderate tricuspid regurgitation 02/07 Patient seen and examined at bedside, no acute distress. He denies any chest pain or shortness of breath. Endorses continuous back pain. Overall feels generalized weakness and fatigue and run down. He denies any symptoms of orthopnea or PND. He has no lower extremity edema. BP remains low BP90/41 HR 70s-80s. Enresto on hold secondary to hypotension and Spironolactone has been held yesterday PHYSICAL EXAMINATION Vitals reviewed CONSTITUTIONAL: No apparent distress. HEENT: Head is normocephalic. Neck Supple. No JVD. CHEST EXAMINATION: Lungs are bilateral rhonchi to auscultation. No chest wall tenderness is noted on palpation or with deep breathing. HEART EXAMINATION: Regular rate and rhythm. S1, S2 heard. Systolic ejection murmur at apex. No gallops or rub. ABDOMEN: Soft, nontender. Positive bowel sounds. EXTREMITIES: 2+ peripheral pulses, no lower extremity edema and no calf tenderness. NEUROLOGIC EXAMINATION: Patient is awake, alert and oriented x3. ASSESSMENT Generalized weakness Cavitary lung lesion Sputum culture with pseudomonas aeruginosa UTI, culture positive for Klebsiella Vision loss Hypotension Known history of coronary artery disease with PCI to proximal LAD and distal RCA in 2019 Known ischemic cardimyopathy with EF 35-40% from recent Echo History of hypertension Dyslipidemia History of melanoma History of cancer of the mouth status post prior resection of the jaw with a m uscle graft PLAN Continue aspirin, statin, beta margret Unfortunately patient's BP remains low, continue to hold Entresto and spironolactone Pulmonary following, conservative treatment currently recommended Rest of management per primary Continue to monitor patient's BP Further recommendations based on clinical course Nurse practitioner note has been reviewed by physician. Signing provider agrees with the documented findings, assessment, and plan of care. Objective - Vital Signs Vital signs: Vital Signs Temp 97.4 F L 02/07/22 08:00 Pulse 88 02/07/22 08:27 Resp 14 02/07/22 08:00 BP 90/41 02/07/22 08:00 Pulse Ox 93 L 02/07/22 08:18 FiO2 Intake & Output 02/06/22 02/07/22 02/07/22 18:59 06:59 18:59 Output Total 900 1200 Balance -900 -1200 Output: Urine 900 1200 Other: Voiding Method External Catheter External Catheter External Catheter # Bowel Movements 2 - Labs CBC & Chem 7: 02/05/22 06:28 02/05/22 06:28
[2022-02-07] MEDS: predniSONE 10 MG TAB PO SCH (10:53)
[2022-02-07] MEDS: guaiFENesin 600 MG TABLET.ER PO SCH ×2 (10:53→22:16)
[2022-02-07] MEDS: GABAPENTIN 300 MG CAP PO SCH ×3 (10:53→22:16)
[2022-02-07] MEDS: ASPIRIN 81 MG PO SCH (10:53)
[2022-02-07] MEDS: BENZONATATE 100 MG CAP PO SCH ×3 (10:54→22:16)
[2022-02-07] MEDS: METOPROLOL TARTRATE 12.5 MG TAB PO SCH ×2 (10:54→22:16)
[2022-02-07] MEDS: PANTOPRAZOLE 40 MG TABLET PO SCH (10:54)
[2022-02-07] MEDS: FLUCONAZOLE 100 MG TAB PO SCH (10:54)
[2022-02-07] MEDS: ATORVASTATIN 80 MG TAB PO SCH (10:54)
--- NOTE | 2022-02-07 11:57 | P.PN ---
Subjective Progress Note Date: 02/07/22 Principal diagnosis: Cough and phlegm production. The patient is seen today 01/27/2022 in follow-up on the regular medical floor. He is currently resting comfortably in bed. Awake and alert. Maintaining O2 saturations in the 90s on room air. Normal saline at 50 mL per hour. Procalcitonin is 0.08. C-reactive protein 5.2. Urine culture positive for gram-negative bacilli. He is currently on Zosyn. Remains on prednisone 60 mg daily. Patient is seen today 01/28/2022 in follow-up on the regular medical floor. He is currently sitting up in a chair at the bedside. Awake and alert in no acute distress. He is maintaining good O2 saturations in the 90s on room air. He has 0.9 normal saline at 60 ML's per hour. He is complaining of some continued cough and congestion difficulty expectorating phlegm. Urine culture positive for Klebsiella oxytoca. He is continued on antibiotics in the form of Zosyn. Remains on prednisone. The patient is seen today 01/29/2022 in follow-up on the regular medical floor. He is currently resting comfortably in bed. Awake and alert in no acute distress. He is maintaining O2 saturations in the 90s on room air. He is afebrile. Hemodynamically stable. No IV fluids. Chest x-ray reveals stable left upper lobe cavitary lesion. Some basilar atelectasis. Urine culture was positive for Klebsiella oxytoca. White count 9.2. Humulin 8.3. Sodium 136. Potassium 3.9. BUN 19. Creatinine 0.8. TB testing was negative. Proca lcitonin 0.08. He is continued on Zosyn. ID services are on the case. Progress note dated 01/30/2022. 81-year-old male, seen in room 453. He's currently on room air. The infectious disease doctor wanted interventional radiology to do a fine-needle of the lesion in the left upper lobe. The patient is currently not receiving any IV fluids. No new labs today. Labs from January 29 are reviewed. The urine sample was positive for Klebsiella oxytoca. Currently, the patient's on Zosyn. The patient is seen today 01/31/2022 in follow-up on the regular medical floor. He is currently sitting up in a chair at the bedside. Awake and alert in no acute distress. Maintaining O2 saturations in the 90s on room air. Receiving D5.9 normal saline at 50 MLS per hour. Urine cultures positive for Klebsiella oxytoca. No new labs. Interventional radiology was not planning to do a fine- needle aspirate of the left upper lobe cavitary lesion. He currently remains on Zosyn. ID is on the case. The patient is seen today 02/01/2022 in follow-up on the regular medical floor. He is awake and alert in no acute distress. Sitting up in a chair at the bedside. Maintaining good O2 saturations in the 90s on room air. Urine culture was positive for Klebsiella oxytoca. D5 and half-normal saline at 50 MLS per hour. Continued on Zosyn. Remains on prednisone taper. Tessalon Perles and Mucinex for his cough. Progress note dated 01/31/2022. The patient is again seen today 453. He is on room air. He is getting saline at 50 mL an hour. He does have a wet congested cough. The patient urine culture was positive for Klebsiella, and that is currently being treated with Zosyn. The patient has a thinwall cavitary lesion in the left upper lobe. Infectious diseases, wanted interventional radiology needle biopsy, but they refused. No new labs today. Progress note dated 02/06/2022. 81-year-old male again seen in room 453. I saw him last on January 31. Please see note above. The patient has a large cavitary lesion, in the left upper lobe. A recent sputum analysis revealed evidence of Pseudomonas. He is currently on antibiotics in the form of Zerbaxa. The patient's on room air. He is getting saline at KVO. The patient looks about the same as it did the last time I saw him on the . No respiratory distress or difficulty. White count 9.2, hemoglobin 8.9, hematocrit 26, and platelet count 241,000. Sodium 137, potassium 3.6, chlorides 104, CO2 28, BUN 27, creatinine 0.71. The rest of the labs look stable. Sputum from February 03 shows evidence of Pseudomonas aerugin edwardo, Sun albicans, and Aspergillus species. A urine culture from January 25 shows evidence of Klebsiella. Progress note dated 02/07/2022. 81-year-old male seen again in room 453. The patient's on room air. He's getting saline at KVO. He was last seen by me on February 02. The patient was a lso seen by me yesterday, February 06. The patient has a cavitary lesion in the left upper lobe. A recent sputum analysis revealed evidence of Pseudomonas. He is currently on a IV antibiotic. I'm not sure why the patient is still here, why he could be discharged to a care home or long-term acute care center, to receive antibiotics. He is just on room air. The patient does not show any signs or symptoms of respiratory difficulty. Again he is on room air. No new labs to report. Objective - Vital Signs Vital signs: Vital Signs Temp 97.4 F L 02/07/22 08:00 Pulse 90 02/07/22 11:33 Resp 14 02/07/22 08:00 BP 90/41 02/07/22 08:00 Pulse Ox 93 L 02/07/22 08:18 FiO2 Intake & Output 02/06/22 02/07/22 02/07/22 18:59 06:59 18:59 Output Total 900 1200 Balance -900 -1200 Output: Urine 900 1200 Other: Voiding Method External Catheter External Catheter External Catheter # Bowel Movements 2 - Exam No acute distress, oriented 3. Currently on room air. No respiratory distress. HEENT examination is grossly unremarkable. Neck supple. Full range of motion. No adenopathy thyromegaly or neck vein di stention. Cardiovascular examination reveals regular rhythm rate. S1-S2 normal. No S3 or S4. No discernible murmur noted. Heart rate 90 bpm. Lungs reveal mild coarse rhonchi. Breath sounds equal bilaterally. No crackles. Saturation is 94 %. Abdomen soft bowel sounds are heard. No masses or tenderness. Extremities are intact. No cyanosis clubbing or edema. Skin is without rash or lesion. Neurologic examination is brief but nonfocal. - Labs CBC & Chem 7: 02/05/22 06:28 02/05/22 06:28 Assessment and Plan Assessment: Cavitary lung lesion, differential diagnoses includes infection/lung abscess, could be bacterial or fungal , malignancy is not entirely ruled out but felt to be less likely. Tuberculosis screen negative. Autoimmune connective tissue disease process is not entirely ruled out. February 03 sputum sample showing evidence of pseudomonas aeruginosa, currently on Zerbaxa. Urinary tract infection secondary to Klebsiella oxytoca. 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 History of coronary artery disease and previous stent of LAD. Benign essential hypertension. 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 Dyslipidemia. Back pain. History of ischemic cardiomyopathy and LV dysfunction with ejection fraction of 25%. Plan: Plan dated 01/30/2022. Patient remains on Zosyn. He is being treated for a urinary tract infection, with Klebsiella. Infectious disease services, requested that interventional radiology do a CT-guided fine-needle aspiration of the left upper lobe lesion. Labs, x-rays, and medications are reviewed. We will continue to follow the patient and make recommendations along the way. Patient is stable, on room air. Plan dated 02/02/2022. The patient is currently being treated with Zosyn for his Klebsiella urinary tract infection. A repeat chest x-ray will be ordered. The patient's currently on room air. Saturations are in the mid 90s. He is not manifesting any signs or symptoms of respiratory. He does have a wet congested cough. Prognosis is g uarded. The patient is a DO NOT RESUSCITATE patient. Plan dated 02/06/2022. The patient was treated with Zosyn for his Klebsiella urinary tract infection. Sputum from January shows evidence of Pseudomonas. The patient is currently on Zerbaxa. Clinically, he looks about the same as he did the last time I saw him on February 02. The patient is a no code. I think would be very risky to do bronchoscopy on this patient. Interventional radiology already refused to do a fine-needle. Additional recommendations and suggestions are forthcoming. Treatment should be conservative. Prognosis is guarded. Plan dated 02/07/2022. The patient is currently on Zerbaxa for Pseudomonas in the sputum. The patient has a large cavitary lesion in the left upper lobe. Clinically, the patient is stable. He is on room air. He is getting saline at KVO. The patient is a DO NOT RESUSCITATE patient. I'm not sure why the patient is still here in the hospital why he could not be sent to a care home, or long-term acute care facility, to finish out his antibiotics. Prognosis is extremely poor. No additional recommendations are made. We initially came in, he had a Klebsiella urinary tract infection, treated with Zosyn. Time with Patient: Less than 30
--- NOTE | 2022-02-07 16:41 | P.PN ---
Progress Note - Text Progress Note Date: 02/07/22 Presenting complaint: Tired Hospital course: I'm rounding for Dr. Catrachito Santana. 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 This was associated with new onset headaches, and apparently the patient was sent by the db2 systems programmer to the ER. [place] that the patient may have giant cell arteritis. However his sed rate was normal. And he was seen by vascular surgery for potential temporal artery biopsy. Eventually this was not done because the patient declined and the patient was supposedly transferred to [facility]. It is not clear what kind of workup the patient had while at [place], however the patient was discharged home on relatively high-dose of steroid/prednisone at 70 mg daily and he was told that he may have to be on this dose for a long time before it could be tapered. Patient has been taking his prednisone faithfully for the last 2 months, and has not noted any change. However the patient has been developing progressive weakness over the last 2 months, and he presented to the ER last night mostly with lower back pain, weakness, patient could not stand up" 02/03/2022: Oral intake good. Has a cough. Some sputum production. Had a BM. Able to use his walker to get to the bathroom. CT chest today shows some reduction in left cavitating lung mass. 02/04/2022: In a recliner. Slight cough. Discussed with Dr. Villa from pulmonary. Patient has been declining bronchoscopy. Discussed again with the patient the pros and cons of noting a bronchoscopy. Patient has finally agreed for the same. Patient be scheduled for bronchoscopy tomorrow. 02/05/2022: Sputum cultures growing Pseudomonas, Sun, Aspergillus. Dr. Villa discussed with ID. Bronchoscopy postponed at this point. Patient started on IV ceftolazone/ tazobactam and Diflucan. Resting 02/06/2022: Eating about-50%.on IV ceftolazone/ tazobactam and Diflucan. 4 PICC line placement. enterprise project manager discussed that patient would be going home with the son. 02/07/2022: Congested cough.on IV ceftolazone/ tazobactam and Diflucan. enterprise project manager called with antibiotic is extremely expensive for going home. Looking for any alternatives from ID. Eating well. Active Medications Albuterol Sulfate (Albuterol Nebulized 2.5 Mg/3 Ml) 2.5 mg INHALATION RT-TID [facility] Last Admin: 02/07/22 11:26 Dose: 2.5 mg Aspirin (Aspirin 81 Mg) 81 mg PO DAILY [facility] Last Admin: 02/07/22 10:53 Dose: 81 mg Atorvastatin Calcium (Atorvastatin 80 Mg Tab) 80 mg PO DAILY [facility] Last Admin: 02/07/22 10:54 Dose: 80 mg Benzonatate (Benzonatate 100 Mg Cap) 100 mg PO TID [facility] Last Admin: 02/07/22 10:54 Dose: 100 mg Fluconazole (Fluconazole 100 Mg Tab) 100 mg PO DAILY [facility]; Protocol Last Admin: 02/07/22 10:54 Dose: 100 mg Gabapentin (Gabapentin 300 Mg Cap) 300 mg PO TID [facility] Last Admin: 02/07/22 10:53 Dose: 300 mg Guaifenesin (Guaifenesin 600 Mg Tablet.Er) 600 mg PO Q12HR [facility] Last Admin: 02/07/22 10:53 Dose: 600 mg Ceftolozane/Tazobactam 3 gm/ (Sodium Chloride) 100 mls @ 100 mls/hr IV Q8H [facility]; Protocol Last Admin: 02/07/22 15:28 Dose: 100 mls/hr Metoprolol Tartrate (Metoprolol Tartrate 12.5 Mg Tab) 12.5 mg PO BID [facility] Last Admin: 02/07/22 10:54 Dose: 12.5 mg Pantoprazole Sodium (Pantoprazole 40 Mg Tablet) 40 mg PO DAILY [facility] Last Admin: 02/07/22 10:54 Dose: 40 mg Prednisone (Prednisone 10 Mg Tab) 30 mg PO DAILY [facility] Last Admin: 02/07/22 10:53 Dose: 30 mg Tramadol HCl (Tramadol 50 Mg Tab) 50 mg PO Q6H PRN PRN Reason: Pain Last Admin: 01/31/22 20:59 Dose: 50 mg On examination: VITAL SIGNS: 97.4, 91, 14, 90/41, 93% room air GENERAL APPEARANCE: Laying, in bed HEENT: Normal external appearance of nose and ear. Oral cavity normal EYES: Pupils equal. Conjunctiva normal. NECK: JVD not raised. Mass not palpable. RESPIRATORY: Respiratory effort increased. Decreased breath sounds CARDIOVASCULAR: First and second sounds normal. No edema. ABDOMEN: Soft. Liver and spleen not palpable. No tenderness. No mass palpable. PSYCHIATRY: Alert and oriented x3. Mood and affect normal. INVESTIGATIONS, reviewed in the clinical context: I did 48 TIBC 151 transferred 108 ferritin 1654 albumin 2.1 C-ANCA less than once: 20, p-ANCA less than 1:20 02/05/2022: White count 9.2 hemoglobin 8.9 platelets 241 potassium 3.6 creatinine 0.71 Sputum culture: Pseudomonas aeruginosa, Sun albicans, Aspergillus species Iron 48 TIBC 150 1654 White count 9.2 hemoglobin 8.3 platelets 202 potassium 3.9 creatinine 0.8 Pro-calcitonin 0.[address] chest: Left upper lobe cavitary lesion slightly smaller than before. Interval development of infiltrate/consolidation posterior the Lesion with atelectasis. Assessment and plan: -Left lung cavitary lung lesion. Differential includes less likely malignancy with secondary infection/abscess. : TB screen is negative. Being followed by pulmonary and ID. Patient this declined transfer to an outside facility. Serology-negative for histoplasma, Aspergillus, TB, cocciodes. Sputum cultures now come back positive for Pseudomonas aeruginosa, Sun albicans, Aspergillus species. Bronchoscopy canceled. IV ceftolazone/ tazobactam and Diflucan. -GERD Protonix -Mild protein calorie malnutrition from decreased oral intake And ensure -Normocytic anemia likely from chronic disease Check stool occult blood. Iron studies. -CAD with a prior history of stent Aspirin, Lipitor, Lopressor -Essential hypertension Lopressor -Hyperlipidemia Lipitor -Chronic CHF, systolic dysfunction, EF 20-25% from ischemic heart disease Lopressor. Consult cardiology. Aldactone 12.5 mg daily -Moderate tricuspid regurgitation, moderate mitral regurgitation -Secondary moderate pulmonary hypertension -DO NOT RESUSCITATE IV ceftolazone/tazobactam. 4 PICC line.. And ensure. Antibiotic at home and be very expensive. enterprise project manager 90 looking at alternatives.
[2022-02-08] MEDS: ALBUTEROL NEBULIZED 2.5 MG/3 ML INHALATION SCH ×3 (08:44→21:04)
--- NOTE | 2022-02-08 09:57 | P.PN ---
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 He follows in the office with Dr. Villatoro. We have been asked to see in consultation for CAD. Patient initially presented to the emergency department on 01/25/2022 with symptoms of progressive generalized weakness, lower back pain. Apparently patient initially presented to the hospital in November 2021 with sudden onset bilateral vision loss, new onset headaches. There was concern for giant cell arteritis and patient was supposedly transferred to [facility]. Patient's main complaint on admission was progressive generalized weakness. He was found to have a 5.9cm cavitary lung lesion on the CT concerning for infectious etiology/abscess, pulmonary has been following the patient. Also found to have UTI. He has been on IV Antibiotics. Urine culture was positive for Klebsiella. There is also concern for malignancy. Bronchoscopy was being considered, however, sputum analysis revealed evidence of Pseudomonas, Sun albicans, and Aspergillus species. And patient was maintaining on IV antibiotics DIAGNOSTICS * Recent Echocardiogram in the office 11/28/2021 revealed an EF of 3540%, small hypokinetic areas in the anterior anteroseptal armijo at the mid wall, moderate aortic regurgitation, moderate mitral regurgitation, moderate tricuspid reg urgitation 02/08/2022 Patient was seen and examined resting in bed. He continues to complain of sig nificant lower extremity weakness upon standing. He says he feels like his legs are "in a bucket of cement". He denies any chest discomfort or shortness of breath. He continues to cough with copious amounts of sputum. Blood pressure remains on the low side at 96/59 this morning heart rates in the 70s. Entresto and spironolactone remain on hold. Objective - Vital Signs Vital signs: Vital Signs Temp 97.3 F L 02/07/22 19:54 Pulse 82 02/08/22 08:56 Resp 16 02/07/22 19:55 BP 94/60 02/07/22 19:54 Pulse Ox 93 L 02/07/22 08:18 FiO2 Intake & Output 02/07/22 02/08/22 02/08/22 18:59 06:59 18:59 Output Total 2049 1099 Balance -2049 -1099 Output: Urine 2049 1099 Other: Voiding Method External Catheter External Catheter - Exam CONSTITUTIONAL: No apparent distress. HEENT: Head is normocephalic. Neck Supple. No JVD. CHEST EXAMINATION: Lungs are bilateral rhonchi to auscultation. No chest wall tenderness is noted on palpation or with deep breathing. HEART EXAMINATION: Regular rate and rhythm. S1, S2 heard. Systolic ejection murmur at apex. No gallops or rub. ABDOMEN: Soft, nontender. Positive bowel sounds. EXTREMITIES: 2+ peripheral pulses, no lower extremity edema and no calf tenderness. NEUROLOGIC EXAMINATION: Patient is awake, alert and oriented x3. - Labs CBC & Chem 7: 02/05/22 06:28 02/05/22 06:28 Assessment and Plan Assessment: Generalized weakness Cavitary lung lesion Sputum culture with pseudomonas aeruginosa UTI, culture positive for Klebsiella Vision loss Hypotension Known history of coronary artery disease with PCI to proximal LAD and distal RCA in 2019 Known ischemic cardimyopathy with EF 35-40% from recent Echo History of hypertension Dyslipidemia History of melanoma History of cancer of the mouth status post prior resection of the jaw with a muscle graft Plan: Continue aspirin, statin, beta margret Unfortunately patient's BP remains low, continue to hold Entresto and spironol actone Pulmonary following, conservative treatment currently recommended Rest of management per primary At this time we will follow him on an as needed basis please do not hesitate to contact us with questions. DYNAMITE PACKING MACHINE OPERATOR note has been reviewed, I agree with a documented findings and plan of care. Patient was seen and examined.
[2022-02-08] MEDS: CEFTOLOZANE/TAZOBACTAM 3 GM in SODIUM CHLORIDE 0.9% 100 ML IV SCH ×3 (13:15→21:44)
[2022-02-08] MEDS: BENZONATATE 100 MG CAP PO SCH ×3 (13:15→21:44)
[2022-02-08] MEDS: ATORVASTATIN 80 MG TAB PO SCH (13:15)
[2022-02-08] MEDS: ASPIRIN 81 MG PO SCH (13:15)
[2022-02-08] MEDS: FLUCONAZOLE 100 MG TAB PO SCH (13:16)
[2022-02-08] MEDS: METOPROLOL TARTRATE 12.5 MG TAB PO SCH ×2 (13:16→21:44)
[2022-02-08] MEDS: guaiFENesin 600 MG TABLET.ER PO SCH ×2 (13:16→21:44)
[2022-02-08] MEDS: predniSONE 10 MG TAB PO SCH (13:16)
[2022-02-08] MEDS: GABAPENTIN 300 MG CAP PO SCH ×3 (13:16→21:44)
[2022-02-08] MEDS: PANTOPRAZOLE 40 MG TABLET PO SCH (13:16)
--- NOTE | 2022-02-08 13:23 | PN ---
PROGRESS NOTE DATE OF SERVICE: 02/08/2022 This is a Pulmonary/Critical Care progress note. SUBJECTIVE: An 81-year-old male with a cavitary lesion of left upper lobe. Sputum revealed Pseudomonas. He was placed on Zerbaxa. He is currently on room air. No IV fluids. The patient apparently is going to be discharged home today. He will be going home with his son. Currently, he is resting comfortably in no distress. OBJECTIVE: VITAL SIGNS: Include blood pressure of 142/82, heart rate of 82, respiratory rate of 22, and saturation of 97%, temperature is normal at 38.1. GENERAL: Appears in no acute distress. No respiratory distress. HEENT: Grossly unremarkable. NECK: Supple. CARDIOVASCULAR: Reveals regular rhythm and rate. S1, S2 normal. No S3, S4, or murmur. LUNGS: Reveal scattered rhonchi. No wheezes or crackles. ABDOMEN: Soft. Bowel sounds are heard. EXTREMITIES: Intact. No edema. No cyanosis or clubbing. SKIN: Without rash. NEUROLOGIC: Brief, but nonfocal. ASSESSMENT: 1. Cavitary lesion of the left upper lobe. Sputum positive for Pseudomonas, currently on Zerbaxa. 2. General medical debility. 3. Klebsiella urinary tract infection. PLAN: The plan is for discharge home with the son. No additional recommendations are made. Prognosis is guarded. We will continue to follow the patient if not discharged. The patient will need followup after discharge. JENI / LOS: [id number] / MTDD
--- NOTE | 2022-02-08 17:53 | P.PN ---
Progress Note - Text Progress Note Date: 02/08/22 Presenting complaint: Tired Hospital course: I'm rounding for Dr. Catrachito Santana. 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 This was associated with new onset headaches, and apparently the patient was sent by the gis manager to the ER. [place] that the patient may have giant cell arteritis. However his sed rate was normal. And he was seen by vascular surgery for potential temporal artery biopsy. Eventually this was not done because the patient declined and the patient was supposedly transferred to [facility]. It is not clear what kind of workup the patient had while at [place], however the patient was discharged home on relatively high-dose of steroid/prednisone at 70 mg daily and he was told that he may have to be on this dose for a long time before it could be tapered. Patient has been taking his prednisone faithfully for the last 2 months, and has not noted any change. However the patient has been developing progressive weakness over the last 2 months, and he presented to the ER last night mostly with lower back pain, weakness, patient could not stand up" 02/03/2022: Oral intake good. Has a cough. Some sputum production. Had a BM. Able to use his walker to get to the bathroom. CT chest today shows some reduction in left cavitating lung mass. 02/04/2022: In a recliner. Slight cough. Discussed with Dr. Villa from pulmonary. Patient has been declining bronchoscopy. Discussed again with the patient the pros and cons of noting a bronchoscopy. Patient has finally agreed for the same. Patient be scheduled for bronchoscopy tomorrow. 02/05/2022: Sputum cultures growing Pseudomonas, Sun, Aspergillus. Dr. Villa discussed with ID. Bronchoscopy postponed at this point. Patient started on IV ceftolazone/ tazobactam and Diflucan. Resting 02/06/2022: Eating about-50%.on IV ceftolazone/ tazobactam and Diflucan. 4 PICC line placement. manager fund discussed that patient would be going home with the son. 02/07/2022: Congested cough.on IV ceftolazone/ tazobactam and Diflucan. manager fund called with antibiotic is extremely expensive for going home. Looking for any alternatives from ID. Eating well. 02/08/2022:on IV ceftolazone/ tazobactam and Diflucan. Oral intake fair. Follow with ID and pulmonary. Alternate antibiotics be looked into. Active Medications Albuterol Sulfate (Albuterol Nebulized 2.5 Mg/3 Ml) 2.5 mg INHALATION RT-TID [facility] Last Admin: 02/08/22 11:40 Dose: 2.5 mg Aspirin (Aspirin 81 Mg) 81 mg PO DAILY [facility] Last Admin: 02/08/22 13:15 Dose: Not Given Atorvastatin Calcium (Atorvastatin 80 Mg Tab) 80 mg PO DAILY [facility] Last Admin: 02/08/22 13:15 Dose: Not Given Benzonatate (Benzonatate 100 Mg Cap) 100 mg PO TID [facility] Last Admin: 02/08/22 17:00 Dose: 100 mg Fluconazole (Fluconazole 100 Mg Tab) 100 mg PO DAILY [facility]; Protocol Last Admin: 02/08/22 13:16 Dose: Not Given Gabapentin (Gabapentin 300 Mg Cap) 300 mg PO TID [facility] Last Admin: 02/08/22 17:00 Dose: 300 mg Guaifenesin (Guaifenesin 600 Mg Tablet.Er) 600 mg PO Q12HR [facility] Last Admin: 02/08/22 13:16 Dose: Not Given Ceftolozane/Tazobactam 3 gm/ (Sodium Chloride) 100 mls @ 100 mls/hr IV Q8H [facility]; Protocol Last Admin: 02/08/22 15:01 Dose: 100 mls/hr Metoprolol Tartrate (Metoprolol Tartrate 12.5 Mg Tab) 12.5 mg PO BID [facility] Last Admin: 02/08/22 13:16 Dose: Not Given Pantoprazole Sodium (Pantoprazole 40 Mg Tablet) 40 mg PO DAILY [facility] Last Admin: 02/08/22 13:16 Dose: Not Given Prednisone (Prednisone 10 Mg Tab) 30 mg PO DAILY [facility] Last Admin: 02/08/22 13:16 Dose: Not Given Tramadol HCl (Tramadol 50 Mg Tab) 50 mg PO Q6H PRN PRN Reason: Pain Last Admin: 01/31/22 20:59 Dose: 50 mg On examination: VITAL SIGNS: 98.7, 96, 16, 91/53, 94% room air GENERAL APPEARANCE: Laying, in bed HEENT: Normal external appearance of nose and ear. Oral cavity normal EYES: Pupils equal. Conjunctiva normal. NECK: JVD not raised. Mass not palpable. RESPIRATORY: Respiratory effort increased. Decreased breath sounds CARDIOVASCULAR: First and second sounds normal. No edema. ABDOMEN: Soft. Liver and spleen not palpable. No tenderness. No mass palpable. PSYCHIATRY: Alert and oriented x3. Mood and affect normal. INVESTIGATIONS, reviewed in the clinical context: I did 48 TIBC 151 transferred 108 ferritin 1654 albumin 2.1 C-ANCA less than once: 20, p-ANCA less than 1:20 02/05/2022: White count 9.2 hemoglobin 8.9 platelets 241 potassium 3.6 creatinine 0.71 Sputum culture: Pseudomonas aeruginosa, Sun albicans, Aspergillus species Iron 48 TIBC 150 1654 White count 9.2 hemoglobin 8.3 platelets 202 potassium 3.9 creatinine 0.8 Pro-calcitonin 0.[address] chest: Left upper lobe cavitary lesion slightly smaller than before. Inte rval development of infiltrate/consolidation posterior the Lesion with atelectasis. Assessment and plan: -Left lung cavitary lung lesion. Differential includes less likely malignancy with secondary infection/abscess. : TB screen is negative. Being followed by pulmonary and ID. Patient this declined transfer to an outside facility. Serology-negative for histoplasma, Aspergillus, TB, cocciodes. Sputum cultures now come back positive for Pseudomonas aeruginosa, Sun albicans, Aspergillus species. Bronchoscopy canceled. IV ceftolazone/ tazobactam and Diflucan. -GERD Protonix -Mild protein calorie malnutrition from decreased oral intake And ensure -Normocytic anemia likely from chronic disease Check stool occult blood. Iron studies. -CAD with a prior history of stent Aspirin, Lipitor, Lopressor -Essential hypertension Lopressor -Hyperlipidemia Lipitor -Chronic CHF, systolic dysfunction, EF 20-25% from ischemic heart disease Lopressor. Consult cardiology. Aldactone 12.5 mg daily -Moderate tricuspid regurgitation, moderate mitral regurgitation -Secondary moderate pulmonary hypertension -DO NOT RESUSCITATE IV ceftolazone/tazobactam. Looking into alternative antibiotics per ID for cost economic reasons..
--- NOTE | 2022-02-08 23:06 | P.PN ---
Subjective Progress Note Date: 02/06/22 Principal diagnosis: Left upper lobe pneumonia Patient is a 81-year-old male presenting to the hospital for generalized weakness and a fall patient did have a mild cough patient did have a chest x-ray concerning for cavitatory lesion left upper lobe , CT chest confirmed the finding. On today's evaluation that is 02/06/2022 the patient continues to be afebrile the patient is breathing comfortably on room air the patient denies any chest pain, the patient continue to have a cough but not bringing up any sputum, patient denies having any nausea no vomiting no abdominal pain no diarrhea Objective - Vital Signs Vital signs: Vital Signs Temp 97.9 F 02/06/22 02:00 Pulse 95 02/06/22 12:43 Resp 16 02/06/22 10:44 BP 107/67 02/06/22 02:00 Pulse Ox 93 L 02/06/22 08:48 FiO2 Intake & Output 02/05/22 02/06/22 02/06/22 18:59 06:59 18:59 Output Total 300 1300 Balance -300 -1300 Output: Urine 300 1300 Other: Voiding Method Diaper Diaper External Catheter External Catheter # Bowel Movements 1 - Exam GENERAL DESCRIPTION: An elderly male lying in bed in no distress RESPIRATORY SYSTEM: Unlabored breathing , decreased breath sounds at bases HEART: S1 S2 regular rate and rhythm , ABDOMEN: Soft , no tenderness EXTREMITIES: No edema feet - Labs CBC & Chem 7: 02/05/22 06:28 02/05/22 06:28 Labs: Microbiology - Last 24 Hours (Table) 02/03/22 09:13 Gram Stain - Preliminary Sputum Sputum Culture - Preliminary Pseudomonas aeruginosa Sun albicans Aspergillus species Assessment and Plan (1) Cavitating mass in left upper lung lobe Current Visit: Yes Status: Acute Code(s): J98.4 - OTHER DISORDERS OF LUNG SNOMED Code(s): 257481512 Plan: 1patient with a thick-walled left upper lobe cavitary lesion concerning for possible lung abscess less likely cavitatatory tumor at this has developed over the last 2 months with a question of possible pneumonia of aspiration etiology and will need to cover for the polymicrobial sony usually associated with this type of infection. 2patient considered to be high risk for bronchoscopy per discussion with pulmonary, IR consult for possible biopsy and culture , IR not able to perform CT-guided biopsy and culture , will recommend transfer to tertiary care to complete the workup, however the patient is refusing transfer per the nursing staff, we will repeat a CT of the chest for follow-up on that left upper lobe lesion 3patient did have a negative serology for Aspergillus histoplasma and QuantiFERON TB gold test was negative 4patient did have a positive urine culture with Klebsiella 5Patient repeat CT of the chest did show slight improvement concerning for possible pneumonia, the patient's sputum came back positive with a multidrug resistant Pseudomonas, patient to continue with Zerbexa, plan is for PICC and out patient IV antibiotic 3 weeks Time with Patient: Less than 30
--- NOTE | 2022-02-08 23:08 | P.PN ---
Subjective Progress Note Date: 02/07/22 Principal diagnosis: Left upper lobe pneumonia Patient is a 81-year-old male presenting to the hospital for generalized weakness and a fall patient did have a mild cough patient did have a chest x-ray concerning for cavitatory lesion left upper lobe , CT chest confirmed the finding. On today's evaluation that is 02/06/2022 the patient continues to be afebrile the patient is breathing comfortably on room air the patient denies any chest pain, the patient continue to have a cough but not bringing up any sputum, patient denies having any nausea no vomiting no abdominal pain no diarrhea Objective - Vital Signs Vital signs: Vital Signs Temp 97.4 F L 02/07/22 08:00 Pulse 90 02/07/22 11:33 Resp 14 02/07/22 08:00 BP 90/41 02/07/22 08:00 Pulse Ox 93 L 02/07/22 08:18 FiO2 Intake & Output 02/06/22 02/07/22 02/07/22 18:59 06:59 18:59 Output Total 900 1200 Balance -900 -1200 Output: Urine 900 1200 Other: Voiding Method External Catheter External Catheter External Catheter # Bowel Movements 2 - Exam GENERAL DESCRIPTION: An elderly male lying in bed in no distress RESPIRATORY SYSTEM: Unlabored breathing , decreased breath sounds at bases HEART: S1 S2 regular rate and rhythm , ABDOMEN: Soft , no tenderness EXTREMITIES: No edema feet - Labs CBC & Chem 7: 02/05/22 06:28 02/05/22 06:28 Assessment and Plan (1) Cavitating mass in left upper lung lobe Current Visit: Yes Status: Acute Code(s): J98.4 - OTHER DISORDERS OF LUNG SNOMED Code(s): 501254933 Plan: 1patient with a thick-walled left upper lobe cavitary lesion concerning for possible lung abscess less likely cavitatatory tumor at this has developed over the last 2 months with a question of possible pneumonia of aspiration etiology and will need to cover for the polymicrobial sony usually associated with this type of infection. 2patient considered to be high risk for bronchoscopy per discussion with pulmonary, IR consult for possible biopsy and culture , IR not able to perform CT-guided biopsy and culture , will recommend transfer to tertiary care to complete the workup, however the patient is refusing transfer per the nursing staff, we will repeat a CT of the chest for follow-up on that left upper lobe lesion 3patient did have a negative serology for Aspergillus histoplasma and QuantiFERON TB gold test was negative 4patient did have a positive urine culture with Klebsiella 5Patient repeat CT of the chest did show slight improvement concerning for possible pneumonia, the patient's sputum came back positive with a multidrug resistant Pseudomonas, patient is currently being treated with Zerbexa on the basis of sensitivities, case assistant is currently working on outpatient IV antibiotic arrangement Time with Patient: Less than 30
--- NOTE | 2022-02-08 23:10 | P.PN ---
Subjective Progress Note Date: 02/08/22 Principal diagnosis: Left upper lobe pneumonia Patient is a 81-year-old male presenting to the hospital for generalized weakness and a fall patient did have a mild cough patient did have a chest x-ray concerning for cavitatory lesion left upper lobe , CT chest confirmed the finding. On today's evaluation that is 02/08/2022 the patient denies any fever or chills, the patient is breathing comfortably on room air the patient denies any chest pain, the patient continue to have a cough but not bringing up any sputum, patient denies having any nausea no vomiting no abdominal pain no diarrhea, patient wants to go home Objective - Vital Signs Vital signs: Vital Signs Temp 98.7 F 02/08/22 14:00 Pulse 96 02/08/22 14:00 Resp 16 02/08/22 14:00 BP 91/53 02/08/22 14:00 Pulse Ox 94 L 02/08/22 14:00 FiO2 Intake & Output 02/07/22 02/08/22 02/08/22 18:59 06:59 18:59 Output Total 2049 1099 Balance -2049 -1099 Output: Urine 2049 1099 Other: Voiding Method External Catheter External Catheter External Catheter - Exam GENERAL DESCRIPTION: An elderly male lying in bed in no distress RESPIRATORY SYSTEM: Unlabored breathing , decreased breath sounds at bases HEART: S1 S2 regular rate and rhythm , ABDOMEN: Soft , no tenderness EXTREMITIES: No edema feet - Labs CBC & Chem 7: 02/05/22 06:28 02/05/22 06:28 Labs: Microbiology - Last 24 Hours (Table) 02/03/22 09:13 Gram Stain - Final Sputum Sputum Culture - Final Pseudomonas aeruginosa Sun albicans Aspergillus fumigatus Assessment and Plan (1) Cavitating mass in left upper lung lobe Current Visit: Yes Status: Acute Code(s): J98.4 - OTHER DISORDERS OF LUNG SNOMED Code(s): 787293378 Plan: 1patient with a thick-walled left upper lobe cavitary lesion concerning for possible lung abscess less likely cavitatatory tumor at this has developed over the last 2 months with a question of possible pneumonia of aspiration etiology and will need to cover for the polymicrobial sony usually associated with this type of infection. 2patient considered to be high risk for bronchoscopy per discussion with pulmonary, IR consult for possible biopsy and culture , IR not able to perform CT-guided biopsy and culture , will recommend transfer to tertiary care to complete the workup, however the patient is refusing transfer per the nursing staff, we will repeat a CT of the chest for follow-up on that left upper lobe lesion 3patient did have a negative serology for Aspergillus histoplasma and Michael tiFERON TB gold test was negative 4patient did have a positive urine culture with Klebsiella 5Patient repeat CT of the chest did show slight improvement concerning for possible pneumonia, the patient's sputum came back positive with a multidrug resistant Pseudomonas, patient is currently being treated with Zerbexa on the basis of sensitivities, manager case management is currently working on outpatient IV antibiotic arrangement, recommending at least 3 weeks of IV antibiotics on discharge in view of her extensive pneumonia and close outpatient follow-up Time with Patient: Less than 30
[2022-02-09] MEDS: CEFTOLOZANE/TAZOBACTAM 3 GM in SODIUM CHLORIDE 0.9% 100 ML IV SCH ×3 (05:26→21:30)
[2022-02-09] MEDS: ALBUTEROL NEBULIZED 2.5 MG/3 ML INHALATION SCH ×3 (08:09→20:47)
[2022-02-09] MEDS: guaiFENesin 600 MG TABLET.ER PO SCH ×2 (10:02→21:30)
[2022-02-09] MEDS: ASPIRIN 81 MG PO SCH (10:02)
[2022-02-09] MEDS: PANTOPRAZOLE 40 MG TABLET PO SCH (10:02)
[2022-02-09] MEDS: GABAPENTIN 300 MG CAP PO SCH ×3 (10:02→21:30)
[2022-02-09] MEDS: ATORVASTATIN 80 MG TAB PO SCH (10:02)
[2022-02-09] MEDS: FLUCONAZOLE 100 MG TAB PO SCH (10:02)
[2022-02-09] MEDS: predniSONE 10 MG TAB PO SCH (10:02)
[2022-02-09] MEDS: BENZONATATE 100 MG CAP PO SCH ×3 (10:03→21:29)
[2022-02-09] MEDS: METOPROLOL TARTRATE 12.5 MG TAB PO SCH ×2 (10:03→21:30)
--- NOTE | 2022-02-09 12:17 | P.PN ---
Subjective Progress Note Date: 02/09/22 Principal diagnosis: Cough and phlegm production. The patient is seen today 01/27/2022 in follow-up on the regular medical floor. He is currently resting comfortably in bed. Awake and alert. Maintaining O2 saturations in the 90s on room air. Normal saline at 50 mL per hour. Procalcitonin is 0.08. C-reactive protein 5.2. Urine culture positive for gram-negative bacilli. He is currently on Zosyn. Remains on prednisone 60 mg daily. Patient is seen today 01/28/2022 in follow-up on the regular medical floor. He is currently sitting up in a chair at the bedside. Awake and alert in no acute distress. He is maintaining good O2 saturations in the 90s on room air. He has 0.9 normal saline at 60 ML's per hour. He is complaining of some continued cough and congestion difficulty expectorating phlegm. Urine culture positive for Klebsiella oxytoca. He is continued on antibiotics in the form of Zosyn. Remains on prednisone. The patient is seen today 01/29/2022 in follow-up on the regular medical floor. He is currently resting comfortably in bed. Awake and alert in no acute distress. He is maintaining O2 saturations in the 90s on room air. He is afebrile. Hemodynamically stable. No IV fluids. Chest x-ray reveals stable left upper lobe cavitary lesion. Some basilar atelectasis. Urine culture was positive for Klebsiella oxytoca. White count 9.2. Humulin 8.3. Sodium 136. Potassium 3.9. BUN 19. Creatinine 0.8. TB testing was negative. Proca lcitonin 0.08. He is continued on Zosyn. ID services are on the case. Progress note dated 01/30/2022. 81-year-old male, seen in room 453. He's currently on room air. The infectious disease doctor wanted interventional radiology to do a fine-needle of the lesion in the left upper lobe. The patient is currently not receiving any IV fluids. No new labs today. Labs from January 29 are reviewed. The urine sample was positive for Klebsiella oxytoca. Currently, the patient's on Zosyn. The patient is seen today 01/31/2022 in follow-up on the regular medical floor. He is currently sitting up in a chair at the bedside. Awake and alert in no acute distress. Maintaining O2 saturations in the 90s on room air. Receiving D5.9 normal saline at 50 MLS per hour. Urine cultures positive for Klebsiella oxytoca. No new labs. Interventional radiology was not planning to do a fine- needle aspirate of the left upper lobe cavitary lesion. He currently remains on Zosyn. ID is on the case. The patient is seen today 02/01/2022 in follow-up on the regular medical floor. He is awake and alert in no acute distress. Sitting up in a chair at the bedside. Maintaining good O2 saturations in the 90s on room air. Urine culture was positive for Klebsiella oxytoca. D5 and half-normal saline at 50 MLS per hour. Continued on Zosyn. Remains on prednisone taper. Tessalon Perles and Mucinex for his cough. Progress note dated 01/31/2022. The patient is again seen today 453. He is on room air. He is getting saline at 50 mL an hour. He does have a wet congested cough. The patient urine culture was positive for Klebsiella, and that is currently being treated with Zosyn. The patient has a thinwall cavitary lesion in the left upper lobe. Infectious diseases, wanted interventional radiology needle biopsy, but they refused. No new labs today. Progress note dated 02/06/2022. 81-year-old male again seen in room 453. I saw him last on January 31. Please see note above. The patient has a large cavitary lesion, in the left upper lobe. A recent sputum analysis revealed evidence of Pseudomonas. He is currently on antibiotics in the form of Zerbaxa. The patient's on room air. He is getting saline at KVO. The patient looks about the same as it did the last time I saw him on the . No respiratory distress or difficulty. White count 9.2, hemoglobin 8.9, hematocrit 26, and platelet count 241,000. Sodium 137, potassium 3.6, chlorides 104, CO2 28, BUN 27, creatinine 0.71. The rest of the labs look stable. Sputum from February 03 shows evidence of Pseudomonas aerugin edwardo, Sun albicans, and Aspergillus species. A urine culture from January 25 shows evidence of Klebsiella. Progress note dated 02/07/2022. 81-year-old male seen again in room 453. The patient's on room air. He's getting saline at KVO. He was last seen by me on February 02. The patient was a lso seen by me yesterday, February 06. The patient has a cavitary lesion in the left upper lobe. A recent sputum analysis revealed evidence of Pseudomonas. He is currently on a IV antibiotic. I'm not sure why the patient is still here, why he could be discharged to a alf or long-term acute care center, to receive antibiotics. He is just on room air. The patient does not show any signs or symptoms of respiratory difficulty. Again he is on room air. No new labs to report. Progress note dated 02/09/2022. 81-year-old male again seen him for 53. He is on room air. The patient is getting saline at KVO, 20 mL an hour. The patient continues on Zerbaxa. Yesterday, the nurse mentioned that he was going to be discharged home with son. Apparently that did not happen. The patient's resting comfortably, in no acute distress. No new labs on this patient. Objective - Vital Signs Vital signs: Vital Signs Temp 98.6 F 02/09/22 08:00 Pulse 71 02/09/22 12:10 Resp 20 02/09/22 08:00 BP 109/65 02/09/22 08:00 Pulse Ox 93 L 02/09/22 08:10 FiO2 Intake & Output 02/08/22 02/09/22 02/09/22 19:59 06:59 18:59 Output Total Balance Output: Urine Other: Voiding Method External Catheter # Voids # Bowel Movements - Exam No acute distress, oriented 3. Currently on room air. No respiratory distress. HEENT examination is grossly unremarkable. Neck supple. Full range of motion. No adenopathy thyromegaly or neck vein distention. Cardiovascular examination reveals regular rhythm rate. S1-S2 normal. No S3 or S4. No discernible murmur noted. Heart rate 71 bpm. Lungs reveal mild coarse rhonchi. Breath sounds equal bilaterally. No crackles. Saturation is 93 %. Abdomen soft bowel sounds are heard. No masses or tenderness. Extremities are intact. No cyanosis clubbing or edema. Skin is without rash or lesion. Neurologic examination is brief but nonfocal. - Labs CBC & Chem 7: 02/05/22 06:28 02/05/22 06:28 Labs: Microbiology - Last 24 Hours (Table) 02/03/22 09:13 Gram Stain - Final Sputum Sputum Culture - Final Pseudomonas aeruginosa Sun albicans Aspergillus fumigatus Assessment and Plan Assessment: Cavitary lung lesion, differential diagnoses includes infection/lung abscess, could be bacterial or fungal , malignancy is not entirely ruled out but felt to be less likely. Tuberculosis screen negative. Autoimmune connective tissue disease process is not entirely ruled out. February 03 sputum sample showing evidence of pseudomonas aeruginosa, currently on Zerbaxa. Urinary tract infection secondary to Klebsiella oxytoca. 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 History of coronary artery disease and previous stent of LAD. Benign essential hypertension. 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 Dyslipidemia. Back pain. History of ischemic cardiomyopathy and LV dysfunction with ejection fraction of 25%. Plan: Plan dated 01/30/2022. Patient remains on Zosyn. He is being treated for a urinary tract infection, with Klebsiella. Infectious disease services, requested that interventional radiology do a CT-guided fine-needle aspiration of the left upper lobe lesion. Labs, x-rays, and medications are reviewed. We will continue to follow the patient and make recommendations along the way. Patient is stable, on room air. Plan dated 02/02/2022. The patient is currently being treated with Zosyn for his Klebsiella urinary tract infection. A repeat chest x-ray will be ordered. The patient's currently on room air. Saturations are in the mid 90s. He is not manifesting any signs or symptoms of respiratory. He does have a wet congested cough. Prognosis is guarded. The patient is a DO NOT RESUSCITATE patient. Plan dated 02/06/2022. The patient was treated with Zosyn for his Klebsiella urinary tract infection. Sputum from January shows evidence of Pseudomonas. The patient is currently on Zerbaxa. Clinically, he looks about the same as he did the last time I saw him on February 02. The patient is a no code. I think would be very risky to do bronchoscopy on this patient. Interventional radiology already refused to do a fine-needle. Additional recommendations and suggestions are forthcoming. Treatment should be conservative. Prognosis is guarded. Plan dated 02/07/2022. The patient is currently on Zerbaxa for Pseudomonas in the sputum. The patient has a large cavitary lesion in the left upper lobe. Clinically, the patient is stable. He is on room air. He is getting saline at KVO. The patient is a DO NOT RESUSCITATE patient. I'm not sure why the patient is still here in the hospital why he could not be sent to a alf, or long-term acute care facility, to finish out his antibiotics. Prognosis is extremely poor. No additional recommendations are made. We initially came in, he had a Klebsiella urinary tract infection, treated with Zosyn. Plan dated 02/09/2022. The patient remains on appropriate antibiotic for Pseudomonas in the sputum. He was discovered to have a large cavitary lesion in the left upper lobe. Interventional radiology was asked to do a fine-needle biopsy, but they refused. The patient is a DO NOT RESUSCITATE patient. The patient was to be discharged home yesterday with his son. Additional recommendations and suggestions are forthcoming. Clinically, the patient appears to be relatively stable from the pulmonary standpoint. Time with Patient: Less than 30
--- NOTE | 2022-02-09 18:35 | P.PN ---
Progress Note - Text Progress Note Date: 02/09/22 Presenting complaint: Tired Hospital course: I'm rounding for Dr. Catrachito Santana. 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 This was associated with new onset headaches, and apparently the patient was sent by the design editor to the ER. [place] that the patient may have giant cell arteritis. However his sed rate was normal. And he was seen by vascular surgery for potential temporal artery biopsy. Eventually this was not done because the patient declined and the patient was supposedly transferred to [facility]. It is not clear what kind of workup the patient had while at [place], however the patient was discharged home on relatively high-dose of steroid/prednisone at 70 mg daily and he was told that he may have to be on this dose for a long time before it could be tapered. Patient has been taking his prednisone faithfully for the last 2 months, and has not noted any change. However the patient has been developing progressive weakness over the last 2 months, and he presented to the ER last night mostly with lower back pain, weakness, patient could not stand up" 02/03/2022: Oral intake good. Has a cough. Some sputum production. Had a BM. Able to use his walker to get to the bathroom. CT chest today shows some reduction in left cavitating lung mass. 02/04/2022: In a recliner. Slight cough. Discussed with Dr. Villa from pulmonary. Patient has been declining bronchoscopy. Discussed again with the patient the pros and cons of noting a bronchoscopy. Patient has finally agreed for the same. Patient be scheduled for bronchoscopy tomorrow. 02/05/2022: Sputum cultures growing Pseudomonas, Sun, Aspergillus. Dr. Villa discussed with ID. Bronchoscopy postponed at this point. Patient started on IV ceftolazone/ tazobactam and Diflucan. Resting 02/06/2022: Eating about-50%.on IV ceftolazone/ tazobactam and Diflucan. 4 PICC line placement. technical sales manager discussed that patient would be going home with the son. 02/07/2022: Congested cough.on IV ceftolazone/ tazobactam and Diflucan. technical sales manager called with antibiotic is extremely expensive for going home. Looking for any alternatives from ID. Eating well. 02/08/2022:on IV ceftolazone/ tazobactam and Diflucan. Oral intake fair. Follow with ID and pulmonary. Alternate antibiotics be looked into. 02/09/2022:Zerbaxa for multidrug-resistant Pseudomonas. technical sales manager working an outpatient antibiotics. Patient eating well. Coughing up sputum. In a recliner. Active Medications Albuterol Sulfate (Albuterol Nebulized 2.5 Mg/3 Ml) 2.5 mg INHALATION RT-TID [facility] Last Admin: 02/09/22 11:59 Dose: 2.5 mg Aspirin (Aspirin 81 Mg) 81 mg PO DAILY [facility] Last Admin: 02/09/22 10:02 Dose: 81 mg Atorvastatin Calcium (Atorvastatin 80 Mg Tab) 80 mg PO DAILY [facility] Last Admin: 02/09/22 10:02 Dose: 80 mg Benzonatate (Benzonatate 100 Mg Cap) 100 mg PO TID [facility] Last Admin: 02/09/22 17:12 Dose: 100 mg Fluconazole (Fluconazole 100 Mg Tab) 100 mg PO DAILY [facility]; Protocol Last Admin: 02/09/22 10:02 Dose: 100 mg Gabapentin (Gabapentin 300 Mg Cap) 300 mg PO TID [facility] Last Admin: 02/09/22 17:12 Dose: 300 mg Guaifenesin (Guaifenesin 600 Mg Tablet.Er) 600 mg PO Q12HR [facility] Last Admin: 02/09/22 10:02 Dose: 600 mg Ceftolozane/Tazobactam 3 gm/ (Sodium Chloride) 100 mls @ 100 mls/hr IV Q8H [facility]; Protocol Last Admin: 02/09/22 13:07 Dose: 100 mls/hr Metoprolol Tartrate (Metoprolol Tartrate 12.5 Mg Tab) 12.5 mg PO BID [facility] Last Admin: 02/09/22 10:03 Dose: 12.5 mg Pantoprazole Sodium (Pantoprazole 40 Mg Tablet) 40 mg PO DAILY [facility] Last Admin: 02/09/22 10:02 Dose: 40 mg Prednisone (Prednisone 10 Mg Tab) 30 mg PO DAILY [facility] Last Admin: 02/09/22 10:02 Dose: 30 mg Tramadol HCl (Tramadol 50 Mg Tab) 50 mg PO Q6H PRN PRN Reason: Pain Last Admin: 01/31/22 20:59 Dose: 50 mg On examination: VITAL SIGNS: 97.9, 76, 16, a 2 x 51, 94% room air GENERAL APPEARANCE: In a recliner, comfortable HEENT: Normal external appearance of nose and ear. Oral cavity normal EYES: Pupils equal. Conjunctiva normal. NECK: JVD not raised. Mass not palpable. RESPIRATORY: Respiratory effort increased. Decreased breath sounds CARDIOVASCULAR: First and second sounds normal. No edema. ABDOMEN: Soft. Liver and spleen not palpable. No tenderness. No mass palpable. PSYCHIATRY: Alert and oriented x3. Mood and affect normal. INVESTIGATIONS, reviewed in the clinical context: I did 48 TIBC 151 transferred 108 ferritin 1654 albumin 2.1 C-ANCA less than once: 20, p-ANCA less than 1:20 02/05/2022: White count 9.2 hemoglobin 8.9 platelets 241 potassium 3.6 creatinine 0.71 Sputum culture: Pseudomonas aeruginosa, Sun albicans, Aspergillus species Iron 48 TIBC 150 1654 White count 9.2 hemoglobin 8.3 platelets 202 potassium 3.9 creatinine 0.8 Pro-calcitonin 0.[address] chest: Left upper lobe cavitary lesion slightly smaller than before. Interval development of infiltrate/consolidation posterior the Lesion with atelectasis. Assessment and plan: -Left lung cavitary lung lesion. Differential includes less likely malignancy with secondary infection/abscess. : TB screen is negative. Being followed by pulmonary and ID. Patient this declined transfer to an outside facility. Serology-negative for histoplasma, Aspergillus, TB, cocciodes. Sputum cultures now come back positive for Pseudomonas aeruginosa, Sun albicans, Aspergillus species. Bronchoscopy canceled. IV ceftolazone/ tazobactam and Diflucan. -GERD Protonix -Mild protein calorie malnutrition from decreased oral intake And ensure -Normocytic anemia likely from chronic disease Check stool occult blood. Iron studies. -CAD with a prior history of stent Aspirin, Lipitor, Lopressor -Essential hypertension Lopressor -Hyperlipidemia Lipitor -Chronic CHF, systolic dysfunction, EF 20-25% from ischemic heart disease Lopressor. Consult cardiology. Aldactone 12.5 mg daily -Moderate tricuspid regurgitation, moderate mitral regurgitation -Secondary moderate pulmonary hypertension -DO NOT RESUSCITATE IV ceftolazone/tazobactam. Looking into alternative antibiotics per ID for cost economic reasons..
[2022-02-10] MEDS: CEFTOLOZANE/TAZOBACTAM 3 GM in SODIUM CHLORIDE 0.9% 100 ML IV SCH ×3 (05:09→21:53)
[2022-02-10 05:14] LABS: Anisocytosis Slight; Basophils % (A) 0 %; Eosinophils % (A) 0 %; HCT 28.7 % (39.0-53.0); HGB 9.5 gm/dL (13.0-17.5); Hypochromasia Slight; Lymphocytes % (A) 11 %; MCH 29.9 pg (25.0-35.0); MCHC 33.2 g/dL (31.0-37.0); MCV 89.8 fL (80.0-100.0); Mean Platelet Volume 7.9; Monocytes # (A) 0.3 k/uL (0-1.0); Monocytes % (A) 3 %; Neutrophils # (A) 8.2 k/uL (1.3-7.7); Neutrophils % (A) 85 %; Platelet Count 274 k/uL (150-450); RDW 19.5 % (11.5-15.5); WBC 9.7 k/uL (3.8-10.6)
[2022-02-10 05:27] LABS: African American GFR (CKD) >90 (>60 ml/min/1.73 sqM); Anion Gap 3 mmol/L; Blood Urea Nitrogen 28 mg/dL (9-20); Calcium 7.7 mg/dL (8.4-10.2); Carbon Dioxide 27 mmol/L (22-30); Chloride 104 mmol/L (98-107); Glucose 84 mg/dL (74-99); Non-African American GFR(CKD) 86 (>60 ml/min/1.73 sqM); Potassium 4.3 mmol/L (3.5-5.1); Sodium 134 mmol/L (137-145)
[2022-02-10] MEDS: ALBUTEROL NEBULIZED 2.5 MG/3 ML INHALATION SCH ×3 (07:56→20:57)
[2022-02-10] MEDS: METOPROLOL TARTRATE 12.5 MG TAB PO SCH ×2 (09:11→21:53)
[2022-02-10] MEDS: GABAPENTIN 300 MG CAP PO SCH ×3 (09:11→21:53)
[2022-02-10] MEDS: PANTOPRAZOLE 40 MG TABLET PO SCH (09:11)
[2022-02-10] MEDS: FLUCONAZOLE 100 MG TAB PO SCH (09:11)
[2022-02-10] MEDS: BENZONATATE 100 MG CAP PO SCH ×3 (09:11→21:53)
[2022-02-10] MEDS: predniSONE 10 MG TAB PO SCH (09:11)
[2022-02-10] MEDS: guaiFENesin 600 MG TABLET.ER PO SCH ×2 (09:11→21:53)
[2022-02-10] MEDS: ASPIRIN 81 MG PO SCH (09:11)
[2022-02-10] MEDS: ATORVASTATIN 80 MG TAB PO SCH (09:11)
--- NOTE | 2022-02-10 13:38 | P.PN ---
Subjective Progress Note Date: 02/10/22 This is an 81-year-old white male with history of multiple medical problems including coronary artery disease, and previous stenting of LAD, history of cancer of the mouth, history of melanoma and resection of jaw with a muscle graft, history of sudden loss of vision about 2 months ago, patient presented to the hospital back on November 15 with acute sudden onset of bilateral vision loss. This was associated with new onset headaches, and apparently the patient was sent by the oyster culturist to the ER. [place] that the patient may have giant cell arteritis. However his sed rate was normal. And he was seen by vascular surgery for potential temporal artery biopsy. Eventually this was not done because the patient declined and the patient was supposedly transferred to [facility]. It is not clear what kind of workup the patient had while at [place], however the patient was discharged home on relatively high-dose of steroid/prednisone at 70 mg daily and he was told that he may have to be on this dose for a long time before it could be tapered. Patient has been taking his prednisone faithfully for the last 2 months, and has not noted any change. However the patient has been developing progressive weakness over the last 2 months, and he presented to the ER last night mostly with lower back pain, weakness, patient could not stand up. He was on the toilet and he could not get off the toilet because of weakness. X-rays of lumbar spine showed mild multilevel anterior wedging in the upper lumbar spine and moderate multilevel anterior and lateral spurring with some scattered bulging osteophytes. No clear-cut evidence of fracture noted. Chest x-ray done showed a 7 cm cavitating lesion in the left upper lobe which is relatively new and was not present a few months ago. The differential diagnoses for this lesion includes necrotic tumor, also suspect underlying infection or probably reactivation of infection considering the patient has been on relatively high-dose of prednisone for almost 2 months. Patient denies any history of previous pulmonary infection no previous history history of TB or history of any fungal infection. Patient was a smoker years ago, however he quit smoking over 50 years back. Denies any fever or chills or hemoptysis. The patient is seen today 01/27/2022 in follow-up on the regular medical floor. He is currently resting comfortably in bed. Awake and alert. Maintaining O2 saturations in the 90s on room air. Normal saline at 50 mL per hour. Procalcitonin is 0.08. C-reactive protein 5.2. Urine culture positive for gram-negative bacilli. He is currently on Zosyn. Remains on prednisone 60 mg daily. Patient is seen today 01/28/2022 in follow-up on the regular medical floor. He is currently sitting up in a chair at the bedside. Awake and alert in no acute distress. He is maintaining good O2 saturations in the 90s on room air. He has 0.9 normal saline at 60 ML's per hour. He is complaining of some continued cough and congestion difficulty expectorating phlegm. Urine culture positive for Klebsiella oxytoca. He is continued on antibiotics in the form of Zosyn. Remains on prednisone. The patient is seen today 01/29/2022 in follow-up on the regular medical floor. He is currently resting comfortably in bed. Awake and alert in no acute distress. He is maintaining O2 saturations in the 90s on room air. He is af ebrile. Hemodynamically stable. No IV fluids. Chest x-ray reveals stable left upper lobe cavitary lesion. Some basilar atelectasis. Urine culture was positive for Klebsiella oxytoca. White count 9.2. Humulin 8.3. Sodium 136. Potassium 3.9. BUN 19. Creatinine 0.8. TB testing was negative. Procalcitonin 0.08. He is continued on Zosyn. ID services are on the case. The patient is seen today 01/31/2022 in follow-up on the regular medical floor. He is currently sitting up in a chair at the bedside. Awake and alert in no acute distress. Maintaining O2 saturations in the 90s on room air. Receiving D5.9 normal saline at 50 MLS per hour. Urine cultures positive for Klebsiella oxytoca. No new labs. Interventional radiology was not planning to do a fine- needle aspirate of the left upper lobe cavitary lesion. He currently remains on Zosyn. ID is on the case. The patient is seen today 02/01/2022 in follow-up on the regular medical floor. He is awake and alert in no acute distress. Sitting up in a chair at the bedside. Maintaining good O2 saturations in the 90s on room air. Urine culture was positive for Klebsiella oxytoca. D5 and half-normal saline at 50 MLS per h our. Continued on Zosyn. Remains on prednisone taper. Tessalon Perles and Mucinex for his cough. The patient is seen today 02/10/2022 in follow-up on the regular medical floor. He is awake and alert in no acute distress. He is maintaining O2 saturations in the mid 90s on room air. He's been afebrile. Hemodynamically stable. Urine culture was positive for Klebsiella oxytoca. Sputum culture was positive for Pseudomonas and Aspergillus. White count 9.7. Hemoglobin 9.5. Sodium 134. P otassium 4.3. BUN 28. Creatinine 0.72. Pro-calcitonin 0.06. P-ANCA and C- ANCA negative. He is continued on Zerbaxa per ID services. Objective - Vital Signs Vital signs: Vital Signs Temp 98.2 F 02/10/22 08:00 Pulse 72 02/10/22 11:23 Resp 15 02/10/22 08:00 BP 93/51 02/10/22 08:00 Pulse Ox 95 02/10/22 08:00 FiO2 Intake & Output 02/09/22 02/10/22 02/10/22 18:59 06:59 18:59 Intake Total 10 Output Total 900 Balance 10 -900 Intake: Intake, IV Titration 10 Amount Ceftolozane/Tazobactam 3 10 gm In Sodium Chloride 0.9 % 100 ml @ 100 mls/hr IV Q8H [facility] Rx#:[id number] Output: Urine 900 Other: Voiding Method External Catheter External Catheter External Catheter - Exam GENERAL EXAM: Alert, frail 81-year-old male patient, on room air, comfortable in no apparent distress. HEAD: Normocephalic. EYES: Normal reaction of pupils, equal size. NOSE: Clear with pink turbinates. THROAT: No erythema or exudates. NECK: No masses, no JVD. CHEST: No chest wall deformity. LUNGS: Equal air entry with no crackles, wheeze, rhonchi or dullness. CVS: S1 and S2 normal with no audible murmur, regular rhythm. ABDOMEN: No hepatosplenomegaly, normal bowel sounds, no guarding or rigidity. SPINE: No scoliosis or deformity SKIN: No rashes CENTRAL NERVOUS SYSTEM: No focal deficits, tone is normal in all 4 extremities. EXTREMITIES: There is no peripheral edema. No clubbing, no cyanosis. Periphera l pulses are intact. - Labs CBC & Chem 7: 02/10/22 04:20 02/10/22 04:20 Labs: Abnormal Lab Results - Last 24 Hours (Table) 02/10/22 02/10/22 Range/Units 04:20 04:20 RBC 3.20 L (4.30-5.90) m/uL Hgb 9.5 L (13.0-17.5) gm/dL Hct 28.7 L (39.0-53.0) % RDW 19.5 H (11.5-15.5) % Neutrophils # 8.2 H (1.3-7.7) k/uL Sodium 134 L (137-145) mmol/L BUN 28 H (9-20) mg/dL Calcium 7.7 L (8.4-10.2) mg/dL Assessment and Plan Assessment: Cavitary lung lesion, differential diagnoses includes infection/lung abscess, could be bacterial or fungal , malignancy is not entirely ruled out but felt to be less likely. Tuberculosis screen negative. Sputum cultures were positive for Pseudomonas and Aspergillus. 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 has been on relatively high-dose of prednisone for the last 3 months History of coronary artery disease and previous stent of LAD Benign essential hypertension History of melanoma requiring resection of jaw with a muscle graft Dyslipidemia History of ischemic cardiomyopathy and LV dysfunction with ejection fraction of 25% Plan: The patient was seen and evaluated Medications and labs reviewed Stable and on room air, afebrile Cleared for discharge from the pulmonary standpoint Antibiotics per ID services I have personally seen and examined the patient, performed the documentation and the assessment and plan as written. Number of minutes spent on the visit: 10.
[2022-02-11] MEDS: CEFTOLOZANE/TAZOBACTAM 3 GM in SODIUM CHLORIDE 0.9% 100 ML IV SCH ×2 (06:20→12:09)
[2022-02-11] MEDS: ALBUTEROL NEBULIZED 2.5 MG/3 ML INHALATION SCH ×2 (07:02→10:26)
[2022-02-11] MEDS: METOPROLOL TARTRATE 12.5 MG TAB PO SCH (08:59)
[2022-02-11] MEDS: guaiFENesin 600 MG TABLET.ER PO SCH (09:00)
[2022-02-11] MEDS: GABAPENTIN 300 MG CAP PO SCH ×2 (09:00→15:19)
[2022-02-11] MEDS: predniSONE 10 MG TAB PO SCH (09:00)
[2022-02-11] MEDS: BENZONATATE 100 MG CAP PO SCH ×2 (09:00→15:19)
[2022-02-11] MEDS: FLUCONAZOLE 100 MG TAB PO SCH (09:00)
[2022-02-11] MEDS: PANTOPRAZOLE 40 MG TABLET PO SCH (09:00)
[2022-02-11] MEDS: ATORVASTATIN 80 MG TAB PO SCH (09:00)
[2022-02-11] MEDS: ASPIRIN 81 MG PO SCH (09:00)
--- NOTE | 2022-02-11 12:48 | P.PN ---
Subjective Progress Note Date: 02/09/22 Principal diagnosis: Left upper lobe pneumonia Patient is a 81-year-old male presenting to the hospital for generalized weakness and a fall patient did have a mild cough patient did have a chest x-ray concerning for cavitatory lesion left upper lobe , CT chest confirmed the finding. On today's evaluation that is 02/09/2022 the patient remains to be febrile, the patient is breathing comfortably on room air , the patient denies any chest pain, the patient continue to have a cough but not significant sputum production, patient denies having any nausea no vomiting no abdominal pain no diarrhea, Objective - Vital Signs Vital signs: Vital Signs Temp 97.9 F 02/09/22 14:00 Pulse 76 02/09/22 14:00 Resp 16 02/09/22 14:00 BP 92/51 02/09/22 14:00 Pulse Ox 94 L 02/09/22 14:00 FiO2 Intake & Output 02/08/22 02/09/22 02/09/22 19:59 06:59 18:59 Output Total Balance Output: Urine Other: Voiding Method External Catheter # Voids # Bowel Movements - Exam GENERAL DESCRIPTION: An elderly male lying in bed in no distress RESPIRATORY SYSTEM: Unlabored breathing , decreased breath sounds at bases HEART: S1 S2 regular rate and rhythm , ABDOMEN: Soft , no tenderness EXTREMITIES: No edema feet - Labs CBC & Chem 7: 02/10/22 04:20 02/10/22 04:20 Assessment and Plan (1) Cavitating mass in left upper lung lobe Current Visit: Yes Status: Acute Code(s): J98.4 - OTHER DISORDERS OF LUNG SNOMED Code(s): 071865379 Plan: 1patient with a thick-walled left upper lobe cavitary lesion concerning for possible lung abscess less likely cavitatatory tumor at this has developed over the last 2 months with a question of possible pneumonia of aspiration etiology and will need to cover for the polymicrobial sony usually associated with this type of infection. 2patient considered to be high risk for bronchoscopy per discussion with pulmonary, IR consult for possible biopsy and culture , IR not able to perform CT-guided biopsy and culture , will recommend transfer to tertiary care to c omplete the workup, however the patient is refusing transfer per the nursing staff, we will repeat a CT of the chest for follow-up on that left upper lobe lesion 3patient did have a negative serology for Aspergillus histoplasma and QuantiFERON TB gold test was negative 4patient did have a positive urine culture with Klebsiella 5Patient repeat CT of the chest did show slight improvement concerning for possible pneumonia, the patient's sputum came back positive with a multidrug resistant Pseudomonas, patient is currently being treated with Zerbexa on the basis of sensitivities, spring encaser is currently working on outpatient IV antibiotic arrangement in view of her extensive pneumonia and close outpatient follow-up Time with Patient: Less than 30
--- NOTE | 2022-02-11 12:50 | P.PN ---
Subjective Progress Note Date: 02/10/22 Principal diagnosis: Left upper lobe pneumonia Patient is a 81-year-old male presenting to the hospital for generalized weakness and a fall patient did have a mild cough patient did have a chest x-ray concerning for cavitatory lesion left upper lobe , CT chest confirmed the finding. On today's evaluation that is 02/10/2022 the patient denies any fever or any chills, the patient is breathing comfortably on room air , the patient denies any chest pain, the patient denies any worsening cough or sputum production no nausea no vomiting no choking on the food no abdominal pain no diarrhea Objective - Vital Signs Vital signs: Vital Signs Temp 98.2 F 02/10/22 08:00 Pulse 72 02/10/22 11:23 Resp 15 02/10/22 08:00 BP 93/51 02/10/22 08:00 Pulse Ox 95 02/10/22 08:00 FiO2 Intake & Output 02/09/22 02/10/22 02/10/22 18:59 06:59 18:59 Intake Total 10 Output Total 900 550 Balance 10 -900 -550 Weight 61.235 kg Intake: Intake, IV Titration 10 Amount Ceftolozane/Tazobactam 3 10 gm In Sodium Chloride 0.9 % 100 ml @ 100 mls/hr IV Q8H [facility] Rx#:[id number] Output: Urine 900 550 Other: Voiding Method External Catheter External Catheter External Catheter - Exam GENERAL DESCRIPTION: An elderly male lying in bed in no distress RESPIRATORY SYSTEM: Unlabored breathing , decreased breath sounds at bases HEART: S1 S2 regular rate and rhythm , ABDOMEN: Soft , no tenderness EXTREMITIES: No edema feet - Labs CBC & Chem 7: 02/10/22 04:20 02/10/22 04:20 Labs: Abnormal Lab Results - Last 24 Hours (Table) 02/10/22 02/10/22 Range/Units 04:20 04:20 RBC 3.20 L (4.30-5.90) m/uL Hgb 9.5 L (13.0-17.5) gm/dL Hct 28.7 L (39.0-53.0) % RDW 19.5 H (11.5-15.5) % Neutrophils # 8.2 H (1.3-7.7) k/uL Sodium 134 L (137-145) mmol/L BUN 28 H (9-20) mg/dL Calcium 7.7 L (8.4-10.2) mg/dL Assessment and Plan (1) Cavitating mass in left upper lung lobe Current Visit: Yes Status: Acute Code(s): J98.4 - OTHER DISORDERS OF LUNG SNOMED Code(s): 721201867 Plan: 1patient with a thick-walled left upper lobe cavitary lesion concerning for possible lung abscess less likely cavitatatory tumor at this has developed over the last 2 months with a question of possible pneumonia of aspiration etiology and will need to cover for the polymicrobial sony usually associated with this type of infection. 2patient considered to be high risk for bronchoscopy per discussion with pulmonary, IR consult for possible biopsy and culture , IR not able to perform CT-guided biopsy and culture , will recommend transfer to tertiary care to complete the workup, however the patient is refusing transfer per the nursing staff, we will repeat a CT of the chest for follow-up on that left upper lobe lesion 3patient did have a negative serology for Aspergillus histoplasma and QuantiFERON TB gold test was negative 4patient did have a positive urine culture with Klebsiella 5Patient repeat CT of the chest did show slight improvement concerning for possible pneumonia, the patient's sputum came back positive with a multidrug resistant Pseudomonas, patient is currently being treated with Zerbexa on the basis of sensitivities, returned case inspector has not been able to find him a alf who can take him on Zerbexa and the patient cannot afford the hagan for the drug in the outpatient/home infusion, patient has received about 2 weeks of IV antibiotic therapy and hopefully have decreased the burden of infection, we can try oral Cipro as you do not have any other option at this point and who for the best this has been discussed in detail with the patient's son on the phone as well as with the attending physician dose of Cipro has been conformed with the pharmacist Kirstin to be 750 mg twice a day and prescription was sent to the pharmacy Time with Patient: Less than 30
--- NOTE | 2022-02-11 12:52 | P.PN ---
Subjective Progress Note Date: 02/11/22 Principal diagnosis: Left upper lobe pneumonia Patient is a 81-year-old male presenting to the hospital for generalized weakness and a fall patient did have a mild cough patient did have a chest x-ray concerning for cavitatory lesion left upper lobe , CT chest confirmed the finding. On today's evaluation that is 02/11/2022 the patient remains to be afebrile, the patient is breathing comfortably on room air , the patient denies any chest pain, the patient did have occasional cough but no sputum production no nausea no vomiting no choking on the food no abdominal pain no diarrhea Objective - Vital Signs Vital signs: Vital Signs Temp 98.0 F 02/11/22 08:00 Pulse 76 02/11/22 10:36 Resp 15 02/11/22 08:00 BP 98/48 02/11/22 08:00 Pulse Ox 99 02/11/22 08:00 FiO2 Intake & Output 02/10/22 02/11/22 02/11/22 18:59 06:59 18:59 Intake Total 480 Output Total 1050 1001 450 Balance -570 -1001 -450 Weight 61.235 kg Intake: Oral 480 Output: Urine 1050 1000 450 Stool 1 Other: Voiding Method External Catheter External Catheter External Catheter - Exam GENERAL DESCRIPTION: An elderly male lying in bed in no distress RESPIRATORY SYSTEM: Unlabored breathing , decreased breath sounds at bases HEART: S1 S2 regular rate and rhythm , ABDOMEN: Soft , no tenderness EXTREMITIES: No edema feet - Labs CBC & Chem 7: 02/10/22 04:20 02/10/22 04:20 Assessment and Plan (1) Cavitating mass in left upper lung lobe Current Visit: Yes Status: Acute Code(s): J98.4 - OTHER DISORDERS OF LUNG SNOMED Code(s): 055407504 Plan: 1patient with a thick-walled left upper lobe cavitary lesion concerning for possible lung abscess less likely cavitatatory tumor at this has developed over the last 2 months with a question of possible pneumonia of aspiration etiology and will need to cover for the polymicrobial sony usually associated with this type of infection. 2patient considered to be high risk for bronchoscopy per discussion with pulmonary, IR consult for possible biopsy and culture , IR not able to perform CT-guided biopsy and culture , will recommend transfer to tertiary care to com plete the workup, however the patient is refusing transfer per the nursing staff, we will repeat a CT of the chest for follow-up on that left upper lobe lesion 3patient did have a negative serology for Aspergillus histoplasma and QuantiFERON TB gold test was negative 4patient did have a positive urine culture with Klebsiella 5Patient repeat CT of the chest did show slight improvement concerning for possible pneumonia, the patient's sputum came back positive with a multidrug resistant Pseudomonas, patient is currently being treated with Zerbexa on the basis of sensitivities, caser up has not been able to find him a halfway who can take him on Zerbexa and the patient cannot afford the hagan for the drug in the outpatient/home infusion, patient has received about 2 weeks of IV antibiotic therapy and hopefully have decreased the burden of infection, we can try oral Cipro as you do not have any other option at this point and who for the best this has been discussed in detail with the patient's son on the phone as well as with the attending physician dose of Cipro has been conformed with the pharmacist Kirstin to be 750 mg twice a day, prescription for 4 weeks was sent to the pharmacy yesterday plan on doing a repeat CAT scan in 4 weeks and close the patient follow-up, sputum culture also shows Aspergillus and Sun possible colonizer as the patient had shown clinical as well as radiological improvement without any treatment for them Time with Patient: Less than 30
--- NOTE | 2022-02-11 14:32 | P.PN ---
Subjective Progress Note Date: 02/11/22 This is an 81-year-old white male with history of multiple medical problems including coronary artery disease, and previous stenting of LAD, history of cancer of the mouth, history of melanoma and resection of jaw with a muscle graft, history of sudden loss of vision about 2 months ago, patient presented to the hospital back on November 15 with acute sudden onset of bilateral vision loss. This was associated with new onset headaches, and apparently the patient was sent by the director post to the ER. Mico that the patient may have giant cell arteritis. However his sed rate was normal. And he was seen by vascular surgery for potential temporal artery biopsy. Eventually this was not done because the patient declined and the patient was supposedly transferred to [facility]. It is not clear what kind of workup the patient had while at [facility], however the patient was discharged home on relatively high-dose of steroid/prednisone at 70 mg daily and he was told that he may have to be on this dose for a long time before it could be tapered. Patient has been taking his prednisone faithfully for the last 2 months, and has not noted any change. However the patient has been developing progressive weakness over the last 2 months, and he presented to the ER last night mostly with lower back pain, weakness, patient could not stand up. He was on the toilet and he could not get off the toilet because of weakness. X-rays of lumbar spine showed mild multilevel anterior wedging in the upper lumbar spine and moderate multilevel anterior and lateral spurring with some scattered bulging osteophytes. No clear-cut evidence of fracture noted. Chest x-ray done showed a 7 cm cavitating lesion in the left upper lobe which is relatively new and was not present a few months ago. The differential diagnoses for this lesion includes necrotic tumor, also suspect underlying infection or probably reactivation of infection considering the patient has been on relatively high-dose of prednisone for almost 2 months. Patient denies any history of previous pulmonary infection no previous history history of TB or history of any fungal infection. Patient was a smoker years ago, however he quit smoking over 50 years back. Denies any fever or chills or hemoptysis. The patient is seen today 01/27/2022 in follow-up on the regular medical floor. He is currently resting comfortably in bed. Awake and alert. Maintaining O2 saturations in the 90s on room air. Normal saline at 50 mL per hour. Procalcitonin is 0.08. C-reactive protein 5.2. Urine culture positive for gram-negative bacilli. He is currently on Zosyn. Remains on prednisone 60 mg daily. Patient is seen today 01/28/2022 in follow-up on the regular medical floor. He is currently sitting up in a chair at the bedside. Awake and alert in no acute distress. He is maintaining good O2 saturations in the 90s on room air. He has 0.9 normal saline at 60 ML's per hour. He is complaining of some continued cough and congestion difficulty expectorating phlegm. Urine culture positive for Klebsiella oxytoca. He is continued on antibiotics in the form of Zosyn. Remains on prednisone. The patient is seen today 01/29/2022 in follow-up on the regular medical floor. He is currently resting comfortably in bed. Awake and alert in no acute distress. He is maintaining O2 saturations in the 90s on room air. He is af ebrile. Hemodynamically stable. No IV fluids. Chest x-ray reveals stable left upper lobe cavitary lesion. Some basilar atelectasis. Urine culture was positive for Klebsiella oxytoca. White count 9.2. Humulin 8.3. Sodium 136. Potassium 3.9. BUN 19. Creatinine 0.8. TB testing was negative. Procalcitonin 0.08. He is continued on Zosyn. ID services are on the case. The patient is seen today 01/31/2022 in follow-up on the regular medical floor. He is currently sitting up in a chair at the bedside. Awake and alert in no acute distress. Maintaining O2 saturations in the 90s on room air. Receiving D5.9 normal saline at 50 MLS per hour. Urine cultures positive for Klebsiella oxytoca. No new labs. Interventional radiology was not planning to do a fine- needle aspirate of the left upper lobe cavitary lesion. He currently remains on Zosyn. ID is on the case. The patient is seen today 02/01/2022 in follow-up on the regular medical floor. He is awake and alert in no acute distress. Sitting up in a chair at the bedside. Maintaining good O2 saturations in the 90s on room air. Urine culture was positive for Klebsiella oxytoca. D5 and half-normal saline at 50 MLS per h our. Continued on Zosyn. Remains on prednisone taper. Tessalon Perles and Mucinex for his cough. The patient is seen today 02/10/2022 in follow-up on the regular medical floor. He is awake and alert in no acute distress. He is maintaining O2 saturations in the mid 90s on room air. He's been afebrile. Hemodynamically stable. Urine culture was positive for Klebsiella oxytoca. Sputum culture was positive for Pseudomonas and Aspergillus. White count 9.7. Hemoglobin 9.5. Sodium 134. P otassium 4.3. BUN 28. Creatinine 0.72. Pro-calcitonin 0.06. P-ANCA and C- ANCA negative. He is continued on Zerbaxa per ID services. The patient is seen today 02/11/2022 in follow-up on the regular medical floor. He is currently sitting up in a chair at the bedside. Awake and alert in no acute distress. He is maintaining good O2 saturations up to 99% on room air. Afebrile. Hemodynamically stable. Sputum culture had been positive for Pseudomonas and Aspergillus. Urine culture positive for Klebsiella. He remains on antibiotics in the form of Zerbaxa. Objective - Vital Signs Vital signs: Vital Signs Temp 98.0 F 02/11/22 08:00 Pulse 76 02/11/22 10:36 Resp 15 02/11/22 08:00 BP 98/48 02/11/22 08:00 Pulse Ox 99 02/11/22 08:00 FiO2 Intake & Output 02/10/22 02/11/22 02/11/22 18:59 06:59 18:59 Intake Total 480 Output Total 1050 1001 450 Balance -570 -1001 -450 Weight 61.235 kg Intake: Oral 480 Output: Urine 1050 1000 450 Stool 1 Other: Voiding Method External Catheter External Catheter External Catheter - Exam GENERAL EXAM: Alert, frail 81-year-old male patient, on room air, up in a chair at the bedside, comfortable in no apparent distress. HEAD: Normocephalic. EYES: Normal reaction of pupils, equal size. NOSE: Clear with pink turbinates. THROAT: No erythema or exudates. NECK: No masses, no JVD. CHEST: No chest wall deformity. LUNGS: Equal air entry with no crackles, wheeze, rhonchi or dullness. CVS: S1 and S2 normal with no audible murmur, regular rhythm. ABDOMEN: No hepatosplenomegaly, normal bowel sounds, no guarding or rigidity. SPINE: No scoliosis or deformity SKIN: No rashes CENTRAL NERVOUS SYSTEM: No focal deficits, tone is normal in all 4 extremities. EXTREMITIES: There is no peripheral edema. No clubbing, no cyanosis. Peripheral pulses are intact. - Labs CBC & Chem 7: 02/10/22 04:20 02/10/22 04:20 Assessment and Plan Assessment: Cavitary lung lesion, differential diagnoses includes infection/lung abscess, could be bacterial or fungal , malignancy is not entirely ruled out but felt to be less likely. Tuberculosis screen negative. Sputum cultures were positive for Pseudomonas and Aspergillus. 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 has been on relatively high-dose of prednisone for the last 3 months History of coronary artery disease and previous stent of LAD Benign essential hypertension History of melanoma requiring resection of jaw with a muscle graft Dyslipidemia History of ischemic cardiomyopathy and LV dysfunction with ejection fraction of 25% Plan: The patient was seen and evaluated Medications reviewed Stable and on room air, afebrile Cleared for discharge from the pulmonary standpoint Antibiotics per ID services We will see as needed I have personally seen and examined the patient, performed the documentation and the assessment and plan as written. Number of minutes spent on the visit: 10.
[2022-02-11 14:58] VITALS: BP 93/53; PULSE 71; RESP 16; TEMP 97.4
--- NOTE | 2022-02-11 23:21 | DS ---
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 Discussed case with Dr. Roberto for discharge medications. Home IV antibiotics could not be set up for multidrug resistant Pseudomonas causing cavitating mass most likely. He will go home on medicines as per Dr. Roberto's recommendation. He was treated with IV medication while in the hospital. He was seen by Wireless Sales Manager for cavitating mass. No biopsies could be done. The patient refused transfer to [facility] for biopsy, so Dr. Roberto put him on oral antibiotics for the Pseudomonas that maybe after 2 weeks of IV treatment he can go to oral pills and conquer this left upper lung mass or to follow up closely as an outpatient. MEDICATIONS: 1. Lopressor 12.5 b.i.d. 2. Prednisone 30 mg daily. 3. Ventolin nebulized solution t.i.d. 4. Cipro 750 p.o. q.12 hours for 14 days. 5. Tessalon Perles 100 t.i.d. 6. Aspirin 81 mg daily. 7. Lipitor 80 mg daily. 8. Protonix 40 mg daily. 9. Neurontin 300 t.i.d. FOLLOWUP: Follow up as an outpatient. Condition stable. PROGNOSIS: Guarded. Unclear etiology of this left upper lung mass, which he was ruled out for tuberculosis and aspergillosis and antifungal causes. He has to follow up for possible biopsy at a [facility] if the patient agrees to it, but the patient has weakness and fatigue, and dehydration that was corrected and have to follow up. We stopped some of his heart medicines due to dehydration and hypotension. Please see further orders above. Condition stable. Prognosis guarded. Diet as tolerated. MMODL / IJN: [id number] /
--- NOTE | 2022-02-12 07:58 | PN ---
PROGRESS NOTE DATE OF SERVICE: 02/10/2022 SUBJECTIVE: An 81-year-old with urinary tract infection. He was found to have a left upper lobe mass, for which broad-spectrum antibiotics have been given. He is going to be switched off to oral Cipro on discharge tomorrow. OBJECTIVE: CARDIOVASCULAR: S1, S2. LUNGS: Clear. PSYCH: He is pleasantly confused. CONSTITUTIONAL: Generalized weakness. ASSESSMENT: Left upper lobe mass, Pseudomonas and drug-resistant. Continue with Cipro long-term. Coronary artery disease, hypertension, hyponatremia. Prognosis guarded. Possibly discharge home to [facility] tomorrow. Switch to oral Cipro for [address] Roberto's recommendations. MMODL / IJN: [id number] /
== END 2022-02-11 15:50 | disposition home health service (06) | DRG 178 ==
LOC: EC 09:39 → 4SSUR 15:20
PROVIDERS: ADMIT Family Medicine; ATTEND Family Medicine
PROC: 02HV33Z Insertion of Infusion Device into Superior Vena Cava, Percutaneous Approach (ICD-10-PCS; principal; 2022-02-07 08:25)
DX: J85.1 Abscess of lung with pneumonia (principal); B37.0 Candidal stomatitis; B44.9 Aspergillosis, unspecified; E44.0 Moderate protein-calorie malnutrition; E87.1 Hypo-osmolality and hyponatremia; I50.22 Chronic systolic (congestive) heart failure; Z16.24 Resistance to multiple antibiotics; N39.0 Urinary tract infection, site not specified; J98.11 Atelectasis; I27.20 Pulmonary hypertension, unspecified; M31.6 Other giant cell arteritis; I11.0 Hypertensive heart disease with heart failure; D63.8 Anemia in other chronic diseases classified elsewhere; I08.3 Combined rheumatic disorders of mitral, aortic and tricuspid valves; L89.322 Pressure ulcer of left buttock, stage 2; M41.86 Other forms of scoliosis, lumbar region; I95.9 Hypotension, unspecified; Z66 Do not resuscitate; E78.5 Hyperlipidemia, unspecified; E16.2 Hypoglycemia, unspecified; H54.3 Unqualified visual loss, both eyes; I25.5 Ischemic cardiomyopathy; B96.1 Klebsiella pneumoniae [K. pneumoniae] as the cause of diseases classified elsewhere; I25.10 Atherosclerotic heart disease of native coronary artery without angina pectoris; K21.9 Gastro-esophageal reflux disease without esophagitis; R53.81 Other malaise; R73.9 Hyperglycemia, unspecified; G62.9 Polyneuropathy, unspecified; M81.0 Age-related osteoporosis without current pathological fracture; B96.5 Pseudomonas (aeruginosa) (mallei) (pseudomallei) as the cause of diseases classified elsewhere; M47.814 Spondylosis without myelopathy or radiculopathy, thoracic region; M43.24 Fusion of spine, thoracic region; B02.9 Zoster without complications; E61.1 Iron deficiency; E86.0 Dehydration; J98.4 Other disorders of lung; W19.XXXA Unspecified fall, initial encounter; M47.816 Spondylosis without myelopathy or radiculopathy, lumbar region; M51.36 Other intervertebral disc degeneration, lumbar region; Z28.310 Unvaccinated for COVID-19; Z85.820 Personal history of malignant melanoma of skin; Z85.819 Personal history of malignant neoplasm of unspecified site of lip, oral cavity, and pharynx; Z85.858 Personal history of malignant neoplasm of other endocrine glands; Z80.0 Family history of malignant neoplasm of digestive organs; Z79.899 Other long term (current) drug therapy; Z79.83 Long term (current) use of bisphosphonates; Z79.82 Long term (current) use of aspirin; Z87.891 Personal history of nicotine dependence; Z95.5 Presence of coronary angioplasty implant and graft; Z91.040 Latex allergy status; Z79.52 Long term (current) use of systemic steroids; Z68.21 Body mass index [BMI] 21.0-21.9, adult
CPT/HCPCS: 36415; 36573; 71045; 71046; 71260; 72100; 72110; 80048; 80053; 81001; 82565; 82728; 83540; 83550; 83605; 83735; 84145; 84520; 85025; 85610; 85652; 86140; 86255; 86480; 86606; 86635; 86698; 87070; 87077; 87086; 87186; 87205; 93005; 94640; 94760; 96361; 96365; 96366; 96367; 96372; 96375; 99285

== ENCOUNTER 2022-02-20 14:50 | Inpatient (IN) | payer MEDICARE ==
[2022-02-20] MEDS ORDERED: RX INFO: IV CONTRAST WAS GIVEN 1 EACH MISC MISCELLANE PRN (15:01)
--- NOTE | 2022-02-20 15:41 | ED ---
General Adult HPI - General Chief complaint: Shortness of Breath Stated complaint: Pneumonia Time Seen by Provider: 02/20/22 14:52 Source: patient, EMS Mode of arrival: ambulatory Limitations: no limitations - History of Present Illness Initial comments: This is an 81-year-old male Sent to the emergency department for shortness of breath. The patient was recently admitted to the hospital for approximately 3 weeks for a pneumonia with cavitary lesion. The patient was discharged on antibiotics and had been home for approximately one week. Is a poorly that the patient was having increased redness of breath last several days and had increasing weakness. The patient was attempted to be taken into emergency department by his family however there were unable to get him in and out of the car so EMS was called. The patient himself stated that he shortness of breath without any chest pain. The patient denied any fevers and chills. The patient denied any other acute pain or complaints however was a poor historian and cannot provide any further history at this time. The patient was resting but completely. - Related Data Home Medications Medication Instructions Recorded Confirmed Furosemide [Lasix] 20 mg PO DAILY 11/15/21 02/20/22 Sacubitril/Valsartan [Entresto 49 1 tab PO BID 11/15/21 02/20/22 mg-51 mg Tablet] Alendronate Sodium [Fosamax] 70 mg PO FR 01/25/22 02/20/22 Gabapentin [Neurontin] 300 mg PO TID 01/25/22 02/20/22 Pantoprazole Sodium [Protonix] 40 mg PO DAILY 01/25/22 02/20/22 Retinavites 1 tab PO DAILY 01/25/22 02/20/22 predniSONE [Deltasone] 20 mg PO DAILY 01/25/22 02/20/22 Metoprolol Tartrate [Lopressor] 25 mg PO BID 02/20/22 02/20/22 Previous Rx's Medication Instructions Recorded Aspirin 81 mg PO DAILY #30 chew 02/27/20 Atorvastatin [Lipitor] 80 mg PO DAILY #30 tab 02/27/20 Spironolactone [Aldactone] 25 mg PO DAILY #30 tab 02/27/20 Ciprofloxacin HCl [Cipro] 750 mg PO Q12H 28 Days #56 tab 02/10/22 Albuterol Nebulized [Ventolin 2.5 mg INHALATION RT-TID ml 02/11/22 Nebulized] Benzonatate [Tessalon Perles] 100 mg PO TID 7 Days #21 cap 02/11/22 Allergies Allergy/AdvReac Type Severity Reaction Status Date / Time latex Allergy Rash/Hives Verified 02/20/22 15:04 Review of Systems ROS Statement: Those systems with pertinent positive or pertinent negative responses have been documented in the HPI. ROS Other: All systems not noted in ROS Statement are negative. 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 Past Anesthesia/Blood Transfusion Reactions: No Reported Reaction Date of Last Stent Placement:: 2019 Past Psychological History: No Psychological Hx Reported Smoking Status: Never smoker Past Alcohol Use History: Occasional Past Drug Use History: None Reported - Past Family History Mother Family Medical History: Cancer Additional Family Medical History / Comment(s): pancreatic cancer General Exam Limitations: no limitations General appearance: alert, in no apparent distress Head exam: Present: atraumatic, normocephalic Eye exam: Present: normal appearance, PERRL, EOMI Pupils: Present: normal accommodation ENT exam: Present: normal exam, normal oropharynx Neck exam: Present: normal inspection, full ROM Respiratory exam: Present: decreased breath sounds (Decreased breath sounds on the right, clear breath sounds heard on the left lung jiang) Cardiovascular Exam: Present: regular rate, normal rhythm, normal heart sounds GI/Abdominal exam: Present: soft, normal bowel sounds Extremities exam: Present: normal inspection, full ROM Back exam: Present: normal inspection, full ROM Neurological exam: Present: alert, oriented X3, CN II-XII intact Psychiatric exam: Present: normal affect, normal mood Skin exam: Present: warm, dry Course Vital Signs 02/20/22 02/20/22 14:54 16:00 Temperature 97.6 F Pulse Rate 76 65 Respiratory 20 18 Rate Blood Pressure 87/55 84/55 O2 Sat by Pulse 95 98 Oximetry EKG Findings - EKG Comments: EKG Findings:: EKG was read by myself and showed a rate of 70, OK interval 152, QRS duration 85 and QTC of 386. EKG showed normal sinus rhythm however did have low voltage. There were no ST segment elevations or depressions noted. There were no old EKGs for comparison at this time. Medical Decision Making - Medical Decision Making The patient was seen and evaluated numerous department. Physical exam, the patient was resting in bed without any acute distress. Vital signs admission were within normal limits over the patient had mild hypotension. The patient was not tachycardic and was not febrile therefore there was no immediate concern for sepsis. Due to the patient's continued treatment of pneumonia in the setting of continued shortness of breath, for workup was obtained including laboratory workup and chest x-ray. The patient did remain mildly hypotensive and did receive 1 L normal saline fluid. Laboratory workup was obtained and showed an elevated white blood cell count consistent with likely sepsis. The patient's creatinine was also significantly elevated and was likely a TIA. The patient received approximately 30 mL per KG of fluid. Sepsis was recognized at 1622 and blood cultures were obtained and the patient was given IV Zerbexa as the patient recently was diagnosed with meropenem resistant pseudomonas as a cause of his cavitary lesion in his lung. The patient also was found to be hyperkalemic and was given a hyperkalemic cocktail including albuterol, insulin, an amp of D50 and Kayexalate as well as calcium gluconate. Due to the patient's continued worsening of his status secondary to the cavitary lesion and sepsis including hyperkalemia, the patient would require admission for further treatment. The accepting physician , recently was treating the patient and discharged him on week ago. He was called and did accept the admis faviola. The patient was told this plan and was agreeable. The patient was admitted in stable condition. - Lab Data Result diagrams: 02/20/22 16:00 02/20/22 16:00 Lab Results 02/20/22 02/20/22 02/20/22 Range/Units 16:00 16:00 16:00 WBC 22.7 H (3.8-10.6) k/uL RBC 3.97 L (4.30-5.90) m/uL Hgb 12.3 L (13.0-17.5) gm/dL Hct 37.1 L (39.0-53.0) % MCV 93.5 (80.0-100.0) fL MCH 30.9 (25.0-35.0) pg MCHC 33.0 (31.0-37.0) g/dL RDW 18.4 H (11.5-15.5) % Plt Count 375 (150-450) k/uL MPV 7.7 Neutrophils % 94 % Lymphocytes % 2 % Monocytes % 2 % Eosinophils % 0 % Basophils % 0 % Neutrophils # 21.4 H (1.3-7.7) k/uL Lymphocytes # 0.6 L (1.0-4.8) k/uL Monocytes # 0.5 (0-1.0) k/uL Eosinophils # 0.1 (0-0.7) k/uL Basophils # 0.1 (0-0.2) k/uL Hypochromasia Moderate Anisocytosis Slight PT 10.6 (9.0-12.0) sec INR 1.0 (<1.2) APTT 23.8 (22.0-30.0) sec Sodium 136 L (137-145) mmol/L Potassium 6.4 H* (3.5-5.1) mmol/L Chloride 107 (98-107) mmol/L Carbon Dioxide 16 L (22-30) mmol/L Anion Gap 13 mmol/L BUN 76 H (9-20) mg/dL Creatinine 2.18 H (0.66-1.25) mg/dL Est GFR (CKD-EPI)AfAm 31 (>60 ml/min/1.73 sqM) Est GFR (CKD-EPI)NonAf 27 (>60 ml/min/1.73 sqM) Glucose 91 (74-99) mg/dL Plasma Lactic Acid Fernando (0.7-2.0) mmol/L Calcium 7.5 L (8.4-10.2) mg/dL Total Bilirubin 0.7 (0.2-1.3) mg/dL AST 50 (17-59) U/L ALT 72 H (4-49) U/L Alkaline Phosphatase 136 H (38-126) U/L Total Protein 5.9 L (6.3-8.2) g/dL Albumin 3.2 L (3.5-5.0) g/dL Coronavirus (PCR) (Not Detectd) 02/20/22 02/20/22 Range/Units 16:00 16:55 WBC (3.8-10.6) k/uL RBC (4.30-5.90) m/uL Hgb (13.0-17.5) gm/dL Hct (39.0-53.0) % MCV (80.0-100.0) fL MCH (25.0-35.0) pg MCHC (31.0-37.0) g/dL RDW (11.5-15.5) % Plt Count (150-450) k/uL MPV Neutrophils % % Lymphocytes % % Monocytes % % Eosinophils % % Basophils % % Neutrophils # (1.3-7.7) k/uL Lymphocytes # (1.0-4.8) k/uL Monocytes # (0-1.0) k/uL Eosinophils # (0-0.7) k/uL Basophils # (0-0.2) k/uL Hypochromasia Anisocytosis PT (9.0-12.0) sec INR (<1.2) APTT (22.0-30.0) sec Sodium (137-145) mmol/L Potassium (3.5-5.1) mmol/L Chloride (98-107) mmol/L Carbon Dioxide (22-30) mmol/L Anion Gap mmol/L BUN (9-20) mg/dL Creatinine (0.66-1.25) mg/dL Est GFR (CKD-EPI)AfAm (>60 ml/min/1.73 sqM) Est GFR (CKD-EPI)NonAf (>60 ml/min/1.73 sqM) Glucose (74-99) mg/dL Plasma Lactic Acid Fernando 3.4 H* (0.7-2.0) mmol/L Calcium (8.4-10.2) mg/dL Total Bilirubin (0.2-1.3) mg/dL AST (17-59) U/L ALT (4-49) U/L Alkaline Phosphatase (38-126) U/L Total Protein (6.3-8.2) g/dL Albumin (3.5-5.0) g/dL Coronavirus (PCR) Not Detected (Not Detectd) Critical Care Time Critical Care Time: Yes Total Critical Care Time: 38 Disposition Clinical Impression: Hospital-acquired pneumonia, Sepsis, AIXA (acute kidney injury), Hyperkalemia Disposition: ADMITTED IP TO THIS HOSP Condition: Stable Is patient prescribed a controlled substance at d/c from ED?: No Referrals: Nonstaff,Physician [Primary Care Provider] - 1-2 days Time of Disposition: 17:25 Decision Date: 02/20/22 Decision Time: 17:25
[2022-02-20] MEDS ORDERED: SODIUM CHLORIDE 0.9% 1,000 ML IV ONE ×2 (15:47→16:25)
[2022-02-20 16:18] LABS: Anisocytosis Slight; Basophils # (A) 0.1 k/uL (0-0.2); Basophils % (A) 0 %; Eosinophils # (A) 0.1 k/uL (0-0.7); Eosinophils % (A) 0 %; HCT 37.1 % (39.0-53.0); HGB 12.3 gm/dL (13.0-17.5); Hypochromasia Moderate; Lymphocytes # (A) 0.6 k/uL (1.0-4.8); Lymphocytes % (A) 2 %; MCH 30.9 pg (25.0-35.0); MCV 93.5 fL (80.0-100.0); Mean Platelet Volume 7.7; Monocytes # (A) 0.5 k/uL (0-1.0); Monocytes % (A) 2 %; Neutrophils # (A) 21.4 k/uL (1.3-7.7); Neutrophils % (A) 94 %; Platelet Count 375 k/uL (150-450); RBC 3.97 m/uL (4.30-5.90); RDW 18.4 % (11.5-15.5); WBC 22.7 k/uL (3.8-10.6)
[2022-02-20 16:26] LABS: Partial Thromboplastin Time 23.8 sec (22.0-30.0); Prothrombin Time 10.6 sec (9.0-12.0)
[2022-02-20 16:30] LABS: Albumin 3.2 g/dL (3.5-5.0); Calcium 7.5 mg/dL (8.4-10.2); Total Bilirubin 0.7 mg/dL (0.2-1.3); Total Protein 5.9 g/dL (6.3-8.2)
[2022-02-20 16:35] LABS: Potassium 6.4 mmol/L (3.5-5.1)
[2022-02-20] MEDS ORDERED: DEXTROSE 50% SYRINGE 50 ML IVP STA (16:38)
[2022-02-20] MEDS ORDERED: ALBUTEROL NEBULIZED 2.5 MG/3 ML INHALATION STA (16:38)
[2022-02-20] MEDS ORDERED: CALCIUM CHLORIDE 100 MG/ML 10 ML SYRINGE IVP STA (16:38)
[2022-02-20] MEDS ORDERED: INSULIN REGULAR 100 UNIT/ML VIAL (IV) IV ONE (16:38)
[2022-02-20] MEDS ORDERED: SODIUM POLYSTYRENE SULFONATE 15 GM/60 ML BOTTLE PO ONE (16:38)
[2022-02-20] MEDS ORDERED: CEFTOLOZANE/TAZOBACTAM 1.5 GM in SODIUM CHLORIDE 0.9% 100 ML IV ONE (16:42)
[2022-02-20] MEDS ORDERED: CEFTOLOZANE/TAZOBACTAM 3 GM in SODIUM CHLORIDE 0.9% 100 ML IV ONE (17:15)
[2022-02-20] MEDS ORDERED: NALOXONE 0.4 MG/ML 1 ML VIAL IV PRN (17:36)
[2022-02-20] MEDS ORDERED: SODIUM CHLORIDE 0.9% 1,000 ML IV SCH (17:45)
--- NOTE | 2022-02-20 18:32 | CT ---
EXAMINATION TYPE: CT chest wo con DATE OF EXAM: 02/20/2022 COMPARISON: Prior chest CTs February 03, 2022 and January 26, 2022 HISTORY: hypoxia, pneumonia, shortness of breath. CT DLP: 291.4 mGycm. Automated Exposure Control for Dose Reduction was Utilized. TECHNIQUE: CT scan of the thorax is performed without IV contrast. FINDINGS: LUNGS: Persistent thick walled cavitary lesion in the left upper lobe measuring 6.2 x 5.9 x 5.1 cm ax ial image 11 and sagittal image 88 not significantly changed in size or appearance from prior CT. The re is heterogeneous internal material or debris with tiny dependent fluid redemonstrated. Current vida dy shows new left lower lobe pneumonic consolidation. No pleural effusion seen bilaterally. MEDIASTINUM: There are no new greater than 1 cm mediastinal lymph nodes. No cardiomegaly or pericar dial effusion is seen. Coronary stent in the proximal LAD is redemonstrated. Ascending aorta measure s up to 3.9 cm diameter axial image 27. OTHER: Small degree of bilateral subareolar gynecomastia is redemonstrated. Slight scoliotic curvatur e with multilevel spurring in the thoracic spine and some bridging osteophytes is redemonstrated. IMPRESSION: New left lower lobe pneumonic consolidation. Stable 6.2 cm nonspecific thick-walled cavit rere left upper lobe lesion. Differential includes atypical infection such as fungal infection. Differ ential includes neoplasm such as squamous cell carcinoma. Other etiologies not excluded. Correlate cl inically.
[2022-02-21] MEDS: SODIUM CHLORIDE 0.9% 1,000 ML IV SCH ×2 (00:57→18:23)
[2022-02-21] MEDS: CEFTOLOZANE/TAZOBACTAM 1.5 GM in SODIUM CHLORIDE 0.9% 100 ML IV SCH ×3 (00:57→17:21)
--- NOTE | 2022-02-21 01:28 | HP ---
HISTORY AND PHYSICAL HISTORY OF PRESENT ILLNESS: An 81-year-old white male returned back to the hospital due to increasing shortness of breath. He had failed outpatient Cipro for left upper lobe cavitary lesion, Pseudomonas, drug-resistant, and increased shortness of breath. CT scan on admission showed worsening left lower lobe pneumonia, pneumonic infiltrate. He was sent to the hospital due to weakness and was unable to get him up. No shortness of breath. No chest pain. Denies any fever, or chills. MEDICATIONS: 1. Lasix 20 daily. 2. Crestor 49/51 b.i.d. 3. Protonix 40 daily. 4. Neurontin 300 t.i.d. 5. Fosamax 70 daily. 6. Deltasone 20 mg daily. 7. Metoprolol 25 b.i.d. ALLERGIES: Latex. REVIEW OF SYSTEMS: A 14-point review of systems is negative except for mentioned above. FAMILY HISTORY: Mother with cancer of the pancreas. PHYSICAL EXAMINATION: VITAL SIGNS: Reviewed. Temp 97.6, pulse 60s to 70s, respiratory rate 18 to 20, blood pressure is 80s over 50s, O2 of 95% on room air. GENERAL: He is weak, fatigued, ill-appearing. PSYCH: Flat mood and affect. NEUROLOGIC: Cranial nerves intact. LUNGS: Scattered rhonchi and wheeze. CARDIOVASCULAR: S1, S2. ASSESSMENT: New onset left lower lobe infiltrate, healthcare-acquired pneumonia, prior abscess, left upper quadrant of his lung, left upper lobe. He remains on IV medication to treat the abscess. Pulmonary, Infectious Disease consult. Hypotension, increase normal saline. Lactic acidosis. Continue current treatments. Calcium gluconate was given for acute hyperkalemia in the ER. We will recheck electrolytes in the morning. Prognosis is guarded. Sepsis secondary to above. Please see further orders. MMODL / IJN: [id number] /
[2022-02-21] MEDS: PANTOPRAZOLE 40 MG TABLET PO SCH (04:54)
[2022-02-21 05:04] LABS: Anisocytosis Slight; Basophils % (A) 0 %; Eosinophils % (A) 0 %; Hypochromasia Marked; Lymphocytes # (A) 0.5 k/uL (1.0-4.8); Lymphocytes % (A) 2 %; MCH 29.8 pg (25.0-35.0); MCHC 31.1 g/dL (31.0-37.0); Macrocytosis Slight; Mean Platelet Volume 7.9; Monocytes # (A) 0.6 k/uL (0-1.0); Monocytes % (A) 3 %; Neutrophils # (A) 20.6 k/uL (1.3-7.7); Neutrophils % (A) 94 %; Platelet Count 326 k/uL (150-450); RBC 3.02 m/uL (4.30-5.90); RDW 18.9 % (11.5-15.5); WBC 21.8 k/uL (3.8-10.6)
[2022-02-21 05:17] LABS: Albumin 2.2 g/dL (3.5-5.0); Calcium 7.1 mg/dL (8.4-10.2); Potassium 5.3 mmol/L (3.5-5.1); Total Bilirubin 0.3 mg/dL (0.2-1.3); Total Protein 4.2 g/dL (6.3-8.2)
[2022-02-21] MEDS: METOPROLOL TARTRATE 25 MG TAB PO SCH ×2 (09:20→20:16)
[2022-02-21] MEDS: ASPIRIN 81 MG PO SCH (09:20)
[2022-02-21] MEDS: BENZONATATE 100 MG CAP PO SCH ×3 (09:20→20:16)
[2022-02-21] MEDS: predniSONE 20 MG TAB PO SCH (09:20)
[2022-02-21] MEDS: ATORVASTATIN 80 MG TAB PO SCH (09:20)
--- NOTE | 2022-02-21 12:54 | P.CNPUL ---
History of Present Illness Consult date: 02/21/22 Requesting physician: Catrachito Santana Reason for consult: pneumonia, abnormal CXR/CT Chief complaint: Abnormal chest x-ray and CAT scan. History of present illness: Pulmonary consultation dated 02/21/2022. 81-year-old male sent to the emergency room, because of shortness of breath. He was brought in by EMS. He was recently in the hospital for 3 weeks, for pneumonia, and a cavitary lesion, and the left upper lobe. He was discharged on antibiotics. At that time, sputum showed evidence of Pseudomonas, Sun, and Aspergillus. He was seen by infectious diseases at that time. According to the ER [facility], the patient was having increasing shortness of breath, and weakness, and for that reason, EMS was called. There is no fever or chills. No chest pain or chest discomfort. The patient is a very poor historian. Most of the history is obtained from the ER [facility]. The patient has a history of hypertension, hyperlipidemia, oral cancer, GERD, blindness, osteoporosis, and CHF. CAT scan shows the thick wall cavity in the left upper lobe, and in addition, an infiltrate in the left lower lobe. White count 21.8, hemoglobin 9, hematocrit 29, and platelet count 326,000. The 138, potassium 5.3, chlorides 113, CO2 15, anion gap 10, BUN 67, and creatinine is 2.05. Lactic acid was 4.6, and most recent lactic acid was 1.7. Calcium 7.1. Albumin 2.2. Testing for coronavirus was negative. Review of Systems REVIEW OF SYSTEMS: CONSTITUTIONAL: Weakness. NEUROLOGIC: [ Negative.] HEENT: [ Negative.] CARDIAC: [Negative.] PULMONARY: Shortness of breath. GI: [Negative.] : [Negative.] RHEUMATOLOGIC: [ Negative.] IMMUNOLOGIC: [ Negative.] ENDOCRINE: [Negative. 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 Past Anesthesia/Blood Transfusion Reactions: No Reported Reaction Date of Last Stent Placement:: 2019 Past Psychological History: No Psychological Hx Reported Smoking Status: Never smoker Past Alcohol Use History: Occasional Past Drug Use History: None Reported - Past Family History Mother Family Medical History: Cancer Additional Family Medical History / Comment(s): pancreatic cancer Medications and Allergies Home Medications Medication Instructions Recorded Confirmed Type Aspirin 81 mg PO DAILY #30 chew 02/27/20 02/20/22 Rx Atorvastatin [Lipitor] 80 mg PO DAILY #30 tab 02/27/20 02/20/22 Rx Spironolactone [Aldactone] 25 mg PO DAILY #30 tab 02/27/20 02/20/22 Rx Furosemide [Lasix] 20 mg PO DAILY 11/15/21 02/20/22 History Sacubitril/Valsartan [Entresto 49 1 tab PO BID 11/15/21 02/20/22 History mg-51 mg Tablet] Alendronate Sodium [Fosamax] 70 mg PO FR 01/25/22 02/20/22 History Gabapentin [Neurontin] 300 mg PO TID 01/25/22 02/20/22 History Pantoprazole Sodium [Protonix] 40 mg PO DAILY 01/25/22 02/20/22 History Retinavites 1 tab PO DAILY 01/25/22 02/20/22 History predniSONE [Deltasone] 20 mg PO DAILY 01/25/22 02/20/22 History Ciprofloxacin HCl [Cipro] 750 mg PO Q12H 28 Days #56 tab 02/10/22 02/20/22 Rx Albuterol Nebulized [Ventolin 2.5 mg INHALATION RT-TID ml 02/11/22 02/20/22 Rx Nebulized] Benzonatate [Tessalon Perles] 100 mg PO TID 7 Days #21 cap 02/11/22 02/20/22 Rx Metoprolol Tartrate [Lopressor] 25 mg PO BID 02/20/22 02/20/22 History Allergies Allergy/AdvReac Type Severity Reaction Status Date / Time latex Allergy Rash/Hives Verified 02/20/22 15:04 Physical Exam Osteopathic Statement: *. No significant issues noted on an osteopathic structural exam other than those noted in the History and Physical/Consult. Vitals: Vital Signs Temp Pulse Pulse Resp BP BP Pulse Ox 02/21/22 09:27 97.8 F 63 18 101/47 100 02/21/22 03:20 97.9 F 97 18 95/52 99 02/21/22 00:42 106 H 92/52 02/20/22 22:15 97.4 F L 103 H 18 94/51 99 02/20/22 21:06 102 H 18 92/45 97 02/20/22 20:31 18 103/47 98 02/20/22 20:16 100 02/20/22 20:00 82 20 93/45 100 02/20/22 19:50 90 02/20/22 19:35 69 93/46 98 02/20/22 19:30 65 18 90/46 100 02/20/22 19:20 61 24 90/44 02/20/22 19:16 84 02/20/22 19:06 80 02/20/22 18:30 59 L 89/47 98 02/20/22 18:00 60 97/53 97 02/20/22 17:30 63 96/47 97 02/20/22 16:30 67 92/55 99 02/20/22 16:00 65 18 84/55 98 02/20/22 14:58 96 02/20/22 14:54 97.6 F 76 20 87/55 95 Intake and Output 02/20/22 02/21/22 02/21/22 22:59 06:59 14:59 Output Total 500 Balance -500 Output: Urine 500 Other: Voiding Method External Catheter Weight 63.503 kg No acute distress, lethargic, currently on 4 L of oxygen. No obvious respiratory distress or difficulty. HEENT examination is grossly unremarkable. Neck supple. Full range of motion. No adenopathy thyromegaly or neck vein distention. Cardiovascular examination reveals regular rhythm rate. S1-S2 normal. No S3 or S4. No discernible murmur noted. Heart sounds are distant. Heart rate 63 bpm. Lungs reveal scattered bilateral rhonchi. Breath sounds equal. No crackles. 4 liter saturation is 100%. Abdomen soft bowel sounds are heard. No masses or tenderness. Extremities are intact. No cyanosis clubbing or edema. Skin is without rash or lesion. Neurologic examination is brief but nonfocal. Results - Laboratory Findings CBC and BMP: 02/21/22 04:16 02/21/22 04:16 PT/INR, D-dimer PT 10.6 sec (9.0-12.0) 02/20/22 16:00 INR 1.0 (<1.2) 02/20/22 16:00 Abnormal lab findings: Abnormal Labs 02/20/22 02/20/22 02/20/22 16:00 16:00 16:00 WBC 22.7 H RBC 3.97 L Hgb 12.3 L Hct 37.1 L RDW 18.4 H Neutrophils # 21.4 H Lymphocytes # 0.6 L Sodium 136 L Potassium 6.4 H* Chloride Carbon Dioxide 16 L BUN 76 H Creatinine 2.18 H Glucose Plasma Lactic Acid Fernando 3.4 H* Calcium 7.5 L ALT 72 H Alkaline Phosphatase 136 H Total Protein 5.9 L Albumin 3.2 L 02/20/22 02/20/22 02/21/22 18:41 21:42 00:47 WBC RBC Hgb Hct RDW Neutrophils # Lymphocytes # Sodium Potassium Chloride Carbon Dioxide BUN Creatinine Glucose Plasma Lactic Acid Fernando 2.4 H* 4.8 H* 6.2 H* Calcium ALT Alkaline Phosphatase Total Protein Albumin 02/21/22 02/21/22 02/21/22 04:16 04:16 04:16 WBC 21.8 H RBC 3.02 L Hgb 9.0 L D Hct 29.0 L RDW 18.9 H Neutrophils # 20.6 H Lymphocytes # 0.5 L Sodium Potassium 5.3 H Chloride 113 H Carbon Dioxide 15 L BUN 67 H Creatinine 2.05 H Glucose 110 H Plasma Lactic Acid Fernando 4.6 H* Calcium 7.1 L ALT Alkaline Phosphatase Total Protein 4.2 L Albumin 2.2 L 02/21/22 08:13 WBC RBC Hgb Hct RDW Neutrophils # Lymphocytes # Sodium Potassium Chloride Carbon Dioxide BUN Creatinine Glucose Plasma Lactic Acid Fernando 2.9 H* Calcium ALT Alkaline Phosphatase Total Protein Albumin - Diagnostic Findings Chest x-ray: image reviewed CT scan - chest: image reviewed Assessment and Plan Assessment: Chronic thick-walled cavitary lesion, left upper lobe, which may relate to anaerobic lung abscess, or cavitary neoplasm. New infiltrate, left lower lobe, which may relate to underlying aspiration. History of CAD with PCI/stent. History of hyperlipidemia. History of hypertension. 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 Blindness. CHF. Osteoporosis. Plan: Plan dated 02/21/2022. Currently, the patient's on oxygen at 4 L. He is also receiving Zerbaxa. In addition, the patient's on prednisone 20 mg a day. The patient was chronically on prednisone as I recall. Overall prognosis remains very poor. Interventional radiology refused to do a fine-needle biopsy of the lesion in the left upper lobe on his prior admission. I did go into dangerous to attempt bronchoscopy and this very debilitated 81-year-old male. I would opt for more conservative management at this time. A sputum from his last admission did show evidence of Pseudomonas, and Aspergillus. Infectious diseases should be consulted if not already done. Time with Patient: Greater than 30
[2022-02-21 14:15] VITALS: BMI 21.9
--- NOTE | 2022-02-21 22:13 | P.CONS ---
History of Present Illness - Reason for Consult Consult date: 02/21/22 Lung abscess Requesting physician: Catrachito Santana - Chief Complaint Increasing shortness of breath x few days - History of Present Illness Patient is a 81-year-old male who recently did have a prolonged hospital stay patient did have evidence of left upper lobe cavitating pneumonia sputum was positive for drug-resistant Pseudomonas aeruginosa patient was treated with Zerbaxa however he was not able to place the patient in a fpc because of the cost of the drug and the patient family was unable to afford Zerbaxa at home pathogen was sensitive to Cipro hence he was switched over to oral Cipro with the patient has been taking for the last 10 days patient now presenting back to the hospital yesterday afternoon for evaluation of increasing shortness of breath patient mention breathing has been getting worse for the last few days and the patient was complaining of increasing weakness patient denies having any chest pain he did have a cough mild to moderate intensity but not bring up any sputum patient denies having any nausea no vomiting no choking on the food no abdominal pain or any diarrhea with the symptoms the patient was evaluated by the ER physician on arrival to the ER the patient was afebrile and no fever has been recorded subsequently patient did have white count of 22.7 with a left shift did have elevated lactic acid as well as elevated BUN and creatinine level some has been normal COVID testing was negative patient did have a CT of the chest which shows a thick-walled left upper lobe cavitary lesion not significantly changed in size and now with new left lower lobe pneumonia consolidation patient was admitted to the hospital started on Zerbaxa infectious disease was consulted for further management of antibiotic therapy Review of Systems Positive point has been mentioned in the HPI rest of the systems are negative Past Medical History Past Medical History: Cancer, GERD/Reflux, Hyperlipidemia, Hypertension Additional Past Medical History / Comment(s): cancer of the mouth, 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 Past Anesthesia/Blood Transfusion Reactions: No Reported Reaction Date of Last Stent Placement:: 2019 Past Psychological History: No Psychological Hx Reported Smoking Status: Never smoker Past Alcohol Use History: Occasional Past Drug Use History: None Reported - Past Family History Mother Family Medical History: Cancer Additional Family Medical History / Comment(s): pancreatic cancer Medications and Allergies Home Medications Medication Instructions Recorded Confirmed Type Aspirin 81 mg PO DAILY #30 chew 02/27/20 02/26/22 Rx Atorvastatin [Lipitor] 80 mg PO DAILY #30 tab 02/27/20 02/26/22 Rx Furosemide [Lasix] 20 mg PO DAILY 11/15/21 02/26/22 History Alendronate Sodium [Fosamax] 70 mg PO FR 01/25/22 02/26/22 History Pantoprazole Sodium [Protonix] 40 mg PO DAILY 01/25/22 02/26/22 History predniSONE [Deltasone] 20 mg PO DAILY 01/25/22 02/26/22 History Albuterol Nebulized [Ventolin 2.5 mg INHALATION RT-TID ml 02/11/22 02/26/22 Rx Nebulized] Metoprolol Tartrate [Lopressor] 25 mg PO BID 02/20/22 02/26/22 History Ceftolozane/Tazobactam [Zerbaxa 3 gm IVPB Q8HR #63 each 02/26/22 02/26/22 Rx 1.5 Gram Vial] Allergies Allergy/AdvReac Type Severity Reaction Status Date / Time latex Allergy Rash/Hives Verified 02/20/22 15:04 Physical Exam Vitals: Vital Signs Temp Pulse Pulse Resp BP BP Pulse Ox 02/21/22 09:27 97.8 F 63 18 101/47 100 02/21/22 03:20 97.9 F 97 18 95/52 99 02/21/22 00:42 106 H 92/52 02/20/22 22:15 97.4 F L 103 H 18 94/51 99 02/20/22 21:06 102 H 18 92/45 97 02/20/22 20:31 18 103/47 98 02/20/22 20:16 100 02/20/22 20:00 82 20 93/45 100 02/20/22 19:50 90 02/20/22 19:35 69 93/46 98 02/20/22 19:30 65 18 90/46 100 02/20/22 19:20 61 24 90/44 02/20/22 19:16 84 02/20/22 19:06 80 02/20/22 18:30 59 L 89/47 98 02/20/22 18:00 60 97/53 97 02/20/22 17:30 63 96/47 97 02/20/22 16:30 67 92/55 99 02/20/22 16:00 65 18 84/55 98 02/20/22 14:58 96 02/20/22 14:54 97.6 F 76 20 87/55 95 Intake and Output 02/20/22 02/21/22 02/21/22 22:59 06:59 14:59 Output Total 500 Balance -500 Output: Urine 500 Other: Voiding Method External Catheter Weight 63.503 kg GENERAL DESCRIPTION: Elderly male lying in bed, no distress. No tachypnea or accessory muscle of respiration use. HEENT: Shows Pallor , no scleral icterus. Oral mucous membrane is dry. No pharyngeal erythema or thrush NECK: Trachea central, no thyromegaly. LUNGS: Unlabored breathing. Decreased the base. No wheeze or crackle. HEART: S1, S2, regular rate and rhythm. No loud murmur ABDOMEN: Soft, no tenderness , guarding or rigidity, no organomegaly EXTREMITIES: No edema of feet. SKIN: No rash, no masses palpable. NEUROLOGICAL: The patient is lethargic but arousable orientation could not be determined Results CBC & Chem 7: 02/26/22 07:56 02/26/22 07:56 Labs: Abnormal Lab Results - Last 24 Hours (Table) 02/20/22 02/20/22 02/20/22 Range/Units 16:00 16:00 16:00 WBC 22.7 H (3.8-10.6) k/uL RBC 3.97 L (4.30-5.90) m/uL Hgb 12.3 L (13.0-17.5) gm/dL Hct 37.1 L (39.0-53.0) % RDW 18.4 H (11.5-15.5) % Neutrophils # 21.4 H (1.3-7.7) k/uL Lymphocytes # 0.6 L (1.0-4.8) k/uL Sodium 136 L (137-145) mmol/L Potassium 6.4 H* (3.5-5.1) mmol/L Chloride (98-107) mmol/L Carbon Dioxide 16 L (22-30) mmol/L BUN 76 H (9-20) mg/dL Creatinine 2.18 H (0.66-1.25) mg/dL Glucose (74-99) mg/dL Plasma Lactic Acid Fernando 3.4 H* (0.7-2.0) mmol/L Calcium 7.5 L (8.4-10.2) mg/dL ALT 72 H (4-49) U/L Alkaline Phosphatase 136 H (38-126) U/L Total Protein 5.9 L (6.3-8.2) g/dL Albumin 3.2 L (3.5-5.0) g/dL 02/20/22 02/20/22 02/21/22 Range/Units 18:41 21:42 00:47 WBC (3.8-10.6) k/uL RBC (4.30-5.90) m/uL Hgb (13.0-17.5) gm/dL Hct (39.0-53.0) % RDW (11.5-15.5) % Neutrophils # (1.3-7.7) k/uL Lymphocytes # (1.0-4.8) k/uL Sodium (137-145) mmol/L Potassium (3.5-5.1) mmol/L Chloride (98-107) mmol/L Carbon Dioxide (22-30) mmol/L BUN (9-20) mg/dL Creatinine (0.66-1.25) mg/dL Glucose (74-99) mg/dL Plasma Lactic Acid Fernando 2.4 H* 4.8 H* 6.2 H* (0.7-2.0) mmol/L Calcium (8.4-10.2) mg/dL ALT (4-49) U/L Alkaline Phosphatase (38-126) U/L Total Protein (6.3-8.2) g/dL Albumin (3.5-5.0) g/dL 02/21/22 02/21/22 02/21/22 Range/Units 04:16 04:16 04:16 WBC 21.8 H (3.8-10.6) k/uL RBC 3.02 L (4.30-5.90) m/uL Hgb 9.0 L D (13.0-17.5) gm/dL Hct 29.0 L (39.0-53.0) % RDW 18.9 H (11.5-15.5) % Neutrophils # 20.6 H (1.3-7.7) k/uL Lymphocytes # 0.5 L (1.0-4.8) k/uL Sodium (137-145) mmol/L Potassium 5.3 H (3.5-5.1) mmol/L Chloride 113 H (98-107) mmol/L Carbon Dioxide 15 L (22-30) mmol/L BUN 67 H (9-20) mg/dL Creatinine 2.05 H (0.66-1.25) mg/dL Glucose 110 H (74-99) mg/dL Plasma Lactic Acid Fernando 4.6 H* (0.7-2.0) mmol/L Calcium 7.1 L (8.4-10.2) mg/dL ALT (4-49) U/L Alkaline Phosphatase (38-126) U/L Total Protein 4.2 L (6.3-8.2) g/dL Albumin 2.2 L (3.5-5.0) g/dL 02/21/22 Range/Units 08:13 WBC (3.8-10.6) k/uL RBC (4.30-5.90) m/uL Hgb (13.0-17.5) gm/dL Hct (39.0-53.0) % RDW (11.5-15.5) % Neutrophils # (1.3-7.7) k/uL Lymphocytes # (1.0-4.8) k/uL Sodium (137-145) mmol/L Potassium (3.5-5.1) mmol/L Chloride (98-107) mmol/L Carbon Dioxide (22-30) mmol/L BUN (9-20) mg/dL Creatinine (0.66-1.25) mg/dL Glucose (74-99) mg/dL Plasma Lactic Acid Fernando 2.9 H* (0.7-2.0) mmol/L Calcium (8.4-10.2) mg/dL ALT (4-49) U/L Alkaline Phosphatase (38-126) U/L Total Protein (6.3-8.2) g/dL Albumin (3.5-5.0) g/dL Assessment and Plan (1) Pneumonia Status: Acute Code(s): J18.9 - PNEUMONIA, UNSPECIFIED ORGANISM SNOMED Code(s): 255346828 (2) Cavitating mass in left upper lung lobe Status: Acute Code(s): J98.4 - OTHER DISORDERS OF LUNG SNOMED Code(s): 795140591 Plan: 1patient with a left upper lobe cavitary lesion and now developing left lower lobe consolidation in this patient with recent sputum culture positive for multidrug-resistant Pseudomonas however the patient is current not running any fever and procalcitonin not significantly elevated with a question of possible noninfectious etiology such as malignancy. 2patient would benefit from bronchoscopy biopsy and deep culture. 3for now we will continue the patient on Zerbaxa dose has been adjusted to the kidney function by pharmacy. We will follow on clinical condition and cultures to further adjust medication if needed Thank you for this consultation will follow this patient along with you Time with Patient: Greater than 30
[2022-02-22] MEDS: CEFTOLOZANE/TAZOBACTAM 1.5 GM in SODIUM CHLORIDE 0.9% 100 ML IV SCH ×3 (02:25→18:54)
[2022-02-22] MEDS: SODIUM CHLORIDE 0.9% 1,000 ML IV SCH ×3 (02:25→17:03)
[2022-02-22] MEDS: PANTOPRAZOLE 40 MG TABLET PO SCH (06:12)
[2022-02-22] MEDS: BENZONATATE 100 MG CAP PO SCH ×3 (09:09→20:33)
[2022-02-22] MEDS: ASPIRIN 81 MG PO SCH (09:09)
[2022-02-22] MEDS: METOPROLOL TARTRATE 25 MG TAB PO SCH ×2 (09:09→19:36)
[2022-02-22] MEDS: predniSONE 20 MG TAB PO SCH (09:09)
[2022-02-22] MEDS: ATORVASTATIN 80 MG TAB PO SCH (09:09)
[2022-02-22 10:08] LABS: Anisocytosis Slight; Basophils % (A) 0 %; Eosinophils # (A) 0.1 k/uL (0-0.7); Eosinophils % (A) 0 %; HCT 29.2 % (39.0-53.0); HGB 9.3 gm/dL (13.0-17.5); Hypochromasia Moderate; Lymphocytes # (A) 0.8 k/uL (1.0-4.8); Lymphocytes % (A) 5 %; MCH 29.9 pg (25.0-35.0); MCHC 31.9 g/dL (31.0-37.0); MCV 93.6 fL (80.0-100.0); Mean Platelet Volume 7.5; Monocytes # (A) 0.7 k/uL (0-1.0); Monocytes % (A) 5 %; Neutrophils # (A) 12.8 k/uL (1.3-7.7); Neutrophils % (A) 89 %; Platelet Count 333 k/uL (150-450); RBC 3.12 m/uL (4.30-5.90); RDW 18.6 % (11.5-15.5); WBC 14.4 k/uL (3.8-10.6)
[2022-02-22 10:14] LABS: Albumin 2.2 g/dL (3.5-5.0); C Reactive Protein 4.7 mg/dL (<1.0); Calcium 7.6 mg/dL (8.4-10.2); Total Bilirubin 0.3 mg/dL (0.2-1.3); Total Protein 4.4 g/dL (6.3-8.2)
--- NOTE | 2022-02-22 10:28 | PN ---
PROGRESS NOTE SUBJECTIVE: Healthcare-acquired pneumonia, sepsis, left upper lung abscess, admitted for IV medication which has been started, which includes ceftolozane/tazobactam 1.5 mg every [address] Roberto's recommendations. Pulmonary consult. He also has a new left lower lobe pneumonia. Pulmonary consult was undertaken. He failed outpatient treatment with Cipro. His cardiac medicines were held due to hypotension. White count is 21, hemoglobin is 9. He is on 4 L oxygen. OBJECTIVE: HEENT: Normocephalic, atraumatic. CARDIAC: S1, S2. LUNGS: Scattered rhonchi. ABDOMEN: Soft. NEUROLOGIC: Cranial nerves are intact. VITAL SIGNS: Temperature 97.6, pulse 60s to 70s, respiratory rate 18-20, blood pressure is still low at 90s/50s, currently 101/47, O2 is high 90s on 4 L. ASSESSMENT: 1. Chronic thick-walled cavitary lesion left upper lobe, possible anaerobic lung abscess or cavitary neoplasm, new infiltrate left lower lobe, possible aspiration. 2. History of coronary artery disease with stent. 3. Dyslipidemia. 4. Hypertension. 5. Oral cancer, status post resection of the jaw. 6. Blindness. 7. Congestive heart failure. 8. Osteoporosis, remains on oxygen, , prednisone. They refused to do a biopsy last time. He came in here, wait for cultures. His sputum culture shows Pseudomonas, Aspergillus. Infectious Disease consulted. PROGNOSIS: Guarded. MMODL / IJN: [id number] /
--- NOTE | 2022-02-22 14:38 | P.PN ---
Subjective Progress Note Date: 02/22/22 Principal diagnosis: Cavitary lesion, left upper lobe. Pulmonary consultation dated 02/21/2022. 81-year-old male sent to the emergency room, because of shortness of breath. He was brought in by EMS. He was recently in the hospital for 3 weeks, for pneumonia, and a cavitary lesion, and the left upper lobe. He was discharged on antibiotics. At that time, sputum showed evidence of Pseudomonas, Sun, and Aspergillus. He was seen by infectious diseases at that time. According to the ER [facility], the patient was having increasing shortness of breath, and weakness, and for that reason, EMS was called. There is no fever or chills. No chest pain or chest discomfort. The patient is a very poor historian. Most of the history is obtained from the ER [facility]. The patient has a history of hypertension, hyperlipidemia, oral cancer, GERD, blindness, osteoporosis, and CHF. CAT scan shows the thick wall cavity in the left upper lobe, and in addition, an infiltrate in the left lower lobe. White count 21.8, hemoglobin 9, hematocrit 29, and platelet count 326,000. The 138, potassium 5.3, chlorides 113, CO2 15, anion gap 10, BUN 67, and creatinine is 2.05. Lactic acid was 4.6, and most recent lactic acid was 1.7. Calcium 7.1. Albumin 2.2. Testing for coronavirus was negative. Progress note dated 02/22/2022. The patient is seen again today in room 370. He is resting comfortably. No complaints. The patient's on 2 L of oxygen. He is getting saline at 75 mL an hour. He is not manifesting any signs or symptoms of respiratory distress. White count 14.4, hemoglobin 9.3, hematocrit 29.2, and platelet count 333,000. Sodium 140, potassium 5, chlorides 119, CO2 17, BUN 53, and creatinine 1.66. Albumin is 2.2. Blood cultures are currently negative. Objective - Vital Signs Vital signs: Vital Signs Temp 97.4 F L 02/22/22 08:40 Pulse 89 02/22/22 08:40 Resp 17 02/22/22 08:40 BP 111/54 02/22/22 08:40 Pulse Ox 96 02/22/22 09:10 FiO2 Intake & Output 02/21/22 02/22/22 02/22/22 18:59 06:59 18:59 Intake Total 480 240 Output Total 1200 500 Balance 480 -1200 -260 Weight 63.503 kg Intake: Oral 480 240 Output: Urine 1200 500 Other: Voiding Method External Catheter External Catheter # Voids 0 # Bowel Movements 0 - Exam No acute distress, lethargic, currently on 2 L of oxygen. No obvious respiratory distress or difficulty. HEENT examination is grossly unremarkable. Neck supple. Full range of motion. No adenopathy thyromegaly or neck vein distention. Cardiovascular examination reveals regular rhythm rate. S1-S2 normal. No S3 or S4. No discernible murmur noted. Heart sounds are distant. Heart rate 89 bpm. Lungs reveal scattered bilateral rhonchi. Breath sounds equal. No crackles. 2 L saturation 8%. Abdomen soft bowel sounds are heard. No masses or tenderness. Extremities are intact. No cyanosis clubbing or edema. Skin is without rash or lesion. Neurologic examination is brief but nonfocal. The patient is very lethargic. - Labs CBC & Chem 7: 02/22/22 09:03 02/22/22 09:03 Labs: Abnormal Lab Results - Last 24 Hours (Table) 02/21/22 02/22/22 02/22/22 Range/Units 04:16 09:03 09:03 WBC 14.4 H (3.8-10.6) k/uL RBC 3.12 L (4.30-5.90) m/uL Hgb 9.3 L (13.0-17.5) gm/dL Hct 29.2 L (39.0-53.0) % RDW 18.6 H (11.5-15.5) % Neutrophils # 12.8 H (1.3-7.7) k/uL Lymphocytes # 0.8 L (1.0-4.8) k/uL Chloride 119 H (98-107) mmol/L Carbon Dioxide 17 L (22-30) mmol/L BUN 53 H (9-20) mg/dL Creatinine 1.66 H (0.66-1.25) mg/dL Glucose 101 H (74-99) mg/dL Calcium 7.6 L (8.4-10.2) mg/dL ALT 51 H (4-49) U/L C-Reactive Protein 4.7 H (<1.0) mg/dL Total Protein 4.4 L (6.3-8.2) g/dL Albumin 2.2 L (3.5-5.0) g/dL Procalcitonin 0.16 H (0.02-0.09) ng/mL Microbiology - Last 24 Hours (Table) 02/20/22 17:15 Blood Culture - Preliminary Blood No Growth after 24 hours 02/20/22 17:00 Blood Culture - Preliminary Blood No Growth after 24 hours Assessment and Plan Assessment: Chronic thick-walled cavitary lesion, left upper lobe, which may relate to anaerobic lung abscess, or cavitary neoplasm. New infiltrate, left lower lobe, which may relate to underlying aspiration. History of CAD with PCI/stent. History of hyperlipidemia. History of hypertension. 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 Blindness. CHF. Osteoporosis. Plan: Plan dated 02/21/2022. Currently, the patient's on oxygen at 4 L. He is also receiving Zerbaxa. In addition, the patient's on prednisone 20 mg a day. The patient was chronically on prednisone as I recall. Overall prognosis remains very poor. Interventional radiology refused to do a fine-needle biopsy of the lesion in the left upper lobe on his prior admission. I did go into dangerous to attempt bronchoscopy and this very debilitated 81-year-old male. I would opt for more conservative management at this time. A sputum from his last admission did show evidence of Pseudomonas, and Aspergillus. Infectious diseases should be consulted if not already done. Plan dated 02/22/2022. The patient's on 2 L of oxygen. Saturations are excellent. He continues on an antibiotic by the name of Zerbaxa. The patient's chest x-ray was reviewed, both on his last initiated on this admission. In addition to thick wall cavity in the left upper lobe, he's got an infiltrate in the right lower lobe. Previous sputum from his last admission showed evidence of Pseudomonas. Thus far, microbiologic studies are negative. Additional recommendations and suggestions are forthcoming. Prognosis is guarded. Again, as mentioned before, I would prefer to be very conservative with this gentleman. Time with Patient: Less than 30
[2022-02-23] MEDS: CEFTOLOZANE/TAZOBACTAM 1.5 GM in SODIUM CHLORIDE 0.9% 100 ML IV SCH ×3 (01:09→20:34)
[2022-02-23] MEDS: SODIUM CHLORIDE 0.9% 1,000 ML IV SCH ×4 (02:43→20:36)
--- NOTE | 2022-02-23 05:31 | PN ---
PROGRESS NOTE SUBJECTIVE: 81-year-old white male with left upper lung abscess and left lower lobe pneumonia, elevated procalcitonin, lactic acidosis lactic acid is normal. He is breathing fairly good. White count is 14.14, hemoglobin is 9.3, platelets 333,000. Sodium 140, potassium 5, BUN 53, creatinine 1.66. OBJECTIVE: VITAL SIGNS: Temp 97.4, pulse 89, respiratory rate 18, 111/54, O2 96% on room air. CARDIOVASCULAR: S1, S2. LUNGS: Scattered rhonchi and wheeze GI: Soft. ASSESSMENT: 1. Chronic thick-walled cavitary lesion, left upper lobe abscess, cavitary neoplasm, possible new infiltrate, left lower lobe. 2. Aspiration pneumonia. 3. Coronary artery disease. 4. Hypertension. 5. Dyslipidemia. 6. History of ovarian cancer. 7. Blindness. 8. Congestive heart failure. 9. Osteoporosis. The patient is on 2 L oxygen, breathing well, failed outpatient oral antibiotics, showed pseudomonas in the lung abscess. Prognosis guarded. Follow up in next 24 to 48 hours. MMODL / IJN: [id number] /
[2022-02-23] MEDS: PANTOPRAZOLE 40 MG TABLET PO SCH (05:51)
[2022-02-23] MEDS: METOPROLOL TARTRATE 25 MG TAB PO SCH ×2 (08:52→20:35)
[2022-02-23] MEDS: predniSONE 20 MG TAB PO SCH (08:52)
[2022-02-23] MEDS: ASPIRIN 81 MG PO SCH (08:52)
[2022-02-23] MEDS: ATORVASTATIN 80 MG TAB PO SCH (08:52)
[2022-02-23] MEDS: BENZONATATE 100 MG CAP PO SCH ×3 (08:52→20:35)
[2022-02-23 12:34] LABS: Anisocytosis Slight; HCT 31.1 % (39.0-53.0); HGB 9.8 gm/dL (13.0-17.5); Hypochromasia Moderate; MCH 29.4 pg (25.0-35.0); MCHC 31.5 g/dL (31.0-37.0); MCV 93.5 fL (80.0-100.0); Mean Platelet Volume 7.8; Platelet Count 265 k/uL (150-450); Poikilocytosis Slight; RBC 3.32 m/uL (4.30-5.90); RDW 18.8 % (11.5-15.5); WBC 13.4 k/uL (3.8-10.6)
[2022-02-23 12:36] LABS: Albumin 2.3 g/dL (3.5-5.0); Potassium 5.1 mmol/L (3.5-5.1); Total Bilirubin 0.6 mg/dL (0.2-1.3); Total Protein 4.7 g/dL (6.3-8.2)
[2022-02-23 12:52] LABS: Monocytes # (M) 1.21 k/uL (0-1.0); Neutrophils # (M) 11.39 k/uL (1.3-7.7); Neutrophils % (M) 85 %; Nucleated Red Blood Cells 0 /100 WBC (0-0); Total Cells Counted 100
[2022-02-23 12:53] LABS: Crenated RBC Present; RBC Fragments Present
--- NOTE | 2022-02-23 14:34 | P.PN ---
Subjective Progress Note Date: 02/23/22 Principal diagnosis: Cavitary lesion, left upper lobe. Pulmonary consultation dated 02/21/2022. 81-year-old male sent to the emergency room, because of shortness of breath. He was brought in by EMS. He was recently in the hospital for 3 weeks, for pneumonia, and a cavitary lesion, and the left upper lobe. He was discharged on antibiotics. At that time, sputum showed evidence of Pseudomonas, Sun, and Aspergillus. He was seen by infectious diseases at that time. According to the ER [facility], the patient was having increasing shortness of breath, and weakness, and for that reason, EMS was called. There is no fever or chills. No chest pain or chest discomfort. The patient is a very poor historian. Most of the history is obtained from the ER [facility]. The patient has a history of hypertension, hyperlipidemia, oral cancer, GERD, blindness, osteoporosis, and CHF. CAT scan shows the thick wall cavity in the left upper lobe, and in addition, an infiltrate in the left lower lobe. White count 21.8, hemoglobin 9, hematocrit 29, and platelet count 326,000. The 138, potassium 5.3, chlorides 113, CO2 15, anion gap 10, BUN 67, and creatinine is 2.05. Lactic acid was 4.6, and most recent lactic acid was 1.7. Calcium 7.1. Albumin 2.2. Testing for coronavirus was negative. Progress note dated 02/22/2022. The patient is seen again today in room 370. He is resting comfortably. No complaints. The patient's on 2 L of oxygen. He is getting saline at 75 mL an hour. He is not manifesting any signs or symptoms of respiratory distress. White count 14.4, hemoglobin 9.3, hematocrit 29.2, and platelet count 333,000. Sodium 140, potassium 5, chlorides 119, CO2 17, BUN 53, and creatinine 1.66. Albumin is 2.2. Blood cultures are currently negative. Progress note dated 02/23/2022. 81-year-old male seen again in room 370. Currently, the patient's on O2 at 2 L. He is getting saline at 125 mL an hour. He remains on Zerbaxa. The patient appears very stable. He is not manifesting any signs or symptoms of respiratory distress. He does have an occasional weak cough. White count 13.4, hemoglobin 9.8, hematocrit 31.1, and platelet count 265,000. Sodium 142, potassium 5.1, chlorides 119, CO2 20, BUN 57, and creatinine 1.63. Pro-calcitonin level is 0.22. Blood cultures are thus far negative. Objective - Vital Signs Vital signs: Vital Signs Temp 97.8 F 02/23/22 08:00 Pulse 86 02/23/22 08:00 Resp 19 02/23/22 08:00 BP 99/61 02/23/22 08:00 Pulse Ox 99 02/23/22 09:24 FiO2 Intake & Output 02/22/22 02/23/22 02/23/22 18:59 06:59 18:59 Intake Total 480 Output Total 1050 1100 800 Balance -570 -1100 -800 Intake: Oral 480 Output: Urine 1050 1100 800 Other: Voiding Method External Catheter External Catheter External Catheter - Exam No acute distress, lethargic, currently on 2 L of oxygen. No obvious respiratory distress or difficulty. HEENT examination is grossly unremarkable. Neck supple. Full range of motion. No adenopathy thyromegaly or neck vein distention. Cardiovascular examination reveals regular rhythm rate. S1-S2 normal. No S3 or S4. No discernible murmur noted. Heart sounds are distant. Heart rate 86 bpm. Lungs reveal scattered bilateral rhonchi. Breath sounds equal. No crackles. 2 L saturation is 98%. Abdomen soft bowel sounds are heard. No masses or tenderness. Extremities are intact. No cyanosis clubbing or edema. Skin is without rash or lesion. Neurologic examination is brief but nonfocal. The patient is very lethargic. - Labs CBC & Chem 7: 02/23/22 12:17 02/23/22 12:17 Labs: Abnormal Lab Results - Last 24 Hours (Table) 02/22/22 02/23/22 02/23/22 Range/Units 09:03 12:17 12:17 WBC 13.4 H (3.8-10.6) k/uL RBC 3.32 L (4.30-5.90) m/uL Hgb 9.8 L (13.0-17.5) gm/dL Hct 31.1 L (39.0-53.0) % RDW 18.8 H (11.5-15.5) % Neutrophils # (Manual) 11.39 H (1.3-7.7) k/uL Lymphocytes # (Manual) 0.80 L (1.0-4.8) k/uL Monocytes # (Manual) 1.21 H (0-1.0) k/uL Chloride 119 H (98-107) mmol/L Carbon Dioxide 20 L (22-30) mmol/L BUN 57 H (9-20) mg/dL Creatinine 1.63 H (0.66-1.25) mg/dL Glucose 104 H (74-99) mg/dL Calcium 8.0 L (8.4-10.2) mg/dL ALT 57 H (4-49) U/L Total Protein 4.7 L (6.3-8.2) g/dL Albumin 2.3 L (3.5-5.0) g/dL Procalcitonin 0.22 H (0.02-0.09) ng/mL Microbiology - Last 24 Hours (Table) 02/20/22 17:15 Blood Culture - Preliminary Blood No Growth after 48 hours 02/20/22 17:00 Blood Culture - Preliminary Blood No Growth after 48 hours Assessment and Plan Assessment: Chronic thick-walled cavitary lesion, left upper lobe, which may relate to anaerobic lung abscess, or cavitary neoplasm. New infiltrate, left lower lobe, which may relate to underlying aspiration. History of CAD with PCI/stent. History of hyperlipidemia. History of hypertension. 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 Blindness. CHF. Osteoporosis. Plan: Plan dated 02/21/2022. Currently, the patient's on oxygen at 4 L. He is also receiving Zerbaxa. In addition, the patient's on prednisone 20 mg a day. The patient was chronically on prednisone as I recall. Overall prognosis remains very poor. Interventional radiology refused to do a fine-needle biopsy of the lesion in the left upper lobe on his prior admission. I did go into dangerous to attempt bronchoscopy and this very debilitated 81-year-old male. I would opt for more conservative management at this time. A sputum from his last admission did show evidence of Pseudomonas, and Aspergillus. Infectious diseases should be consulted if not already done. Plan dated 02/22/2022. The patient's on 2 L of oxygen. Saturations are excellent. He continues on an antibiotic by the name of Zerbaxa. The patient's chest x-ray was reviewed, both on his last initiated on this admission. In addition to thick wall cavity in the left upper lobe, he's got an infiltrate in the right lower lobe. Previous sputum from his last admission showed evidence of Pseudomonas. Thus far, microbiologic studies are negative. Additional recommendations and suggestions are forthcoming. Prognosis is guarded. Again, as mentioned before, I would prefer to be very conservative with this gentleman. Plan dated 02/23/2022. The patient's currently on 2 L. Labs, x-rays, and medications are reviewed. The patient continues on Zerbaxa. The patient does not appear to have any significant distress at this time. He does have a very weak cough. He has not been able to provide a sputum sample. Blood cultures are currently negative. We will continue to follow. Additional recommendations and suggestions are forthcoming. Time with Patient: Less than 30
--- NOTE | 2022-02-23 22:34 | P.PN ---
Subjective Progress Note Date: 02/22/22 Principal diagnosis: Cavitating pneumonia Patient is 81-year-old male with multiple comorbidities recent admission to the hospital with her left upper lobe cavitating pneumonia sputum with multidrug-resistant Pseudomonas now presenting back to the hospital with increasing shortness of breath and cough patient continued to have a thick- walled left upper lobe cavitating lesion and now new left lower lobe consolidation On today's evaluation that is 02/22/2022, the patient is afebrile patient is breathing comfortably included in his cannula patient denies having any chest pain he did have a cough not bring up any sputum no nausea no vomiting no abdominal pain or diarrhea Objective - Vital Signs Vital signs: Vital Signs Temp 97.4 F L 02/22/22 08:40 Pulse 89 02/22/22 08:40 Resp 17 02/22/22 08:40 BP 111/54 02/22/22 08:40 Pulse Ox 96 02/22/22 09:10 FiO2 Intake & Output 02/21/22 02/22/22 02/22/22 18:59 06:59 18:59 Intake Total 480 240 Output Total 1200 500 Balance 480 -1200 -260 Weight 63.503 kg Intake: Oral 480 240 Output: Urine 1200 500 Other: Voiding Method External Catheter External Catheter # Voids 0 # Bowel Movements 0 - Exam GENERAL DESCRIPTION: An elderly male lying in bed in no distress RESPIRATORY SYSTEM: Unlabored breathing , decreased breath sounds at bases HEART: S1 S2 regular rate and rhythm , ABDOMEN: Soft , no tenderness EXTREMITIES: No edema feet - Labs CBC & Chem 7: 02/23/22 12:17 02/23/22 12:17 Labs: Abnormal Lab Results - Last 24 Hours (Table) 02/21/22 02/22/22 02/22/22 Range/Units 04:16 09:03 09:03 WBC 14.4 H (3.8-10.6) k/uL RBC 3.12 L (4.30-5.90) m/uL Hgb 9.3 L (13.0-17.5) gm/dL Hct 29.2 L (39.0-53.0) % RDW 18.6 H (11.5-15.5) % Neutrophils # 12.8 H (1.3-7.7) k/uL Lymphocytes # 0.8 L (1.0-4.8) k/uL Chloride 119 H (98-107) mmol/L Carbon Dioxide 17 L (22-30) mmol/L BUN 53 H (9-20) mg/dL Creatinine 1.66 H (0.66-1.25) mg/dL Glucose 101 H (74-99) mg/dL Calcium 7.6 L (8.4-10.2) mg/dL ALT 51 H (4-49) U/L C-Reactive Protein 4.7 H (<1.0) mg/dL Total Protein 4.4 L (6.3-8.2) g/dL Albumin 2.2 L (3.5-5.0) g/dL Procalcitonin 0.16 H (0.02-0.09) ng/mL Microbiology - Last 24 Hours (Table) 02/20/22 17:15 Blood Culture - Preliminary Blood No Growth after 24 hours 02/20/22 17:00 Blood Culture - Preliminary Blood No Growth after 24 hours Assessment and Plan (1) Hospital-acquired pneumonia Current Visit: Yes Status: Acute Code(s): J18.9 - PNEUMONIA, UNSPECIFIED ORGANISM; Y95 - NOSOCOMIAL CONDITION SNOMED Code(s): 959350487 (2) Cavitating mass in left upper lung lobe Current Visit: No Status: Acute Code(s): J98.4 - OTHER DISORDERS OF LUNG SNOMED Code(s): 590100347 Plan: 1patient with a left upper lobe cavitary lesion and now developing left lower lobe consolidation in this patient with recent sputum culture positive for multidrug-resistant Pseudomonas however the patient is current not running any fever and procalcitonin not significantly elevated with a question of possible noninfectious etiology such as malignancy. 2patient would benefit from bronchoscopy biopsy and deep culture, pulmonary is following the patient. 3patient to continue with Zerbaxa dose has been adjusted to the kidney function by pharmacy and monitor clinical course closely.
--- NOTE | 2022-02-23 22:36 | P.PN ---
Subjective Progress Note Date: 02/23/22 Principal diagnosis: Cavitating pneumonia Patient is 81-year-old male with multiple comorbidities recent admission to the hospital with her left upper lobe cavitating pneumonia sputum with multidrug-resistant Pseudomonas now presenting back to the hospital with increasing shortness of breath and cough patient continued to have a thick- walled left upper lobe cavitating lesion and now new left lower lobe consolidation On today's evaluation that is 02/23/2022, the patient remains to be afebrile patient is breathing comfortably on a 2 L nasal cannula oxygen patient denies having any chest pain he did have a cough not bringing up any sputum no nausea no vomiting no abdominal pain or diarrhea Objective - Vital Signs Vital signs: Vital Signs Temp 98.0 F 02/23/22 20:00 Pulse 84 02/23/22 20:00 Resp 20 02/23/22 20:00 BP 123/73 02/23/22 20:00 Pulse Ox 97 02/23/22 20:00 FiO2 Intake & Output 02/23/22 02/23/22 02/24/22 06:59 18:59 06:59 Intake Total 300 Output Total 1100 1600 Balance -1100 -1300 Intake: Oral 300 Output: Urine 1100 1600 Other: Voiding Method External Catheter External Catheter External Catheter # Voids 1 # Bowel Movements 1 - Exam GENERAL DESCRIPTION: An elderly male lying in bed in no distress RESPIRATORY SYSTEM: Unlabored breathing , decreased breath sounds at bases HEART: S1 S2 regular rate and rhythm , ABDOMEN: Soft , no tenderness EXTREMITIES: No edema feet - Labs CBC & Chem 7: 02/23/22 12:17 02/23/22 12:17 Labs: Abnormal Lab Results - Last 24 Hours (Table) 02/23/22 02/23/22 Range/Units 12:17 12:17 WBC 13.4 H (3.8-10.6) k/uL RBC 3.32 L (4.30-5.90) m/uL Hgb 9.8 L (13.0-17.5) gm/dL Hct 31.1 L (39.0-53.0) % RDW 18.8 H (11.5-15.5) % Neutrophils # (Manual) 11.39 H (1.3-7.7) k/uL Lymphocytes # (Manual) 0.80 L (1.0-4.8) k/uL Monocytes # (Manual) 1.21 H (0-1.0) k/uL Chloride 119 H (98-107) mmol/L Carbon Dioxide 20 L (22-30) mmol/L BUN 57 H (9-20) mg/dL Creatinine 1.63 H (0.66-1.25) mg/dL Glucose 104 H (74-99) mg/dL Calcium 8.0 L (8.4-10.2) mg/dL ALT 57 H (4-49) U/L Total Protein 4.7 L (6.3-8.2) g/dL Albumin 2.3 L (3.5-5.0) g/dL Microbiology - Last 24 Hours (Table) 02/20/22 17:00 Blood Culture - Preliminary Blood No Growth after 72 hours 02/20/22 17:15 Blood Culture - Preliminary Blood No Growth after 72 hours Assessment and Plan (1) Hospital-acquired pneumonia Current Visit: Yes Status: Acute Code(s): J18.9 - PNEUMONIA, UNSPECIFIED ORGANISM; Y95 - NOSOCOMIAL CONDITION SNOMED Code(s): 820231953 (2) Cavitating mass in left upper lung lobe Current Visit: No Status: Acute Code(s): J98.4 - OTHER DISORDERS OF LUNG SNOMED Code(s): 372734996 Plan: 1patient with a left upper lobe cavitary lesion and now developing left lower lobe consolidation in this patient with recent sputum culture positive for multidrug-resistant Pseudomonas however the patient is current not running any fever and procalcitonin not significantly elevated with a question of possible noninfectious etiology such as malignancy. 2patient would benefit from bronchoscopy biopsy and deep culture, pulmonary is following the patient. 3patient to continue with Zerbaxa while monitoring his clinical course closely overall prognosis remains to be guarded if no bronchoscopy or aggressive treatment hospice may be an option Time with Patient: Less than 30
[2022-02-24] MEDS: CEFTOLOZANE/TAZOBACTAM 1.5 GM in SODIUM CHLORIDE 0.9% 100 ML IV SCH ×3 (02:24→17:42)
[2022-02-24] MEDS: SODIUM CHLORIDE 0.9% 1,000 ML IV SCH ×2 (06:24→17:45)
[2022-02-24] MEDS: PANTOPRAZOLE 40 MG TABLET PO SCH (06:25)
[2022-02-24] MEDS: ASPIRIN 81 MG PO SCH (09:32)
[2022-02-24] MEDS: predniSONE 20 MG TAB PO SCH (09:32)
[2022-02-24] MEDS: BENZONATATE 100 MG CAP PO SCH ×3 (09:33→20:54)
[2022-02-24] MEDS: METOPROLOL TARTRATE 25 MG TAB PO SCH ×2 (09:33→20:54)
[2022-02-24] MEDS: ATORVASTATIN 80 MG TAB PO SCH (09:33)
--- NOTE | 2022-02-24 11:15 | PN ---
PROGRESS NOTE SUBJECTIVE: An 81-year-old with healthcare-acquired pneumonia, left lower lobe and lung abscess with Pseudomonas, remains on ceftolozane/tazobactam daily. He is getting infectious disease consult. Failed oral Cipro as an outpatient. He has pulmonary consult, saturating 98% on 2 L. OBJECTIVE: VITAL SIGNS: Blood pressure 120s over 70s, temp 98.2, pulse 66, respiratory rate 18 to 20. CARDIOVASCULAR: S1, S2. LUNGS: Clear. GI: Soft. HEMATOLOGY: Negative Homans. PSYCH: Fair mood and affect. NEUROLOGIC: Sleepy, lethargic, has appropriate answers. Alert and oriented x3. LABS: Show hemoglobin 9.8, white count 13.4 with neutrophil count 11.39, sodium 142, potassium 5.1, BUN is 57, creatinine 1.63, calcium 8.0. ASSESSMENT: Healthcare-acquired pneumonia, lung abscess, metabolic encephalopathy, hypertension, gastroesophageal reflux disease. Continue current treatments with IV antibiotics. Possible PICC line with outpatient antibiotics will be needed for one period of time. Wait for Dr. Roberto's recommendation. He probably needs a bronchoscopy. Wait for Pulmonary to see about this bronchoscopy, which is recommended. We will see if they are willing to do one. To get a confirmatory diagnosis of what is wrong and if it is a cavitary lesion versus a cancer, bronchoscopy is needed. Hopefully, we will do a bronchoscopy soon. MMODL / IJN: [id number] /
--- NOTE | 2022-02-24 13:51 | P.PN ---
Subjective Progress Note Date: 02/24/22 81-year-old male sent to the emergency room, because of shortness of breath. He was brought in by EMS. He was recently in the hospital for 3 weeks, for pneumonia, and a cavitary lesion, and the left upper lobe. He was discharged on antibiotics. At that time, sputum showed evidence of Pseudomonas, Sun, and Aspergillus. He was seen by infectious diseases at that time. According to the ER [facility], the patient was having increasing shortness of breath, and weakness, and for that reason, EMS was called. There is no fever or chills. No chest pain or chest discomfort. The patient is a very poor historian. Most of the history is obtained from the ER [facility]. The patient has a history of hyperten faviola, hyperlipidemia, oral cancer, GERD, blindness, osteoporosis, and CHF. CAT scan shows the thick wall cavity in the left upper lobe, and in addition, an infiltrate in the left lower lobe. White count 21.8, hemoglobin 9, hematocrit 29, and platelet count 326,000. The 138, potassium 5.3, chlorides 113, CO2 15, anion gap 10, BUN 67, and creatinine is 2.05. Lactic acid was 4.6, and most recent lactic acid was 1.7. Calcium 7.1. Albumin 2.2. Testing for coronavirus was negative. Progress note dated 02/22/2022. The patient is seen again today in room 370. He is resting comfortably. No co mplaints. The patient's on 2 L of oxygen. He is getting saline at 75 mL an hour. He is not manifesting any signs or symptoms of respiratory distress. White count 14.4, hemoglobin 9.3, hematocrit 29.2, and platelet count 333,000. Sodium 140, potassium 5, chlorides 119, CO2 17, BUN 53, and creatinine 1.66. Albumin is 2.2. Blood cultures are currently negative. Progress note dated 02/23/2022. 81-year-old male seen again in room 370. Currently, the patient's on O2 at 2 L. He is getting saline at 125 mL an hour. He remains on Zerbaxa. The patient appears very stable. He is not manifesting any signs or symptoms of respiratory distress. He does have an occasional weak cough. White count 13.4, hemoglobin 9.8, hematocrit 31.1, and platelet count 265,000. Sodium 142, potassium 5.1, chlorides 119, CO2 20, BUN 57, and creatinine 1.63. Pro-calcitonin level is 0.22. Blood cultures are thus far negative. Today's evaluation of 02/24/2022, the patient is being seen for a follow-up. As mentioned earlier, the patient has a cavitating pneumonia involving the left lung and the patient was positive for Pseudomonas, Aspergillus and Sun. The patient did not have any bronchoscopy. The patient was covered with broad- spectrum antibiotics. I noted that his white cell count is improving and the patient's white cell count is down to 13. Pro-calcitonin level is at 0.22. His creatinine is stable at 1.6 which is also improving. The rest of the electrolytes are all stable with a serum bicarb of 20 and this is also improving. Hemoglobin stable at 9.8. No hemoptysis. No pleurisy. He is currently on Zerbaxa Objective - Vital Signs Vital signs: Vital Signs Temp 97.5 F L 02/24/22 12:00 Pulse 74 02/24/22 12:00 Resp 20 02/24/22 12:00 BP 108/60 02/24/22 12:00 Pulse Ox 98 02/24/22 12:00 FiO2 Intake & Output 02/23/22 02/24/22 02/24/22 18:59 06:59 18:59 Intake Total 300 118 Output Total 1600 1050 Balance -1300 -1050 118 Weight 63.503 kg Intake: Oral 300 118 Output: Urine 1600 1050 Other: Voiding Method External Catheter External Catheter External Catheter # Voids 1 1 # Bowel Movements 1 1 - Exam No acute distress, lethargic, currently on 2 L of oxygen. No obvious respirato ry distress or difficulty. HEENT examination is grossly unremarkable. Neck supple. Full range of motion. No adenopathy thyromegaly or neck vein distention. Cardiovascular examination reveals regular rhythm rate. S1-S2 normal. No S3 or S4. No discernible murmur noted. Heart sounds are distant. Heart rate 86 bpm. Lungs reveal scattered bilateral rhonchi. Breath sounds equal. No crackles. 2 L saturation is 98%. Abdomen soft bowel sounds are heard. No masses or tenderness. Extremities are intact. No cyanosis clubbing or edema. Skin is without rash or lesion. Neurologic examination is brief but nonfocal. The patient is lethargic. - Labs CBC & Chem 7: 02/23/22 12:17 02/23/22 12:17 Labs: Microbiology - Last 24 Hours (Table) 02/20/22 17:00 Blood Culture - Preliminary Blood No Growth after 72 hours 02/20/22 17:15 Blood Culture - Preliminary Blood No Growth after 72 hours Assessment and Plan Plan: Chronic thick-walled cavitary lesion, left upper lobe, which may relate to anaerobic lung abscess, or cavitary neoplasm. The patient is currently on Zerbaxa and a white cell count is also improving. Comparing the CAT scans to gether, the patient had a CAT scan of the chest that was done during this current admission and this is also compared to the earlier CAT scan from his last admission. The left lower lobe consolidation is improving. New infiltrate, left lower lobe, which may relate to underlying aspiration. History of CAD with PCI/stent. History of hyperlipidemia. History of hypertension. 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 Blindness. CHF. Osteoporosis. Acute kidney injury, improving and the creatinine is down to 1.6 Not and get metabolic acidosis, improving Plan No need for bronchoscopy Pulmonary toileting and deep breathing and using incentive spirometer Continue Zerbaxa We'll continue to follow.
--- NOTE | 2022-02-24 22:31 | P.PN ---
Subjective Progress Note Date: 02/24/22 Principal diagnosis: Cavitating pneumonia Patient is 81-year-old male with multiple comorbidities recent admission to the hospital with her left upper lobe cavitating pneumonia sputum with multidrug-resistant Pseudomonas now presenting back to the hospital with increasing shortness of breath and cough patient continued to have a thick- walled left upper lobe cavitating lesion and now new left lower lobe consolidation On today's evaluation that is 02/24/2022, the patient continues to be afebrile patient is breathing comfortably on a 2 L nasal cannula oxygen patient denies chest pain , the patient did have a cough not bringing up any sputum no nausea no vomiting no abdominal pain or diarrhea Objective - Vital Signs Vital signs: Vital Signs Temp 98.1 F 02/24/22 08:00 Pulse 78 02/24/22 08:00 Resp 22 02/24/22 08:00 BP 115/65 02/24/22 08:00 Pulse Ox 98 02/24/22 09:09 FiO2 Intake & Output 02/23/22 02/24/22 02/24/22 18:59 06:59 18:59 Intake Total 300 118 Output Total 1600 1050 Balance -1300 -1050 118 Intake: Oral 300 118 Output: Urine 1600 1050 Other: Voiding Method External Catheter External Catheter External Catheter # Voids 1 1 # Bowel Movements 1 1 - Exam GENERAL DESCRIPTION: An elderly male lying in bed in no distress RESPIRATORY SYSTEM: Unlabored breathing , decreased breath sounds at bases HEART: S1 S2 regular rate and rhythm , ABDOMEN: Soft , no tenderness EXTREMITIES: No edema feet - Labs CBC & Chem 7: 02/23/22 12:17 02/23/22 12:17 Labs: Abnormal Lab Results - Last 24 Hours (Table) 02/23/22 02/23/22 Range/Units 12:17 12:17 WBC 13.4 H (3.8-10.6) k/uL RBC 3.32 L (4.30-5.90) m/uL Hgb 9.8 L (13.0-17.5) gm/dL Hct 31.1 L (39.0-53.0) % RDW 18.8 H (11.5-15.5) % Neutrophils # (Manual) 11.39 H (1.3-7.7) k/uL Lymphocytes # (Manual) 0.80 L (1.0-4.8) k/uL Monocytes # (Manual) 1.21 H (0-1.0) k/uL Chloride 119 H (98-107) mmol/L Carbon Dioxide 20 L (22-30) mmol/L BUN 57 H (9-20) mg/dL Creatinine 1.63 H (0.66-1.25) mg/dL Glucose 104 H (74-99) mg/dL Calcium 8.0 L (8.4-10.2) mg/dL ALT 57 H (4-49) U/L Total Protein 4.7 L (6.3-8.2) g/dL Albumin 2.3 L (3.5-5.0) g/dL Microbiology - Last 24 Hours (Table) 02/20/22 17:00 Blood Culture - Preliminary Blood No Growth after 72 hours 02/20/22 17:15 Blood Culture - Preliminary Blood No Growth after 72 hours Assessment and Plan (1) Hospital-acquired pneumonia Current Visit: Yes Status: Acute Code(s): J18.9 - PNEUMONIA, UNSPECIFIED ORGANISM; Y95 - NOSOCOMIAL CONDITION SNOMED Code(s): 805625282 (2) Cavitating mass in left upper lung lobe Current Visit: No Status: Acute Code(s): J98.4 - OTHER DISORDERS OF LUNG SNOMED Code(s): 712096444 Plan: 1patient with a left upper lobe cavitary lesion and now developing left lower lobe consolidation in this patient with recent sputum culture positive for m ultidrug-resistant Pseudomonas however the patient is current not running any fever and procalcitonin not significantly elevated with a question of possible noninfectious etiology such as malignancy. 2no bronchoscopy biopsy and deep culture at this point per pulmonary. 3patient seemed to showing some clinical improvement and will continue with Zerbaxa with concern for possible failure of oral antibiotic he will need IV antibiotic on discharge insurance case manager to arrange for it Time with Patient: Less than 30
[2022-02-25] MEDS: SODIUM CHLORIDE 0.9% 1,000 ML IV SCH ×3 (01:05→17:22)
[2022-02-25] MEDS: CEFTOLOZANE/TAZOBACTAM 1.5 GM in SODIUM CHLORIDE 0.9% 100 ML IV SCH ×3 (02:10→17:21)
[2022-02-25] MEDS: PANTOPRAZOLE 40 MG TABLET PO SCH (06:12)
[2022-02-25] MEDS: ATORVASTATIN 80 MG TAB PO SCH (08:46)
[2022-02-25] MEDS: METOPROLOL TARTRATE 25 MG TAB PO SCH ×2 (08:46→20:12)
[2022-02-25] MEDS: predniSONE 20 MG TAB PO SCH (08:46)
[2022-02-25] MEDS: BENZONATATE 100 MG CAP PO SCH ×3 (08:46→20:12)
[2022-02-25] MEDS: ASPIRIN 81 MG PO SCH (08:46)
--- NOTE | 2022-02-25 16:02 | P.PN ---
Subjective Progress Note Date: 02/25/22 81-year-old male sent to the emergency room, because of shortness of breath. He was brought in by EMS. He was recently in the hospital for 3 weeks, for pneumonia, and a cavitary lesion, and the left upper lobe. He was discharged on antibiotics. At that time, sputum showed evidence of Pseudomonas, Sun, and Aspergillus. He was seen by infectious diseases at that time. According to the ER morte[facility], the patient was having increasing shortness of breath, and weakness, and for that reason, EMS was called. There is no fever or chills. No chest pain or chest discomfort. The patient is a very poor historian. Most of the history is obtained from the ER morte[facility]. The patient has a history of hyperten faviola, hyperlipidemia, oral cancer, GERD, blindness, osteoporosis, and CHF. CAT scan shows the thick wall cavity in the left upper lobe, and in addition, an infiltrate in the left lower lobe. White count 21.8, hemoglobin 9, hematocrit 29, and platelet count 326,000. The 138, potassium 5.3, chlorides 113, CO2 15, anion gap 10, BUN 67, and creatinine is 2.05. Lactic acid was 4.6, and most recent lactic acid was 1.7. Calcium 7.1. Albumin 2.2. Testing for coronavirus was negative. Progress note dated 02/22/2022. The patient is seen again today in room 370. He is resting comfortably. No co mplaints. The patient's on 2 L of oxygen. He is getting saline at 75 mL an hour. He is not manifesting any signs or symptoms of respiratory distress. White count 14.4, hemoglobin 9.3, hematocrit 29.2, and platelet count 333,000. Sodium 140, potassium 5, chlorides 119, CO2 17, BUN 53, and creatinine 1.66. Albumin is 2.2. Blood cultures are currently negative. Progress note dated 02/23/2022. 81-year-old male seen again in room 370. Currently, the patient's on O2 at 2 L. He is getting saline at 125 mL an hour. He remains on Zerbaxa. The patient appears very stable. He is not manifesting any signs or symptoms of respiratory distress. He does have an occasional weak cough. White count 13.4, hemoglobin 9.8, hematocrit 31.1, and platelet count 265,000. Sodium 142, potassium 5.1, chlorides 119, CO2 20, BUN 57, and creatinine 1.63. Pro-calcitonin level is 0.22. Blood cultures are thus far negative. Today's evaluation of 02/24/2022, the patient is being seen for a follow-up. As mentioned earlier, the patient has a cavitating pneumonia involving the left lung and the patient was positive for Pseudomonas, Aspergillus and Sun. The patient did not have any bronchoscopy. The patient was covered with broad- spectrum antibiotics. I noted that his white cell count is improving and the patient's white cell count is down to 13. Pro-calcitonin level is at 0.22. His creatinine is stable at 1.6 which is also improving. The rest of the electrolytes are all stable with a serum bicarb of 20 and this is also improving. Hemoglobin stable at 9.8. No hemoptysis. No pleurisy. He is currently on Zerbaxa 02/25/2022, the patient essentially remains in the same condition. Lethargic, sleepy, resting most of the time in bed and not doing any significant activities. He remains on room air oxygen. He remains Zerbaxa , and the patient has no other specific complaints for now. We will function was impaired from yesterday and the patient has chronic kidney disease with a creatinine of 1.3. No new labs from today. Afebrile. Hemodynamically stable. Objective - Vital Signs Vital signs: Vital Signs Temp 98.1 F 02/25/22 12:00 Pulse 80 02/25/22 12:00 Resp 16 02/25/22 12:00 BP 93/52 02/25/22 12:00 Pulse Ox 96 02/25/22 12:00 FiO2 Intake & Output 02/24/22 02/25/22 02/25/22 18:59 06:59 18:59 Intake Total 354 236 Output Total 800 200 700 Balance -446 -200 -764 Weight 63.503 kg Intake: Oral 354 236 Output: Urine 800 200 700 Other: Voiding Method External Catheter External Catheter External Catheter # Voids 1 # Bowel Movements 1 - Exam No acute distress, lethargic, currently on 2 L of oxygen. No obvious respiratory distress or difficulty. HEENT examination is grossly unremarkable. Neck supple. Full range of motion. No adenopathy thyromegaly or neck vein dis tention. Cardiovascular examination reveals regular rhythm rate. S1-S2 normal. No S3 or S4. No discernible murmur noted. Heart sounds are distant. Heart rate 86 bpm. Lungs reveal scattered bilateral rhonchi. Breath sounds equal. No crackles. 2 L saturation is 98%. Abdomen soft bowel sounds are heard. No masses or tenderness. Extremities are intact. No cyanosis clubbing or edema. Skin is without rash or lesion. Neurologic examination is brief but nonfocal. The patient is lethargic. - Labs CBC & Chem 7: 02/23/22 12:17 02/23/22 12:17 Labs: Microbiology - Last 24 Hours (Table) 02/20/22 17:15 Blood Culture - Preliminary Blood No Growth after 96 hours 02/20/22 17:00 Blood Culture - Preliminary Blood No Growth after 96 hours Assessment and Plan Plan: Chronic thick-walled cavitary lesion, left upper lobe, which may relate to anaer obic lung abscess, or cavitary neoplasm. The patient is currently on Zerbaxa and a white cell count is also improving. Comparing the CAT scans together, the patient had a CAT scan of the chest that was done during this current admission and this is also compared to the earlier CAT scan from his last admission. The left lower lobe consolidation is improving. New infiltrate, left lower lobe, which may relate to underlying aspiration. History of CAD with PCI/stent. History of hyperlipidemia. History of hypertension. 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 Blindness. CHF. Osteoporosis. Acute kidney injury, improving and the creatinine is down to 1.6 Not and get metabolic acidosis, improving Plan No need for bronchoscopy Pulmonary toileting and deep breathing and using incentive spirometer Continue Zerbaxa Continue long-term antibiotic treatment. There has been some improvement in the most recent CAT scan findings. I would suggest continuing antibiotic treatment for now. The patient's long-term prognosis extremely poor. He remains sedentary, bedridden, and I think is reasonable to release him to an ECF or a [place] [facility] where he can continue his antibiotic treatment. We'll continue to follow.
--- NOTE | 2022-02-25 22:21 | PN ---
PROGRESS NOTE SUBJECTIVE: An elderly white male seen by hot packer, Infectious Disease. Pulmonology does not want to do a bronchoscopy on the patient. Dr. Roberto saw the patient. He failed outpatient treatment with Pseudomonas. He had left upper lobe cavitation lesion and a new left lower lobe consolidation. OBJECTIVE: VITAL SIGNS: Temp 98.1, pulse 78, respiratory rate 22, blood pressure 116/65, and O2 98. GENERAL: An elderly male, no acute distress. LUNGS: Clear. HEART: Rate S1, S2. ABDOMEN: Soft, nontender. EXTREMITIES: No cyanosis or edema. White count 13.4, hemoglobin is 9.8, BUN is 57, creatinine 1.63. Pleasantly confused, giving appropriate answers. Heart S1, S2. Lungs clear. GI soft. He is on 2 L oxygen, CO2 is 20, BUN is 57, creatinine 1.53. Blood cultures are negative. ASSESSMENT AND PLAN: Hospital-acquired pneumonia, cavitating mass, left upper lobe, multidrug-resistant Pseudomonas. Possible non-infectious etiology like a malignancy. Pulmonary has not done a bronchoscopy or biopsy of the deep culture. Continue the Zerbaxa, IV antibiotics on discharge, hopefully somebody can do a biopsy of this cavitating mass to rule out cancer. MMODL / IJN: [id number] /
[2022-02-26] MEDS: CEFTOLOZANE/TAZOBACTAM 1.5 GM in SODIUM CHLORIDE 0.9% 100 ML IV SCH ×2 (02:16→09:43)
[2022-02-26] MEDS: SODIUM CHLORIDE 0.9% 1,000 ML IV SCH ×3 (02:55→11:14)
[2022-02-26] MEDS: PANTOPRAZOLE 40 MG TABLET PO SCH (06:34)
[2022-02-26 09:07] LABS: Albumin 2.4 g/dL (3.5-5.0); Calcium 7.8 mg/dL (8.4-10.2); Potassium 4.1 mmol/L (3.5-5.1); Total Protein 4.6 g/dL (6.3-8.2)
[2022-02-26 09:14] LABS: Anisocytosis Slight; Basophils # (A) 0.1 k/uL (0-0.2); Basophils % (A) 0 %; Eosinophils % (A) 0 %; HCT 27.8 % (39.0-53.0); HGB 8.7 gm/dL (13.0-17.5); Hypochromasia Marked; Lymphocytes # (A) 1.1 k/uL (1.0-4.8); Lymphocytes % (A) 9 %; MCH 29.9 pg (25.0-35.0); MCHC 31.3 g/dL (31.0-37.0); MCV 95.6 fL (80.0-100.0); Macrocytosis Slight; Mean Platelet Volume 8.3; Monocytes # (A) 0.5 k/uL (0-1.0); Monocytes % (A) 4 %; Neutrophils % (A) 85 %; Platelet Count 248 k/uL (150-450); RDW 18.6 % (11.5-15.5); WBC 11.9 k/uL (3.8-10.6)
[2022-02-26] MEDS: ASPIRIN 81 MG PO SCH (09:42)
[2022-02-26] MEDS: METOPROLOL TARTRATE 25 MG TAB PO SCH (09:43)
[2022-02-26] MEDS: BENZONATATE 100 MG CAP PO SCH (09:43)
[2022-02-26] MEDS: predniSONE 20 MG TAB PO SCH (09:43)
[2022-02-26] MEDS: ATORVASTATIN 80 MG TAB PO SCH (09:43)
[2022-02-26 09:51] VITALS: BP 89/54; PULSE 60; RESP 16; TEMP 98.1
--- NOTE | 2022-02-26 12:30 | XR ---
EXAMINATION TYPE: XR chest 1V DATE OF EXAM: 02/26/2022 COMPARISON: 02/06/2022 HISTORY: Pneumonia TECHNIQUE: Single frontal view of the chest is obtained. FINDINGS: Large area of consolidation left lower lobe. Underlying COPD and chronic interstitial lung disease. Cavitating lesion suspected in the left upper lobe. Hypertrophic degenerative change of the spine. Surgical clips soft tissues neck. IMPRESSION: 1. Left lower lobe pneumonia with underlying COPD. 2. Large cavitary lesion left upper lobe measuring 6 cm.
--- NOTE | 2022-02-26 13:53 | P.DS ---
Providers Date of admission: 02/20/22 17:39 Expected date of discharge: 02/26/22 Attending physician: Catrachito Santana Consults: 02/20/22 22:37 Consult Physician Routine Consulting Provider: Dayan Roberto Consult Reason/Comments: Lung abcess Do you want consulting provider notified?: Yes, Notify in am 02/20/22 22:38 Consult Physician Routine Consulting Provider: Miguel Villa Consult Reason/Comments: Lung abcess Do you want consulting provider notified?: Yes, Notify in am Primary care physician: Physician Nonstaff Hospital Course: Hospital course: 81-year-old male sent to the emergency room, because of shortness of breath. He was brought in by EMS. He was recently in the hospital for 3 weeks, for pneumonia, and a cavitary lesion, and the left upper lobe. He was discharged on antibiotics. At that time, sputum showed evidence of Pseudomonas, Sun, and Aspergillus. He was seen by infectious diseases at that time. According to the ER morte[facility], the patient was having increasing shortness of breath, and weakness, and for that reason, EMS was called. There is no fever or chills. No chest pain or chest discomfort. The patient is a very poor historian. Most of the history is obtained from the ER morte[facility]. The patient has a history of hypertension, hyperlipidemia, oral cancer, GERD, blindness, osteoporosis, and CHF. CAT scan shows the thick wall cavity in the left upper lobe, and in addition, an infiltrate in the left lower lobe. White count 21.8, hemoglobin 9, hematocrit 29, and platelet count 326,000. The 138, potassium 5.3, chlorides 113, CO2 15, anion gap 10, BUN 67, and creatinine is 2.05. Lactic acid was 4.6, and most recent lactic acid was 1.7. Calcium 7.1. Albumin 2.2. Testing for coronavirus was negative. 02/26/2022: I'm rounding for Dr. Catrachito Santana. Patient's oral intake is about 25%. Patient being discharge on iv zerbaxa. He'll follow up outpatient with ID and pulmonary. Tired. weak. Discussed with test case developer. Discussion and discharge planning more than 35 minutes On examination: VITAL SIGNS: [98.1, 60, 16, 89/54, 96% room air] GENERAL APPEARANCE: Laying in bed, awake, tired. HEENT: Normal external appearance of nose and ear. Oral cavity normal EYES: Pupils equal. Conjunctiva normal. NECK: JVD not raised. Mass not palpable. RESPIRATORY: Respiratory effort normal. Decreased breath sounds. CARDIOVASCULAR: First and second sounds normal. No edema. ABDOMEN: Soft. Liver and spleen not palpable. No tenderness. No mass palpable. PSYCHIATRY: Answering simple questions INVESTIGATIONS, reviewed in the clinical context: White count 11.911 8.7 platelets 248 potassium 4.1 BUN 44 creatinine 1.38 Admission creatinine 2.[address] chest: Stable 6.2 cm nonspecific thick-walled cavitary left upper lobe lesion. Sputum culture from 02/03/2022: Positive for Pseudomonas aeruginosa, Sun albicans, Aspergillus fumigators. Assessment and plan: -Chronic thick-walled cavity lesion left upper lobe which may be anaerobic lung abscess OR neoplasm. Recent cultures positive for Pseudomonas aeruginosa. IVzerbaxa for 21 days - Left lower lobe consolidation is improving. Possible aspiration pneumonia Recent cultures positive for Pseudomonas aeruginosa. IV zerbaxa for 21 days -GERD Protonix -Normocytic anemia likely from chronic disease -CAD with a prior history of stent Aspirin, Lipitor, Lopressor -Essential hypertension Lopressor -Hyperlipidemia Lipitor -Chronic CHF, systolic dysfunction, EF 20-25% from ischemic heart disease Lopressor. Lasix -Moderate tricuspid regurgitation, moderate mitral regurgitation -Secondary moderate pulmonary hypertension -Acute on chronic medical debility PT OT Disposition: Rehab at [facility] Plan - Discharge Summary Discharge Rx Participant: No New Discharge Prescriptions: New Ceftolozane/Tazobactam [Zerbaxa 1.5 Gram Vial] 3 gm IVPB Q8HR #63 each Continue Aspirin 81 mg PO DAILY #30 chew Atorvastatin [Lipitor] 80 mg PO DAILY #30 tab Furosemide [Lasix] 20 mg PO DAILY Pantoprazole Sodium [Protonix] 40 mg PO DAILY Alendronate Sodium [Fosamax] 70 mg PO FR Albuterol Nebulized [Ventolin Nebulized] 2.5 mg INHALATION RT-TID ml predniSONE [Deltasone] 20 mg PO DAILY Metoprolol Tartrate [Lopressor] 25 mg PO BID Discontinued Spironolactone [Aldactone] 25 mg PO DAILY #30 tab Sacubitril/Valsartan [Entresto 49 mg-51 mg Tablet] 1 tab PO BID Gabapentin [Neurontin] 300 mg PO TID Retinavites 1 tab PO DAILY Ciprofloxacin HCl [Cipro] 750 mg PO Q12H 28 Days #56 tab Benzonatate [Tessalon Perles] 100 mg PO TID 7 Days #21 cap Discharge Medication List Aspirin 81 mg PO DAILY #30 chew 02/27/20 [Rx] Atorvastatin [Lipitor] 80 mg PO DAILY #30 tab 02/27/20 [Rx] Furosemide [Lasix] 20 mg PO DAILY 11/15/21 [History] Alendronate Sodium [Fosamax] 70 mg PO FR 01/25/22 [History] Pantoprazole Sodium [Protonix] 40 mg PO DAILY 01/25/22 [History] predniSONE [Deltasone] 20 mg PO DAILY 01/25/22 [History] Albuterol Nebulized [Ventolin Nebulized] 2.5 mg INHALATION RT-TID ml 02/11/22 [Rx] Metoprolol Tartrate [Lopressor] 25 mg PO BID 02/20/22 [History] Ceftolozane/Tazobactam [Zerbaxa 1.5 Gram Vial] 3 gm IVPB Q8HR #63 each 02/26/22 [Rx] Follow up Appointment(s)/Referral(s): Nonstaff,Physician [Primary Care Provider] - 1-2 days [facility]idential [facility] [NON-STAFF] - 1-2 Days Dayan Roberto MD [STAFF PHYSICIAN] - 2 Weeks Miguel Villa MD [STAFF PHYSICIAN] - 2 Weeks Patient Instructions/Handouts: Pneumonia (ED)
--- NOTE | 2022-02-26 17:21 | P.PN ---
Subjective Progress Note Date: 02/26/22 81-year-old male sent to the emergency room, because of shortness of breath. He was brought in by EMS. He was recently in the hospital for 3 weeks, for pneumonia, and a cavitary lesion, and the left upper lobe. He was discharged on antibiotics. At that time, sputum showed evidence of Pseudomonas, Sun, and Aspergillus. He was seen by infectious diseases at that time. According to the ER [facility], the patient was having increasing shortness of breath, and weakness, and for that reason, EMS was called. There is no fever or chills. No chest pain or chest discomfort. The patient is a very poor historian. Most of the history is obtained from the ER [facility]. The patient has a history of hyperten faviola, hyperlipidemia, oral cancer, GERD, blindness, osteoporosis, and CHF. CAT scan shows the thick wall cavity in the left upper lobe, and in addition, an infiltrate in the left lower lobe. White count 21.8, hemoglobin 9, hematocrit 29, and platelet count 326,000. The 138, potassium 5.3, chlorides 113, CO2 15, anion gap 10, BUN 67, and creatinine is 2.05. Lactic acid was 4.6, and most recent lactic acid was 1.7. Calcium 7.1. Albumin 2.2. Testing for coronavirus was negative. Progress note dated 02/22/2022. The patient is seen again today in room 370. He is resting comfortably. No co mplaints. The patient's on 2 L of oxygen. He is getting saline at 75 mL an hour. He is not manifesting any signs or symptoms of respiratory distress. White count 14.4, hemoglobin 9.3, hematocrit 29.2, and platelet count 333,000. Sodium 140, potassium 5, chlorides 119, CO2 17, BUN 53, and creatinine 1.66. Albumin is 2.2. Blood cultures are currently negative. Progress note dated 02/23/2022. 81-year-old male seen again in room 370. Currently, the patient's on O2 at 2 L. He is getting saline at 125 mL an hour. He remains on Zerbaxa. The patient appears very stable. He is not manifesting any signs or symptoms of respiratory distress. He does have an occasional weak cough. White count 13.4, hemoglobin 9.8, hematocrit 31.1, and platelet count 265,000. Sodium 142, potassium 5.1, chlorides 119, CO2 20, BUN 57, and creatinine 1.63. Pro-calcitonin level is 0.22. Blood cultures are thus far negative. Today's evaluation of 02/24/2022, the patient is being seen for a follow-up. As mentioned earlier, the patient has a cavitating pneumonia involving the left lung and the patient was positive for Pseudomonas, Aspergillus and Sun. The patient did not have any bronchoscopy. The patient was covered with broad- spectrum antibiotics. I noted that his white cell count is improving and the patient's white cell count is down to 13. Pro-calcitonin level is at 0.22. His creatinine is stable at 1.6 which is also improving. The rest of the electrolytes are all stable with a serum bicarb of 20 and this is also improving. Hemoglobin stable at 9.8. No hemoptysis. No pleurisy. He is currently on Zerbaxa 02/25/2022, the patient essentially remains in the same condition. Lethargic, sleepy, resting most of the time in bed and not doing any significant activities. He remains on room air oxygen. He remains Zerbaxa , and the patient has no other specific complaints for now. We will function was impaired from yesterday and the patient has chronic kidney disease with a creatinine of 1.3. No new labs from today. Afebrile. Hemodynamically stable. 02/26/2022, the patient on room air oxygen. No new complaints. The patient continues to be antibiotics with Zerbaxa and this will be continued on outpatient basis. He is tired at all times. He is legally blind. Oral intake is still diminished. Nevertheless, there is minimal improvement in her renal function. Creatinine is down to 1.38 with a BUN of 44. The patient's WBC count is at 11.9. The patient will need a follow-up chest x-ray on outpatient basis in its abnormalities persist, we'll discuss the possibility of a bronchoscopy and biopsy. Nevertheless, his prognosis is extremely poor and a biopsy and diagnosis of cancer may not change his overall treatment course. Objective - Vital Signs Vital signs: Vital Signs Temp 98.1 F 02/26/22 08:00 Pulse 60 02/26/22 08:00 Resp 16 02/26/22 11:13 BP 89/54 02/26/22 08:00 Pulse Ox 96 02/26/22 08:00 FiO2 Intake & Output 02/25/22 02/26/22 02/26/22 18:59 06:59 18:59 Intake Total 1354 240 118 Output Total 1200 250 Balance 154 -10 118 Intake: Intake, IV Titration 200 Amount Ceftolozane/Tazobactam 1. 200 5 gm In Sodium Chloride 0 .9% 100 ml @ 100 mls/hr IV Q8H [facility] Rx#:[id number] Oral 1154 240 118 Output: Urine 1200 250 Other: Voiding Method External Catheter External Catheter External Catheter - Exam No acute distress, lethargic, currently on 2 L of oxygen. No obvious respiratory distress or difficulty. HEENT examination is grossly unremarkable. Neck supple. Full range of motion. No adenopathy thyromegaly or neck vein distention. Cardiovascular examination reveals regular rhythm rate. S1-S2 normal. No S3 or S4. No discernible murmur noted. Heart sounds are distant. Heart rate 86 bpm. Lungs reveal scattered bilateral rhonchi. Breath sounds equal. No crackles. 2 L saturation is 98%. Abdomen soft bowel sounds are heard. No masses or tenderness. Extremities are intact. No cyanosis clubbing or edema. Skin is without rash or lesion. Neurologic examination is brief but nonfocal. The patient is lethargic. - Labs CBC & Chem 7: 02/26/22 07:56 02/26/22 07:56 Labs: Abnormal Lab Results - Last 24 Hours (Table) 02/26/22 02/26/22 Range/Units 07:56 07:56 WBC 11.9 H (3.8-10.6) k/uL RBC 2.90 L (4.30-5.90) m/uL Hgb 8.7 L (13.0-17.5) gm/dL Hct 27.8 L (39.0-53.0) % RDW 18.6 H (11.5-15.5) % Neutrophils # 10.0 H (1.3-7.7) k/uL Chloride 118 H (98-107) mmol/L Carbon Dioxide 20 L (22-30) mmol/L BUN 44 H (9-20) mg/dL Creatinine 1.38 H (0.66-1.25) mg/dL Glucose 70 L (74-99) mg/dL Calcium 7.8 L (8.4-10.2) mg/dL ALT 82 H (4-49) U/L Alkaline Phosphatase 166 H (38-126) U/L Total Protein 4.6 L (6.3-8.2) g/dL Albumin 2.4 L (3.5-5.0) g/dL Microbiology - Last 24 Hours (Table) 02/20/22 17:15 Blood Culture - Preliminary Blood No Growth after 120 hours 02/20/22 17:00 Blood Culture - Preliminary Blood No Growth after 120 hours Assessment and Plan Plan: Chronic thick-walled cavitary lesion, left upper lobe, which may relate to a naerobic lung abscess, or cavitary neoplasm. The patient is currently on Zerbaxa and a white cell count is also improving. Comparing the CAT scans together, the patient had a CAT scan of the chest that was done during this current admission and this is also compared to the earlier CAT scan from his last admission. The left lower lobe consolidation is improving. New infiltrate, left lower lobe, which may relate to underlying aspiration. History of CAD with PCI/stent. History of hyperlipidemia. History of hypertension. 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 Blindness. CHF. Osteoporosis. Acute kidney injury, improving and the creatinine is down to 1.6 Not and get metabolic acidosis, improving Plan The patient will be discharged to complete a course of IV Zerbaxa Aspiration precautions Albuterol treatments 4 times a day Prednisone burst taper Resume all medication Outpatient chest x-ray in 2-3 weeks' time to assess progression of the left cavitary lesion. We also reasonable to repeat a CAT scan of the chest at that stage. Will be discharged today.
--- NOTE | 2022-03-03 13:07 | CDI ---
Documentation Clarification Form Date: 03/03/2022 12:47:00 PM From: Avis Atkins Admit Date: 02/20/2022 05:39:00 PM Patient Name: Ronaldo Crespo Visit Number: [id number] Discharge Date: 02/26/2022 02:19:00 PM ATTENTION: The Clinical Documentation Specialists (CDI) and [facility] Coding Staff appreciate your assistance in clarifying documentation. Please respond to the clarification below the line at the bottom and electronically sign. The CDI & [facility] Coding staff will review the response and follow-up if needed. Please note: Queries are made part of the Legal Health Record. If you have any questions, please contact the author of this message via ITS. Dr. Catrachito Santana Per ED notes "Sepsis was recognized at 1622 and BC obtained. Laboratory workup was obtained and showed an elevated WBC count consistent with likely sepsis. Due to the patient's continued worsening of his status secondary to the cavitary lesion and sepsis." PN 02/21 "HAC, sepsis BILLY abscess admitted for IV medication which includes ceftolozane/tazobactam 1.5 mg Q8H." Diagnosis of sepsis is not carried through chart. Additional clarification is needed to whether patient had sepsis or was it ruled out. History/Risk Factors: cavitary lesion, pneumonia, hypotension, lactic acidosis, elevated WBC, historyof pneumonia Clinical Indicators: WBC: 22.7 Lactic acid: Up to 6.2 Blood cultures: No growth Vitals signs: 97.6 F, 76, 20, 87/55, 95 RA Treatment: Ceftolozane/tazobactam 1.5 mg Q8H. Zerbaxa ID Consult: recent sputum culture positive for multidrug Antibiotics: Cefttozane/tazobactam Zerbaxa IV Bolus: Normal Saline was increased for hypotension In your professional opinion, please clarify if these findings signify one of the following conditions: [ ] Sepsis POA [ ] Sepsis, Not POA [ ] Sepsis ruled out [ ] Severe Sepsis with organ failure [ ] Septic Shock [ ] SIRS, without underlying infectious process [ ] Other, please specify [ ] Unable to determine SIRS Criteria: 2 or more of the following may indicate SIRS -Temperature < 96.8F (36C) or > 101.0F (38.3C) -Heart Rate > 90 bpm -Respiratory Rate > 20 breaths/min or PaCO2 < 32 mmHg -White Blood Cell Count > 12,000 or < 4,000 cells/mm3 or > 10% bands MTDD
--- NOTE | 2022-03-04 01:54 | PN ---
PROGRESS NOTE ADDENDUM: Sepsis with POA. MMODL / IJN: [id number] /
--- NOTE | 2022-03-05 23:23 | P.PN ---
Subjective Progress Note Date: 02/25/22 Principal diagnosis: Cavitating pneumonia Patient is 81-year-old male with multiple comorbidities recent admission to the hospital with her left upper lobe cavitating pneumonia sputum with multidrug-resistant Pseudomonas now presenting back to the hospital with increasing shortness of breath and cough patient continued to have a thick- walled left upper lobe cavitating lesion and now new left lower lobe consolidation On today's evaluation that is 02/25/2022, the patient remains to be afebrile patient is breathing comfortably on a 2 L nasal cannula oxygen, the patient denies chest pain , the patient did have a congested cough but not bringing up any sputum no nausea no vomiting no abdominal pain or diarrhea Objective - Vital Signs Vital signs: Vital Signs Temp 98.1 F 02/25/22 12:00 Pulse 80 02/25/22 12:00 Resp 16 02/25/22 12:00 BP 93/52 02/25/22 12:00 Pulse Ox 96 02/25/22 12:00 FiO2 Intake & Output 02/24/22 02/25/22 02/25/22 18:59 06:59 18:59 Intake Total 354 236 Output Total 800 200 700 Balance -446 -200 -464 Weight 63.503 kg Intake: Oral 354 236 Output: Urine 800 200 700 Other: Voiding Method External Catheter External Catheter External Catheter # Voids 1 # Bowel Movements 1 - Exam GENERAL DESCRIPTION: An elderly male lying in bed in no distress RESPIRATORY SYSTEM: Unlabored breathing , decreased breath sounds at bases HEART: S1 S2 regular rate and rhythm , ABDOMEN: Soft , no tenderness EXTREMITIES: No edema feet - Labs CBC & Chem 7: 02/26/22 07:56 02/26/22 07:56 Labs: Microbiology - Last 24 Hours (Table) 02/20/22 17:15 Blood Culture - Preliminary Blood No Growth after 96 hours 02/20/22 17:00 Blood Culture - Preliminary Blood No Growth after 96 hours Assessment and Plan (1) Hospital-acquired pneumonia Status: Acute Code(s): J18.9 - PNEUMONIA, UNSPECIFIED ORGANISM; Y95 - NOSOCOMIAL CONDITION SNOMED Code(s): 417211940 (2) Cavitating mass in left upper lung lobe Status: Acute Code(s): J98.4 - OTHER DISORDERS OF LUNG SNOMED Code(s): 171260674 Plan: 1patient with a left upper lobe cavitary lesion and now developing left lower lobe consolidation in this patient with recent sputum culture positive for multidrug-resistant Pseudomonas however the patient is current not running any fever and procalcitonin not significantly elevated with a question of possible noninfectious etiology such as malignancy. 2no bronchoscopy biopsy and deep culture at this point per pulmonary. 3patient as slow clinical improvement and will continue with Zerbaxa with concern for possible failure of oral antibiotic, the patient will need IV antibiotic on discharge director of casework services currently working to arrange for it Time with Patient: Less than 30
--- NOTE | 2022-03-05 23:25 | P.PN ---
Subjective Progress Note Date: 02/26/22 Principal diagnosis: Cavitating pneumonia Patient is 81-year-old male with multiple comorbidities recent admission to the hospital with her left upper lobe cavitating pneumonia sputum with multidrug-resistant Pseudomonas now presenting back to the hospital with increasing shortness of breath and cough patient continued to have a thick- walled left upper lobe cavitating lesion and now new left lower lobe consolidation On today's evaluation that is 02/26/2022, the patient continues to be afebrile patient is breathing comfortably on a 2 L nasal cannula oxygen, the patient denies chest pain , the patient did have a congested cough but no worsening and not bringing up any sputum no nausea no vomiting no choking on the food and no diarrhea reported by the nursing staff Objective - Vital Signs Vital signs: Vital Signs Temp 98.1 F 02/26/22 08:00 Pulse 60 02/26/22 08:00 Resp 16 02/26/22 11:13 BP 89/54 02/26/22 08:00 Pulse Ox 96 02/26/22 08:00 FiO2 Intake & Output 02/25/22 02/26/22 02/26/22 18:59 06:59 18:59 Intake Total 1354 240 118 Output Total 1200 250 Balance 154 -10 118 Intake: Intake, IV Titration 200 Amount Ceftolozane/Tazobactam 1. 200 5 gm In Sodium Chloride 0 .9% 100 ml @ 100 mls/hr IV Q8H [facility] Rx#:[id number] Oral 1154 240 118 Output: Urine 1200 250 Other: Voiding Method External Catheter External Catheter External Catheter - Exam GENERAL DESCRIPTION: An elderly male lying in bed in no distress RESPIRATORY SYSTEM: Unlabored breathing , decreased breath sounds at bases HEART: S1 S2 regular rate and rhythm , ABDOMEN: Soft , no tenderness EXTREMITIES: No edema feet - Labs CBC & Chem 7: 02/26/22 07:56 02/26/22 07:56 Labs: Abnormal Lab Results - Last 24 Hours (Table) 02/26/22 02/26/22 Range/Units 07:56 07:56 WBC 11.9 H (3.8-10.6) k/uL RBC 2.90 L (4.30-5.90) m/uL Hgb 8.7 L (13.0-17.5) gm/dL Hct 27.8 L (39.0-53.0) % RDW 18.6 H (11.5-15.5) % Neutrophils # 10.0 H (1.3-7.7) k/uL Chloride 118 H (98-107) mmol/L Carbon Dioxide 20 L (22-30) mmol/L BUN 44 H (9-20) mg/dL Creatinine 1.38 H (0.66-1.25) mg/dL Glucose 70 L (74-99) mg/dL Calcium 7.8 L (8.4-10.2) mg/dL ALT 82 H (4-49) U/L Alkaline Phosphatase 166 H (38-126) U/L Total Protein 4.6 L (6.3-8.2) g/dL Albumin 2.4 L (3.5-5.0) g/dL Microbiology - Last 24 Hours (Table) 02/20/22 17:15 Blood Culture - Preliminary Blood No Growth after 120 hours 02/20/22 17:00 Blood Culture - Preliminary Blood No Growth after 120 hours Assessment and Plan (1) Hospital-acquired pneumonia Status: Acute Code(s): J18.9 - PNEUMONIA, UNSPECIFIED ORGANISM; Y95 - NOSOCOMIAL CONDITION SNOMED Code(s): 144086941 (2) Cavitating mass in left upper lung lobe Status: Acute Code(s): J98.4 - OTHER DISORDERS OF LUNG SNOMED Code(s): 301922374 Plan: 1patient with a left upper lobe cavitary lesion and now developing left lower lobe consolidation in this patient with recent sputum culture positive for multidrug-resistant Pseudomonas however the patient is current not running any fever and procalcitonin not significantly elevated with a question of possible noninfectious etiology such as malignancy. 2no bronchoscopy biopsy and deep culture at this point per pulmonary. 3patient has shown slow clinical improvement and will continue with Zerbaxa with concern for possible failure of oral antibiotic, and no other IV antibiotic available and will be to continue with the Zerbexa 2-3 weeks on discharge depending upon clinical response discussed with the admitting physician working on discharge Time with Patient: Less than 30
== END 2022-02-26 14:19 | DRG 871 ==
LOC: EC 14:50 → 3SCARD 17:39
PROVIDERS: ADMIT Family Medicine; ATTEND Family Medicine
DX: A41.9 Sepsis, unspecified organism (principal); G93.41 Metabolic encephalopathy; J85.1 Abscess of lung with pneumonia; J69.0 Pneumonitis due to inhalation of food and vomit; N17.9 Acute kidney failure, unspecified; I13.0 Hypertensive heart and chronic kidney disease with heart failure and stage 1 through stage 4 chronic kidney disease, or unspecified chronic kidney disease; I50.22 Chronic systolic (congestive) heart failure; E87.20 Acidosis, unspecified; Z16.19 Resistance to other specified beta lactam antibiotics; J98.4 Other disorders of lung; K21.9 Gastro-esophageal reflux disease without esophagitis; M81.0 Age-related osteoporosis without current pathological fracture; Y95 Nosocomial condition; I95.9 Hypotension, unspecified; N18.9 Chronic kidney disease, unspecified; D63.1 Anemia in chronic kidney disease; E87.5 Hyperkalemia; E78.5 Hyperlipidemia, unspecified; H54.8 Legal blindness, as defined in USA; I08.1 Rheumatic disorders of both mitral and tricuspid valves; I25.10 Atherosclerotic heart disease of native coronary artery without angina pectoris; I27.20 Pulmonary hypertension, unspecified; Z20.822 Contact with and (suspected) exposure to COVID-19; Z80.0 Family history of malignant neoplasm of digestive organs; Z79.899 Other long term (current) drug therapy; Z85.819 Personal history of malignant neoplasm of unspecified site of lip, oral cavity, and pharynx; Z79.82 Long term (current) use of aspirin; Z79.83 Long term (current) use of bisphosphonates; Z85.858 Personal history of malignant neoplasm of other endocrine glands; Z95.5 Presence of coronary angioplasty implant and graft; Z85.840 Personal history of malignant neoplasm of eye; Z71.3 Dietary counseling and surveillance; Z87.01 Personal history of pneumonia (recurrent); Z91.040 Latex allergy status
CPT/HCPCS: 36415; 71045; 71250; 80053; 83605; 84145; 85025; 85610; 85730; 86140; 87040; 87635; 93005; 94644; 94760; 96361; 96365; 96366; 96375; 99291

== ENCOUNTER 2022-02-26 18:11 | Inpatient (IN) | payer MEDICARE ==
[2022-02-26] MEDS ORDERED: NALOXONE 0.4 MG/ML 1 ML VIAL IV PRN (19:13)
--- NOTE | 2022-02-26 19:16 | ED ---
General Adult HPI - General Chief complaint: Recheck/Abnormal Lab/Rx Stated complaint: penumonia Time Seen by Provider: 02/26/22 18:13 Source: patient, EMS Mode of arrival: EMS Limitations: physical limitation - History of Present Illness Initial comments: This is an 81-year-old male who presents emergency department via EMS after just being discharged from the hospital earlier today. The patient was discharged from the floor and sent to a nursing facility where they realized that the antibiotic that he is supposed to be on for his pseudomonas, multidrug-resistant pneumonia is not covered by insurance and the patient cannot afford it out of pocket. The long term did send the patient back to the hospital for readmission to figure out different antibiotic usage that would be covered by insurance. The patient himself was resting in bed comfortably without any acute pain or distress. The patient is an overall poor historian but the neck abated any acute pain, shortness breath or difficulty in breathing. - Related Data Home Medications Medication Instructions Recorded Confirmed Furosemide [Lasix] 20 mg PO DAILY 11/15/21 02/26/22 Alendronate Sodium [Fosamax] 70 mg PO FR 01/25/22 02/26/22 Pantoprazole Sodium [Protonix] 40 mg PO DAILY 01/25/22 02/26/22 predniSONE [Deltasone] 20 mg PO DAILY 01/25/22 02/26/22 Metoprolol Tartrate [Lopressor] 25 mg PO BID 02/20/22 02/26/22 Previous Rx's Medication Instructions Recorded Aspirin 81 mg PO DAILY #30 chew 02/27/20 Atorvastatin [Lipitor] 80 mg PO DAILY #30 tab 02/27/20 Albuterol Nebulized [Ventolin 2.5 mg INHALATION RT-TID ml 02/11/22 Nebulized] Ceftolozane/Tazobactam [Zerbaxa 3 gm IVPB Q8HR #63 each 02/26/22 1.5 Gram Vial] Allergies Allergy/AdvReac Type Severity Reaction Status Date / Time latex Allergy Rash/Hives Verified 02/20/22 15:04 Review of Systems ROS Statement: Those systems with pertinent positive or pertinent negative responses have been documented in the HPI. ROS Other: All systems not noted in ROS Statement are negative. 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 Past Anesthesia/Blood Transfusion Reactions: No Reported Reaction Date of Last Stent Placement:: 2019 Past Psychological History: No Psychological Hx Reported Smoking Status: Never smoker Past Alcohol Use History: Occasional Past Drug Use History: None Reported - Past Family History Mother Family Medical History: Cancer Additional Family Medical History / Comment(s): pancreatic cancer General Exam Limitations: physical limitation General appearance: alert, in no apparent distress Head exam: Present: atraumatic, normocephalic Eye exam: Present: normal appearance, PERRL Pupils: Present: normal accommodation ENT exam: Present: normal exam, normal oropharynx, mucous membranes moist Neck exam: Present: normal inspection, full ROM Respiratory exam: Present: decreased breath sounds, other (Mildly decreased breath sounds bilaterally, no medication wheezing or rhonchi heard) Cardiovascular Exam: Present: regular rate, normal rhythm, normal heart sounds GI/Abdominal exam: Present: soft, normal bowel sounds Extremities exam: Present: normal inspection, full ROM Back exam: Present: normal inspection, full ROM Neurological exam: Present: alert, oriented X3, CN II-XII intact Psychiatric exam: Present: normal affect, normal mood Skin exam: Present: warm, dry Course Vital Signs 02/26/22 02/26/22 18:13 18:15 Temperature 98.3 F Pulse Rate 67 Respiratory 16 16 Rate Blood Pressure 118/72 O2 Sat by Pulse 97 Oximetry Medical Decision Making - Medical Decision Making The patient was seen and evaluated emergency department. Physical exam, the patient was resting in bed without any acute distress. Vital signs admission were stable and within normal limits. Because the patient was discharged from the hospital earlier this morning, laboratory workup was ordered performed today. The physician who did admit the patient was being covered by another physician, Dr. Schwartz, was contacted and did accept the admission back to the hospital. The patient had his discharge medications ordered and will be admitted once again an order to have a different antibiotic prescribed that would be covered by insurance that the patient could be safely discharged on. The patient was admitted in stable condition without any further workup performed in the emergency department. Disposition Clinical Impression: Pneumonia, Drug resistance Disposition: ADMITTED IP TO THIS HOSP Condition: Stable Is patient prescribed a controlled substance at d/c from ED?: No Referrals: Caity Connor DO [Primary Care Provider] - 1-2 days Time of Disposition: 18:30 Decision Date: 02/26/22 Decision Time: 18:30
[2022-02-26] MEDS: ALBUTEROL NEBULIZED 2.5 MG/3 ML INHALATION SCH (20:39)
[2022-02-26 21:30] LABS: Glucose,Whole Blood 92 mg/dL (70-110)
[2022-02-26 21:50] LABS: Anisocytosis Slight; Basophils % (A) 0 %; Eosinophils # (A) 0.1 k/uL (0-0.7); Eosinophils % (A) 1 %; HCT 28.9 % (39.0-53.0); HGB 9.5 gm/dL (13.0-17.5); Hypochromasia Marked; Lymphocytes % (A) 8 %; MCH 30.8 pg (25.0-35.0); MCHC 32.9 g/dL (31.0-37.0); MCV 93.8 fL (80.0-100.0); Mean Platelet Volume 7.6; Monocytes # (A) 0.4 k/uL (0-1.0); Monocytes % (A) 3 %; Neutrophils # (A) 10.8 k/uL (1.3-7.7); Neutrophils % (A) 88 %; Platelet Count 278 k/uL (150-450); RBC 3.08 m/uL (4.30-5.90); WBC 12.3 k/uL (3.8-10.6)
[2022-02-27] MEDS ORDERED: CEFTOLOZANE/TAZOBACTAM 1.5 GM VIAL IV SCH
[2022-02-27] MEDS: CEFTOLOZANE/TAZOBACTAM 3 GM in SODIUM CHLORIDE 0.9% 100 ML IV SCH ×4 (01:42→23:39)
[2022-02-27] MEDS: METOPROLOL TARTRATE 25 MG TAB PO SCH ×3 (01:43→21:31)
[2022-02-27] MEDS: SODIUM CHLORIDE 0.9% 1,000 ML IV SCH ×2 (01:43→15:35)
[2022-02-27] MEDS: PANTOPRAZOLE 40 MG TABLET PO SCH (06:58)
[2022-02-27] MEDS: ALBUTEROL NEBULIZED 2.5 MG/3 ML INHALATION SCH ×3 (08:47→20:00)
[2022-02-27] MEDS: ATORVASTATIN 80 MG TAB PO SCH (09:28)
[2022-02-27] MEDS: predniSONE 20 MG TAB PO SCH (09:28)
[2022-02-27] MEDS: ASPIRIN 81 MG PO SCH (09:29)
[2022-02-27] MEDS: FUROSEMIDE 20 MG TAB PO SCH (09:29)
--- NOTE | 2022-02-27 15:19 | P.HPIM ---
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 He was brought in by EMS. He was recently in the hospital for 3 weeks, for pneumonia, and a cavitary lesion, and the left upper lobe. He was discharged on antibiotics. At that time, sputum showed evidence of Pseudomonas, Sun, and Aspergillus. He was seen by infectious diseases at that time. According to the ER [facility], the patient was having increasing shortness of breath, and weakness, and for that reason, EMS was called. There is no fever or chills. No chest pain or chest discomfort. The patient is a very poor historian. Most of the history is obtained from the ER [facility]. The patient has a history of hypertension, hyperlipidemia, oral cancer, GERD, blindness, osteoporosis, and CHF. CAT scan shows the thick wall cavity in the left upper lobe, and in addition, an infiltrate in the left lower lobe. Patient was discharged to the ECF yesterday. Late in the day patient was sent back to the ER by the rehab place that patient's IV antibiotic Zerbaxa, is not covered. Diet. Decreased oral intake. Some cough. No fever no chills. Review of systems: GEN.: Tired EYES: None HEENT: Decreased hearing] NECK: None RESPIRATORY: Some cough CARDIOVASCULAR: None GASTROINTESTINAL: None GENITOURINARY: None MUSCULOSKELETAL: None LYMPHATICS: None HEMATOLOGICAL: None PSYCHIATRY: [Forgetful NEUROLOGICAL: None Past medical history to include: GERD, anemia, CAD with stent, hypertension, hyperlipidemia, CHF EF 20-25%, moderate tricuspid mitral regurgitation, moderate pulmonary hypertension, Social history: Nonsmoker. Alcohol occasional. Physical examination: VITAL SIGNS: 97.7, 82, 18, 119 with 69, 94% room air GENERAL: BMI 26.5, laying in bed awake, not in distress. EYES: Pupils equal. Conjunctiva normal. HEENT: External appearance of nose and ears normal, oral cavity grossly normal. NECK: JVD not raised; masses not palpable. HEART: First and second heart sounds are normal; no edema. LUNGS: Respiratory rate increased; decreased breath sounds. ABDOMEN: Soft, nontender, liver spleen not palpable, no masses palpable. PSYCH: Answering simple questionsl. MUSCULOSKELETAL:No Clubbing/cyanosis;muscles-grossly intact. OA NEUROLOGICAL: Cranial nerves grossly intact; no facial asymmetry, power and sensation grossly intact. LYMPHATICS: No lymph nodes palpable in the axilla and neck INVESTIGATIONS, reviewed in the clinical context: WBC 12.3 hemoglobin 9.5 platelets 278 potassium 4.1 BUN 44 creatinine 1.[address] chest: Stable 6.2 cm nonspecific thick-walled cavitary left upper lobe lesion. Sputum culture from 02/03/2022: Positive for Pseudomonas aeruginosa, Sun albicans, Aspergillus fumigators. Assessment and plan: -Chronic thick-walled cavity lesion left upper lobe which may be anaerobic lung abscess OR neoplasm. Recent cultures positive for Pseudomonas aeruginosa. IV zerbaxa -GERD Protonix -Normocytic anemia likely from chronic disease -CAD with a prior history of stent Aspirin, Lipitor, Lopressor -Essential hypertension Lopressor -Hyperlipidemia Lipitor -Chronic CHF, systolic dysfunction, EF 20-25% from ischemic heart disease Lopressor. Lasix -Moderate tricuspid regurgitation, moderate mitral regurgitation -Secondary moderate pulmonary hypertension -Acute on chronic medical debility PT OT Discussed with Dr. Villa from pulmonary. Patient got poor functional status. Even if diagnosed to have malignancy treatment or should be extremely limited given his poor functional status. Also risk of patient landing up on ventilator. I spoke to patient's son Tiago over the phone. Explained to him the whole clinical picture. He still decided not to proceed with any bronchoscopy given the risk benefit. IV antibiotics and to continue. Follow with ID and pulmonary. Case management involved. Total time spent about 1 hour with over 35 minutes of discussion. 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 Past Anesthesia/Blood Transfusion Reactions: No Reported Reaction Date of Last Stent Placement:: 2019 Past Psychological History: No Psychological Hx Reported Smoking Status: Never smoker Past Alcohol Use History: Occasional Past Drug Use History: None Reported - Past Family History Mother Family Medical History: Cancer Additional Family Medical History / Comment(s): pancreatic cancer Medications and Allergies Home Medications Medication Instructions Recorded Confirmed Type Aspirin 81 mg PO DAILY #30 chew 02/27/20 02/26/22 Rx Atorvastatin [Lipitor] 80 mg PO DAILY #30 tab 02/27/20 02/26/22 Rx Furosemide [Lasix] 20 mg PO DAILY 11/15/21 02/26/22 History Alendronate Sodium [Fosamax] 70 mg PO FR 01/25/22 02/26/22 History Pantoprazole Sodium [Protonix] 40 mg PO DAILY 01/25/22 02/26/22 History predniSONE [Deltasone] 20 mg PO DAILY 01/25/22 02/26/22 History Albuterol Nebulized [Ventolin 2.5 mg INHALATION RT-TID ml 02/11/22 02/26/22 Rx Nebulized] Metoprolol Tartrate [Lopressor] 25 mg PO BID 02/20/22 02/26/22 History Ceftolozane/Tazobactam [Zerbaxa 3 gm IVPB Q8HR #63 each 02/26/22 02/26/22 Rx 1.5 Gram Vial] Allergies Allergy/AdvReac Type Severity Reaction Status Date / Time latex Allergy Rash/Hives Verified 02/20/22 15:04 Physical Exam Vitals: Vital Signs Temp Pulse Pulse Resp BP BP Pulse Ox 02/27/22 08:58 90 02/27/22 08:47 88 02/27/22 08:00 97.7 F 82 18 119/69 94 L 02/26/22 20:26 80 19 97 02/26/22 20:00 19 02/26/22 19:26 64 16 107/67 97 02/26/22 18:15 16 02/26/22 18:13 98.3 F 67 16 118/72 97 Intake and Output 02/26/22 02/27/22 02/27/22 22:59 06:59 14:59 Other: Voiding Method Diaper # Voids 2 Weight 83.915 kg Results CBC & Chem 7: 02/26/22 21:41 Labs: Abnormal Lab Results - Last 24 Hours (Table) 02/26/22 Range/Units 21:41 WBC 12.3 H (3.8-10.6) k/uL RBC 3.08 L (4.30-5.90) m/uL Hgb 9.5 L (13.0-17.5) gm/dL Hct 28.9 L (39.0-53.0) % RDW 18.0 H (11.5-15.5) % Neutrophils # 10.8 H (1.3-7.7) k/uL Thrombosis Risk Factor Assmnt - Choose All That Apply Any of the Below Risk Factors Present?: Yes Each Factor Represents 1 point: Sepsis (< 1month), Serious lung disease incl. pneumonia (< 1month) Each Risk Factor Represents 3 Points: Age 75 years or older Thrombosis Risk Factor Assessment Total Risk Factor Score: 5 Thrombosis Risk Factor Assessment Level: High Risk
--- NOTE | 2022-02-27 17:08 | P.CNPUL ---
History of Present Illness Consult date: 02/27/22 Reason for consult: abnormal CXR/CT History of present illness: The patient is 81 and the patient is very much debilitated, legally blind, bedridden, cachectic, and emaciated. The patient also has a cavitating left upper lobe lesion that was losing identified during a hospital admission on 01/26/2022. The patient also has multiple medical problems and comorbidities. The patient is known to have CAD, previous stenting of LAD, history of oral cancer, melanoma and the patient has undergone a previous resection with a graft. As far as his vision loss, this was evaluated with an hot metal mixer operator and the patient was having headaches, temporal arteritis was suspected. The patient was found to have a normal sedimentation rate. Vascular surgery was consulted undergoing temporal artery biopsy and this was not done because the patient declined. Accordingly, the patient was started on high-dose steroids this was gradually tapered off. When presenting to us, the patient was already weak and debilitated and furthermore at 7 cm cavitating lesion of the left upper lobe was noted the was not present on previous x-rays. We initially saw the patient in consultation on 01/23/2022. He did not have any previous history of pulmonary infection. No previous history of TB. No 70 fungal infections. His sputum sample turnout to be positive for pseudomonas aeruginosa and Aspergillus fumigatus. Bronchoscopy was not done as the patient was not found to be stable enough to undergo bronchoscopy and we thought the procedure itself with. High risk of having complications such as respiratory failure. Based on that, it was decided to proceed with antibiotic treatment only. During this time, the patient was started on IV antibiotics. He had several readmissions and during his last admission, he had another CAT scan of the chest was done on 02/20/2022 and the patient was found to have a persistent thick-walled cavitary lesion in left upper lobe measuring 6.2 x 5.5 x 5.1 cm in size no significant change in appearance from prior CT although there is some limited improvement in the internal material in the degrees found within the cavity. No pleural effusion. Mediastinum was clear any significant lymph nodes. No plans such as squamous cell carcinoma cannot be completely excluded. The differentials also includes fungal infection and other atypical infections. The patient was seen by infectious disease. Short of a bronchoscopy and lavage and based on the microbiology of the sputum, the patient is on Zerbaxa. I thought this was an appropriate treatment plan and the patient was sent to an ECF to complete antibiotic course and later on repeat an extensive LB an interval improvement. Lack of improvement with an acute obviously malignancy. Within less than 24 hours of being discharged, the patient was brought back to the hospital at the ECF accepted the patient was unable to provide antibiotic within acceptable c osts. Based on that, the patient is currently back. Note that the patient chest x-ray from 02/23/2020 showed COPD and the patchy right upper lobe infiltrate. Nevertheless, no infiltration of the left was seen. For now, the patient is on 20 mg of prednisone. He is also on appropriate antibiotics. He is resting comfortably in bed on room air oxygen. He is afebrile and hemodynamically stable. Review of Systems Constitutional: Weakness fatigue and weight loss. The patient is cachectic and weak and he met cemented in lethargic and sleepy most of the time. He also has questions whenever asked. Seems to be appropriate in his answers. He has poor insight and his condition. Motor functions are quite limited as the patient is profoundly weak. Cannot ambulate. Legally blind this point in time. HEENT: Loss of vision, exact etiology is not clear, but from what I gathered that the patient may have been diagnosed with temporal arteritis causing his sudden onset of loss of vision, and the patient was evaluated at [facility], and placed on relatively high-dose of steroids. Patient had previous history of melanoma/mouth cancer. Pulmonary: Minimal shortness of breath, occasional cough, no wheezing, no fever, no hemoptysis and no chest pain. Cardiac: Denies any chest pain or orthopnea or PND had previous stent of LAD. 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 Past Anesthesia/Blood Transfusion Reactions: No Reported Reaction Date of Last Stent Placement:: 2019 Past Psychological History: No Psychological Hx Reported Smoking Status: Never smoker Past Alcohol Use History: Occasional Past Drug Use History: None Reported - Past Family History Mother Family Medical History: Cancer Additional Family Medical History / Comment(s): pancreatic cancer Medications and Allergies Home Medications Medication Instructions Recorded Confirmed Type Aspirin 81 mg PO DAILY #30 chew 02/27/20 02/26/22 Rx Atorvastatin [Lipitor] 80 mg PO DAILY #30 tab 02/27/20 02/26/22 Rx Furosemide [Lasix] 20 mg PO DAILY 11/15/21 02/26/22 History Alendronate Sodium [Fosamax] 70 mg PO FR 01/25/22 02/26/22 History Pantoprazole Sodium [Protonix] 40 mg PO DAILY 01/25/22 02/26/22 History predniSONE [Deltasone] 20 mg PO DAILY 01/25/22 02/26/22 History Albuterol Nebulized [Ventolin 2.5 mg INHALATION RT-TID ml 02/11/22 02/26/22 Rx Nebulized] Metoprolol Tartrate [Lopressor] 25 mg PO BID 02/20/22 02/26/22 History Ceftolozane/Tazobactam [Zerbaxa 3 gm IVPB Q8HR #63 each 02/26/22 02/26/22 Rx 1.5 Gram Vial] Allergies Allergy/AdvReac Type Severity Reaction Status Date / Time latex Allergy Rash/Hives Verified 02/20/22 15:04 Physical Exam Vitals: Vital Signs Temp Pulse Pulse Resp BP BP Pulse Ox 02/27/22 14:00 98.1 F 91 17 116/66 95 02/27/22 08:58 90 02/27/22 08:47 88 02/27/22 08:00 97.7 F 82 18 119/69 94 L 02/26/22 20:26 80 19 97 02/26/22 20:00 19 02/26/22 19:26 64 16 107/67 97 02/26/22 18:15 16 02/26/22 18:13 98.3 F 67 16 118/72 97 Intake and Output 02/27/22 02/27/22 02/27/22 06:59 14:59 22:59 Output Total 125 Balance -125 Output: Urine 125 Other: # Voids 2 GENERAL EXAM: Alert, frail 81-year-old male patient, on room air, comfortable in no apparent distress. HEAD: Normocephalic. EYES: Normal reaction of pupils, equal size. NOSE: Clear with pink turbinates. THROAT: No erythema or exudates. NECK: No masses, no JVD. CHEST: No chest wall deformity. LUNGS: Equal air entry with no crackles, wheeze, rhonchi or dullness. CVS: S1 and S2 normal with no audible murmur, regular rhythm. ABDOMEN: No hepatosplenomegaly, normal bowel sounds, no guarding or rigidity. SPINE: No scoliosis or deformity SKIN: No rashes CENTRAL NERVOUS SYSTEM: No focal deficits, tone is normal in all 4 extremities. EXTREMITIES: There is no peripheral edema. No clubbing, no cyanosis. Perip heral pulses are intact. Results - Laboratory Findings CBC and BMP: 02/26/22 21:41 Abnormal lab findings: Abnormal Labs 02/26/22 21:41 WBC 12.3 H RBC 3.08 L Hgb 9.5 L Hct 28.9 L RDW 18.0 H Neutrophils # 10.8 H - Diagnostic Findings Chest x-ray: image reviewed Assessment and Plan Plan: Chronic thick-walled cavitary lesion, left upper lobe, which may relate to anaerobic lung abscess, or cavitary neoplasm such as squamous cell carcinoma.. The patient is currently on Zerbaxa based on a microbiologist was established on the previous showed pseudomonas aeruginosa and Aspergillus Comparing the CAT scans together, the patient had a CAT scan of the chest that was done during this current admission and this is also compared to the earlier CAT scan from his last admission. The left lower lobe consolidation is improving. New infiltrate, left lower lobe, which may relate to underlying aspiration. History of CAD with PCI/stent. History of hyperlipidemia. History of hypertension. 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 Acute kidney injury, improving and the creatinine is down to 1.3 Cachectic, weak, emaciated with poor baseline performance of functional status Plan Discussed the case with the medical team. Obviously the patient's carries a high risk of having [id number] case and should bronchoscopy/transbronchial biopsies were done. I think is reasonable to continue the antibiotic for now and obtain a follow-up CAT scan of the chest in a few weeks' time to assess interval progression. Obviously, and he ongoing malignancy may progress. Establishing a diagnosis will not alter treatment plan as the patient is not a candidate and would not be a candidate for any further surgical without any other chemotherapeutic treatment if diagnosis of cancer established. I may however considered that a bronchoscopy and lavage of the left upper lobe to confirm the microbiology. Carries a very poor prognosis of this point in time. We'll continue to follow
[2022-02-28] MEDS: SODIUM CHLORIDE 0.9% 1,000 ML IV SCH ×2 (03:04→21:26)
[2022-02-28] MEDS: PANTOPRAZOLE 40 MG TABLET PO SCH (06:47)
[2022-02-28] MEDS: ALBUTEROL NEBULIZED 2.5 MG/3 ML INHALATION SCH ×3 (08:59→19:19)
--- NOTE | 2022-02-28 09:09 | P.CONS ---
History of Present Illness - Reason for Consult Consult date: 02/27/22 Pneumonia/infectious disease Requesting physician: Brent Schwartz - Chief Complaint Increasing shortness of breath x few days - History of Present Illness Patient is a 81-year-old male with a recent admission to this hospital and the patient was diagnosed with a multidrug-resistant Pseudomonas pneumonia sensitive only to Zerbaxa and oral Cipro patient did received about 10 days of Zerbaxa and we were not able to arrange for the outpatient Zerbaxa either at the [facility] or at home after discussion with his son on the phone we decided to send the patient home on oral Cipro with the patient was taking at home subsequently presented back to the hospital with increasing shortness of breath and the patient was noticed to have a new left lower lobe pneumonia consolidation and a stable 6.2 cm nonspecific thick walled cavitary left upper lobe lesion pulmonary was consulted recommended against bronchoscopy patient subsequently was discharged to the [facility] yesterday on IV Zerbaxa when the [facility] realized the hagan of Zerbaxa they send the patient back to the ER patient was admitted and infectious disease was consulted for management of his antibiotic therapy patient did have mild elevation today is breathing comfortably currently on room air he is sleepy lethargic but arousable patient denies having any chest pain he did have a weak congested cough mild to moderate intensity not able to bring up any sputum patient denies having any nausea no vomiting no abdominal pain or any diarrhea patient on presentation to the hospital was afebrile did have whiten of 12.3 Review of Systems Positive point has been mentioned in the HPI rest of the systems are negative Past Medical History Past Medical History: Cancer, GERD/Reflux, Hyperlipidemia, Hypertension Additional Past Medical History / Comment(s): cancer of the mouth, 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 Past Anesthesia/Blood Transfusion Reactions: No Reported Reaction Date of Last Stent Placement:: 2019 Past Psychological History: No Psychological Hx Reported Smoking Status: Never smoker Past Alcohol Use History: Occasional Past Drug Use History: None Reported - Past Family History Mother Family Medical History: Cancer Additional Family Medical History / Comment(s): pancreatic cancer Medications and Allergies Home Medications Medication Instructions Recorded Confirmed Type Aspirin 81 mg PO DAILY #30 chew 02/27/20 02/26/22 Rx Atorvastatin [Lipitor] 80 mg PO DAILY #30 tab 02/27/20 02/26/22 Rx Furosemide [Lasix] 20 mg PO DAILY 11/15/21 02/26/22 History Alendronate Sodium [Fosamax] 70 mg PO FR 01/25/22 02/26/22 History Pantoprazole Sodium [Protonix] 40 mg PO DAILY 01/25/22 02/26/22 History predniSONE [Deltasone] 20 mg PO DAILY 01/25/22 02/26/22 History Albuterol Nebulized [Ventolin 2.5 mg INHALATION RT-TID ml 02/11/22 02/26/22 Rx Nebulized] Metoprolol Tartrate [Lopressor] 25 mg PO BID 02/20/22 02/26/22 History Melatonin 3 mg PO HS tab 03/11/22 Rx Sennosides [Senokot] 8.6 mg PO DAILY PRN tab 03/11/22 Rx Voriconazole [Vfend] 200 mg PO Q12HR tab 03/11/22 Rx Allergies Allergy/AdvReac Type Severity Reaction Status Date / Time latex Allergy Rash/Hives Verified 02/20/22 15:04 Physical Exam Vitals: Vital Signs Temp Pulse Pulse Resp BP BP Pulse Ox 02/27/22 08:58 90 02/27/22 08:47 88 02/27/22 08:00 97.7 F 82 18 119/69 94 L 02/26/22 20:26 80 19 97 02/26/22 20:00 19 02/26/22 19:26 64 16 107/67 97 02/26/22 18:15 16 02/26/22 18:13 98.3 F 67 16 118/72 97 Intake and Output 02/26/22 02/27/22 02/27/22 22:59 06:59 14:59 Other: Voiding Method Diaper # Voids 2 Weight 83.915 kg GENERAL DESCRIPTION: Elderly male lying in bed, no distress. No tachypnea or accessory muscle of respiration use. HEENT: Shows Pallor , no scleral icterus. Oral mucous membrane is dry. No pharyngeal erythema or thrush NECK: Trachea central, no thyromegaly. LUNGS: Unlabored breathing. Decreased intensity of breath sounds. HEART: S1, S2, regular rate and rhythm. No loud murmur ABDOMEN: Soft, no tenderness , guarding or rigidity, no organomegaly EXTREMITIES: No edema of feet. SKIN: No rash, no masses palpable. NEUROLOGICAL: The patient is sleepy lethargic but arousable mood and affect is normal Results CBC & Chem 7: 03/10/22 09:35 03/10/22 09:35 Labs: Abnormal Lab Results - Last 24 Hours (Table) 02/26/22 Range/Units 21:41 WBC 12.3 H (3.8-10.6) k/uL RBC 3.08 L (4.30-5.90) m/uL Hgb 9.5 L (13.0-17.5) gm/dL Hct 28.9 L (39.0-53.0) % RDW 18.0 H (11.5-15.5) % Neutrophils # 10.8 H (1.3-7.7) k/uL Assessment and Plan (1) Pneumonia Status: Acute Code(s): J18.9 - PNEUMONIA, UNSPECIFIED ORGANISM SNOMED Code(s): 453396099 Plan: 1patient with left upper and lower lobe pneumonia with left upper lobe thick- walled cavitary lesion previous culture positive for multidrug-resistant Pseudomonas for the patient has been on Zerbaxa unfortunately patient has not been able to placed on this antibiotic either at home or the [facility] with left upper lobe cavitary lesion patient will benefit from bronchoscopy lavage and biopsy to rule out malignancy or other etiologies. 2patient to continue with his Zerbaxa as we do not have any other IV option and the patient has already failed oral Cipro at home. We will follow on clinical condition and cultures to further adjust medication if needed Thank you for this consultation will follow this patient along with you Time with Patient: Greater than 30
[2022-02-28] MEDS: METOPROLOL TARTRATE 25 MG TAB PO SCH ×2 (09:56→21:45)
[2022-02-28] MEDS: ATORVASTATIN 80 MG TAB PO SCH (09:56)
[2022-02-28] MEDS: predniSONE 20 MG TAB PO SCH (09:56)
[2022-02-28] MEDS: FUROSEMIDE 20 MG TAB PO SCH (09:56)
[2022-02-28] MEDS: ASPIRIN 81 MG PO SCH (09:56)
--- NOTE | 2022-02-28 13:32 | CT ---
EXAMINATION TYPE: CT chest wo con DATE OF EXAM: 02/28/2022 COMPARISON: 02/20/2022 HISTORY: 81-year-old male follow-up Lesion size, assess for clearing of infection. TECHNIQUE: Contiguous axial scanning of the chest without IV contrast. Coronal and sagittal reconstru ctions performed. CT DLP: 275.2 mGycm Automated exposure control for dose reduction was used. FINDINGS: The heart is borderline in size. Trace anterior basilar pericardial fluid. LAD coronary artery calcif ications are present. Stable ectasia ascending aorta 3.8 cm. Conventional arterial muscle branching anatomy. Ectasia upper descending thoracic aorta 3.1 cm. Mildly enlarged caliber to the main right and left pulmonary arteries up to 2.9 cm suggesting underly ing pulmonary hypertension. No thoracic lymphadenopathy by CT size criteria. There are new moderate bilateral pleural effusions. Scattered groundglass changes especially in the d ependent portions of the lobes of the lung. Focal nodular infiltrate measuring 1.3 cm right midlung is new. Surrounding groundglass is present. O ngoing consolidation throughout the left lower lobe. The patient's previous left upper lobe cavitary lesion now 5.9 cm versus 6.3 cm, previously. However, the wall thickness is increased up to 1.1 cm versus 8 mm, previously. Slight increasing internal parrish ris/complex material. There is worsening adjacent consolidation and air space disease and groundglass changes. New 5 mm pulmonary nodule anteromedial right lower lung likely nodular infiltrate as well. There is mild generalized anasarca change noted. Upper abdomen shows mild stool burden. 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 IMPRESSION: 1. NEW MODERATE BILATERAL PLEURAL EFFUSIONS. NEW BILATERAL GROUNDGLASS INFILTRATES. NEW 1.3 CM EARLY CAVITATING NODULE RIGHT UPPER LOBE. ONGOING AIRSPACE DISEASE LEFT LOWER LOBE AND WORSENING AIRSPACE D ISEASE LEFT UPPER LOBE. 2. THE PATIENT'S 5.9 CM LEFT UPPER LOBE CAVITARY LESION IS A FEW MILLIMETERS SMALLER BUT SHOWS INCREA SING WALL THICKNESS AND INCREASING INTERNAL DEBRIS. THERE IS WORSENING SURROUNDING AIRSPACE DISEASE. CORRELATE FOR ATYPICAL INFECTIONS INCLUDING MYCOBACTERIAL OR INVASIVE FUNGAL INFECTIONS.
--- NOTE | 2022-02-28 17:06 | P.PN ---
Subjective Progress Note Date: 02/28/22 On today's evaluation of 02/28/2022, no major change in the patient's condition. The patient remains on the same antibiotic coverage. There is underlying controversy whether a bronchoscopy will be of any value. A repeat CAT scan of the chest was done and it showed moderate bilateral pleural effusions and is at effusions along with bilateral groundglass pulmonary infiltrates and a new 1.2 cm early cavitating nodule in the right upper lobe and ongoing airspace disease in the left lower lobe and worsening airspace disease in the left upper lobe. I do favor infection and there is worsening of airspace disease. I am possibly going to consider bronchoscopy on this patient according to these findings. The patient's white cycles of 12.3 with a hemoglobin of 9.5 Objective - Vital Signs Vital signs: Vital Signs Temp 98.4 F 02/28/22 15:00 Pulse 83 02/28/22 15:00 Resp 18 02/28/22 15:00 BP 119/69 02/28/22 15:00 Pulse Ox 92 L 02/28/22 15:00 FiO2 Intake & Output 02/27/22 02/28/22 02/28/22 18:59 06:59 18:59 Output Total 125 2 Balance -125 -2 Output: Urine 125 Stool 2 Other: Voiding Method Diaper Diaper Incontinent Incontinent # Voids 2 2 # Bowel Movements 1 - Exam GENERAL EXAM: Alert, frail 81-year-old male patient, on room air, comfortable in no apparent distress. HEAD: Normocephalic. EYES: Normal reaction of pupils, equal size. NOSE: Clear with pink turbinates. THROAT: No erythema or exudates. NECK: No masses, no JVD. CHEST: No chest wall deformity. LUNGS: Equal air entry with no crackles, wheeze, rhonchi or dullness. CVS: S1 and S2 normal with no audible murmur, regular rhythm. ABDOMEN: No hepatosplenomegaly, normal bowel sounds, no guarding or rigidity. SPINE: No scoliosis or deformity SKIN: No rashes CENTRAL NERVOUS SYSTEM: No focal deficits, tone is normal in all 4 extremities. EXTREMITIES: There is no peripheral edema. No clubbing, no cyanosis. Peripheral pulses are intact. - Labs CBC & Chem 7: 02/26/22 21:41 Assessment and Plan Plan: Chronic thick-walled cavitary lesion, left upper lobe, which may relate to anaerobic lung abscess, or cavitary neoplasm such as squamous cell carcinoma.. The patient is currently on Zerbaxa based on a microbiologist was established on the previous showed pseudomonas aeruginosa and Aspergillus Comparing the CAT scans together, the patient had a CAT scan of the chest that was done during this current admission and this is also compared to the earlier CAT scan from his last admission. The left lower lobe consolidation is improving. New infiltrate, left lower lobe, which may relate to underlying aspiration. History of CAD with PCI/stent. History of hyperlipidemia. History of hypertension. 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 Acute kidney injury, improving and the creatinine is down to 1.3 Cachectic, weak, emaciated with poor baseline performance of functional status Plan I reviewed the CAT scan findings There is development of bilateral pleural effusion which should be reactive from atelectasis, no respiratory efforts and laying down most of the time. The patient also become hypoalbuminemic due to poor nutrition. There is some worsening dyspnea/and left lower lobe and cavitation left upper lobe Discussed the case with the medical team. Obviously the patient's carries a high risk of having [id number] case and should bronchoscopy/transbronchial biopsies were done. I think is reasonable to continue the antibiotic for now and obtain a follow-up CAT scan of the chest in a few weeks' time to assess interval progression. Obviously, and he ongoing malignancy may progress. Establishing a diagnosis will not alter treatment plan as the patient is not a candidate and would not be a candidate for any further surgical without any other chemotherapeutic treatment if diagnosis of cancer established. I may however considered that a bronchoscopy and lavage of the left upper lobe to confirm the microbiology. I may consider bronchoscopy early next week. Improve nutritional status. Incentive spirometer. Deep breathing. Pulmonary toiletin g. Will follow. Very poor prognosis. Repeat labs in a.m.
[2022-02-28] MEDS ORDERED: NON FORMULARY DRUG (Alendronate Sodium [Fosamax] 70 MG Tablet) PO SCH (19:11)
--- NOTE | 2022-02-28 20:30 | P.PN ---
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 He was brought in by EMS. He was recently in the hospital for 3 weeks, for pneumonia, and a cavitary lesion, and the left upper lobe. He was discharged on antibiotics. At that time, sputum showed evidence of Pseudomonas, Sun, and Aspergillus. He was seen by infectious diseases at that time. According to the ER [facility], the patient was having increasing shortness of breath, and weakness, and for that reason, EMS was called. There is no fever or chills. No chest pain or chest discomfort. The patient is a very poor historian. Most of the history is obtained from the ER [facility]. The patient has a history of hypertension, hyperlipidemia, oral cancer, GERD, blindness, osteoporosis, and CHF. CAT scan shows the thick wall cavity in the left upper lobe, and in addition, an infiltrate in the left lower lobe. Patient was discharged to the ECF yesterday. Late in the day patient was sent back to the ER by the rehab place that patient's IV antibiotic Zerbaxa, is not covered. Diet. Decreased oral intake. Some cough. No fever no chills. 02/28/2022: Oral intake what 25%. Discussed with Dr. whitman from ID. Given that patient has previously not responded to oral antibiotics patient options are limited i.e. that his IV antibiotic. Also discussed with Dr. Villa from pulmonary. We decided yesterday patient not a candidate for bronchoscopy given his comorbidities, high risk of being on the ventilator and if diagnosed with malignancy options extremity limited. Discussed with Dr. Villa again today. We will do a repeat computed tomography scan to see if the mass is shrinking. Computed tomography scan late in the afternoon showed worsening effusion and more infiltrates. Active Medications Albuterol Sulfate (Albuterol Nebulized 2.5 Mg/3 Ml) 2.5 mg INHALATION RT-TID [facility] Last Admin: 02/28/22 19:19 Dose: Not Given Aspirin (Aspirin 81 Mg) 81 mg PO DAILY [facility] Last Admin: 02/28/22 09:56 Dose: 81 mg Atorvastatin Calcium (Atorvastatin 80 Mg Tab) 80 mg PO DAILY [facility] Last Admin: 02/28/22 09:56 Dose: 80 mg Furosemide (Furosemide 20 Mg Tab) 20 mg PO DAILY [facility] Last Admin: 02/28/22 09:56 Dose: 20 mg Sodium Chloride (Saline 0.9%) 1,000 mls @ 75 mls/hr IV .[id number] [facility] Last Admin: 02/28/22 03:04 Dose: Not Given Ceftolozane/Tazobactam 1.5 gm/ (Sodium Chloride) 100 mls @ 100 mls/hr IV Q8HR [facility] Metoprolol Tartrate (Metoprolol Tartrate 25 Mg Tab) 25 mg PO BID [facility] Last Admin: 02/28/22 09:56 Dose: 25 mg Naloxone HCl (Naloxone 0.4 Mg/Ml 1 Ml Vial) 0.2 mg IV Q2M PRN PRN Reason: Opioid Reversal Pantoprazole Sodium (Pantoprazole 40 Mg Tablet) 40 mg PO AC-BRKFST [facility] Last Admin: 02/28/22 06:47 Dose: 40 mg Prednisone (Prednisone 20 Mg Tab) 20 mg PO DAILY [facility] Last Admin: 02/28/22 09:56 Dose: 20 mg Past medical history to include: GERD, anemia, CAD with stent, hypertension, hyperlipidemia, CHF EF 20-25%, moderate tricuspid mitral regurgitation, moderate pulmonary hypertension, Social history: Nonsmoker. Alcohol occasional. Physical examination: VITAL SIGNS: 98.4, 83, 18, 11 9 x 69, 92% room air GENERAL: Laying in bed, tired EYES: Pupils equal. Conjunctiva normal. HEENT: External appearance of nose and ears normal, oral cavity grossly normal. NECK: JVD not raised; masses not palpable. HEART: First and second heart sounds are normal; no edema. LUNGS: Respiratory rate increased; decreased breath sounds. ABDOMEN: Soft, nontender, liver spleen not palpable, no masses palpable. PSYCH: Answering simple questionsl. MUSCULOSKELETAL:No Clubbing/cyanosis;muscles-grossly intact. OA INVESTIGATIONS, reviewed in the clinical context: Computed tomography scan chest [February 28]: The point of bilateral pleural effusion worsening infiltrates some decrease in size of the left cavitary lesion . WBC 12.3 hemoglobin 9.5 platelets 278 potassium 4.1 BUN 44 creatinine 1.[address] chest: Stable 6.2 cm nonspecific thick-walled cavitary left upper lobe lesion. Sputum culture from 02/03/2022: Positive for Pseudomonas aeruginosa, Sun albicans, Aspergillus fumigators. 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 IV zerbaxa -Mild protein calorie malnutrition Add and showed -GERD Protonix -Normocytic anemia likely from chronic disease -CAD with a prior history of stent Aspirin, Lipitor, Lopressor -Essential hypertension Lopressor -Hyperlipidemia Lipitor -Chronic CHF, systolic dysfunction, EF 20-25% from ischemic heart disease Lopressor. Lasix -Moderate tricuspid regurgitation, moderate mitral regurgitation -Secondary moderate pulmonary hypertension -Acute on chronic medical debility PT OT After discussion with ID and Dr. Villa. Repeat computed tomography scan done. She was worsening. This point continue with IV antibiotics. Prognosis guarded. May need bronchoscopy with lavage. Total time spent today about 50 minutes with over 25 minutes of discussion.
[2022-02-28] MEDS: CEFTOLOZANE/TAZOBACTAM 1.5 GM in SODIUM CHLORIDE 0.9% 100 ML IV SCH (21:27)
[2022-03-01] MEDS: CEFTOLOZANE/TAZOBACTAM 1.5 GM in SODIUM CHLORIDE 0.9% 100 ML IV SCH ×3 (01:55→15:33)
[2022-03-01] MEDS: SODIUM CHLORIDE 0.9% 1,000 ML IV SCH ×2 (01:55→09:00)
[2022-03-01 07:35] LABS: Anisocytosis Slight; Basophils % (A) 0 %; Eosinophils % (A) 0 %; HCT 24.8 % (39.0-53.0); Hypochromasia Marked; Lymphocytes # (A) 0.7 k/uL (1.0-4.8); Lymphocytes % (A) 6 %; MCH 29.5 pg (25.0-35.0); MCHC 31.2 g/dL (31.0-37.0); MCV 94.5 fL (80.0-100.0); Macrocytosis Slight; Mean Platelet Volume 8.8; Monocytes # (A) 0.3 k/uL (0-1.0); Monocytes % (A) 3 %; Neutrophils # (A) 10.1 k/uL (1.3-7.7); Neutrophils % (A) 90 %; Platelet Count 202 k/uL (150-450); RBC 2.63 m/uL (4.30-5.90); RDW 18.7 % (11.5-15.5); WBC 11.3 k/uL (3.8-10.6)
[2022-03-01] MEDS: ATORVASTATIN 80 MG TAB PO SCH (07:51)
[2022-03-01] MEDS: METOPROLOL TARTRATE 25 MG TAB PO SCH ×2 (07:51→21:10)
[2022-03-01] MEDS: ASPIRIN 81 MG PO SCH (07:51)
[2022-03-01] MEDS: FUROSEMIDE 20 MG TAB PO SCH (07:51)
[2022-03-01] MEDS: predniSONE 20 MG TAB PO SCH (07:51)
[2022-03-01] MEDS: PANTOPRAZOLE 40 MG TABLET PO SCH (07:52)
[2022-03-01 07:54] LABS: HGB 7.7 gm/dL (13.0-17.5)
[2022-03-01] MEDS: ALBUTEROL NEBULIZED 2.5 MG/3 ML INHALATION SCH ×3 (09:29→19:54)
--- NOTE | 2022-03-01 16:07 | P.PN ---
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 He was brought in by EMS. He was recently in the hospital for 3 weeks, for pneumonia, and a cavitary lesion, and the left upper lobe. He was discharged on antibiotics. At that time, sputum showed evidence of Pseudomonas, Sun, and Aspergillus. He was seen by infectious diseases at that time. According to the ER [facility], the patient was having increasing shortness of breath, and weakness, and for that reason, EMS was called. There is no fever or chills. No chest pain or chest discomfort. The patient is a very poor historian. Most of the history is obtained from the ER [facility]. The patient has a history of hypertension, hyperlipidemia, oral cancer, GERD, blindness, osteoporosis, and CHF. CAT scan shows the thick wall cavity in the left upper lobe, and in addition, an infiltrate in the left lower lobe. Patient was discharged to the ECF yesterday. Late in the day patient was sent back to the ER by the rehab place that patient's IV antibiotic Zerbaxa, is not covered. Diet. Decreased oral intake. Some cough. No fever no chills. 02/28/2022: Oral intake what 25%. Discussed with Dr. whitman from [place]. Given that patient has previously not responded to oral antibiotics patient options are limited i.e. that his IV antibiotic. Also discussed with Dr. Villa from pulmonary. We decided yesterday patient not a candidate for bronchoscopy given his comorbidities, high risk of being on the ventilator and if diagnosed with malignancy options extremity limited. Discussed with Dr. Villa again today. We will do a repeat computed tomography scan to see if the mass is shrinking. Computed tomography scan late in the afternoon showed worsening effusion and more infiltrates. 03/01/2022: Laying in bed. Tired. Eating about 25%. Discussed with Dr. Villa from pulmonary. Planning for a bronchoscopy lavage. He will discussed with the son. IV antibiotic to continue. Active Medications Acetaminophen (Acetaminophen Tab 325 Mg Tab) 650 mg PO Q6HR PRN PRN Reason: Fever and/ or Pain Albuterol Sulfate (Albuterol Nebulized 2.5 Mg/3 Ml) 2.5 mg INHALATION RT-TID [facility] Last Admin: 03/01/22 12:09 Dose: 2.5 mg Aspirin (Aspirin 81 Mg) 81 mg PO DAILY [facility] Last Admin: 03/01/22 07:51 Dose: 81 mg Atorvastatin Calcium (Atorvastatin 80 Mg Tab) 80 mg PO DAILY [facility] Last Admin: 03/01/22 07:51 Dose: 80 mg Furosemide (Furosemide 20 Mg Tab) 20 mg PO DAILY [facility] Last Admin: 03/01/22 07:51 Dose: 20 mg Sodium Chloride (Saline 0.9%) 1,000 mls @ 75 mls/hr IV .[id number] [facility] Last Admin: 03/01/22 09:00 Dose: 75 mls/hr Ceftolozane/Tazobactam 1.5 gm/ (Sodium Chloride) 100 mls @ 100 mls/hr IV Q8HR [facility] Last Admin: 03/01/22 15:33 Dose: 100 mls/hr Metoprolol Tartrate (Metoprolol Tartrate 25 Mg Tab) 25 mg PO BID [facility] Last Admin: 03/01/22 07:51 Dose: 25 mg Naloxone HCl (Naloxone 0.4 Mg/Ml 1 Ml Vial) 0.2 mg IV Q2M PRN PRN Reason: Opioid Reversal Pantoprazole Sodium (Pantoprazole 40 Mg Tablet) 40 mg PO AC-BRKFST [facility] Last Admin: 03/01/22 07:52 Dose: 40 mg Prednisone (Prednisone 20 Mg Tab) 20 mg PO DAILY [facility] Last Admin: 03/01/22 07:51 Dose: 20 mg Past medical history to include: GERD, anemia, CAD with stent, hypertension, hyperlipidemia, CHF EF 20-25%, moderate tricuspid mitral regurgitation, moderate pulmonary hypertension, Social history: Nonsmoker. Alcohol occasional. Physical examination: VITAL SIGNS: 98.6, 80, 18, 1.9 with 72, 100% on 3 L GENERAL: Laying in bed, tired EYES: Pupils equal. Conjunctiva normal. HEENT: External appearance of nose and ears normal, oral cavity grossly normal. NECK: JVD not raised; masses not palpable. HEART: First and second heart sounds are normal; no edema. LUNGS: Respiratory rate increased; decreased breath sounds. ABDOMEN: Soft, nontender, liver spleen not palpable, no masses palpable. PSYCH: Answering simple questionsl. MUSCULOSKELETAL:No Clubbing/cyanosis;muscles-grossly intact. OA INVESTIGATIONS, reviewed in the clinical context: 03/01/2022: White count 11.3 hemoglobin 7.7 pro-calcitonin 0.13 creatinine 1.63 Computed tomography scan chest [February 28]: The point of bilateral pleural effusion worsening infiltrates some decrease in size of the left cavitary lesion. WBC 12.3 hemoglobin 9.5 platelets 278 potassium 4.1 BUN 44 creatinine 1.[address] chest: Stable 6.2 cm nonspecific thick-walled cavitary left upper lobe lesion. Sputum culture from 02/03/2022: Positive for Pseudomonas aeruginosa, Sun albicans, Aspergillus fumigators. 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 IV zerbaxa. Dr. Villa is planning to do a bronchoscopy with lavage -Mild protein calorie malnutrition Ensure -GERD Protonix -Normocytic anemia likely from chronic disease -CAD with a prior history of stent Aspirin, Lipitor, Lopressor -Essential hypertension Lopressor -Hyperlipidemia Lipitor -Chronic CHF, systolic dysfunction, EF 20-25% from ischemic heart disease Lopressor. Lasix -Moderate tricuspid regurgitation, moderate mitral regurgitation -Secondary moderate pulmonary hypertension -Acute on chronic medical debility PT OT -Full code Discussed with Dr. Villa. Possibly bronchoscopy with lavage. He'll discuss with the son. Meantime continue current medication treatment plan. Prognosis guarded. Advanced care planning: I discussed with the patient's son at length over the phone. Difference and I were discussed. Did explain the prognosis is guarded. Code status is also discussed. Patient is a full code at this point. The son does not report is found to suffer. He would rather take a decision about the same. Patient to continue being a full code for now. Son will further Dr. JOSEPH and pulmonary to get a better sense of the clinical picture. Questions answered Time spent about 25 minutes.
--- NOTE | 2022-03-01 16:33 | P.PN ---
Subjective Progress Note Date: 03/01/22 On 03/01/2022, patient is appropriately answering questions. Resting in bed. No signs of any respiratory distress. CAT scan of the chest was again reviewed. As mentioned, there is bilateral pleural effusion and a large cavitating left upper lobe. A new cavitating area in the right lung was also seen. The consolidation of left lung with a slightly worse. Patient remains in same antibiotic coverage. Oral intake is very minimal and I do not think this patient is meeting his caloric requirements. The risk was 11.3 with a hemoglobin of 7.7 and it is up and hemoglobin since yesterday without evidence of any external bleeding. Pro-calcitonin level is at 0.13. Objective - Vital Signs Vital signs: Vital Signs Temp 98.6 F 03/01/22 14:00 Pulse 80 03/01/22 14:00 Resp 18 03/01/22 14:00 BP 119/72 03/01/22 14:00 Pulse Ox 100 03/01/22 14:00 FiO2 Intake & Output 02/28/22 03/01/22 03/01/22 18:59 06:59 18:59 Other: Voiding Method Diaper Diaper Incontinent Incontinent # Voids 5 3 # Bowel Movements 1 - Exam GENERAL EXAM: Alert, frail 81-year-old male patient, on room air, comfortable in no apparent distress. HEAD: Normocephalic. EYES: Normal reaction of pupils, equal size. NOSE: Clear with pink turbinates. THROAT: No erythema or exudates. NECK: No masses, no JVD. CHEST: No chest wall deformity. LUNGS: Equal air entry with no crackles, wheeze, rhonchi or dullness. CVS: S1 and S2 normal with no audible murmur, regular rhythm. ABDOMEN: No hepatosplenomegaly, normal bowel sounds, no guarding or rigidity. SPINE: No scoliosis or deformity SKIN: No rashes CENTRAL NERVOUS SYSTEM: No focal deficits, tone is normal in all 4 extremities. EXTREMITIES: There is no peripheral edema. No clubbing, no cyanosis. Peripheral pulses are intact. - Labs CBC & Chem 7: 03/01/22 07:06 03/01/22 07:06 Labs: Abnormal Lab Results - Last 24 Hours (Table) 03/01/22 03/01/22 03/01/22 Range/Units 07:06 07:06 07:06 WBC 11.3 H (3.8-10.6) k/uL RBC 2.63 L (4.30-5.90) m/uL Hgb 7.7 L D (13.0-17.5) gm/dL Hct 24.8 L (39.0-53.0) % RDW 18.7 H (11.5-15.5) % Neutrophils # 10.1 H (1.3-7.7) k/uL Lymphocytes # 0.7 L (1.0-4.8) k/uL Creatinine 1.63 H (0.66-1.25) mg/dL Procalcitonin 0.13 H (0.02-0.09) ng/mL Assessment and Plan Plan: Chronic thick-walled cavitary lesion, left upper lobe, which may relate to anaerobic lung abscess, or cavitary neoplasm such as squamous cell carcinoma.. The patient is currently on Zerbaxa based on a microbiologist was established on the previous showed pseudomonas aeruginosa and Aspergillus Comparing the CAT scans together, the patient had a CAT scan of the chest that was done during this current admission and this is also compared to the earlier CAT scan from his last admission. There is development of bilateral pleural effusion which is probably reactive as the patient has been laying down in bed and he has hypoalbuminemia along with prolonged immobility and atelectasis, this may result reactive pleural effusions. Consolidation of left lung bases slightly worse. Cavitating left upper lobe still present. There is a new area cavitating the right. New infiltrate, left lower lobe, which may relate to underlying aspiration. History of CAD with PCI/stent. History of hyperlipidemia. History of hypertension. 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 Acute kidney injury, improving and the creatinine is down to 1.3 Cachectic, weak, emaciated with poor baseline performance of functional status Plan I reviewed the CAT scan findings Cavitating bronchoscopy with the understanding of an increased risk which may include intubation mechanical ventilation. We'll discuss again with the family
[2022-03-01] MEDS ORDERED: LORazepam 1 MG TAB PO STA (21:51)
[2022-03-01] MEDS: ACETAMINOPHEN TAB 325 MG TAB PO PRN (22:33)
--- NOTE | 2022-03-02 00:19 | P.PN ---
Subjective Progress Note Date: 02/28/22 Principal diagnosis: Multidrug-resistant Pseudomonas pneumonia Patient is a 81-year-old male recently admitted to this hospital diagnosed with a left upper lobe cavitating pneumonia sputum was positive for multidrug resistant Pseudomonas treated with Zerbexa on the basis of sensitivities subsequently discharged on oral Cipro presented back to the hospital with worsening shortness of breath did have persistent left upper lobe cavitating pneumonia in the new left lower lobe pneumonia On today's evaluation and that is 02/28/2022 the patient is afebrile patient seemed to be breathing comfortably patient did have a congested cough but not back up any sputum no vomiting or diarrhea has been reported Objective - Vital Signs Vital signs: Vital Signs Temp 97.3 F L 02/28/22 02:00 Pulse 82 02/28/22 07:25 Resp 17 02/28/22 07:25 BP 111/69 02/28/22 02:00 Pulse Ox 91 L 02/28/22 02:00 FiO2 Intake & Output 02/27/22 02/28/22 02/28/22 18:59 06:59 18:59 Output Total 125 2 Balance -125 -2 Output: Urine 125 Stool 2 Other: Voiding Method Diaper Diaper Incontinent Incontinent # Voids 2 2 # Bowel Movements 1 - Exam GENERAL DESCRIPTION: An elderly male lying in bed in no distress RESPIRATORY SYSTEM: Unlabored breathing , decreased breath sounds at bases HEART: S1 S2 regular rate and rhythm , ABDOMEN: Soft , no tenderness EXTREMITIES: No edema feet - Labs CBC & Chem 7: 03/01/22 07:06 03/01/22 07:06 Assessment and Plan (1) Pneumonia Current Visit: Yes Status: Acute Code(s): J18.9 - PNEUMONIA, UNSPECIFIED ORGANISM SNOMED Code(s): 550542048 Plan: 1patient with left upper and lower lobe pneumonia with left upper lobe thick- walled cavitary lesion previous culture positive for multidrug-resistant Pseudomonas for the patient has been on Zerbaxa unfortunately patient has not been able to placed on this antibiotic either at home or the senior care with left upper lobe cavitary lesion patient will benefit from bronchoscopy lavage and biopsy to rule out malignancy or other etiologies. 2patient to continue with his Zerbaxa and monitor clinical course closely plan of care were discussed with the admitting physician hospice may be an option Time with Patient: Less than 30
--- NOTE | 2022-03-02 00:21 | P.PN ---
Subjective Progress Note Date: 03/01/22 Principal diagnosis: Multidrug-resistant Pseudomonas pneumonia Patient is a 81-year-old male recently admitted to this hospital diagnosed with a left upper lobe cavitating pneumonia sputum was positive for multidrug resistant Pseudomonas treated with Zerbexa on the basis of sensitivities subsequently discharged on oral Cipro presented back to the hospital with worsening shortness of breath did have persistent left upper lobe cavitating pneumonia in the new left lower lobe pneumonia On today's evaluation and that is 03/01/2022 the patient remains to be afebrile patient is breathing comfortably on nasal cannula oxygen, patient is lethargic and very good historian patient did have a congested cough but not bringing up any sputum no vomiting or diarrhea has been reported Objective - Vital Signs Vital signs: Vital Signs Temp 98.6 F 03/01/22 14:00 Pulse 80 03/01/22 14:00 Resp 18 03/01/22 14:00 BP 119/72 03/01/22 14:00 Pulse Ox 100 03/01/22 14:00 FiO2 Intake & Output 02/28/22 03/01/22 03/01/22 18:59 06:59 18:59 Other: Voiding Method Diaper Diaper Incontinent Incontinent # Voids 5 3 # Bowel Movements 1 - Exam GENERAL DESCRIPTION: An elderly male lying in bed in no distress RESPIRATORY SYSTEM: Unlabored breathing , decreased breath sounds at bases HEART: S1 S2 regular rate and rhythm , ABDOMEN: Soft , no tenderness EXTREMITIES: No edema feet - Labs CBC & Chem 7: 03/01/22 07:06 03/01/22 07:06 Labs: Abnormal Lab Results - Last 24 Hours (Table) 03/01/22 03/01/22 03/01/22 Range/Units 07:06 07:06 07:06 WBC 11.3 H (3.8-10.6) k/uL RBC 2.63 L (4.30-5.90) m/uL Hgb 7.7 L D (13.0-17.5) gm/dL Hct 24.8 L (39.0-53.0) % RDW 18.7 H (11.5-15.5) % Neutrophils # 10.1 H (1.3-7.7) k/uL Lymphocytes # 0.7 L (1.0-4.8) k/uL Creatinine 1.63 H (0.66-1.25) mg/dL Procalcitonin 0.13 H (0.02-0.09) ng/mL Assessment and Plan (1) Drug resistance Current Visit: Yes Status: Acute Code(s): Z16.30 - RESISTANCE TO UNSPECIFIED ANTIMICROBIAL DRUGS SNOMED Code(s): 57669579 (2) Pneumonia Current Visit: Yes Status: Acute Code(s): J18.9 - PNEUMONIA, UNSPECIFIED ORGANISM SNOMED Code(s): 713460046 Plan: 1patient with left upper and lower lobe pneumonia with left upper lobe thick-walled cavitary lesion previous culture positive for multidrug-resistant Pseudomonas for the patient has been on Zerbaxa unfortunately patient has not been able to placed on this antibiotic either at home or the halfway with left upper lobe cavitary lesion patient will benefit from bronchoscopy lavage and biopsy to rule out malignancy or other etiologies. 2patient to continue with his Zerbaxa as the patient has already failed oral Cipro and no other options as far as antibiotics are concerned
[2022-03-02] MEDS: CEFTOLOZANE/TAZOBACTAM 1.5 GM in SODIUM CHLORIDE 0.9% 100 ML IV SCH ×3 (00:36→15:56)
[2022-03-02] MEDS: SODIUM CHLORIDE 0.9% 1,000 ML IV SCH ×2 (00:37→15:57)
[2022-03-02] MEDS: predniSONE 20 MG TAB PO SCH (07:48)
[2022-03-02] MEDS: METOPROLOL TARTRATE 25 MG TAB PO SCH ×2 (07:48→22:10)
[2022-03-02] MEDS: ATORVASTATIN 80 MG TAB PO SCH (07:48)
[2022-03-02] MEDS: PANTOPRAZOLE 40 MG TABLET PO SCH (07:48)
[2022-03-02] MEDS: FUROSEMIDE 20 MG TAB PO SCH (07:48)
[2022-03-02] MEDS: ASPIRIN 81 MG PO SCH (07:48)
[2022-03-02] MEDS: ALBUTEROL NEBULIZED 2.5 MG/3 ML INHALATION SCH ×4 (07:51→20:39)
--- NOTE | 2022-03-02 15:03 | P.PN ---
Subjective Progress Note Date: 03/02/22 On 03/02/2022, I had a lengthy discussion with the patient's children. The patient has adopted children who arrived to the hospital and I went over the case at length with him. Summary, I'm not absolutely sure whether the patient has an underlying malignancy. The patient has a cavitating the left upper lobe. Previous cultures showing pseudomonas aeruginosa and Aspergillus. The patient has been on Ceftolozane. Nevertheless, despite antibiotic treatment, I haven't seen any much improvement in the patient's clinical condition and the chest x- ray findings. In fact, most recent CAT scan of the chest with ongoing cavitation left upper lobe, and a new area of cavitating the right lung. There was also developed the bilateral pleural effusion. The patient is doing very poorly. He communicates. However, he does not. His oral intake is minimal. Nutrition obviously has become initiation of this patient. He has no ambition or motives to get out of the bed. 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 He remains on prednisone 20 mg by mouth daily. 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 He has no headaches. No altered mentation. Extremely weak. Congestive cough is still present. Minimal sputum production. He is having episodes of hemoptysis. No hemoptysis for now. Hemoglobin from yesterday was down to 7.7. Objective - Vital Signs Vital signs: Vital Signs Temp 97.6 F 03/02/22 13:22 Pulse 82 03/02/22 13:22 Resp 16 03/02/22 13:22 BP 117/69 03/02/22 13:22 Pulse Ox 95 03/02/22 13:22 FiO2 Intake & Output 03/01/22 03/02/22 03/02/22 18:59 06:59 18:59 Intake Total 25 Output Total 2 200 Balance 25 -2 -200 Intake: Oral 25 Output: Urine 200 Stool 2 Other: Voiding Method Diaper Incontinent # Voids 3 - Exam GENERAL EXAM: Alert, frail 81-year-old male patient, on room air, comfortable in no apparent distress. HEAD: Normocephalic. EYES: Normal reaction of pupils, equal size. NOSE: Clear with pink turbinates. THROAT: No erythema or exudates. NECK: No masses, no JVD. CHEST: No chest wall deformity. LUNGS: Equal air entry with no crackles, wheeze, rhonchi or dullness. CVS: S1 and S2 normal with no audible murmur, regular rhythm. ABDOMEN: No hepatosplenomegaly, normal bowel sounds, no guarding or rigidity. SPINE: No scoliosis or deformity SKIN: No rashes CENTRAL NERVOUS SYSTEM: No focal deficits, tone is normal in all 4 extremities. EXTREMITIES: There is no peripheral edema. No clubbing, no cyanosis. Peripheral pulses are intact. - Labs CBC & Chem 7: 03/01/22 07:06 03/02/22 06:12 Labs: Abnormal Lab Results - Last 24 Hours (Table) 03/02/22 Range/Units 06:12 Creatinine 1.51 H (0.66-1.25) mg/dL Assessment and Plan Plan: Chronic thick-walled cavitary lesion, left upper lobe, which may relate to anaerobic lung abscess, or cavitary neoplasm such as squamous cell carcinoma.. The patient is currently on Zerbaxa based on a microbiologist was established on the previous showed pseudomonas aeruginosa and Aspergillus Comparing the CAT scans together, the patient had a CAT scan of the chest that was done during this current admission and this is also compared to the earlier CAT scan from h is last admission. There is development of bilateral pleural effusion which is probably reactive as the patient has been laying down in bed and he has hypoalbuminemia along with prolonged immobility and atelectasis, this may result reactive pleural effusions. Consolidation of left lung bases slightly worse. Cavitating left upper lobe still present. There is a new area cavitating the right. New infiltrate, left lower lobe, which may relate to underlying aspiration. History of CAD with PCI/stent. History of hyperlipidemia. History of hypertension. 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 Acute kidney injury, improving and the creatinine is down to 1.3 Cachectic, weak, emaciated with poor baseline performance of functional status Plan I had a lengthy discussion with the patient's children. I went over the case at length, and I expressed my concern that there may be an underlying cancer especially with a cavitating lesion in that upper lobe. Gram-negative pneumonia and fungal infections can do the same. Connective due to diseases or vasculitis is felt to be less likely. The patient is on steroids. The patient has been diagnosed having a temporal arteritis. Pulmonary involvement with that is felt to be unlikely. The ANCA levels have been negative. The patient's condition is essentially getting worse and his functionality has been impaired considerably and his nutritional status is also o developed some bilateral pleural effusions. Based on all this, and based on lack of response to antibiotics; is reasonable to do a bronchoscopy and possibly biopsy the patient is able to handle with understanding that this may carry a risk of complications including respiratory failure requiring intubation mechanical ventilation. The children were made aware. This may need to be a component of metabolic bronchoscopy and is same, rule out malignancy. As long as they're agreeable, I will schedule the case for tomorrow morning. Awaiting final response from the children.
--- NOTE | 2022-03-02 16:18 | P.PN ---
Subjective Progress Note Date: 03/02/22 Principal diagnosis: Multidrug-resistant Pseudomonas pneumonia Patient is a 81-year-old male recently admitted to this hospital diagnosed with a left upper lobe cavitating pneumonia sputum was positive for multidrug resistant Pseudomonas treated with Zerbexa on the basis of sensitivities subsequently discharged on oral Cipro presented back to the hospital with worsening shortness of breath did have persistent left upper lobe cavitating pneumonia in the new left lower lobe pneumonia On today's evaluation and that is 03/02/2022 the patient family has shut the door closed and would not allow any staff member to go inside as apparently they have been doing prayers, patient is on room air per nursing staff and no vomiting or diarrhea has been reported Objective - Vital Signs Vital signs: Vital Signs Temp 97.6 F 03/02/22 13:22 Pulse 82 03/02/22 13:22 Resp 16 03/02/22 13:22 BP 117/69 03/02/22 13:22 Pulse Ox 95 03/02/22 13:22 FiO2 Intake & Output 03/01/22 03/02/22 03/02/22 18:59 06:59 18:59 Intake Total 25 Output Total 2 200 Balance 25 -2 -200 Intake: Oral 25 Output: Urine 200 Stool 2 Other: Voiding Method Diaper Incontinent # Voids 3 - Exam Patient could not be examined as I was unable to go inside the room - Labs CBC & Chem 7: 03/01/22 07:06 03/02/22 06:12 Labs: Abnormal Lab Results - Last 24 Hours (Table) 03/02/22 Range/Units 06:12 Creatinine 1.51 H (0.66-1.25) mg/dL Assessment and Plan (1) Drug resistance Current Visit: Yes Status: Acute Code(s): Z16.30 - RESISTANCE TO UNSPECIFIED ANTIMICROBIAL DRUGS SNOMED Code(s): 12620459 (2) Pneumonia Current Visit: Yes Status: Acute Code(s): J18.9 - PNEUMONIA, UNSPECIFIED ORGANISM SNOMED Code(s): 267744190 Plan: 1patient with left upper and lower lobe pneumonia with left upper lobe thick- walled cavitary lesion previous culture positive for multidrug-resistant Pseudomonas for the patient has been on Zerbaxa unfortunately patient has not been able to placed on this antibiotic either at home or the correction with left upper lobe cavitary lesion patient will benefit from bronchoscopy lavage and biopsy to rule out malignancy or other etiologies. 2patient to continue with his Zerbaxa as the patient has already failed oral C ipro and no other options as far as antibiotics are concerned, this was discussed in detail again with the Dr Schmidt who is covering for Dr. Santana Time with Patient: Less than 30
--- NOTE | 2022-03-02 20:07 | P.PN ---
Progress Note - Text Progress Note Date: 03/02/22 Chief Complaint: Indication not covered I'm rounding for Dr. Catrachito Santana. He was brought in by EMS. He was recently in the hospital for 3 weeks, for pneumonia, and a cavitary lesion, and the left upper lobe. He was discharged on antibiotics. At that time, sputum showed evidence of Pseudomonas, Sun, and Aspergillus. He was seen by infectious diseases at that time. According to the ER [facility], the patient was having increasing shortness of breath, and weakness, and for that reason, EMS was called. There is no fever or chills. No chest pain or chest discomfort. The patient is a very poor historian. Most of the history is obtained from the ER [facility]. The patient has a history of hypertension, hyperlipidemia, oral cancer, GERD, blindness, osteoporosis, and CHF. CAT scan shows the thick wall cavity in the left upper lobe, and in addition, an infiltrate in the left lower lobe. Patient was discharged to the ECF yesterday. Late in the day patient was sent back to the ER by the rehab place that patient's IV antibiotic Zerbaxa, is not covered. Diet. Decreased oral intake. Some cough. No fever no chills. 02/28/2022: Oral intake what 25%. Discussed with Dr. whitman from [facility]. Given that patient has previously not responded to oral antibiotics patient options are limited i.e. that his IV antibiotic. Also discussed with Dr. Villa from pulmonary. We decided yesterday patient not a candidate for bronchoscopy given his comorbidities, high risk of being on the ventilator and if diagnosed with malignancy options extremity limited. Discussed with Dr. Villa again today. We will do a repeat computed tomography scan to see if the mass is shrinking. Computed tomography scan late in the afternoon showed worsening effusion and more infiltrates. 03/01/2022: Laying in bed. Tired. Eating about 25%. Discussed with Dr. Villa from pulmonary. Planning for a bronchoscopy lavage. He will discussed with the son. IV antibiotic to continue. 03/02/2022: I came to see the patient is afternoon, son was present in his room. He was upset that what medications we are pumping into my father. He was visibly upset. As to why the patient not doing well. 2 nurses of present in the room. I did try to explain to him that I been calling him for last 2 days explaining to him after speaking with the consultants and that his cases no straightforward. That we can do a best. But sometimes outcomes are not favorable. Because his behavior did not change actually the room. I did come back later to see the patient. Dr. Villa is plan to do a bronchoscopy with lavage tomorrow. I also discussed with Dr. Gayle. From ID. He was unable to se e the patient and family at block the door nurse reporting that they were praying inside. Nurse Jacinto also witnessed the son making the patient sign some papers. I did discuss the patient about the bronchoscopy and he expressed understanding of the same. Active Medications Acetaminophen (Acetaminophen Tab 325 Mg Tab) 650 mg PO Q6HR PRN PRN Reason: Fever and/ or Pain Last Admin: 03/01/22 22:33 Dose: 650 mg Albuterol Sulfate (Albuterol Nebulized 2.5 Mg/3 Ml) 2.5 mg INHALATION RT-TID [facility] Last Admin: 03/02/22 12:22 Dose: 2.5 mg Aspirin (Aspirin 81 Mg) 81 mg PO DAILY [facility] Last Admin: 03/02/22 07:48 Dose: 81 mg Atorvastatin Calcium (Atorvastatin 80 Mg Tab) 80 mg PO DAILY [facility] Last Admin: 03/02/22 07:48 Dose: 80 mg Furosemide (Furosemide 20 Mg Tab) 20 mg PO DAILY [facility] Last Admin: 03/02/22 07:48 Dose: 20 mg Sodium Chloride (Saline 0.9%) 1,000 mls @ 75 mls/hr IV .[id number] [facility] Last Admin: 03/02/22 15:57 Dose: 75 mls/hr Ceftolozane/Tazobactam 1.5 gm/ (Sodium Chloride) 100 mls @ 100 mls/hr IV Q8HR [facility] Last Admin: 03/02/22 15:56 Dose: 100 mls/hr Metoprolol Tartrate (Metoprolol Tartrate 25 Mg Tab) 25 mg PO BID [facility] Last Admin: 03/02/22 07:48 Dose: 25 mg Naloxone HCl (Naloxone 0.4 Mg/Ml 1 Ml Vial) 0.2 mg IV Q2M PRN PRN Reason: Opioid Reversal Pantoprazole Sodium (Pantoprazole 40 Mg Tablet) 40 mg PO AC-[id number] [facility] Last Admin: 03/02/22 07:48 Dose: 40 mg Prednisone (Prednisone 20 Mg Tab) 20 mg PO DAILY [facility] Last Admin: 03/02/22 07:48 Dose: 20 mg Past medical history to include: GERD, anemia, CAD with stent, hypertension, hyperlipidemia, CHF EF 20-25%, moderate tricuspid mitral regurgitation, moderate pulmonary hypertension, Social history: Nonsmoker. Alcohol occasional. Physical examination: VITAL SIGNS: 97.6, 82, 16, 170/69, 95% room air GENERAL: Laying in bed, tired EYES: Pupils equal. Conjunctiva normal. HEENT: External appearance of nose and ears normal, oral cavity grossly normal. NECK: JVD not raised; masses not palpable. HEART: First and second heart sounds are normal; no edema. LUNGS: Respiratory rate increased; decreased breath sounds. ABDOMEN: Soft, nontender, liver spleen not palpable, no masses palpable. PSYCH: Answering simple questionsl. MUSCULOSKELETAL:No Clubbing/cyanosis;muscles-grossly intact. OA INVESTIGATIONS, reviewed in the clinical context: 03/01/2022: White count 11.3 hemoglobin 7.7 pro-calcitonin 0.13 creatinine 1.63 Computed tomography scan chest [February 28]: The point of bilateral pleural effusion worsening infiltrates some decrease in size of the left cavitary lesion. WBC 12.3 hemoglobin 9.5 platelets 278 potassium 4.1 BUN 44 creatinine 1.[address] chest: Stable 6.2 cm nonspecific thick-walled cavitary left upper lobe lesion. Sputum culture from 02/03/2022: Positive for Pseudomonas aeruginosa, Sun albicans, Aspergillus fumigators. Assessment and plan: -Chronic thick-walled cavity lesion left upper lobe which may be anaerobic lung abscess , neoplasm cannot be ruled out: Slow to respond Recent cultures positive for Pseudomonas aeruginosa. IV zerbaxa. Dr. Villa is planning to do a bronchoscopy with lavage on Thursday -Mild protein calorie malnutrition Ensure -GERD Protonix -Normocytic anemia likely from chronic disease -CAD with a prior history of stent Aspirin, Lipitor, Lopressor -Essential hypertension Lopressor -Hyperlipidemia Lipitor -Chronic CHF, systolic dysfunction, EF 20-25% from ischemic heart disease Lopressor. Lasix -Moderate tricuspid regurgitation, moderate mitral regurgitation -Secondary moderate pulmonary hypertension -Acute on chronic medical debility PT OT -Full code Discussed with Dr. Villa. bronchoscopy with lavage tomorrow. Continue current treatment plan. Discussed with the patient.
[2022-03-02] MEDS: MELATONIN 3 MG TABLET PO SCH (22:09)
[2022-03-02] MEDS: ACETAMINOPHEN TAB 325 MG TAB PO PRN (22:10)
[2022-03-03] MEDS: CEFTOLOZANE/TAZOBACTAM 1.5 GM in SODIUM CHLORIDE 0.9% 100 ML IV SCH ×3 (00:07→18:23)
[2022-03-03] MEDS ORDERED: FUROSEMIDE 10 MG/ML 4 ML VIAL IV STA (05:00)
[2022-03-03] MEDS: ALBUTEROL NEBULIZED 2.5 MG/3 ML INHALATION SCH ×3 (07:14→19:05)
[2022-03-03] MEDS: ASPIRIN 81 MG PO SCH (08:03)
[2022-03-03] MEDS: FUROSEMIDE 20 MG TAB PO SCH (08:03)
[2022-03-03] MEDS: ATORVASTATIN 80 MG TAB PO SCH (08:03)
[2022-03-03] MEDS: PANTOPRAZOLE 40 MG TABLET PO SCH (08:03)
[2022-03-03] MEDS: predniSONE 20 MG TAB PO SCH (08:03)
[2022-03-03] MEDS: METOPROLOL TARTRATE 25 MG TAB PO SCH ×2 (08:07→20:42)
[2022-03-03 09:18] LABS: Anisocytosis Slight; Basophils % (A) 0 %; Eosinophils % (A) 0 %; HCT 26.2 % (39.0-53.0); Hypochromasia Marked; Lymphocytes # (A) 1.2 k/uL (1.0-4.8); Lymphocytes % (A) 11 %; MCH 29.3 pg (25.0-35.0); MCHC 30.4 g/dL (31.0-37.0); MCV 96.5 fL (80.0-100.0); Macrocytosis Slight; Mean Platelet Volume 8.4; Monocytes # (A) 0.3 k/uL (0-1.0); Monocytes % (A) 3 %; Neutrophils # (A) 9.3 k/uL (1.3-7.7); Neutrophils % (A) 85 %; Platelet Count 189 k/uL (150-450); Poikilocytosis Slight; RBC 2.71 m/uL (4.30-5.90); RDW 18.4 % (11.5-15.5)
[2022-03-03 09:30] LABS: African American GFR (CKD) 48 (>60 ml/min/1.73 sqM); Anion Gap 9 mmol/L; Blood Urea Nitrogen 33 mg/dL (9-20); Carbon Dioxide 21 mmol/L (22-30); Chloride 117 mmol/L (98-107); Glucose 87 mg/dL (74-99); Non-African American GFR(CKD) 41 (>60 ml/min/1.73 sqM); Potassium 3.3 mmol/L (3.5-5.1); Sodium 147 mmol/L (137-145)
[2022-03-03] MEDS ORDERED: LIDOCAINE 1% (10MG/ML) FOR IV START ONE (09:40)
[2022-03-03] MEDS ORDERED: SUCCINYLCHOLINE CHLORIDE 200 MG/10 ML VIAL IV ONE (09:40)
[2022-03-03] MEDS ORDERED: ETOMIDATE 2 MG/ML 10 ML VIAL ONE (09:40)
[2022-03-03] MEDS ORDERED: IV FLUID CONTINUATION 250 ML IV ONE (09:41)
--- NOTE | 2022-03-03 09:55 | CT ---
EXAMINATION TYPE: CT Chest yosvany Gonzalez Protocol DATE OF EXAM: 03/03/2022 COMPARISON: 02/28/2022 HISTORY: pre bronchial navigation CT DLP: 627 mGycm Automated exposure control for dose reduction was used. Contrast: None Technique: Axial images 5 mm thick sections. Reconstructed images in the coronal and sagittal planes. Thin section 0.75 mm thick sections were obtained. FINDINGS: There is a cavitary lesion measuring 5.9 x 6.0 cm and the left upper lobe. Small left pleural effusio n is present. Small right pleural effusion is present. An additional cavitary appearance within the right lung is present measuring 1.1 cm in diameter. Seri es 6 image 30. There is an area of pneumonitis within the right mid lung. This may have a small cavitation. This are a measures 2.6 x 1.5 cm. Series 6 image 19. Tiny nodule may be within the right lung base. Series 6 image 52. Small nodule at the left mid lung m ay be present measuring 0.9 cm. Series 6 image 28. Small peripheral densities are noted at the left l denisse. Series 6 image 28 and 26. Small nodule may be within knee periphery of the right lung. Series 6 image 20. Coronary artery calcification is noted. Descending thoracic aorta the level of the main pulmonary ar brooks is 3.9 cm. Main pulmonary artery at the bifurcation is 3.2 cm. No enlarged mediastinal or hilar adenopathy is evident. A small pretracheal lymph node is noted. Limited CT sections were obtained through the upper abdomen which is unremarkable. IMPRESSION: 1. LARGE 6 CM CAVITARY LESION LEFT UPPER LUNG FIELD. 2. ADDITIONAL AREAS OF SMALL CAVITATION WITHIN AREAS OF PNEUMONITIS WITHIN THE RIGHT LUNG. 3. SMALL BILATERAL PLEURAL EFFUSIONS.
[2022-03-03] MEDS ORDERED: SODIUM CHLORIDE 0.9% 500 ML 500 ML IV ONE (10:11)
[2022-03-03 11:11] VITALS: BMI 26.5
--- NOTE | 2022-03-03 11:14 | XR ---
EXAMINATION TYPE: XR chest 1V portable DATE OF EXAM: 03/03/2022 CLINICAL HISTORY: Difficulty breathing progress study. Post bronchoscopy. TECHNIQUE: Single AP portable upright view of the chest is obtained. COMPARISON: Chest x-ray from [address] chest earlier today. FINDINGS: Thick wall cavitary lesion left lung apex redemonstrated. Smaller cavitary lesion in the p eriphery of the inferior right upper lobe redemonstrated. Small left greater than right pleural effus ions redemonstrated. No pneumothorax after bronchoscopy and sampling noted. Cardiac silhouette size s table and upper limits of normal. Multilevel Spurring in the spine redemonstrated. IMPRESSION: As above.
--- NOTE | 2022-03-03 13:06 | P.PCN ---
Date of Procedure: 03/03/22 Preoperative Diagnosis: BILLY cavitatiog mass Postoperative Diagnosis: BILLY cavitating mass Procedure(s) Performed: Navigation Bronchoscopy Transbronchial Biopsy, Transbronchial brushing , BAl of the BILLY Anesthesia: STEVENA Surgeon: Miguel Villa Estimated Blood Loss (ml): 0 Pathology: other Condition: stable Disposition: floor Operative Findings: Operative Findings: 1 left upper lobe cavitating mass Postoperative Diagnosis: 1 left upper lobe cavitating mass Procedure(s) Performed: 1 flexible bronchoscopy, airway inspection 2 navigation bronchoscopy, transbronchial biopsy of a right on the left upper lobe cavitating mass, brushing of the left upper lobe cavitating mass, , bronchioloalveolar lavage of the left upper lobe Surgeon: Miguel Villa Dried Yeast Supervisor #1: Brianna Hui Estimated Blood Loss (ml): 5 cc Pathology: TBBX, brushings and a bronchial lavage of the left upper lobe Condition: stable Disposition: same day Operative Findings: The patient had a preoperative computed tomography scan of the chest using the [employer] protocol. The CAT scan images were reviewed. The left upper lobe opacity was identified it was mapped appropriately. The CAT scan images are uploaded into a USB and then into the [employer] Navigation tower. After obtaining the consent the patient was taken to the OR suite he was intubated and put on mechanical ventilation by anesthesia then the scope was advanced to the ET tube until the Trachea was seen and it was normal and then the ubaldo appears normal then the scope advanced to the left main and BILLY LB1- LB3 were seen and no endobronchial lesions were seen then the scope advanced to the lingula and the LB4 and LB5 were seen and no endobronchial lesions were seen the scope retracted and advanced to the left lower lobes LB6 to LB12 were seen one by one and no endobronchial lesions, then the scope was retracted back to the ubaldo and advanced to the Right main and RUL RB1 and RB2 and RB3 were seen one by one and no endobronchial lesions were seen the scope. The bronchoscope was then retracted and advanced to the BI and RML RB4 and RB5 were seen and no endobronchial lesions were seen then it was retracted and advanced to the RLL RB6 to RB12 were seen one by one and no endobronchial lesions. Navigation bronchoscopy was performed. The main ubaldo and the secondary ubaldo on the left were used as the reference points and appropriate calibration was done. Following that, using a navigation guidance , the bronchoscope was advanced to the left upper lobe apical segment and various transbronchial biopsies, transbronchial brushings and transbronchial needle aspirate of of the left upper lobe opacity was done without any complications. I also performed a bronchioloalveolar lavage of the left upper lobe and a total of 80 mL of fluid was infused and 20 mL was suctioned back and this will be sent for cytology and microbial cultures. The bronchoscope was removed, the patient will be extubated and then transferred to recovery. A follow-up chest x-ray will be done in recovery.
--- NOTE | 2022-03-03 14:53 | P.PN ---
Subjective Progress Note Date: 03/03/22 On 03/02/2022, I had a lengthy discussion with the patient's children. The patient has adopted children who arrived to the hospital and I went over the case at length with him. Summary, I'm not absolutely sure whether the patient has an underlying malignancy. The patient has a cavitating the left upper lobe. Previous cultures showing pseudomonas aeruginosa and Aspergillus. The patient has been on Ceftolozane. Nevertheless, despite antibiotic treatment, I haven't seen any much improvement in the patient's clinical condition and the chest x- ray findings. In fact, most recent CAT scan of the chest with ongoing cavitation left upper lobe, and a new area of cavitating the right lung. There was also developed the bilateral pleural effusion. The patient is doing very poorly. He communicates. However, he does not. His oral intake is minimal. Nutrition obviously has become initiation of this patient. He has no ambition or motives to get out of the bed. 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 He remains on prednisone 20 mg by mouth daily. 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 He has no headaches. No altered mentation. Extremely weak. Congestive cough is still present. Minimal sputum production. He is having episodes of hemoptysis. No hemoptysis for now. Hemoglobin from yesterday was down to 7.7. The patient is seen today 03/03/2022 in follow-up on the regular medical floor. He is currently resting comfortably in bed. Awake and alert in no acute distress. He did undergo bronchoscopy with biopsies and BAL this morning by Dr. Villa. Cultures and pathology are pending. He tolerated the procedure well. On 2 L nasal cannula. He denies any worsening shortness of breath, cough or congestion. White count 11.0. Hemoglobin 8.0. Sodium 147. Potassium 3.3. Chloride 117. Bicarb 21. BUN 33. Creatinine 1.54. Pro-calcitonin 0.13. He remains on antibiotics in the form of Zerbaxa. Continued on prednisone taper. Objective - Vital Signs Vital signs: Vital Signs Temp 97.0 F L 03/03/22 10:25 Pulse 82 03/03/22 11:00 Resp 16 03/03/22 11:00 BP 129/63 03/03/22 11:00 Pulse Ox 97 03/03/22 11:00 FiO2 Intake & Output 03/02/22 03/03/22 03/03/22 18:59 06:59 18:59 Intake Total 238 250 Output Total 200 602 Balance 38 -602 250 Weight 83.915 kg Intake: IV 250 Oral 238 Output: Urine 200 600 Stool 2 Other: Voiding Method Diaper Diaper Incontinent Incontinent - Exam GENERAL EXAM: Alert, frail 81-year-old male patient, on 2 L nasal cannula, comfortable in no apparent distress. HEAD: Normocephalic. EYES: Normal reaction of pupils, equal size. NOSE: Clear with pink turbinates. THROAT: No erythema or exudates. NECK: No masses, no JVD. CHEST: No chest wall deformity. LUNGS: Equal air entry with few scattered rhonchi. CVS: S1 and S2 normal with no audible murmur, regular rhythm. ABDOMEN: No hepatosplenomegaly, normal bowel sounds, no guarding or rigidity. SPINE: No scoliosis or deformity SKIN: No rashes CENTRAL NERVOUS SYSTEM: No focal deficits, tone is normal in all 4 extremities. EXTREMITIES: There is no peripheral edema. No clubbing, no cyanosis. Peripheral pulses are intact. - Labs CBC & Chem 7: 03/03/22 08:34 03/03/22 08:34 Labs: Abnormal Lab Results - Last 24 Hours (Table) 03/03/22 03/03/22 Range/Units 08:34 08:34 WBC 11.0 H (3.8-10.6) k/uL RBC 2.71 L (4.30-5.90) m/uL Hgb 8.0 L (13.0-17.5) gm/dL Hct 26.2 L (39.0-53.0) % MCHC 30.4 L (31.0-37.0) g/dL RDW 18.4 H (11.5-15.5) % Neutrophils # 9.3 H (1.3-7.7) k/uL Sodium 147 H (137-145) mmol/L Potassium 3.3 L (3.5-5.1) mmol/L Chloride 117 H (98-107) mmol/L Carbon Dioxide 21 L (22-30) mmol/L BUN 33 H (9-20) mg/dL Creatinine 1.54 H (0.66-1.25) mg/dL Calcium 7.0 L (8.4-10.2) mg/dL Assessment and Plan Assessment: Acute hypoxemic respiratory failure secondary to a chronic thick-walled cavitary lesion, left upper lobe, which may relate to anaerobic lung abscess, or cavitary neoplasm such as squamous cell carcinoma. The patient is currently on Zerbaxa based on a microbiologist was established on the previous showed pseudomonas aeruginosa and Aspergillus Comparing the CAT scans together, the patient had a CAT scan of the chest that was done during this current admission and this is also compared to the earlier CAT scan from his last admission. There is development of bilateral pleural effusion which is probably reactive as the patient has been laying down in bed and he has hypoalbuminemia along with prolonged immobility and atelectasis, this may result reactive pleural effusions. Consolidation of left lung bases slightly worse. Cavitating left upper lobe still present. There is a new area cavitating the right. Navigational bronchoscopy with BAL and biopsies of the left upper lobe were performed on 03/03/2022. Cultures and pathology pending. New infiltrate, left lower lobe, which may relate to underlying aspiration. History of CAD with PCI/stent. History of hyperlipidemia. History of hypertension. 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 Acute kidney injury, improving and the creatinine is down to 1.3 Cachectic, weak, emaciated with poor baseline performance of functional status Plan The patient was seen and evaluated Dr. Villa did speak to the patient's son Tiago prior to the procedure He did undergo bronchoscopy with biopsies today Tolerated procedure well, currently on 2 L nasal cannula Cultures and pathology pending Continued on Zerbaxa for now We will continue to follow and make further recommendations based on his clinical status I have personally seen and examined the patient, performed the documentation and the assessment and plan as written. Number of minutes spent on the visit: 10.
[2022-03-03] MEDS: SODIUM CHLORIDE 0.9% 1,000 ML IV SCH (17:32)
[2022-03-03 19:34] LABS: Appearance,BF Bloody
[2022-03-03] MEDS: MELATONIN 3 MG TABLET PO SCH (20:42)
[2022-03-04] MEDS: CEFTOLOZANE/TAZOBACTAM 1.5 GM in SODIUM CHLORIDE 0.9% 100 ML IV SCH ×4 (00:36→23:44)
--- NOTE | 2022-03-04 02:44 | PN ---
PROGRESS NOTE SUBJECTIVE: This 81-year-old white male remains on IV ceftolozane/tazobactam 1.5 g every 8 hours. Apparently, he underwent a paracentesis today. We have to wait for pathology to come back. OBJECTIVE: GENERAL: He is alert, giving appropriate answers, he is saturating 98 on 2 L. VITAL SIGNS: Blood pressure 134/82, pulse 96, respiratory rate 18-16, and temperature 97.8. CARDIOVASCULAR: S1, S2. LUNGS: Scattered rhonchi, wheeze. HEMATOLOGY: Negative Homans. PSYCH: Fair mood and affect. LABORATORY DATA: Labs show white count 11, hemoglobin is 8 up from 7 7, sodium is 147, potassium 3.3, BUN is 33, creatinine is 1.54 up from 1.51. Waiting for bronchial washings to come back. Procedure is done by Dr. Villa today. Please see further orders. Continue with broad-spectrum antibiotics. DISCHARGE PLANNING: Gave oxygen and nebulizer has to be set up. Operating findings were left upper lobe cavitating mass, unclear etiology, rule out mets, rule out cancer, status post bronchoalveolar lavage, large transbronchial biopsy. PROGNOSIS: Extremely guarded. Please see further orders. MMODL / IJN: [id number] /
[2022-03-04] MEDS: PANTOPRAZOLE 40 MG TABLET PO SCH (06:55)
[2022-03-04] MEDS: ALBUTEROL NEBULIZED 2.5 MG/3 ML INHALATION SCH ×3 (07:56→21:47)
[2022-03-04] MEDS: ASPIRIN 81 MG PO SCH (08:19)
[2022-03-04] MEDS: predniSONE 20 MG TAB PO SCH (08:19)
[2022-03-04] MEDS: FUROSEMIDE 20 MG TAB PO SCH (08:19)
[2022-03-04] MEDS: ATORVASTATIN 80 MG TAB PO SCH (08:19)
[2022-03-04] MEDS: METOPROLOL TARTRATE 25 MG TAB PO SCH ×2 (08:19→21:40)
[2022-03-04 10:27] LABS: Basophils # (A) 0.01 X 10*3/uL (0.00-0.10); Basophils % (A) 0.1 %; Eosinophils # (A) 0.04 X 10*3/uL (0.04-0.35); Eosinophils % (A) 0.4 %; HCT 25.6 % (39.6-50.0); HGB 7.8 g/dL (13.0-17.0); Immature Grans, Automated 0.7 %; Lymphocytes # (A) 0.74 X 10*3/uL (0.90-5.00); Lymphocytes % (A) 6.7 %; MCH 29.4 pg (27.0-32.0); MCHC 30.5 g/dL (32.0-37.0); MCV 96.6 fL (80.0-97.0); Mean Platelet Volume 10.3 fL (9.5-12.2); Monocytes # (A) 0.44 X 10*3/uL (0.20-1.00); NRBC Per 100 WBC 0 /100 WBCS (0.0-0.0); Neutrophils % (A) 88.1 %; Platelet Count 163 X 10*3/uL (140-440); RBC 2.65 X 10*6/uL (4.40-5.60); RDW 19.8 % (11.5-14.5); WBC 11.01 X 10*3/uL (4.50-10.00)
[2022-03-04 11:00] LABS: African American GFR (CKD) 55.9 (60.0-200.0); Albumin 2.4 g/dL (3.8-4.9); Albumin/Globulin Ratio 1.31 (1.60-3.17); Anion Gap 12.2 mmol/L (10.00-18.00); BUN/Creat Ratio 20.3 Ratio (12.00-20.00); Blood Urea Nitrogen 27.4 mg/dL (9.0-27.0); Calcium 7.3 mg/dL (8.7-10.3); Carbon Dioxide 22.1 mmol/L (20.0-27.5); Globulin 1.9 g/dL (1.6-3.3); Non-African American GFR(CKD) 48.2 (60.0-200.0); Total Bilirubin 0.7 mg/dL (0.30-1.20); Total Protein 4.3 g/dL (6.2-8.2)
--- NOTE | 2022-03-04 13:46 | P.PN ---
Subjective Progress Note Date: 03/04/22 On 03/02/2022, I had a lengthy discussion with the patient's children. The patient has adopted children who arrived to the hospital and I went over the case at length with him. Summary, I'm not absolutely sure whether the patient has an underlying malignancy. The patient has a cavitating the left upper lobe. Previous cultures showing pseudomonas aeruginosa and Aspergillus. The patient has been on Ceftolozane. Nevertheless, despite antibiotic treatment, I haven't seen any much improvement in the patient's clinical condition and the chest x- ray findings. In fact, most recent CAT scan of the chest with ongoing cavitation left upper lobe, and a new area of cavitating the right lung. There was also developed the bilateral pleural effusion. The patient is doing very poorly. He communicates. However, he does not. His oral intake is minimal. Nutrition obviously has become initiation of this patient. He has no ambition or motives to get out of the bed. 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 He remains on prednisone 20 mg by mouth daily. 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 He has no headaches. No altered mentation. Extremely weak. Congestive cough is still present. Minimal sputum production. He is having episodes of hemoptysis. No hemoptysis for now. Hemoglobin from yesterday was down to 7.7. The patient is seen today 03/03/2022 in follow-up on the regular medical floor. He is currently resting comfortably in bed. Awake and alert in no acute distress. He did undergo bronchoscopy with biopsies and BAL this morning by Dr. Villa. Cultures and pathology are pending. He tolerated the procedure well. On 2 L nasal cannula. He denies any worsening shortness of breath, cough or congestion. White count 11.0. Hemoglobin 8.0. Sodium 147. Potassium 3.3. Chloride 117. Bicarb 21. BUN 33. Creatinine 1.54. Pro-calcitonin 0.13. He remains on antibiotics in the form of Zerbaxa. Continued on prednisone taper. The patient is seen today 03/04/2022 in follow-up on the regular medical floor. He is currently sitting up in a chair at the bedside. Awake and alert in no acute distress. Maintaining good O2 saturations in the mid 90s on 2 L/m per nasal cannula. Afebrile. Hemodynamically stable. Bronchoscopy cultures and pathology are pending. White count 11.0. Hemoglobin 7.8. Sodium 151. Potassium 3.0. Chloride 116. Bicarb 22. BUN 27. Creatinine 1.4. AST 32. ALT 53. Glucose 70. He is continued on antibiotics in the form of Zerbaxa. Objective - Vital Signs Vital signs: Vital Signs Temp 98.4 F 03/04/22 08:00 Pulse 94 03/04/22 11:35 Resp 16 03/04/22 11:35 BP 114/66 03/04/22 08:00 Pulse Ox 97 03/04/22 08:00 FiO2 Intake & Output 03/03/22 03/04/22 03/04/22 18:59 06:59 18:59 Intake Total 250 Balance 250 Weight 83.915 kg Intake: IV 250 Other: Voiding Method Diaper Diaper Diaper Incontinent Incontinent Incontinent - Exam GENERAL EXAM: Alert, frail 81-year-old male patient, up in a chair at the bedside, on 2 L nasal cannula, comfortable in no apparent distress. HEAD: Normocephalic. EYES: Normal reaction of pupils, equal size. NOSE: Clear with pink turbinates. THROAT: No erythema or exudates. NECK: No masses, no JVD. CHEST: No chest wall deformity. LUNGS: Equal air entry with few scattered rhonchi. CVS: S1 and S2 normal with no audible murmur, regular rhythm. ABDOMEN: No hepatosplenomegaly, normal bowel sounds, no guarding or rigidity. SPINE: No scoliosis or deformity SKIN: No rashes CENTRAL NERVOUS SYSTEM: No focal deficits, tone is normal in all 4 extremities. EXTREMITIES: There is no peripheral edema. No clubbing, no cyanosis. Peripheral pulses are intact. - Labs CBC & Chem 7: 03/04/22 06:24 03/04/22 06:24 Labs: Abnormal Lab Results - Last 24 Hours (Table) 03/04/22 03/04/22 Range/Units 06:24 06:24 WBC 11.01 H (4.50-10.00) X 10*3/uL RBC 2.65 L (4.40-5.60) X 10*6/uL Hgb 7.8 L (13.0-17.0) g/dL Hct 25.6 L (39.6-50.0) % MCHC 30.5 L (32.0-37.0) g/dL RDW 19.8 H (11.5-14.5) % Immature Gran # 0.08 H (0.00-0.04) X 10*3/uL Neutrophils # 9.70 H (1.80-7.70) X 10*3/uL Lymphocytes # 0.74 L (0.90-5.00) X 10*3/uL Sodium 151 H (135-145) mmol/L Potassium 3.0 L (3.5-5.5) mmol/L Chloride 116 H (96-109) mmol/L BUN 27.4 H (9.0-27.0) mg/dL Est GFR (CKD-EPI)AfAm 55.9 L (60.0-200.0) Est GFR (CKD-EPI)NonAf 48.2 L (60.0-200.0) BUN/Creatinine Ratio 20.30 H (12.00-20.00) Ratio Calcium 7.3 L (8.7-10.3) mg/dL ALT 53 H (10-49) U/L Total Protein 4.3 L (6.2-8.2) g/dL Albumin 2.4 L (3.8-4.9) g/dL Albumin/Globulin Ratio 1.31 L (1.60-3.17) g/dL Microbiology - Last 24 Hours (Table) 03/03/22 09:49 Gram Stain - Preliminary Bronchial Washings - Left Bronchial Washings Culture - Preliminary 03/03/22 09:49 Acid Fast Bacilli Culture - Preliminary Bronchial Washings - Left 03/03/22 09:49 Fungal Culture - Preliminary Bronchial Washings - Left Assessment and Plan Assessment: Acute hypoxemic respiratory failure secondary to a chronic thick-walled cavitary lesion, left upper lobe, which may relate to anaerobic lung abscess, or cavitary neoplasm such as squamous cell carcinoma. The patient is currently on Zerbaxa b ased on a microbiologist was established on the previous showed pseudomonas aeruginosa and Aspergillus Comparing the CAT scans together, the patient had a CAT scan of the chest that was done during this current admission and this is also compared to the earlier CAT scan from his last admission. There is development of bilateral pleural effusion which is probably reactive as the patient has been laying down in bed and he has hypoalbuminemia along with prolonged immobility and atelectasis, this may result reactive pleural effusions. Consolidation of left lung bases slightly worse. Cavitating left upper lobe still present. There is a new area cavitating the right. Navigational bronchoscopy with BAL and biopsies of the left upper lobe were performed on 03/03/2022. Cultures and pathology pending. New infiltrate, left lower lobe, which may relate to underlying aspiration. History of CAD with PCI/stent. History of hyperlipidemia. History of hypertension. 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 Blindness with questionable temporal arteritis maintain on 20 mg of prednisone CHF, with an ejection fraction of around 20-25% related to ischemic ca rdiomyopathy Moderate degree of tricuspid regurgitation/pulmonary hypertension Osteoporosis. Acute kidney injury, improving and the creatinine is down to 1.3 Cachectic, weak, emaciated with poor baseline performance of functional status Plan The patient was seen and evaluated Labs and medications reviewed Bronchoscopy biopsies and cultures pending Continued on Zerbaxa for now We will continue to follow I have personally seen and examined the patient, performed the documentation and the assessment and plan as written. Number of minutes spent on the visit: 10.
[2022-03-04] MEDS: SODIUM CHLORIDE 0.9% 1,000 ML IV SCH (18:09)
[2022-03-04] MEDS: MELATONIN 3 MG TABLET PO SCH (21:40)
[2022-03-05] MEDS: PANTOPRAZOLE 40 MG TABLET PO SCH (06:43)
--- NOTE | 2022-03-05 07:04 | P.PN ---
Subjective Progress Note Date: 03/03/22 Principal diagnosis: Multidrug-resistant Pseudomonas pneumonia Patient is a 81-year-old male recently admitted to this hospital diagnosed with a left upper lobe cavitating pneumonia sputum was positive for multidrug resistant Pseudomonas treated with Zerbexa on the basis of sensitivities subsequently discharged on oral Cipro presented back to the hospital with worsening shortness of breath did have persistent left upper lobe cavitating pneumonia in the new left lower lobe pneumonia, the patient is status post bronchoscopy completed 03/03/2022 On today's evaluation and that is 03/03/2022 the patient is afebrile, the patient is currently breathing comfortably on nasal cannula oxygen, the patient is slightly sleepy lethargic after his bronchoscopy and did not answer any question no vomiting or diarrhea has been reported by the nursing staff Objective - Vital Signs Vital signs: Vital Signs Temp 97.0 F L 03/03/22 10:25 Pulse 82 03/03/22 11:00 Resp 16 03/03/22 11:00 BP 129/63 03/03/22 11:00 Pulse Ox 97 03/03/22 11:00 FiO2 Intake & Output 03/02/22 03/03/22 03/03/22 18:59 06:59 18:59 Intake Total 238 250 Output Total 200 602 Balance 38 -602 250 Weight 83.915 kg Intake: IV 250 Oral 238 Output: Urine 200 600 Stool 2 Other: Voiding Method Diaper Diaper Incontinent Incontinent - Exam GENERAL DESCRIPTION: An elderly male lying in bed in no distress RESPIRATORY SYSTEM: Unlabored breathing , decreased breath sounds at bases HEART: S1 S2 regular rate and rhythm , ABDOMEN: Soft , no tenderness EXTREMITIES: No edema feet - Labs CBC & Chem 7: 03/04/22 06:24 03/04/22 06:24 Labs: Abnormal Lab Results - Last 24 Hours (Table) 03/03/22 03/03/22 Range/Units 08:34 08:34 WBC 11.0 H (3.8-10.6) k/uL RBC 2.71 L (4.30-5.90) m/uL Hgb 8.0 L (13.0-17.5) gm/dL Hct 26.2 L (39.0-53.0) % MCHC 30.4 L (31.0-37.0) g/dL RDW 18.4 H (11.5-15.5) % Neutrophils # 9.3 H (1.3-7.7) k/uL Sodium 147 H (137-145) mmol/L Potassium 3.3 L (3.5-5.1) mmol/L Chloride 117 H (98-107) mmol/L Carbon Dioxide 21 L (22-30) mmol/L BUN 33 H (9-20) mg/dL Creatinine 1.54 H (0.66-1.25) mg/dL Calcium 7.0 L (8.4-10.2) mg/dL Assessment and Plan (1) Drug resistance Current Visit: Yes Status: Acute Code(s): Z16.30 - RESISTANCE TO UNSPECIFIED ANTIMICROBIAL DRUGS SNOMED Code(s): 14053376 (2) Pneumonia Current Visit: Yes Status: Acute Code(s): J18.9 - PNEUMONIA, UNSPECIFIED ORGANISM SNOMED Code(s): 387567386 Plan: 1patient with left upper and lower lobe pneumonia with left upper lobe thick- walled cavitary lesion previous culture positive for multidrug-resistant Pseudomonas for the patient has been on Zerbaxa unfortunately patient has not been able to placed on this antibiotic either at home or the prison with left upper lobe cavitary lesion 2- patient is status post bronchoscopy completed 03/03/2022 cultures will be followed 2patient to continue with his Zerbaxa as the patient has already failed oral Cipro and no other options as far as antibiotics are concerned and monitor his clinical course closely Time with Patient: Less than 30
--- NOTE | 2022-03-05 07:09 | P.PN ---
Subjective Progress Note Date: 03/04/22 Principal diagnosis: Multidrug-resistant Pseudomonas pneumonia Patient is a 81-year-old male recently admitted to this hospital diagnosed with a left upper lobe cavitating pneumonia sputum was positive for multidrug resistant Pseudomonas treated with Zerbexa on the basis of sensitivities subsequently discharged on oral Cipro presented back to the hospital with worsening shortness of breath did have persistent left upper lobe cavitating pneumonia in the new left lower lobe pneumonia, the patient is status post bronchoscopy completed 03/03/2022 On today's evaluation and that is 03/04/2022 the patient remains to be afebrile, the patient is currently breathing comfortably on 2 L nasal cannula oxygen, the patient denies any chest pain and no worsening cough or sputum production no abdominal pain no diarrhea Objective - Vital Signs Vital signs: Vital Signs Temp 98.3 F 03/04/22 14:00 Pulse 82 03/04/22 14:00 Resp 18 03/04/22 14:00 BP 106/53 03/04/22 14:00 Pulse Ox 98 03/04/22 14:00 FiO2 Intake & Output 03/03/22 03/04/22 03/04/22 18:59 06:59 18:59 Intake Total 250 Balance 250 Weight 83.915 kg 83.915 kg Intake: IV 250 Other: Voiding Method Diaper Diaper Diaper Incontinent Incontinent Incontinent - Exam GENERAL DESCRIPTION: An elderly male lying in bed in no distress RESPIRATORY SYSTEM: Unlabored breathing , decreased breath sounds at bases HEART: S1 S2 regular rate and rhythm , ABDOMEN: Soft , no tenderness EXTREMITIES: No edema feet - Labs CBC & Chem 7: 03/04/22 06:24 03/04/22 06:24 Labs: Abnormal Lab Results - Last 24 Hours (Table) 03/03/22 03/04/22 03/04/22 Range/Units 09:49 06:24 06:24 WBC 11.01 H (4.50-10.00) X 10*3/uL RBC 2.65 L (4.40-5.60) X 10*6/uL Hgb 7.8 L (13.0-17.0) g/dL Hct 25.6 L (39.6-50.0) % MCHC 30.5 L (32.0-37.0) g/dL RDW 19.8 H (11.5-14.5) % Immature Gran # 0.08 H (0.00-0.04) X 10*3/uL Neutrophils # 9.70 H (1.80-7.70) X 10*3/uL Lymphocytes # 0.74 L (0.90-5.00) X 10*3/uL Sodium 151 H (135-145) mmol/L Potassium 3.0 L (3.5-5.5) mmol/L Chloride 116 H (96-109) mmol/L BUN 27.4 H (9.0-27.0) mg/dL Est GFR (CKD-EPI)AfAm 55.9 L (60.0-200.0) Est GFR (CKD-EPI)NonAf 48.2 L (60.0-200.0) BUN/Creatinine Ratio 20.30 H (12.00-20.00) Ratio Calcium 7.3 L (8.7-10.3) mg/dL ALT 53 H (10-49) U/L Total Protein 4.3 L (6.2-8.2) g/dL Albumin 2.4 L (3.8-4.9) g/dL Albumin/Globulin Ratio 1.31 L (1.60-3.17) g/dL Viral Test See Below A Microbiology - Last 24 Hours (Table) 03/03/22 09:49 Gram Stain - Preliminary Bronchial Washings - Left Bronchial Washings Culture - Preliminary 03/03/22 09:49 Acid Fast Bacilli Culture - Preliminary Bronchial Washings - Left 03/03/22 09:49 Fungal Culture - Preliminary Bronchial Washings - Left Assessment and Plan (1) Drug resistance Current Visit: Yes Status: Acute Code(s): Z16.30 - RESISTANCE TO UNSPECIFIED ANTIMICROBIAL DRUGS SNOMED Code(s): 04920781 (2) Pneumonia Current Visit: Yes Status: Acute Code(s): J18.9 - PNEUMONIA, UNSPECIFIED ORGANISM SNOMED Code(s): 784333437 Plan: 1patient with left upper and lower lobe pneumonia with left upper lobe thick-w alled cavitary lesion previous culture positive for multidrug-resistant Pseudomonas for the patient has been on Zerbaxa unfortunately patient has not been able to placed on this antibiotic either at home or the longterm with left upper lobe cavitary lesion 2- patient is status post bronchoscopy completed 03/03/2022 cultures are currently pending 2patient to continue with his Zerbaxa as the patient has already failed oral Cipro and no other options as far as antibiotics are concerned , overall prognosis remains to be guarded Time with Patient: Less than 30
[2022-03-05] MEDS: ALBUTEROL NEBULIZED 2.5 MG/3 ML INHALATION SCH ×3 (07:56→21:18)
[2022-03-05] MEDS: METOPROLOL TARTRATE 25 MG TAB PO SCH ×2 (09:49→21:23)
[2022-03-05] MEDS: predniSONE 20 MG TAB PO SCH (09:51)
[2022-03-05] MEDS: CEFTOLOZANE/TAZOBACTAM 1.5 GM in SODIUM CHLORIDE 0.9% 100 ML IV SCH ×2 (09:51→15:47)
[2022-03-05] MEDS: ASPIRIN 81 MG PO SCH (09:51)
[2022-03-05] MEDS: ATORVASTATIN 80 MG TAB PO SCH (09:51)
[2022-03-05] MEDS: FUROSEMIDE 20 MG TAB PO SCH (09:51)
[2022-03-05 10:30] LABS: Basophils # (A) 0.01 X 10*3/uL (0.00-0.10); Basophils % (A) 0.1 %; Eosinophils # (A) 0.03 X 10*3/uL (0.04-0.35); Eosinophils % (A) 0.3 %; HCT 24.1 % (39.6-50.0); HGB 7.4 g/dL (13.0-17.0); Immature Grans, Automated 0.6 %; Lymphocytes # (A) 0.85 X 10*3/uL (0.90-5.00); Lymphocytes % (A) 8.3 %; MCH 29.1 pg (27.0-32.0); MCHC 30.7 g/dL (32.0-37.0); MCV 94.9 fL (80.0-97.0); Mean Platelet Volume 10.5 fL (9.5-12.2); Monocytes # (A) 0.31 X 10*3/uL (0.20-1.00); NRBC Per 100 WBC 0 /100 WBCS (0.0-0.0); Neutrophils # (A) 9.02 X 10*3/uL (1.80-7.70); Neutrophils % (A) 87.7 %; Platelet Count 147 X 10*3/uL (140-440); RBC 2.54 X 10*6/uL (4.40-5.60); RDW 19.4 % (11.5-14.5); WBC 10.28 X 10*3/uL (4.50-10.00)
[2022-03-05 10:47] LABS: African American GFR (CKD) 67.1 (60.0-200.0); Albumin 2.4 g/dL (3.8-4.9); Albumin/Globulin Ratio 1.31 (1.60-3.17); Anion Gap 9.2 mmol/L (10.00-18.00); BUN/Creat Ratio 21.29 Ratio (12.00-20.00); Blood Urea Nitrogen 24.7 mg/dL (9.0-27.0); Calcium 7.4 mg/dL (8.7-10.3); Carbon Dioxide 23.6 mmol/L (20.0-27.5); Globulin 1.8 g/dL (1.6-3.3); Non-African American GFR(CKD) 57.9 (60.0-200.0); Potassium 2.9 mmol/L (3.5-5.5); Total Bilirubin 0.7 mg/dL (0.30-1.20); Total Protein 4.2 g/dL (6.2-8.2)
--- NOTE | 2022-03-05 11:24 | PN ---
PROGRESS NOTE The patient's hemoglobin is 7.8. Waiting for bronchoscopy biopsies to come back. Sodium is 151, potassium 3.0, BUN is 27, creatinine is 1.4, GFR is 59. Cultures are not back yet. Waiting for bronchial washings to come back. Cultures are not back yet. Continue with IV antibiotics as ordered. Wait for Pulmonary recommendations. He is saturating at 97 on 2 L, temp 94, pulse 75, respiratory rate 16. ASSESSMENT: Probable lung abscess, rule out malignant mass. Continue IV antibiotics. Low hemoglobin. I will possibly give him to improve his diet maybe some IV iron. Prognosis is guarded depending on the pathology results of the bronchoscopy. Mentally, he is alert and oriented, giving appropriate answers, but he is not moving around the room at all. He is bed ridden. We will get PT/OT involved. JENI / LOS: [id number] /
[2022-03-05] MEDS ORDERED: Potassium Replacement Protocol 1 EACH MISC MISCELLANE PRN (14:45)
--- NOTE | 2022-03-05 14:49 | P.PN ---
Subjective Progress Note Date: 03/05/22 On 03/02/2022, I had a lengthy discussion with the patient's children. The patient has adopted children who arrived to the hospital and I went over the case at length with him. Summary, I'm not absolutely sure whether the patient has an underlying malignancy. The patient has a cavitating the left upper lobe. Previous cultures showing pseudomonas aeruginosa and Aspergillus. The patient has been on Ceftolozane. Nevertheless, despite antibiotic treatment, I haven't seen any much improvement in the patient's clinical condition and the chest x- ray findings. In fact, most recent CAT scan of the chest with ongoing cavitation left upper lobe, and a new area of cavitating the right lung. There was also developed the bilateral pleural effusion. The patient is doing very poorly. He communicates. However, he does not. His oral intake is minimal. Nutrition obviously has become initiation of this patient. He has no ambition or motives to get out of the bed. 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 He remains on prednisone 20 mg by mouth daily. 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 He has no headaches. No altered mentation. Extremely weak. Congestive cough is still present. Minimal sputum production. He is having episodes of hemoptysis. No hemoptysis for now. Hemoglobin from yesterday was down to 7.7. The patient is seen today 03/03/2022 in follow-up on the regular medical floor. He is currently resting comfortably in bed. Awake and alert in no acute distress. He did undergo bronchoscopy with biopsies and BAL this morning by Dr. Villa. Cultures and pathology are pending. He tolerated the procedure well. On 2 L nasal cannula. He denies any worsening shortness of breath, cough or congestion. White count 11.0. Hemoglobin 8.0. Sodium 147. Potassium 3.3. Chloride 117. Bicarb 21. BUN 33. Creatinine 1.54. Pro-calcitonin 0.13. He remains on antibiotics in the form of Zerbaxa. Continued on prednisone taper. The patient is seen today 03/04/2022 in follow-up on the regular medical floor. He is currently sitting up in a chair at the bedside. Awake and alert in no acute distress. Maintaining good O2 saturations in the mid 90s on 2 L/m per nasal cannula. Afebrile. Hemodynamically stable. Bronchoscopy cultures and pathology are pending. White count 11.0. Hemoglobin 7.8. Sodium 151. Potassium 3.0. Chloride 116. Bicarb 22. BUN 27. Creatinine 1.4. AST 32. ALT 53. Glucose 70. He is continued on antibiotics in the form of Zerbaxa. Patient is seen today 03/05/2022 in follow-up on the regular medical floor. He is currently resting comfortably in bed. Awake and alert in no acute distress. He is maintaining O2 saturations in the 90s on room air. He's afebrile. Hemodynamically stable. Pathology from bronchial biopsies and washings were negative for malignancy. Cultures are revealing no growth thus far. Washings were positive for herpes simplex type I and cytomegalovirus. White count 10.2. Hemoglobin 7.4. Sodium 149. Potassium 2.7. BUN 25. Creatinine 1.2. He is continued on antibiotics in the form of Zerbaxa. He has been on antibiotics for the last 20+ days. Objective - Vital Signs Vital signs: Vital Signs Temp 97.6 F 03/05/22 08:00 Pulse 69 03/05/22 09:58 Resp 16 03/05/22 09:58 BP 101/63 03/05/22 08:00 Pulse Ox 97 03/05/22 08:00 FiO2 Intake & Output 03/04/22 03/05/22 03/05/22 18:59 06:59 18:59 Output Total 900 400 Balance -900 -400 Weight 83.915 kg Output: Urine 900 400 Other: Voiding Method Diaper Diaper Diaper Incontinent Incontinent Incontinent External Catheter External Catheter - Exam GENERAL EXAM: Alert, frail 81-year-old male patient, seen resting comfortably in bed, on room air, comfortable in no apparent distress. HEAD: Normocephalic. EYES: Normal reaction of pupils, equal size. NOSE: Clear with pink turbinates. THROAT: No erythema or exudates. NECK: No masses, no JVD. CHEST: No chest wall deformity. LUNGS: Equal air entry with few scattered rhonchi. CVS: S1 and S2 normal with no audible murmur, regular rhythm. ABDOMEN: No hepatosplenomegaly, normal bowel sounds, no guarding or rigidity. SPINE: No scoliosis or deformity SKIN: No rashes CENTRAL NERVOUS SYSTEM: No focal deficits, tone is normal in all 4 extremities. EXTREMITIES: There is no peripheral edema. No clubbing, no cyanosis. Peripheral pulses are intact. - Labs CBC & Chem 7: 03/05/22 06:52 03/05/22 06:52 Labs: Abnormal Lab Results - Last 24 Hours (Table) 03/03/22 03/05/22 03/05/22 Range/Units 09:49 06:52 06:52 WBC 10.28 H (4.50-10.00) X 10*3/uL RBC 2.54 L (4.40-5.60) X 10*6/uL Hgb 7.4 L (13.0-17.0) g/dL Hct 24.1 L (39.6-50.0) % MCHC 30.7 L (32.0-37.0) g/dL RDW 19.4 H (11.5-14.5) % Immature Gran # 0.06 H (0.00-0.04) X 10*3/uL Neutrophils # 9.02 H (1.80-7.70) X 10*3/uL Lymphocytes # 0.85 L (0.90-5.00) X 10*3/uL Eosinophils # 0.03 L (0.04-0.35) X 10*3/uL Sodium 149 H (135-145) mmol/L Potassium 2.9 L (3.5-5.5) mmol/L Chloride 117 H (96-109) mmol/L Anion Gap 9.20 L (10.00-18.00) mmol/L Est GFR (CKD-EPI)NonAf 57.9 L (60.0-200.0) BUN/Creatinine Ratio 21.29 H (12.00-20.00) Ratio Calcium 7.4 L (8.7-10.3) mg/dL ALT 50 H (10-49) U/L Total Protein 4.2 L (6.2-8.2) g/dL Albumin 2.4 L (3.8-4.9) g/dL Albumin/Globulin Ratio 1.31 L (1.60-3.17) g/dL Viral Test See Below A Microbiology - Last 24 Hours (Table) 03/03/22 09:49 Acid Fast Bacilli Smear - Final Bronchial Washings - Left Acid Fast Bacilli Culture - Preliminary 03/03/22 09:49 Gram Stain - Preliminary Bronchial Washings - Left Bronchial Washings Culture - Preliminary Assessment and Plan Assessment: Acute hypoxemic respiratory failure secondary to a chronic thick-walled cavitary lesion, left upper lobe, which may relate to anaerobic lung abscess, or cavitary neoplasm such as squamous cell carcinoma. The patient is currently on Zerbaxa based on a microbiologist was established on the previous showed pseudomonas aeruginosa and Aspergillus Comparing the CAT scans together, the patient had a CAT scan of the chest that was done during this current admission and this is also compared to the earlier CAT scan from his last admission. There is development of bilateral pleural effusion which is probably reactive as the patient has been laying down in bed and he has hypoalbuminemia along with prolonged immobility and atelectasis, this may result reactive pleural effusions. Consolidation of left lung bases slightly worse. Cavitating left upper lobe still present. There is a new area cavitating the right. Navigational bronchoscopy with BAL and biopsies of the left upper lobe were performed on 03/03/2022. Cultures are revealing no growth. Pathology reveals no malignancy. Viruses positive for herpes simplex 1 and cytomegalovirus. He's been on antibiotics for greater than 20 days. New infiltrate, left lower lobe, which may relate to underlying aspiration. History of CAD with PCI/stent. History of hyperlipidemia. History of hypertension. 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 Acute kidney injury, improving and the creatinine is down to 1.3 Cachectic, weak, emaciated with poor baseline performance of functional status Plan The patient was seen and evaluated Labs and medications reviewed Bronchoscopy biopsies were negative for malignancy Cultures revealed no growth Cleared for discharge from the pulmonary standpoint Antibiotics recommendations per ID services I have personally seen and examined the patient, performed the documentation and the assessment and plan as written. Number of minutes spent on the visit: 10.
[2022-03-05] MEDS: POTASSIUM CHLORIDE ER 20 MEQ TAB.ER PO SCH ×2 (15:32→16:32)
[2022-03-05] MEDS: SODIUM CHLORIDE 0.9% 1,000 ML IV SCH (21:18)
[2022-03-05] MEDS: SENNOSIDES 8.6 MG TAB PO PRN (21:23)
[2022-03-05] MEDS: MELATONIN 3 MG TABLET PO SCH (21:23)
[2022-03-06] MEDS: CEFTOLOZANE/TAZOBACTAM 1.5 GM in SODIUM CHLORIDE 0.9% 100 ML IV SCH ×3 (00:19→20:57)
[2022-03-06] MEDS: PANTOPRAZOLE 40 MG TABLET PO SCH (06:51)
[2022-03-06] MEDS: ALBUTEROL NEBULIZED 2.5 MG/3 ML INHALATION SCH ×3 (09:15→20:14)
[2022-03-06] MEDS: ATORVASTATIN 80 MG TAB PO SCH (09:19)
[2022-03-06] MEDS: METOPROLOL TARTRATE 25 MG TAB PO SCH ×2 (09:19→22:42)
[2022-03-06] MEDS: predniSONE 20 MG TAB PO SCH (09:19)
[2022-03-06] MEDS: ASPIRIN 81 MG PO SCH (09:19)
[2022-03-06] MEDS: FUROSEMIDE 20 MG TAB PO SCH (09:19)
--- NOTE | 2022-03-06 10:51 | P.PN ---
Subjective Progress Note Date: 03/06/22 On 03/02/2022, I had a lengthy discussion with the patient's children. The patient has adopted children who arrived to the hospital and I went over the case at length with him. Summary, I'm not absolutely sure whether the patient has an underlying malignancy. The patient has a cavitating the left upper lobe. Previous cultures showing pseudomonas aeruginosa and Aspergillus. The patient has been on Ceftolozane. Nevertheless, despite antibiotic treatment, I haven't seen any much improvement in the patient's clinical condition and the chest x- ray findings. In fact, most recent CAT scan of the chest with ongoing cavitation left upper lobe, and a new area of cavitating the right lung. There was also developed the bilateral pleural effusion. The patient is doing very poorly. He communicates. However, he does not. His oral intake is minimal. Nutrition obviously has become initiation of this patient. He has no ambition or motives to get out of the bed. 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 He remains on prednisone 20 mg by mouth daily. 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 He has no headaches. No altered mentation. Extremely weak. Congestive cough is still present. Minimal sputum production. He is having episodes of hemoptysis. No hemoptysis for now. Hemoglobin from yesterday was down to 7.7. The patient is seen today 03/03/2022 in follow-up on the regular medical floor. He is currently resting comfortably in bed. Awake and alert in no acute distress. He did undergo bronchoscopy with biopsies and BAL this morning by Dr. Villa. Cultures and pathology are pending. He tolerated the procedure well. On 2 L nasal cannula. He denies any worsening shortness of breath, cough or congestion. White count 11.0. Hemoglobin 8.0. Sodium 147. Potassium 3.3. Chloride 117. Bicarb 21. BUN 33. Creatinine 1.54. Pro-calcitonin 0.13. He remains on antibiotics in the form of Zerbaxa. Continued on prednisone taper. The patient is seen today 03/04/2022 in follow-up on the regular medical floor. He is currently sitting up in a chair at the bedside. Awake and alert in no acute distress. Maintaining good O2 saturations in the mid 90s on 2 L/m per nasal cannula. Afebrile. Hemodynamically stable. Bronchoscopy cultures and pathology are pending. White count 11.0. Hemoglobin 7.8. Sodium 151. Potassium 3.0. Chloride 116. Bicarb 22. BUN 27. Creatinine 1.4. AST 32. ALT 53. Glucose 70. He is continued on antibiotics in the form of Zerbaxa. Patient is seen today 03/05/2022 in follow-up on the regular medical floor. He is currently resting comfortably in bed. Awake and alert in no acute distress. He is maintaining O2 saturations in the 90s on room air. He's afebrile. Hemodynamically stable. Pathology from bronchial biopsies and washings were negative for malignancy. Cultures are revealing no growth thus far. Washings were positive for herpes simplex type I and cytomegalovirus. White count 10.2. Hemoglobin 7.4. Sodium 149. Potassium 2.7. BUN 25. Creatinine 1.2. He is continued on antibiotics in the form of Zerbaxa. He has been on antibiotics for the last 20+ days. The patient is seen today 03/06/2022 in follow-up on the regular medical floor. Awake and alert in no acute distress. Currently resting comfortably in bed. Maintaining O2 saturations in the 90s on 2 L/m per nasal cannula. He's been afebrile. Hemodynamically stable. Pathology from bronchoscopy lavage, brushings and transbronchial biopsies revealed no evidence of malignancy. Bronchial wash cultures were positive for Aspergillus species. Labs are pending. He remains on Zerbaxa per ID services. Continued on a prednisone paper. Continued on bronchodilators. Objective - Vital Signs Vital signs: Vital Signs Temp 97.6 F 03/06/22 08:18 Pulse 80 03/06/22 09:27 Resp 20 03/06/22 08:18 BP 111/68 03/06/22 08:18 Pulse Ox 97 03/06/22 08:18 FiO2 Intake & Output 03/05/22 03/06/22 03/06/22 18:59 06:59 18:59 Output Total 750 Balance -750 Output: Urine 750 Other: Voiding Method Diaper Diaper Incontinent Incontinent External Catheter External Catheter - Exam GENERAL EXAM: Alert, frail 81-year-old male, seen resting comfortably in bed, on 2 L nasal cannula, comfortable in no apparent distress. HEAD: Normocephalic. EYES: Normal reaction of pupils, equal size. NOSE: Clear with pink turbinates. THROAT: No erythema or exudates. NECK: No masses, no JVD. CHEST: No chest wall deformity. LUNGS: Equal air entry with few scattered rhonchi. CVS: S1 and S2 normal with no audible murmur, regular rhythm. ABDOMEN: No hepatosplenomegaly, normal bowel sounds, no guarding or rigidity. SPINE: No scoliosis or deformity SKIN: No rashes CENTRAL NERVOUS SYSTEM: No focal deficits, tone is normal in all 4 extremities. EXTREMITIES: There is no peripheral edema. No clubbing, no cyanosis. Peripheral pulses are intact. - Labs CBC & Chem 7: 03/05/22 06:52 03/05/22 18:03 Labs: Abnormal Lab Results - Last 24 Hours (Table) 03/05/22 03/05/22 Range/Units 06:52 18:03 Sodium 149 H (135-145) mmol/L Potassium 2.9 L 3.4 L (3.5-5.5) mmol/L Chloride 117 H (96-109) mmol/L Anion Gap 9.20 L (10.00-18.00) mmol/L Est GFR (CKD-EPI)NonAf 57.9 L (60.0-200.0) BUN/Creatinine Ratio 21.29 H (12.00-20.00) Ratio Calcium 7.4 L (8.7-10.3) mg/dL ALT 50 H (10-49) U/L Total Protein 4.2 L (6.2-8.2) g/dL Albumin 2.4 L (3.8-4.9) g/dL Albumin/Globulin Ratio 1.31 L (1.60-3.17) g/dL Microbiology - Last 24 Hours (Table) 03/03/22 09:49 Gram Stain - Preliminary Bronchial Washings - Left Bronchial Washings Culture - Preliminary Aspergillus species Assessment and Plan Assessment: Acute hypoxemic respiratory failure secondary to a chronic thick-walled cavitary lesion, left upper lobe, which may relate to anaerobic lung abscess, or cavitary neoplasm such as squamous cell carcinoma. The patient is currently on Zerbaxa based on a microbiologist was established on the previous showed pseudomonas aeruginosa and Aspergillus Comparing the CAT scans together, the patient had a CAT scan of the chest that was done during this current admission and this is also compared to the earlier CAT scan from his last admission. There is dev elopment of bilateral pleural effusion which is probably reactive as the patient has been laying down in bed and he has hypoalbuminemia along with prolonged immobility and atelectasis, this may result reactive pleural effusions. Consolidation of left lung bases slightly worse. Cavitating left upper lobe still present. There is a new area cavitating the right. Navigational bronchoscopy with BAL and biopsies of the left upper lobe were performed on 03/03/2022. Cultures are revealing Aspergillus species. Pathology reveals no malignancy. Viruses positive for herpes simplex 1 and cytomegalovirus. He's been on antibiotics for greater than 20 days. History of CAD with PCI/stent. History of hyperlipidemia. History of hypertension. 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 Acute kidney injury, improving and the creatinine is down to 1.2 Cachectic, weak, emaciated with poor baseline performance of functional status Plan The patient was seen and evaluated Cultures and medications reviewed Bronchoscopy biopsies were negative for malignancy Cultures revealed Aspergillus species Cleared for discharge from the pulmonary standpoint Antibiotics recommendations per ID services I have personally seen and examined the patient, performed the documentation and the assessment and plan as written. Number of minutes spent on the visit: 10.
[2022-03-06] MEDS ORDERED: VORICONAZOLE 200 MG TAB PO SCH (12:45)
[2022-03-06] MEDS: VORICONAZOLE 500 MG in SODIUM CHLORIDE 0.9% 250 ML IVPB SCH (16:59)
[2022-03-06] MEDS: SODIUM CHLORIDE 0.9% 1,000 ML IV SCH (20:43)
[2022-03-06] MEDS: MELATONIN 3 MG TABLET PO SCH (22:42)
[2022-03-07] MEDS: CEFTOLOZANE/TAZOBACTAM 1.5 GM in SODIUM CHLORIDE 0.9% 100 ML IV SCH ×2 (01:59→09:14)
[2022-03-07] MEDS: VORICONAZOLE 500 MG in SODIUM CHLORIDE 0.9% 250 ML IVPB SCH (03:00)
[2022-03-07] MEDS: PANTOPRAZOLE 40 MG TABLET PO SCH (06:22)
--- NOTE | 2022-03-07 08:36 | PN ---
PROGRESS NOTE SUBJECTIVE: White male, who comes in with lung abscess versus lung mass, status post failed outpatient treatment. Biopsy is still pending. OBJECTIVE: VITAL SIGNS: He continues to sat good on 2 L. He is maintaining oxygen on 2 L. LUNGS: Scattered rhonchi, wheeze. CARDIOVASCULAR: S1, S2. PSYCH: Pleasantly confused. Giving appropriate answers. ASSESSMENT: Possibly some malnutrition, lung abscess versus mass. Awaiting biopsies. Continue with IV antibiotics. Wait for further recommendations. Pending biopsy results. MMODL / IJN: [id number] /
[2022-03-07] MEDS: ACETAMINOPHEN TAB 325 MG TAB PO PRN (08:51)
[2022-03-07] MEDS: predniSONE 20 MG TAB PO SCH (08:51)
[2022-03-07] MEDS: ASPIRIN 81 MG PO SCH (08:51)
[2022-03-07] MEDS: ATORVASTATIN 80 MG TAB PO SCH (08:51)
[2022-03-07] MEDS: METOPROLOL TARTRATE 25 MG TAB PO SCH ×2 (08:51→21:12)
[2022-03-07] MEDS: FUROSEMIDE 20 MG TAB PO SCH (08:51)
[2022-03-07] MEDS: ALBUTEROL NEBULIZED 2.5 MG/3 ML INHALATION SCH ×3 (09:35→20:31)
[2022-03-07 11:36] LABS: Procalcitonin 0.09 ng/mL (0.02-0.09)
--- NOTE | 2022-03-07 14:16 | P.PN ---
Subjective Progress Note Date: 03/07/22 On 03/02/2022, I had a lengthy discussion with the patient's children. The patient has adopted children who arrived to the hospital and I went over the case at length with him. Summary, I'm not absolutely sure whether the patient has an underlying malignancy. The patient has a cavitating the left upper lobe. Previous cultures showing pseudomonas aeruginosa and Aspergillus. The patient has been on Ceftolozane. Nevertheless, despite antibiotic treatment, I haven't seen any much improvement in the patient's clinical condition and the chest x- ray findings. In fact, most recent CAT scan of the chest with ongoing cavitation left upper lobe, and a new area of cavitating the right lung. There was also developed the bilateral pleural effusion. The patient is doing very poorly. He communicates. However, he does not. His oral intake is minimal. Nutrition obviously has become initiation of this patient. He has no ambition or motives to get out of the bed. 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 He remains on prednisone 20 mg by mouth daily. 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 He has no headaches. No altered mentation. Extremely weak. Congestive cough is still present. Minimal sputum production. He is having episodes of hemoptysis. No hemoptysis for now. Hemoglobin from yesterday was down to 7.7. The patient is seen today 03/03/2022 in follow-up on the regular medical floor. He is currently resting comfortably in bed. Awake and alert in no acute distress. He did undergo bronchoscopy with biopsies and BAL this morning by Dr. Villa. Cultures and pathology are pending. He tolerated the procedure well. On 2 L nasal cannula. He denies any worsening shortness of breath, cough or congestion. White count 11.0. Hemoglobin 8.0. Sodium 147. Potassium 3.3. Chloride 117. Bicarb 21. BUN 33. Creatinine 1.54. Pro-calcitonin 0.13. He remains on antibiotics in the form of Zerbaxa. Continued on prednisone taper. The patient is seen today 03/04/2022 in follow-up on the regular medical floor. He is currently sitting up in a chair at the bedside. Awake and alert in no acute distress. Maintaining good O2 saturations in the mid 90s on 2 L/m per nasal cannula. Afebrile. Hemodynamically stable. Bronchoscopy cultures and pathology are pending. White count 11.0. Hemoglobin 7.8. Sodium 151. Potassium 3.0. Chloride 116. Bicarb 22. BUN 27. Creatinine 1.4. AST 32. ALT 53. Glucose 70. He is continued on antibiotics in the form of Zerbaxa. Patient is seen today 03/05/2022 in follow-up on the regular medical floor. He is currently resting comfortably in bed. Awake and alert in no acute distress. He is maintaining O2 saturations in the 90s on room air. He's afebrile. Hemodynamically stable. Pathology from bronchial biopsies and washings were negative for malignancy. Cultures are revealing no growth thus far. Washings were positive for herpes simplex type I and cytomegalovirus. White count 10.2. Hemoglobin 7.4. Sodium 149. Potassium 2.7. BUN 25. Creatinine 1.2. He is continued on antibiotics in the form of Zerbaxa. He has been on antibiotics for the last 20+ days. The patient is seen today 03/06/2022 in follow-up on the regular medical floor. Awake and alert in no acute distress. Currently resting comfortably in bed. Maintaining O2 saturations in the 90s on 2 L/m per nasal cannula. He's been afebrile. Hemodynamically stable. Pathology from bronchoscopy lavage, brushings and transbronchial biopsies revealed no evidence of malignancy. Bronchial wash cultures were positive for Aspergillus species. Labs are pending. He remains on Zerbaxa per ID services. Continued on a prednisone paper. Continued on bronchodilators. The patient is seen today 03/07/2022 in follow-up on the regular medical floor. He is currently resting comfortably in bed. Awake and alert in no acute distress. Maintaining O2 saturations in the 90s on 2 L/m per nasal cannula. He is afebrile. Hemodynamically stable. Bronchial wash cultures were positive for Aspergillus fumigatus. He's been initiated on voriconazole. He is continued on Zerbaxa. Remains on bronchodilators. Remains on prednisone. Pro-calcitonin 0.09. Objective - Vital Signs Vital signs: Vital Signs Temp 98.4 F 03/07/22 08:00 Pulse 69 03/07/22 08:00 Resp 14 03/07/22 08:00 BP 119/68 03/07/22 08:00 Pulse Ox 99 12/02/22 08:00 FiO2 Intake & Output 03/06/22 03/07/22 03/07/22 18:59 06:59 18:59 Output Total 2 2 Balance -2 -2 Weight 83.915 kg Output: Stool 2 2 Other: Voiding Method Diaper Diaper Incontinent Incontinent External Catheter External Catheter # Voids 3 3 - Exam GENERAL EXAM: Alert, frail, cachectic 81-year-old male, resting comfortably in bed, on 2 L nasal cannula, comfortable in no apparent distress. HEAD: Normocephalic. EYES: Normal reaction of pupils, equal size. NOSE: Clear with pink turbinates. THROAT: No erythema or exudates. NECK: No masses, no JVD. CHEST: No chest wall deformity. LUNGS: Equal air entry with few scattered rhonchi. CVS: S1 and S2 normal with no audible murmur, regular rhythm. ABDOMEN: No hepatosplenomegaly, normal bowel sounds, no guarding or rigidity. SPINE: No scoliosis or deformity SKIN: No rashes CENTRAL NERVOUS SYSTEM: No focal deficits, tone is normal in all 4 extremities. EXTREMITIES: There is no peripheral edema. No clubbing, no cyanosis. Peripheral pulses are intact. - Labs CBC & Chem 7: 03/05/22 06:52 03/05/22 18:03 Labs: Abnormal Lab Results - Last 24 Hours (Table) 03/07/22 Range/Units 05:42 C-Reactive Protein 2.30 H (0.00-0.80) mg/dL Microbiology - Last 24 Hours (Table) 03/03/22 09:49 Fungal Culture - Preliminary Bronchial Washings - Left Aspergillus fumigatus 03/03/22 09:49 Gram Stain - Final Bronchial Washings - Left Bronchial Washings Culture - Final Aspergillus fumigatus Assessment and Plan Assessment: Acute hypoxemic respiratory failure secondary to a chronic thick-walled cavitary lesion, left upper lobe. Navigational bronchoscopy with BAL and biopsies of the left upper lobe were performed on 03/03/2022. 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 Pathology reveals no malignancy. Viruses positive for herpes simplex 1 and cytomegalovirus. Pro-calcitonin 0.06. Zerbaxa discontinued. Initiated on voriconazole History of CAD with PCI/stent. History of hyperlipidemia. History of hypertension. 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 Acute kidney injury, improving and the creatinine is down to 1.2 Cachectic, weak, emaciated with poor baseline performance of functional status Plan The patient was seen and evaluated Cultures and medications reviewed Cultures positive for Aspergillus fumigatus Initiated on voriconazole Biopsies negative for malignancy Progress and troponin 0.06 Zerbaxa discontinued We will continue to follow I have personally seen and examined the patient, performed the documentation and the assessment and plan as written. Number of minutes spent on the visit: 10.
[2022-03-07 15:06] LABS: Aspergillus fumagatus IgE <0.10 kU/L
[2022-03-07] MEDS: VORICONAZOLE IVPB SCH (15:06)
[2022-03-07] MEDS: SODIUM CHLORIDE 0.9% IVPB SCH (15:06)
--- NOTE | 2022-03-07 16:42 | P.PN ---
Subjective Progress Note Date: 03/05/22 Principal diagnosis: Multidrug-resistant Pseudomonas pneumonia Patient is a 81-year-old male recently admitted to this hospital diagnosed with a left upper lobe cavitating pneumonia sputum was positive for multidrug resistant Pseudomonas treated with Zerbexa on the basis of sensitivities subsequently discharged on oral Cipro presented back to the hospital with worsening shortness of breath did have persistent left upper lobe cavitating pneumonia in the new left lower lobe pneumonia, the patient is status post bronchoscopy completed 03/03/2022 On today's evaluation and that is 03/05/2022 the patient continues to be afebrile, the patient is breathing comfortably on 2 L nasal cannula oxygen, the patient denies any chest pain , did have occasional cough no sputum production no abdominal pain or diarrhea Objective - Vital Signs Vital signs: Vital Signs Temp 97.6 F 03/05/22 08:00 Pulse 69 03/05/22 09:58 Resp 16 03/05/22 09:58 BP 101/63 03/05/22 08:00 Pulse Ox 97 03/05/22 08:00 FiO2 Intake & Output 03/04/22 03/05/22 03/05/22 18:59 06:59 18:59 Output Total 900 400 Balance -900 -400 Weight 83.915 kg Output: Urine 900 400 Other: Voiding Method Diaper Diaper Diaper Incontinent Incontinent Incontinent External Catheter External Catheter - Exam GENERAL DESCRIPTION: An elderly male lying in bed in no distress RESPIRATORY SYSTEM: Unlabored breathing , decreased breath sounds at bases HEART: S1 S2 regular rate and rhythm , ABDOMEN: Soft , no tenderness EXTREMITIES: No edema feet - Labs CBC & Chem 7: 03/05/22 06:52 03/05/22 18:03 Labs: Abnormal Lab Results - Last 24 Hours (Table) 03/03/22 03/05/22 03/05/22 Range/Units 09:49 06:52 06:52 WBC 10.28 H (4.50-10.00) X 10*3/uL RBC 2.54 L (4.40-5.60) X 10*6/uL Hgb 7.4 L (13.0-17.0) g/dL Hct 24.1 L (39.6-50.0) % MCHC 30.7 L (32.0-37.0) g/dL RDW 19.4 H (11.5-14.5) % Immature Gran # 0.06 H (0.00-0.04) X 10*3/uL Neutrophils # 9.02 H (1.80-7.70) X 10*3/uL Lymphocytes # 0.85 L (0.90-5.00) X 10*3/uL Eosinophils # 0.03 L (0.04-0.35) X 10*3/uL Sodium 149 H (135-145) mmol/L Potassium 2.9 L (3.5-5.5) mmol/L Chloride 117 H (96-109) mmol/L Anion Gap 9.20 L (10.00-18.00) mmol/L Est GFR (CKD-EPI)NonAf 57.9 L (60.0-200.0) BUN/Creatinine Ratio 21.29 H (12.00-20.00) Ratio Calcium 7.4 L (8.7-10.3) mg/dL ALT 50 H (10-49) U/L Total Protein 4.2 L (6.2-8.2) g/dL Albumin 2.4 L (3.8-4.9) g/dL Albumin/Globulin Ratio 1.31 L (1.60-3.17) g/dL Viral Test See Below A Microbiology - Last 24 Hours (Table) 03/03/22 09:49 Acid Fast Bacilli Smear - Final Bronchial Washings - Left Acid Fast Bacilli Culture - Preliminary 03/03/22 09:49 Gram Stain - Preliminary Bronchial Washings - Left Bronchial Washings Culture - Preliminary Assessment and Plan (1) Drug resistance Current Visit: Yes Status: Acute Code(s): Z16.30 - RESISTANCE TO UNSPECIFIED ANTIMICROBIAL DRUGS SNOMED Code(s): 56004247 (2) Pneumonia Current Visit: Yes Status: Acute Code(s): J18.9 - PNEUMONIA, UNSPECIFIED ORGANISM SNOMED Code(s): 782613201 Plan: 1patient with left upper and lower lobe pneumonia with left upper lobe thick- walled cavitary lesion previous culture positive for multidrug-resistant Pseudomonas for the patient has been on Zerbaxa unfortunately patient has not been able to placed on this antibiotic either at home or the [facility] with left upper lobe cavitary lesion 2- patient is status post bronchoscopy completed 03/03/2022 cultures are currently pending as of today 2patient currently being treated with his Zerbaxa as the patient has already failed oral Cipro and no other options as far as antibiotics are concerned , and monitor clinical course closely Time with Patient: Less than 30
--- NOTE | 2022-03-07 16:44 | P.PN ---
Subjective Progress Note Date: 03/06/22 Principal diagnosis: Multidrug-resistant Pseudomonas pneumonia Patient is a 81-year-old male recently admitted to this hospital diagnosed with a left upper lobe cavitating pneumonia sputum was positive for multidrug resistant Pseudomonas treated with Zerbexa on the basis of sensitivities subsequently discharged on oral Cipro presented back to the hospital with worsening shortness of breath did have persistent left upper lobe cavitating pneumonia in the new left lower lobe pneumonia, the patient is status post bronchoscopy completed 03/03/2022 On today's evaluation and that is 03/06/2022 the patient remains to be afebrile, the patient is breathing comfortably on 2 L nasal cannula oxygen, the patient denies any chest pain , the patient did have occasional cough but not bringing up any sputum, no abdominal pain or diarrhea Objective - Vital Signs Vital signs: Vital Signs Temp 97.6 F 03/06/22 08:18 Pulse 80 03/06/22 09:27 Resp 20 03/06/22 08:18 BP 111/68 03/06/22 08:18 Pulse Ox 97 03/06/22 08:18 FiO2 Intake & Output 03/05/22 03/06/22 03/06/22 18:59 06:59 18:59 Output Total 750 2 Balance -750 -2 Output: Urine 750 Stool 2 Other: Voiding Method Diaper Diaper Diaper Incontinent Incontinent Incontinent External Catheter External Catheter External Catheter - Exam GENERAL DESCRIPTION: An elderly male lying in bed in no distress RESPIRATORY SYSTEM: Unlabored breathing , decreased breath sounds at bases HEART: S1 S2 regular rate and rhythm , ABDOMEN: Soft , no tenderness EXTREMITIES: No edema feet - Labs CBC & Chem 7: 03/05/22 06:52 03/05/22 18:03 Labs: Abnormal Lab Results - Last 24 Hours (Table) 03/05/22 Range/Units 18:03 Potassium 3.4 L (3.5-5.1) mmol/L Microbiology - Last 24 Hours (Table) 03/03/22 09:49 Gram Stain - Final Bronchial Washings - Left Bronchial Washings Culture - Final Aspergillus fumigatus Assessment and Plan (1) Drug resistance Current Visit: Yes Status: Acute Code(s): Z16.30 - RESISTANCE TO UNSPECIFIED ANTIMICROBIAL DRUGS SNOMED Code(s): 33193781 (2) Pneumonia Current Visit: Yes Status: Acute Code(s): J18.9 - PNEUMONIA, UNSPECIFIED ORGANISM SNOMED Code(s): 691681340 Plan: 1patient with left upper and lower lobe pneumonia with left upper lobe thick- walled cavitary lesion previous culture positive for multidrug-resistant Pseudomonas for the patient has been on Zerbaxa unfortunately patient has not been able to placed on this antibiotic either at home or the skilled nursing with left upper lobe cavitary lesion 2- patient is status post bronchoscopy completed 03/03/2022 cultures currently growing Aspergillus species, we will obtain Aspergillus galactomannan, Aspergillus antibodies patient has been started on voriconazole per pulmonary and will continue with the Zerbexa at this point Time with Patient: Less than 30
--- NOTE | 2022-03-07 16:46 | P.PN ---
Subjective Progress Note Date: 03/07/22 Principal diagnosis: Multidrug-resistant Pseudomonas pneumonia Patient is a 81-year-old male recently admitted to this hospital diagnosed with a left upper lobe cavitating pneumonia sputum was positive for multidrug resistant Pseudomonas treated with Zerbexa on the basis of sensitivities subsequently discharged on oral Cipro presented back to the hospital with worsening shortness of breath did have persistent left upper lobe cavitating pneumonia in the new left lower lobe pneumonia, the patient is status post bronchoscopy completed 03/03/2022 On today's evaluation and that is 03/07/2022 the patient continues to be afebrile, the patient is breathing comfortably on 2 L nasal cannula oxygen, the patient denies any chest pain , the patient denies any worsening cough and sputum production no nausea no vomiting no abdominal pain or diarrhea Objective - Vital Signs Vital signs: Vital Signs Temp 98.4 F 03/07/22 08:00 Pulse 69 03/07/22 08:00 Resp 14 03/07/22 08:00 BP 119/68 03/07/22 08:00 Pulse Ox 99 03/07/22 08:00 FiO2 Intake & Output 03/06/22 03/07/22 03/07/22 18:59 06:59 18:59 Output Total 2 2 Balance -2 -2 Weight 83.915 kg Output: Stool 2 2 Other: Voiding Method Diaper Diaper Incontinent Incontinent External Catheter External Catheter # Voids 3 3 - Exam GENERAL DESCRIPTION: An elderly male lying in bed in no distress RESPIRATORY SYSTEM: Unlabored breathing , decreased intensity of breath sounds HEART: S1 S2 regular rate and rhythm , ABDOMEN: Soft , no tenderness EXTREMITIES: No edema feet - Labs CBC & Chem 7: 03/05/22 06:52 03/05/22 18:03 Labs: Abnormal Lab Results - Last 24 Hours (Table) 03/07/22 Range/Units 05:42 C-Reactive Protein 2.30 H (0.00-0.80) mg/dL Microbiology - Last 24 Hours (Table) 03/03/22 09:49 Fungal Culture - Preliminary Bronchial Washings - Left Aspergillus fumigatus 03/03/22 09:49 Gram Stain - Final Bronchial Washings - Left Bronchial Washings Culture - Final Aspergillus fumigatus Assessment and Plan (1) Drug resistance Current Visit: Yes Status: Acute Code(s): Z16.30 - RESISTANCE TO UNSPECIFIED ANTIMICROBIAL DRUGS SNOMED Code(s): 23888883 (2) Pneumonia Current Visit: Yes Status: Acute Code(s): J18.9 - PNEUMONIA, UNSPECIFIED ORGANISM SNOMED Code(s): 843005378 Plan: 1patient with left upper and lower lobe pneumonia with left upper lobe thick- walled cavitary lesion previous culture positive for multidrug-resistant Pseudomonas for the patient has been on Zerbaxa unfortunately patient has not been able to placed on this antibiotic either at home or the group home with left upper lobe cavitary lesion 2- patient is status post bronchoscopy completed 03/03/2022 cultures currently growing Aspergillus species, Aspergillus galactomannan is currently pending, however the patient did have a negative Aspergillus CF antibodies on his last admission in January 2022, patient is currently being treated with voriconazole by pulmonary and Zerbexa was discontinued, ID service will sign off with pulmonary managing his antibiotics and antifungals Time with Patient: Less than 30
[2022-03-07] MEDS: MELATONIN 3 MG TABLET PO SCH (21:11)
[2022-03-07] MEDS: SODIUM CHLORIDE 0.9% 1,000 ML IV SCH (21:11)
[2022-03-08] MEDS: VORICONAZOLE IVPB SCH ×2 (03:26→15:50)
[2022-03-08] MEDS: SODIUM CHLORIDE 0.9% IVPB SCH ×2 (03:26→15:50)
--- NOTE | 2022-03-08 05:48 | PN ---
PROGRESS NOTE SUBJECTIVE: An 81-year-old white male who has malnutrition. Dietitian recommends increased protein shakes and G2 for severe malnutrition. We will discuss with the son today. Apparently, Infectious Disease still recommends the IV medications to treat aspergillosis which is very expensive which nursing homes do not want to pay for, multidrug resistant Pseudomonas, treated with Zerbaxa. Await for Dr. Roberto's recommendations at this time apparently was negative for cancer, which is good. Nutrition will have to be assessed with the son whether he is going to go home or go to the longterm, will figure it out today. OBJECTIVE: VITAL SIGNS: He is saturating comfortably 100 to 99 at 2 L, blood pressure 119/68, pulse 60s to 70s, respiratory rate 12 to 16, and temperature 98.4. CARDIOVASCULAR: S1, S2. PSYCH: Pleasantly confused. LUNGS: Scattered rhonchi and wheeze. GENERAL: He has he has low BMI, is thin, cachectic, pleasantly confused. He has poor appetite. PLAN: Await recommendations from dietitian, Pulmonary, and Infectious Disease. We can talk to son versus going home or longterm. If he goes home, he needs oxygen setup and updraft machine setup. Please see further orders. MMODL / IJN: [id number] /
[2022-03-08] MEDS: PANTOPRAZOLE 40 MG TABLET PO SCH (06:33)
[2022-03-08] MEDS: ALBUTEROL NEBULIZED 2.5 MG/3 ML INHALATION SCH ×3 (07:19→21:50)
[2022-03-08] MEDS: predniSONE 20 MG TAB PO SCH (09:08)
[2022-03-08] MEDS: FUROSEMIDE 20 MG TAB PO SCH (09:08)
[2022-03-08] MEDS: METOPROLOL TARTRATE 25 MG TAB PO SCH ×2 (09:08→23:03)
[2022-03-08] MEDS: ATORVASTATIN 80 MG TAB PO SCH (09:08)
[2022-03-08] MEDS: ASPIRIN 81 MG PO SCH (09:09)
--- NOTE | 2022-03-08 11:49 | P.PN ---
Subjective Progress Note Date: 03/08/22 On 03/02/2022, I had a lengthy discussion with the patient's children. The patient has adopted children who arrived to the hospital and I went over the case at length with him. Summary, I'm not absolutely sure whether the patient has an underlying malignancy. The patient has a cavitating the left upper lobe. Previous cultures showing pseudomonas aeruginosa and Aspergillus. The patient has been on Ceftolozane. Nevertheless, despite antibiotic treatment, I haven't seen any much improvement in the patient's clinical condition and the chest x- ray findings. In fact, most recent CAT scan of the chest with ongoing cavitation left upper lobe, and a new area of cavitating the right lung. There was also developed the bilateral pleural effusion. The patient is doing very poorly. He communicates. However, he does not. His oral intake is minimal. Nutrition obviously has become initiation of this patient. He has no ambition or motives to get out of the bed. 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 He remains on prednisone 20 mg by mouth daily. 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 He has no headaches. No altered mentation. Extremely weak. Congestive cough is still present. Minimal sputum production. He is having episodes of hemoptysis. No hemoptysis for now. Hemoglobin from yesterday was down to 7.7. The patient is seen today 03/03/2022 in follow-up on the regular medical floor. He is currently resting comfortably in bed. Awake and alert in no acute distress. He did undergo bronchoscopy with biopsies and BAL this morning by Dr. Villa. Cultures and pathology are pending. He tolerated the procedure well. On 2 L nasal cannula. He denies any worsening shortness of breath, cough or congestion. White count 11.0. Hemoglobin 8.0. Sodium 147. Potassium 3.3. Chloride 117. Bicarb 21. BUN 33. Creatinine 1.54. Pro-calcitonin 0.13. He remains on antibiotics in the form of Zerbaxa. Continued on prednisone taper. The patient is seen today 03/04/2022 in follow-up on the regular medical floor. He is currently sitting up in a chair at the bedside. Awake and alert in no acute distress. Maintaining good O2 saturations in the mid 90s on 2 L/m per nasal cannula. Afebrile. Hemodynamically stable. Bronchoscopy cultures and pathology are pending. White count 11.0. Hemoglobin 7.8. Sodium 151. Potassium 3.0. Chloride 116. Bicarb 22. BUN 27. Creatinine 1.4. AST 32. ALT 53. Glucose 70. He is continued on antibiotics in the form of Zerbaxa. Patient is seen today 03/05/2022 in follow-up on the regular medical floor. He is currently resting comfortably in bed. Awake and alert in no acute distress. He is maintaining O2 saturations in the 90s on room air. He's afebrile. Hemodynamically stable. Pathology from bronchial biopsies and washings were negative for malignancy. Cultures are revealing no growth thus far. Washings were positive for herpes simplex type I and cytomegalovirus. White count 10.2. Hemoglobin 7.4. Sodium 149. Potassium 2.7. BUN 25. Creatinine 1.2. He is continued on antibiotics in the form of Zerbaxa. He has been on antibiotics for the last 20+ days. The patient is seen today 03/06/2022 in follow-up on the regular medical floor. Awake and alert in no acute distress. Currently resting comfortably in bed. Maintaining O2 saturations in the 90s on 2 L/m per nasal cannula. He's been afebrile. Hemodynamically stable. Pathology from bronchoscopy lavage, brushings and transbronchial biopsies revealed no evidence of malignancy. Bronchial wash cultures were positive for Aspergillus species. Labs are pending. He remains on Zerbaxa per ID services. Continued on a prednisone paper. Continued on bronchodilators. The patient is seen today 03/07/2022 in follow-up on the regular medical floor. He is currently resting comfortably in bed. Awake and alert in no acute distress. Maintaining O2 saturations in the 90s on 2 L/m per nasal cannula. He is afebrile. Hemodynamically stable. Bronchial wash cultures were positive for Aspergillus fumigatus. He's been initiated on voriconazole. He is continued on Zerbaxa. Remains on bronchodilators. Remains on prednisone. Pro-calcitonin 0.09. The patient is seen today 03/08/2022 in follow-up on the regular medical floor. He is awake and alert in no acute distress. Resting fairly comfortably in bed. Maintaining O2 saturation mainin the mid 90s on room air. He's afebrile. Hemodynamically stable. Bronchial washings were positive for Aspergillus fumigatus. IgE was less than 0.10. ProCalcitonin 0.09. He is continued on voriconazole. Remains on a prednisone taper. Objective - Vital Signs Vital signs: Vital Signs Temp 98.3 F 03/08/22 08:00 Pulse 73 03/08/22 08:00 Resp 16 03/08/22 08:00 BP 130/55 03/08/22 08:00 Pulse Ox 95 03/08/22 08:00 FiO2 Intake & Output 03/07/22 03/08/22 03/08/22 18:59 06:59 18:59 Intake Total 540 Output Total 2 Balance 538 Weight 83.915 kg Intake: Oral 540 Output: Stool 2 Other: Voiding Method Diaper Incontinent External Catheter # Voids 3 4 - Exam GENERAL EXAM: Alert, cachectic 81-year-old male, resting comfortably in bed, on room air, comfortable in no apparent distress. HEAD: Normocephalic. EYES: Normal reaction of pupils, equal size. NOSE: Clear with pink turbinates. THROAT: No erythema or exudates. NECK: No masses, no JVD. CHEST: No chest wall deformity. LUNGS: Equal air entry with few scattered rhonchi. CVS: S1 and S2 normal with no audible murmur, regular rhythm. ABDOMEN: No hepatosplenomegaly, normal bowel sounds, no guarding or rigidity. SPINE: No scoliosis or deformity SKIN: No rashes CENTRAL NERVOUS SYSTEM: No focal deficits, tone is normal in all 4 extremities. EXTREMITIES: There is no peripheral edema. No clubbing, no cyanosis. Peripheral pulses are intact. - Labs CBC & Chem 7: 03/05/22 06:52 03/05/22 18:03 Labs: Microbiology - Last 24 Hours (Table) 03/03/22 09:49 Fungal Culture - Preliminary Bronchial Washings - Left Aspergillus fumigatus Assessment and Plan Assessment: Acute hypoxemic respiratory failure secondary to a chronic thick-walled cavitary lesion, left upper lobe. Navigational bronchoscopy with BAL and biopsies of the left upper lobe were performed on 03/03/2022. 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 Pathology reveals no malignancy. Viruses positive for herpes simplex 1 and cytomegalovirus. Pro-calcitonin 0.06. Zerbaxa discontinued. Initiated on voriconazole History of CAD with PCI/stent. History of hyperlipidemia. History of hypertension. 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 Acute kidney injury, improving and the creatinine is down to 1.2 Cachectic, weak, emaciated with poor baseline performance of functional status Plan The patient was seen and evaluated Medications reviewed Cultures positive for Aspergillus fumigatus Initiated on voriconazole IV for a total of 5 days and can be switched to oral We will continue to follow I have personally seen and examined the patient, performed the documentation and the assessment and plan as written. Number of minutes spent on the visit: 10.
[2022-03-08] MEDS: MELATONIN 3 MG TABLET PO SCH (23:03)
[2022-03-08] MEDS: SODIUM CHLORIDE 0.9% 1,000 ML IV SCH (23:04)
[2022-03-09] MEDS: VORICONAZOLE IVPB SCH ×2 (01:48→14:33)
[2022-03-09] MEDS: SODIUM CHLORIDE 0.9% IVPB SCH ×2 (01:48→14:33)
--- NOTE | 2022-03-09 04:55 | PN ---
PROGRESS NOTE SUBJECTIVE: An 81-year-old white male with left upper lobe cavitating pneumonia, negative for cancer, multidrug resistant Pseudomonas aspergillosis. Infectious Disease is adjusting medicines for custodial placement on Thursday. OBJECTIVE: VITAL SIGNS: Temperature 98.4, pulse 69, respiratory rate 12 to 14, and blood pressure 119/68. HEART: S1, S2. LUNGS: Scattered rhonchi and wheeze. PSYCH: Fair mood and affect. NEUROLOGIC: Alert and oriented x3, LABS: Hemoglobin 7.4, white count 7.5. ASSESSMENT: Drug-resistant lung abscess, Pseudomonas, aspergillosis, status post bronchoscopy, . Apparently, ID is signing off with pulmonary images, antibiotics, and antifungals. Please see further orders. Sent to the custodial on Thursday. MMODL / IJN: [id number] /
[2022-03-09] MEDS: PANTOPRAZOLE 40 MG TABLET PO SCH (06:45)
--- NOTE | 2022-03-09 07:08 | XR ---
EXAMINATION TYPE: XR chest 1V portable DATE OF EXAM: 03/09/2022 6:27 AM COMPARISON: Chest radiographs from 03/03/2022 TECHNIQUE: XR chest 1V portable Portable AP radiograph of the chest. CLINICAL INDICATION:Male, 81 years old with history of BILLY cavitary lesion; FINDINGS: Lungs/pleura: small pleural effusions are unchanged. No pneumothorax after bronchoscopy and sampling noted. There is improved aeration apex with persistent Thick wall cavitary lesion in the left lung a pex is redemonstrated. Smaller cavitary lesion in the periphery of the inferior right upper lobe also redemonstrated. Pulmonary vascularity: Unremarkable. Heart/mediastinum: Cardiomediastinal silhouette is unremarkable. Musculoskeletal: Multiple level degenerative disc disease changes seen throughout the spine. IMPRESSION: Improved aeration with similar cavitary lesions
[2022-03-09] MEDS: ALBUTEROL NEBULIZED 2.5 MG/3 ML INHALATION SCH ×3 (07:23→21:19)
[2022-03-09] MEDS: METOPROLOL TARTRATE 25 MG TAB PO SCH ×2 (09:16→22:27)
[2022-03-09] MEDS: ATORVASTATIN 80 MG TAB PO SCH (09:16)
[2022-03-09] MEDS: FUROSEMIDE 20 MG TAB PO SCH (09:16)
[2022-03-09] MEDS: predniSONE 20 MG TAB PO SCH (09:16)
[2022-03-09] MEDS: ASPIRIN 81 MG PO SCH (09:16)
--- NOTE | 2022-03-09 15:38 | P.PN ---
Subjective Progress Note Date: 03/09/22 Principal diagnosis: Acute hypoxic respiratory failure secondary to fungal pneumonia and cavitary lung lesion secondary to Aspergillus fumigatus On 03/02/2022, I had a lengthy discussion with the patient's children. The patient has adopted children who arrived to the hospital and I went over the case at length with him. Summary, I'm not absolutely sure whether the patient has an underlying malignancy. The patient has a cavitating the left upper lobe. Previous cultures showing pseudomonas aeruginosa and Aspergillus. The patient has been on Ceftolozane. Nevertheless, despite antibiotic treatment, I haven't seen any much improvement in the patient's clinical condition and the chest x- ray findings. In fact, most recent CAT scan of the chest with ongoing cavitation left upper lobe, and a new area of cavitating the right lung. There was also developed the bilateral pleural effusion. The patient is doing very poorly. He communicates. However, he does not. His oral intake is minimal. Nutrition obviously has become initiation of this patient. He has no ambition or motives to get out of the bed. 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 He remains on prednisone 20 mg by mouth daily. 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 He has no headaches. No altered mentation. Extremely weak. Congestive cough is still present. Minimal sputum production. He is having episodes of hemoptysis. No hemoptysis for now. Hemoglobin from yesterday was down to 7.7. The patient is seen today 03/03/2022 in follow-up on the regular medical floor. He is currently resting comfortably in bed. Awake and alert in no acute distress. He did undergo bronchoscopy with biopsies and BAL this morning by Dr. Villa. Cultures and pathology are pending. He tolerated the procedure well. On 2 L nasal cannula. He denies any worsening shortness of breath, cough or congestion. White count 11.0. Hemoglobin 8.0. Sodium 147. Potassium 3.3. Chloride 117. Bicarb 21. BUN 33. Creatinine 1.54. Pro-calcitonin 0.13. He remains on antibiotics in the form of Zerbaxa. Continued on prednisone taper. The patient is seen today 03/04/2022 in follow-up on the regular medical floor. He is currently sitting up in a chair at the bedside. Awake and alert in no acute distress. Maintaining good O2 saturations in the mid 90s on 2 L/m per nasal cannula. Afebrile. Hemodynamically stable. Bronchoscopy cultures and pathology are pending. White count 11.0. Hemoglobin 7.8. Sodium 151. Potassium 3.0. Chloride 116. Bicarb 22. BUN 27. Creatinine 1.4. AST 32. ALT 53. Glucose 70. He is continued on antibiotics in the form of Zerbaxa. Patient is seen today 03/05/2022 in follow-up on the regular medical floor. He is currently resting comfortably in bed. Awake and alert in no acute distress. He is maintaining O2 saturations in the 90s on room air. He's afebrile. Hemodynamically stable. Pathology from bronchial biopsies and washings were negative for malignancy. Cultures are revealing no growth thus far. Washings were positive for herpes simplex type I and cytomegalovirus. White count 10.2. Hemoglobin 7.4. Sodium 149. Potassium 2.7. BUN 25. Creatinine 1.2. He is continued on antibiotics in the form of Zerbaxa. He has been on antibiotics for the last 20+ days. The patient is seen today 03/06/2022 in follow-up on the regular medical floor. Awake and alert in no acute distress. Currently resting comfortably in bed. Maintaining O2 saturations in the 90s on 2 L/m per nasal cannula. He's been afebrile. Hemodynamically stable. Pathology from bronchoscopy lavage, brushings and transbronchial biopsies revealed no evidence of malignancy. Bronchial wash cultures were positive for Aspergillus species. Labs are pending. He remains on Zerbaxa per ID services. Continued on a prednisone paper. Continued on bronchodilators. The patient is seen today 03/07/2022 in follow-up on the regular medical floor. He is currently resting comfortably in bed. Awake and alert in no acute distr ess. Maintaining O2 saturations in the 90s on 2 L/m per nasal cannula. He is afebrile. Hemodynamically stable. Bronchial wash cultures were positive for Aspergillus fumigatus. He's been initiated on voriconazole. He is continued on Zerbaxa. Remains on bronchodilators. Remains on prednisone. Pro-calcitonin 0.09. The patient is seen today 03/08/2022 in follow-up on the regular medical floor. He is awake and alert in no acute distress. Resting fairly comfortably in bed. Maintaining O2 saturation mainin the mid 90s on room air. He's afebrile. Hemodynamically stable. Bronchial washings were positive for Aspergillus fumigatus. IgE was less than 0.10. ProCalcitonin 0.09. He is continued on voriconazole. Remains on a prednisone taper. Reevaluated today on 03/09/22, patient is demonstrating some improvement, he denies any cough, no shortness of breath, remains on voriconazole, and the plan is to finish few more days of IV voriconazole, and switch him to oral voriconazole. And eventually transfer the patient to a fpc. Patient does not have bacterial pneumonia and his pro-calcitonin level was 0.09. Hence his antibiotics have been discontinued. No labs were done today, however his chest x-ray is showing already some improvement considering the improvement noted on the chest x-ray, I believe the patient should continue on voriconazole Objective - Vital Signs Vital signs: Vital Signs Temp 98.3 F 03/09/22 08:00 Pulse 82 03/09/22 12:21 Resp 16 03/09/22 08:44 BP 103/48 03/09/22 08:00 Pulse Ox 94 L 03/09/22 08:00 FiO2 Intake & Output 03/08/22 03/09/22 03/09/22 18:59 06:59 18:59 Other: Voiding Method Diaper Diaper Diaper Incontinent External Catheter # Voids 3 2 - Exam GENERAL EXAM: Alert, cachectic 81-year-old male, resting comfortably in bed, 3 L nasal cannula, O2 sats is 94%. HEAD: Normocephalic. EYES: Normal reaction of pupils, equal size. NOSE: Clear with pink turbinates. THROAT: No erythema or exudates. NECK: No masses, no JVD. CHEST: No chest wall deformity. LUNGS: Equal air entry with few scattered rhonchi. CVS: S1 and S2 normal with no audible murmur, regular rhythm. ABDOMEN: No hepatosplenomegaly, normal bowel sounds, no guarding or rigidity. SPINE: No scoliosis or deformity SKIN: No rashes CENTRAL NERVOUS SYSTEM: No focal deficits, tone is normal in all 4 extremities. EXTREMITIES: There is no peripheral edema. No clubbing, no cyanosis. Peripheral pulses are intact. - Labs CBC & Chem 7: 03/05/22 06:52 03/05/22 18:03 Assessment and Plan Assessment: Acute hypoxemic respiratory failure secondary to a chronic thick-walled cavitary lesion, left upper lobe. Navigational bronchoscopy with BAL and biopsies of the left upper lobe were performed on 03/03/2022. Cultures are revealing Asperg illus fumigatus. Pathology reveals no malignancy. Viruses positive for herpes simplex 1 and cytomegalovirus. Pro-calcitonin 0.06. Zerbaxa discontinued. Initiated on voriconazole History of CAD with PCI/stent. History of hyperlipidemia. History of hypertension. 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 Blindness with questionable temporal arteritis maintain on 20 mg of prednisone CHF, with an ejection fraction of around 20-25% related to ischemic cardi omyopathy Moderate degree of tricuspid regurgitation/pulmonary hypertension Osteoporosis. Acute kidney injury, improving and the creatinine is down to 1.2 Cachectic, weak, emaciated with poor baseline performance of functional status Recommendation: Continue voriconazole intravenously, few more days and switched to oral. Continue present supportive care measures Consider placement next week after stopping IV voriconazole and switching to oral voriconazole. Patient should be followed on outpatient basis post discharge for his cavitary lesions right upper lobe and left upper lobe Time with Patient: Less than 30
[2022-03-09] MEDS: SODIUM CHLORIDE 0.9% 1,000 ML IV SCH (19:11)
[2022-03-09] MEDS: MELATONIN 3 MG TABLET PO SCH (22:27)
--- NOTE | 2022-03-10 01:14 | PN ---
PROGRESS NOTE SUBJECTIVE: The patient's medicine, IV antifungals have been ordered per Pulmonology. He is pleasantly confused because he is talking good. Discussed with him possible long term with IV medications per Dr. Roberto versus Dr. Singh's recommendations. Maintaining oxygen in the mid 90s. Procalcitonin 0.09. Continue on voriconazole, prednisone taper. OBJECTIVE: VITAL SIGNS: Blood pressure 130/50s, O2 95, temperature 98.3, pulse 73, respiratory rate 16 to 18. LUNGS: Scattered rhonchi, wheeze. PSYCH: Giving appropriate answers. He looks cachectic. INTEGUMENT: Some wrinkling. HEART: S1, S2 . ASSESSMENT: Acute hypoxemic respiratory failure secondary to thick-walled cavitary lesion, left upper lobe, status post bronchoalveolar lavage, bronchoscopy, Aspergillus fumigatus, negative for cancer has been discontinued, on voriconazole. He has history of coronary artery disease status post stent, hypertension, dyslipidemia, history oral cancer jaw muscle graft, doubt temporal arteritis, systolic heart failure with ejection 20% to 25%. Creatinine has improved, down to 1.2. Cachectic, weak. Continue IV voriconazole for 5 days and switch to oral. Possible discharge to the long term tomorrow. Prognosis is guarded. MMODL / IJN: [id number] /
[2022-03-10] MEDS: SODIUM CHLORIDE 0.9% IVPB SCH (02:59)
[2022-03-10] MEDS: VORICONAZOLE IVPB SCH (02:59)
[2022-03-10] MEDS: PANTOPRAZOLE 40 MG TABLET PO SCH (06:44)
[2022-03-10] MEDS: ALBUTEROL NEBULIZED 2.5 MG/3 ML INHALATION SCH ×3 (08:33→20:44)
[2022-03-10] MEDS: FUROSEMIDE 20 MG TAB PO SCH (09:17)
[2022-03-10] MEDS: ASPIRIN 81 MG PO SCH (09:18)
[2022-03-10] MEDS: predniSONE 20 MG TAB PO SCH (09:18)
[2022-03-10] MEDS: ATORVASTATIN 80 MG TAB PO SCH (09:18)
[2022-03-10] MEDS: METOPROLOL TARTRATE 25 MG TAB PO SCH ×2 (09:18→21:18)
[2022-03-10] MEDS: SENNOSIDES 8.6 MG TAB PO PRN (09:24)
[2022-03-10 10:08] LABS: Anisocytosis Slight; Basophils % (A) 0 %; Eosinophils # (A) 0.1 k/uL (0-0.7); Eosinophils % (A) 1 %; HCT 28.6 % (39.0-53.0); HGB 9.1 gm/dL (13.0-17.5); Hypochromasia Moderate; Lymphocytes # (A) 1.3 k/uL (1.0-4.8); Lymphocytes % (A) 12 %; MCH 29.7 pg (25.0-35.0); MCHC 31.8 g/dL (31.0-37.0); MCV 93.3 fL (80.0-100.0); Mean Platelet Volume 8.5; Monocytes # (A) 0.4 k/uL (0-1.0); Monocytes % (A) 4 %; Neutrophils # (A) 9.4 k/uL (1.3-7.7); Neutrophils % (A) 83 %; Platelet Count 200 k/uL (150-450); Poikilocytosis Slight; RBC 3.06 m/uL (4.30-5.90); RDW 18.4 % (11.5-15.5); WBC 11.2 k/uL (3.8-10.6)
--- NOTE | 2022-03-10 14:27 | P.PN ---
Subjective Progress Note Date: 03/10/22 On 03/02/2022, I had a lengthy discussion with the patient's children. The patient has adopted children who arrived to the hospital and I went over the case at length with him. Summary, I'm not absolutely sure whether the patient has an underlying malignancy. The patient has a cavitating the left upper lobe. Previous cultures showing pseudomonas aeruginosa and Aspergillus. The patient has been on Ceftolozane. Nevertheless, despite antibiotic treatment, I haven't seen any much improvement in the patient's clinical condition and the chest x- ray findings. In fact, most recent CAT scan of the chest with ongoing cavitation left upper lobe, and a new area of cavitating the right lung. There was also developed the bilateral pleural effusion. The patient is doing very poorly. He communicates. However, he does not. His oral intake is minimal. Nutrition obviously has become initiation of this patient. He has no ambition or motives to get out of the bed. 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 He remains on prednisone 20 mg by mouth daily. 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 He has no headaches. No altered mentation. Extremely weak. Congestive cough is still present. Minimal sputum production. He is having episodes of hemoptysis. No hemoptysis for now. Hemoglobin from yesterday was down to 7.7. The patient is seen today 03/03/2022 in follow-up on the regular medical floor. He is currently resting comfortably in bed. Awake and alert in no acute distress. He did undergo bronchoscopy with biopsies and BAL this morning by Dr. Villa. Cultures and pathology are pending. He tolerated the procedure well. On 2 L nasal cannula. He denies any worsening shortness of breath, cough or congestion. White count 11.0. Hemoglobin 8.0. Sodium 147. Potassium 3.3. Chloride 117. Bicarb 21. BUN 33. Creatinine 1.54. Pro-calcitonin 0.13. He remains on antibiotics in the form of Zerbaxa. Continued on prednisone taper. The patient is seen today 03/04/2022 in follow-up on the regular medical floor. He is currently sitting up in a chair at the bedside. Awake and alert in no acute distress. Maintaining good O2 saturations in the mid 90s on 2 L/m per nasal cannula. Afebrile. Hemodynamically stable. Bronchoscopy cultures and pathology are pending. White count 11.0. Hemoglobin 7.8. Sodium 151. Potassium 3.0. Chloride 116. Bicarb 22. BUN 27. Creatinine 1.4. AST 32. ALT 53. Glucose 70. He is continued on antibiotics in the form of Zerbaxa. Patient is seen today 03/05/2022 in follow-up on the regular medical floor. He is currently resting comfortably in bed. Awake and alert in no acute distress. He is maintaining O2 saturations in the 90s on room air. He's afebrile. Hemodynamically stable. Pathology from bronchial biopsies and washings were negative for malignancy. Cultures are revealing no growth thus far. Washings were positive for herpes simplex type I and cytomegalovirus. White count 10.2. Hemoglobin 7.4. Sodium 149. Potassium 2.7. BUN 25. Creatinine 1.2. He is continued on antibiotics in the form of Zerbaxa. He has been on antibiotics for the last 20+ days. The patient is seen today 03/06/2022 in follow-up on the regular medical floor. Awake and alert in no acute distress. Currently resting comfortably in bed. Maintaining O2 saturations in the 90s on 2 L/m per nasal cannula. He's been afebrile. Hemodynamically stable. Pathology from bronchoscopy lavage, brushings and transbronchial biopsies revealed no evidence of malignancy. Bronchial wash cultures were positive for Aspergillus species. Labs are pending. He remains on Zerbaxa per ID services. Continued on a prednisone paper. Continued on bronchodilators. The patient is seen today 03/07/2022 in follow-up on the regular medical floor. He is currently resting comfortably in bed. Awake and alert in no acute distress. Maintaining O2 saturations in the 90s on 2 L/m per nasal cannula. He is afebrile. Hemodynamically stable. Bronchial wash cultures were positive for Aspergillus fumigatus. He's been initiated on voriconazole. He is continued on Zerbaxa. Remains on bronchodilators. Remains on prednisone. Pro-calcitonin 0.09. The patient is seen today 03/08/2022 in follow-up on the regular medical floor. He is awake and alert in no acute distress. Resting fairly comfortably in bed. Maintaining O2 saturation mainin the mid 90s on room air. He's afebrile. Hemodynamically stable. Bronchial washings were positive for Aspergillus fumigatus. IgE was less than 0.10. ProCalcitonin 0.09. He is continued on voriconazole. Remains on a prednisone taper. The patient is seen today 03/10/2022 in follow-up on the regular medical floor. He is resting comfortably in bed. Awake and alert in no acute distress. He is maintaining O2 saturations in the 90s on room air. He has 0.9 normal saline at KVO. He is continued on IV voriconazole all for his Aspergillus fumigatus. White count 11.2. Hemoglobin 9.1. Pro-calcitonin was 0.09. He remains on a prednisone taper. Objective - Vital Signs Vital signs: Vital Signs Temp 97.3 F L 03/10/22 08:00 Pulse 80 03/10/22 13:06 Resp 17 03/10/22 09:15 BP 91/49 03/10/22 08:00 Pulse Ox 94 L 03/10/22 08:36 FiO2 Intake & Output 03/09/22 03/10/22 03/10/22 18:59 06:59 18:59 Output Total 200 350 2 Balance -200 -350 -2 Weight 83.915 kg Output: Urine 200 350 Stool 2 Other: Voiding Method Diaper Diaper Diaper # Voids 4 - Exam GENERAL EXAM: Alert, cachectic 81-year-old male, resting comfortably in bed, on room air, comfortable in no apparent distress. HEAD: Normocephalic. EYES: Normal reaction of pupils, equal size. NOSE: Clear with pink turbinates. THROAT: No erythema or exudates. NECK: No masses, no JVD. CHEST: No chest wall deformity. LUNGS: Equal air entry with few scattered rhonchi. CVS: S1 and S2 normal with no audible murmur, regular rhythm. ABDOMEN: No hepatosplenomegaly, normal bowel sounds, no guarding or rigidity. SPINE: No scoliosis or deformity SKIN: No rashes CENTRAL NERVOUS SYSTEM: No focal deficits, tone is normal in all 4 extremities. EXTREMITIES: There is no peripheral edema. No clubbing, no cyanosis. Peripheral pulses are intact. - Labs CBC & Chem 7: 03/10/22 09:35 03/05/22 18:03 Labs: Abnormal Lab Results - Last 24 Hours (Table) 03/10/22 Range/Units 09:35 WBC 11.2 H (3.8-10.6) k/uL RBC 3.06 L (4.30-5.90) m/uL Hgb 9.1 L (13.0-17.5) gm/dL Hct 28.6 L (39.0-53.0) % RDW 18.4 H (11.5-15.5) % Neutrophils # 9.4 H (1.3-7.7) k/uL Assessment and Plan Assessment: Acute hypoxemic respiratory failure secondary to a chronic thick-walled cavitary lesion, left upper lobe. Navigational bronchoscopy with BAL and biopsies of the left upper lobe were performed on 03/03/2022. 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 Pathology reveals no malignancy. Viruses positive for herpes simplex 1 and cytomegalovirus. Pro-calcitonin 0.09. Zerbaxa discontinued. Initiated on voriconazole. History of CAD with PCI/stent. History of hyperlipidemia. History of hypertension. 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 Acute kidney injury, improving and the creatinine is down to 1.2 Cachectic, weak, emaciated with poor baseline performance of functional status Plan The patient was seen and evaluated Medications and labs reviewed Cultures positive for Aspergillus fumigatus Discontinue voriconazole IV Initiated on oral voriconazole 200 mg twice a day Cleared for discharge from pulmonary standpoint Follow up chest x-ray in our office in 1 week I have personally seen and examined the patient, performed the documentation and the assessment and plan as written. Number of minutes spent on the visit: 10.
[2022-03-10 16:21] LABS: ALT 63 U/L (4-49); AST 54 U/L (17-59); African American GFR (CKD) >90 (>60 ml/min/1.73 sqM); Albumin 2.5 g/dL (3.5-5.0); Alkaline Phosphatase 172 U/L (38-126); Anion Gap 7 mmol/L; Blood Urea Nitrogen 19 mg/dL (9-20); Calcium 6.7 mg/dL (8.4-10.2); Carbon Dioxide 29 mmol/L (22-30); Chloride 108 mmol/L (98-107); Globulin 2.4 g/dL; Glucose 117 mg/dL (74-99); Non-African American GFR(CKD) 80 (>60 ml/min/1.73 sqM); Sodium 144 mmol/L (137-145); Total Bilirubin 0.5 mg/dL (0.2-1.3); Total Protein 4.9 g/dL (6.3-8.2)
[2022-03-10 16:30] LABS: Potassium 2.5 mmol/L (3.5-5.1)
[2022-03-10] MEDS ORDERED: Potassium Replacement Protocol 1 EACH MISC MISCELLANE PRN (18:48)
[2022-03-10] MEDS: SODIUM CHLORIDE 0.9% 1,000 ML IV SCH (21:10)
[2022-03-10] MEDS: POTASSIUM CHLORIDE 20 MEQ in WATER FOR INJECTION 1 100ML.BAG IVPB SCH ×2 (21:18→23:36)
[2022-03-10] MEDS: VORICONAZOLE 200 MG TAB PO SCH (21:18)
[2022-03-10] MEDS: MELATONIN 3 MG TABLET PO SCH (21:18)
[2022-03-11] MEDS: POTASSIUM CHLORIDE 20 MEQ in WATER FOR INJECTION 1 100ML.BAG IVPB SCH (01:46)
[2022-03-11] MEDS: PANTOPRAZOLE 40 MG TABLET PO SCH (06:26)
[2022-03-11] MEDS: ALBUTEROL NEBULIZED 2.5 MG/3 ML INHALATION SCH ×3 (09:11→19:42)
[2022-03-11] MEDS: FUROSEMIDE 20 MG TAB PO SCH (09:48)
[2022-03-11] MEDS: METOPROLOL TARTRATE 25 MG TAB PO SCH ×2 (09:48→21:55)
[2022-03-11] MEDS: predniSONE 20 MG TAB PO SCH (09:48)
[2022-03-11] MEDS: VORICONAZOLE 200 MG TAB PO SCH ×2 (09:48→21:55)
[2022-03-11] MEDS: ATORVASTATIN 80 MG TAB PO SCH (09:48)
[2022-03-11] MEDS: ASPIRIN 81 MG PO SCH (09:48)
--- NOTE | 2022-03-11 13:41 | P.PN ---
Subjective Progress Note Date: 03/11/22 On 03/02/2022, I had a lengthy discussion with the patient's children. The patient has adopted children who arrived to the hospital and I went over the case at length with him. Summary, I'm not absolutely sure whether the patient has an underlying malignancy. The patient has a cavitating the left upper lobe. Previous cultures showing pseudomonas aeruginosa and Aspergillus. The patient has been on Ceftolozane. Nevertheless, despite antibiotic treatment, I haven't seen any much improvement in the patient's clinical condition and the chest x- ray findings. In fact, most recent CAT scan of the chest with ongoing cavitation left upper lobe, and a new area of cavitating the right lung. There was also developed the bilateral pleural effusion. The patient is doing very poorly. He communicates. However, he does not. His oral intake is minimal. Nutrition obviously has become initiation of this patient. He has no ambition or motives to get out of the bed. 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 He remains on prednisone 20 mg by mouth daily. 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 He has no headaches. No altered mentation. Extremely weak. Congestive cough is still present. Minimal sputum production. He is having episodes of hemoptysis. No hemoptysis for now. Hemoglobin from yesterday was down to 7.7. The patient is seen today 03/03/2022 in follow-up on the regular medical floor. He is currently resting comfortably in bed. Awake and alert in no acute distress. He did undergo bronchoscopy with biopsies and BAL this morning by Dr. Villa. Cultures and pathology are pending. He tolerated the procedure well. On 2 L nasal cannula. He denies any worsening shortness of breath, cough or congestion. White count 11.0. Hemoglobin 8.0. Sodium 147. Potassium 3.3. Chloride 117. Bicarb 21. BUN 33. Creatinine 1.54. Pro-calcitonin 0.13. He remains on antibiotics in the form of Zerbaxa. Continued on prednisone taper. The patient is seen today 03/04/2022 in follow-up on the regular medical floor. He is currently sitting up in a chair at the bedside. Awake and alert in no acute distress. Maintaining good O2 saturations in the mid 90s on 2 L/m per nasal cannula. Afebrile. Hemodynamically stable. Bronchoscopy cultures and pathology are pending. White count 11.0. Hemoglobin 7.8. Sodium 151. Potassium 3.0. Chloride 116. Bicarb 22. BUN 27. Creatinine 1.4. AST 32. ALT 53. Glucose 70. He is continued on antibiotics in the form of Zerbaxa. Patient is seen today 03/05/2022 in follow-up on the regular medical floor. He is currently resting comfortably in bed. Awake and alert in no acute distress. He is maintaining O2 saturations in the 90s on room air. He's afebrile. Hemodynamically stable. Pathology from bronchial biopsies and washings were negative for malignancy. Cultures are revealing no growth thus far. Washings were positive for herpes simplex type I and cytomegalovirus. White count 10.2. Hemoglobin 7.4. Sodium 149. Potassium 2.7. BUN 25. Creatinine 1.2. He is continued on antibiotics in the form of Zerbaxa. He has been on antibiotics for the last 20+ days. The patient is seen today 03/06/2022 in follow-up on the regular medical floor. Awake and alert in no acute distress. Currently resting comfortably in bed. Maintaining O2 saturations in the 90s on 2 L/m per nasal cannula. He's been afebrile. Hemodynamically stable. Pathology from bronchoscopy lavage, brushings and transbronchial biopsies revealed no evidence of malignancy. Bronchial wash cultures were positive for Aspergillus species. Labs are pending. He remains on Zerbaxa per ID services. Continued on a prednisone paper. Continued on bronchodilators. The patient is seen today 03/07/2022 in follow-up on the regular medical floor. He is currently resting comfortably in bed. Awake and alert in no acute distress. Maintaining O2 saturations in the 90s on 2 L/m per nasal cannula. He is afebrile. Hemodynamically stable. Bronchial wash cultures were positive for Aspergillus fumigatus. He's been initiated on voriconazole. He is continued on Zerbaxa. Remains on bronchodilators. Remains on prednisone. Pro-calcitonin 0.09. The patient is seen today 03/08/2022 in follow-up on the regular medical floor. He is awake and alert in no acute distress. Resting fairly comfortably in bed. Maintaining O2 saturation mainin the mid 90s on room air. He's afebrile. Hemodynamically stable. Bronchial washings were positive for Aspergillus fumigatus. IgE was less than 0.10. ProCalcitonin 0.09. He is continued on voriconazole. Remains on a prednisone taper. The patient is seen today 03/10/2022 in follow-up on the regular medical floor. He is resting comfortably in bed. Awake and alert in no acute distress. He is maintaining O2 saturations in the 90s on room air. He has 0.9 normal saline at KVO. He is continued on IV voriconazole all for his Aspergillus fumigatus. White count 11.2. Hemoglobin 9.1. Pro-calcitonin was 0.09. He remains on a prednisone taper. The patient is seen today 03/11/2022 in follow-up on the regular medical floor. He is awake and alert in no acute distress. Maintaining O2 saturations in the 90s on room air. Resting comfortably in bed. He has been converted to oral voriconazole for his Aspergillus fumigatus. Tolerating it well. Remains on a prednisone taper. Plan is for discharge to [facility] for subacute rehabilitation Objective - Vital Signs Vital signs: Vital Signs Temp 98.2 F 03/11/22 07:23 Pulse 78 03/11/22 12:26 Resp 20 03/11/22 07:23 BP 104/67 03/11/22 07:23 Pulse Ox 97 03/11/22 07:23 FiO2 Intake & Output 03/10/22 03/11/22 03/11/22 18:59 06:59 18:59 Output Total 6 Balance -6 Weight 83.915 kg Output: Urine 4 Stool 2 Other: Voiding Method Diaper Diaper # Voids 3 - Exam GENERAL EXAM: Alert, frail 81-year-old male, resting comfortably in bed, on room air, comfortable in no apparent distress. HEAD: Normocephalic. EYES: Normal reaction of pupils, equal size. NOSE: Clear with pink turbinates. THROAT: No erythema or exudates. NECK: No masses, no JVD. CHEST: No chest wall deformity. LUNGS: Equal air entry with few scattered rhonchi. CVS: S1 and S2 normal with no audible murmur, regular rhythm. ABDOMEN: No hepatosplenomegaly, normal bowel sounds, no guarding or rigidity. SPINE: No scoliosis or deformity SKIN: No rashes CENTRAL NERVOUS SYSTEM: No focal deficits, tone is normal in all 4 extremities. EXTREMITIES: There is no peripheral edema. No clubbing, no cyanosis. Peripheral pulses are intact. - Labs CBC & Chem 7: 03/10/22 09:35 03/10/22 09:35 Labs: Abnormal Lab Results - Last 24 Hours (Table) 03/10/22 Range/Units 09:35 Potassium 2.5 L* (3.5-5.1) mmol/L Chloride 108 H (98-107) mmol/L Glucose 117 H (74-99) mg/dL Calcium 6.7 L (8.4-10.2) mg/dL ALT 63 H (4-49) U/L Alkaline Phosphatase 172 H (38-126) U/L Total Protein 4.9 L (6.3-8.2) g/dL Albumin 2.5 L (3.5-5.0) g/dL Assessment and Plan Assessment: Acute hypoxemic respiratory failure secondary to a chronic thick-walled cavitary lesion, left upper lobe. Navigational bronchoscopy with BAL and biopsies of the left upper lobe were performed on 03/03/2022. 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 Pathology reveals no malignancy. Viruses positive for herpes simplex 1 and cytomegalovirus. Pro-calcitonin 0.09. Zerbaxa discontinued. Initiated on voriconazole. History of CAD with PCI/stent. History of hyperlipidemia. History of hypertension. 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 Acute kidney injury, improving and the creatinine is down to 1.2 Cachectic, weak, emaciated with poor baseline performance of functional status Plan The patient was seen and evaluated Medications reviewed Currently on oral voriconazole for Aspergillus Plan will be for a complete four-week treatment Cleared for discharge from pulmonary standpoint Follow-up in our office in 1-2 weeks' I have personally seen and examined the patient, performed the documentation and the assessment and plan as written. Number of minutes spent on the visit: 10.
[2022-03-11] MEDS: SODIUM CHLORIDE 0.9% 1,000 ML IV SCH (15:43)
[2022-03-11] MEDS: MELATONIN 3 MG TABLET PO SCH (21:55)
[2022-03-11] MEDS: SENNOSIDES 8.6 MG TAB PO PRN (21:55)
--- NOTE | 2022-03-11 23:27 | DS ---
DISCHARGE SUMMARY DISCHARGE DIAGNOSES: 1. 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 2. Acute kidney injury. 3. Acute hypoxemic respiratory failure. 4. Chronic obstructive pulmonary disease. 5. Acute loss of vision. 6. History of gastroesophageal reflux disease. 7. Osteoporosis. 8. Dyslipidemia. 9. Hypertension. DISCHARGE MEDICATIONS: The patient will go home on, 1. Melatonin 3 mg daily. 2. Voriconazole 200 mg q.12 hours for another 14 days. 3. Senokot 8.5 mg daily. 4. Aspirin 81 mg daily. 5. Lipitor 80 mg daily. 6. Lasix 20 mg daily. 7. Protonix 40 mg daily. 8. Fosamax 70 mg weekly. 9. Ventolin inhaler 2 puffs 2.5 mg nebulized t.i.d. 10.Prednisone/Deltasone 20 mg daily. 11.Lopressor 25 b.i.d. CONDITION: Stable. PROGNOSIS: Guarded. ACTIVITY: Ambulate as tolerated. HOSPITAL COURSE: White male came into the hospital for recurrent admission after failing outpatient antibiotics for lung abscess, which was found on bronchoscopy to be Pseudomonas- related, fungal-related, and viral-related. We switched him over from Zerbaxa to voriconazole, which he will continue on for a few weeks. He is improving, but he needs 2 L of oxygen to wear all the time. He needs aspiration precautions on the patient and the patient appears to be stabilizing. He is saturating in the mid 90s on 2 L oxygen. He will need nebulizer treatments with DuoNeb t.i.d. most likely and continue on current treatment for the lung abscess, maybe do a CT scan in a couple of weeks to see if it is cleared up. Possibly follow up with Dr. Roberto for lung abscess in his clinic. Prognosis is guarded. Condition stable. MMODL / IJN: [id number] /
[2022-03-12] MEDS: PANTOPRAZOLE 40 MG TABLET PO SCH (06:30)
[2022-03-12] MEDS: predniSONE 20 MG TAB PO SCH (08:19)
[2022-03-12] MEDS: ASPIRIN 81 MG PO SCH (08:19)
[2022-03-12] MEDS: ATORVASTATIN 80 MG TAB PO SCH (08:19)
[2022-03-12] MEDS: FUROSEMIDE 20 MG TAB PO SCH (08:19)
[2022-03-12] MEDS: VORICONAZOLE 200 MG TAB PO SCH (08:19)
[2022-03-12] MEDS: METOPROLOL TARTRATE 25 MG TAB PO SCH (08:19)
[2022-03-12 08:27] VITALS: BP 93/60; RESP 18; TEMP 97.3
[2022-03-12] MEDS: ALBUTEROL NEBULIZED 2.5 MG/3 ML INHALATION SCH ×2 (10:10→11:54)
[2022-03-12 12:04] VITALS: PULSE 68
--- NOTE | 2022-03-14 12:21 | CDI ---
Documentation Clarification Form Date: 03/14/2022 12:03:18 PM From: Jailyn Cosby Phone: Admit Date: 02/26/2022 07:13:00 PM Patient Name: Ronaldo Crespo Visit Number: [id number] Discharge Date: 03/12/2022 01:07:00 PM ATTENTION: The Clinical Documentation Specialists (CDI) and [facility] Coding Staff appreciate your assistance in clarifying documentation. Please respond to the clarification below the line at the bottom and electronically sign. The CDI & [facility] Coding staff will review the response and follow-up if needed. Please note: Queries are made part of the Legal Health Record. If you have any questions, please contact the author of this message via ITS. Dr. Catrachito Santana Malnutrition is documented. Additional clarification regarding the severity of malnutrition is requested. Mild protein calorie malnutrition per Dr. Brent Schwartz Progress Note 02/28/[address] Catrachito Santana Progress Note 03/07 History/Risk Factors: 81yo M, Drug-resistant lung, abscess with Pseudomonas, pulmonary aspergillosis, Other cytomegalovirus diseases, AIXA, AHRF, CSHF, COPD, GERD, HLD, Acute loss of vision, Osteoporosis, Other giant cell arteritis, pHTN Clinical Indicators: Current BMI: 26.5 General: Cachectic, weak, emaciated with poor baseline performance of functional status; bedridden; He has he has low BMI, is thin, cachectic, pleasantly confused. He has poor appetite. Treatment: Dietary Consult: Dietitian recommends increased protein shakes and G2. Await recommendations from dietitian, Pulmonary, and Infectious Disease. Please clarify the type of malnutrition, if known: [ ] Mild Protein-Calorie Malnutrition [ ] Moderate Protein-Calorie Malnutrition [ ] Severe Protein-Calorie Malnutrition [ ] Unable to Determine (Template Last Revised: June 2020) MTDD
--- NOTE | 2022-03-16 05:15 | PN ---
PROGRESS NOTE ADDENDUM: Severe protein-calorie malnutrition. MMODL / IJN: [id number] /
== END 2022-03-12 13:07 | DRG 166 ==
LOC: EC 18:11 → 4SSUR 19:13
PROVIDERS: ADMIT Family Medicine; ATTEND Family Medicine
PROC: XW03396 Introduction of Ceftolozane/Tazobactam Anti-infective into Peripheral Vein, Percutaneous Approach, New Technology Group 6 (ICD-10-PCS; 2022-02-26)
PROC: 0BBC8ZX Excision of Right Upper Lung Lobe, Via Natural or Artificial Opening Endoscopic, Diagnostic (ICD-10-PCS; principal; 2022-03-03 07:30)
PROC: 0B9G8ZX Drainage of Left Upper Lung Lobe, Via Natural or Artificial Opening Endoscopic, Diagnostic (ICD-10-PCS; 2022-03-03 07:30)
PROC: 0BD88ZX Extraction of Left Upper Lobe Bronchus, Via Natural or Artificial Opening Endoscopic, Diagnostic (ICD-10-PCS; 2022-03-03 07:30)
DX: J15.1 Pneumonia due to Pseudomonas (principal); E43 Unspecified severe protein-calorie malnutrition; J85.1 Abscess of lung with pneumonia; J96.01 Acute respiratory failure with hypoxia; Z16.24 Resistance to multiple antibiotics; I50.22 Chronic systolic (congestive) heart failure; B44.1 Other pulmonary aspergillosis; J44.0 Chronic obstructive pulmonary disease with (acute) lower respiratory infection; N17.9 Acute kidney failure, unspecified; R04.2 Hemoptysis; B25.9 Cytomegaloviral disease, unspecified; J98.11 Atelectasis; J91.8 Pleural effusion in other conditions classified elsewhere; D63.8 Anemia in other chronic diseases classified elsewhere; I27.20 Pulmonary hypertension, unspecified; M31.6 Other giant cell arteritis; I11.0 Hypertensive heart disease with heart failure; I08.1 Rheumatic disorders of both mitral and tricuspid valves; E88.09 Other disorders of plasma-protein metabolism, not elsewhere classified; E78.5 Hyperlipidemia, unspecified; H54.8 Legal blindness, as defined in USA; M81.0 Age-related osteoporosis without current pathological fracture; K21.9 Gastro-esophageal reflux disease without esophagitis; I25.10 Atherosclerotic heart disease of native coronary artery without angina pectoris; I25.5 Ischemic cardiomyopathy; Z74.01 Bed confinement status; B00.9 Herpesviral infection, unspecified; J16.8 Pneumonia due to other specified infectious organisms; Z79.899 Other long term (current) drug therapy; Z79.83 Long term (current) use of bisphosphonates; Z79.82 Long term (current) use of aspirin; Z91.040 Latex allergy status; Z85.819 Personal history of malignant neoplasm of unspecified site of lip, oral cavity, and pharynx; Z85.820 Personal history of malignant melanoma of skin; Z95.5 Presence of coronary angioplasty implant and graft; Z85.858 Personal history of malignant neoplasm of other endocrine glands; Z68.26 Body mass index [BMI] 26.0-26.9, adult; R54 Age-related physical debility
CPT/HCPCS: 31623; 31624; 31625; 31627; 31629; 36410; 71045; 71250; 76937; 80048; 80053; 82565; 84132; 84145; 85025; 86003; 86140; 86606; 87070; 87102; 87116; 87205; 87206; 87252; 87305; 87496; 87498; 87502; 87529; 87634; 87798; 88104; 88108; 88305; 88312; 89050; 94640; 94760; 99284